=== PATIENT | male | born 1940 | race Caucasian/White ===

== ENCOUNTER 2017-09-25 21:23 | Inpatient (IN) | payer OTHER, MEDICARE ==
[~2017-09-25] VITALS: Ht 180.3 cm; Wt 123.4 kg
[2017-09-25 22:15] LABS: ABSOLUTE BASOPHIL COUNT 0 /CUMM (0.0-0.2); ABSOLUTE EOSINOPHIL COUNT 0 /CUMM (0.0-0.7); ABSOLUTE GRANULOCYTE CT 17.2 /CUMM (1.4-6.5); ABSOLUTE LYMPH COUNT 1.6 /CUMM (1.2-3.4); BASOPHIL % 0 % (0.0-2.0); EOSINOPHIL % 0 % (0-5); GRANULOCYTE % 86.9 % (42.2-75.2); HEMATOCRIT 48.1 % (42-52); MEAN CORPUSCULAR HGB 30.7 PG (27.0-31.0); MEAN CORPUSCULAR HGB CONC 33.4 G/DL (33.0-37.0); MEAN CORPUSCULAR VOLUME 91.9 FL (80.0-94.0); PLATELET COUNT 164 /CUMM (130-400); RBC DISTRIBUTION WIDTH 14.1 % (11.5-14.5); RED BLOOD CELL CT 5.24 /CUMM (4.70-6.10); WHITE BLOOD CELL COUNT 19.8 /CUMM (4.8-10.8)
--- NOTE | 2017-09-25 23:20 | ED GENERAL ADULT ---
See Addendum History of Present Illness General Chief Complaint: General Adult Stated Complaint: PT IS SAYS HIS DR SENT FOR BAD PAIN ,NOT EATING Source: patient, family, old records Exam Limitations: no limitations Vital Signs & Intake/Output Vital Signs & Intake/Output Vital Signs Date Time Temp Pulse Resp B/P B/P Pulse O2 O2 Flow FiO2 Mean Ox Delivery Rate 09/25 2303 134 99/65 09/25 2207 Room Air 09/25 2139 97.6 101 18 104/72 95 Room Air Allergies Coded Allergies: No Known Allergies (09/25/17) Triage Note: PT FROM HOME C/O PT INTRACTABLE BACK PAIN X2 MONTHS POST FALL OUT OF BED. PT SIB DR BASILIO FOR A DIRECT ADMIT. PT DENIES MEDICATING. PT IS HARD OF HEARING AND CURRENTLY DOES NOT HAVE HEARING AIDS, PT ASSISTED BY DAUGHTER. DURING TRIAGE PT STATES THAT PT HAS TO USE THE BATHROOM, PT IS INCONTINENT AND IS UNSTEADY INDEPEDENTLY PER PTS DAUGHTER. PT BROUGHT BACK TO [facility]. Triage Nurses Notes Reviewed? yes HPI: 77-year-old man with multiple medical problems sent in by his PCP for intractable back pain. Patient was reportedly in his normal state of health and independent in all ADLs/IADLs 8 weeks ago when he apparently "fell out of bed" and hurt his back. He was sent for a chest x-ray that apparently ruled out any rib fracture. Since this time patient has had significant decline in his ADLs/ IADLs. Patient lives with his son but is essentially on his own most the time. He has been incontinent of urine as he is unable to get out of bed to use the restroom. He has not eaten anything in the past 3 days due to being unable to get out of his bed. He has not had a bowel movement in that time either. His daughter contacted his PCP Johnna Bunch MD this afternoon whom recommended the patient come to the ED for evaluation. Of note patient is currently receiving treatment for bladder cancer from urologist Dr. Contreras of [place]. He reportedly has undergone 12/15 rounds of chemo. He apparently had an MRI scheduled last Monday of his bladder to assess the extent of his disease however was unable to attend due to tractable low back pain. He was reportedly prescribed antibiotics from his PCP for a "infection". He does not recall the name of the medication but states that he finished the course. Presently his major complaint is his low back pain. He otherwise denies any headache, fever, chills, vision changes, weight changes, chest pain, palpitations, heartburn, shortness breath, cough, nausea, vomiting, diarrhea, urinary symptoms other than incontinence. (Kristian Bass MD) Past History Travel History Traveled to [place] past 21 day No Medical History Any Pertinent Medical History? see below for history Cardiovascular: hypertension, hyperlipidemia Renal: nephrolithiasis, ENLARGED PROSTATE Musculoskeletal: PSORIASIS Endocrine: diabetes, obesity Surgical History Surgical History: cystoscopy Psychosocial History What is your primary language Chinese Tobacco Use: Quit >30 days ago ETOH Use: denies use Illicit Drug Use: denies illicit drug use Family History Hx Contributory? No (Kristian Bass MD) Review of Systems Review of Systems Constitutional: Reports: see HPI. (Kristian Bass MD) Physical Exam Physical Exam General Appearance: well developed/nourished, no apparent distress, alert, awake , comfortable Comments: General - well developed, obese elderly man in no acute distress HEENT - NCAT, PERRL, EOMI, anicteric sclera Neck- Supple, no JVD/HJR, no bruits, trachea midline, thyroid normal Cardio - S1, S2 w/o murmurs/gallops/rubs; irregularly irregular Resp -scant bibasilar crackles GI - Soft, nontender, nondistended, bowel sounds present Neuro - Awake and alert, CN II - XII grossly intact Extremities - No edema, pulses intact Skin-pale/diaphoretic, cool/clammy to touch Core Measures ACS in differential dx? No CVA/TIA Diagnosis: No Sepsis Present: Yes Sepsis Focused Exam Completed? Yes (Kristian Bass MD) Progress Differential Diagnoses I considered the following diagnoses in my evaluation of the patient: Disc herniation, osteoarthritis, degenerative joint disease, spinal cord compression, urinary tract infection, kidney infection Plan of Care: Orders Procedure Date/time Status Nothing by Mouth 09/26 B Active TROPONIN LEVEL 09/26 0100 Active LACTIC ACID 09/26 0100 Active LACTIC ACID 09/26 0100 Active EKG 09/26 0100 Active LACTIC ACID 09/26 0049 Active ED Holding Orders 09/26 2315 Active Admit to inpatient 09/26 2315 Active Vital Signs 09/26 2315 Active Intake & Output 09/26 2315 Active Code Status 09/26 2315 Active Patient Data 09/25 2309 Active Add-on Test (ER Only) 09/[address] CHEST WO IV CONTRAST 09/[address] ABD & PELVIS W/O IV CONTRAS 09/25 2241 Active BLOOD CULTURE 09/25 2225 Active Add-on Test (ER Only) 09/25 2217 Active EKG 09/25 2217 Active CULTURE,URINE 09/26 2203 Active TSH REFLEX 09/25 2199 Active MAGNESIUM 09/25 2199 Active CREATINE PHOSPHOKINASE 09/25 2199 Active B-TYPE NATRIURETIC PEP (BNP) 09/25 2199 Active URINALYSIS 09/25 2148 Complete TROPONIN LEVEL 09/25 2148 Active LACTIC ACID 09/25 2148 Active COMPREHENSIVE METABOLIC PANEL 09/25 2148 Active CBC WITHOUT DIFFERENTIAL 09/25 2148 Complete Current Medications Sig/Royce Start time Last Medication Dose Stop Time Status Admin Heparin Sodium/ 25,000 UNIT Q24H 09/25 2314 UNVr Dextrose (Heparin) Dextrose/Water 500 ML (D5W) Sodium Chloride 3,578.85 ML ONCE ONE 09/25 2299 UNir (Normal Saline 0.9%) 09/25 2300 Ceftriaxone Sodium 1,000 MG ONCE ONE 09/25 2244 UNVr (Rocephin) 09/25 2245 Laboratory Tests 09/25/172203: Urine Color YEL, Urine Clarity CLDY H, Urine pH 6.0, Ur Specific [place] 1.025, Urine Protein 100 H, Urine Ketones TRACE H, Urine Nitrite NEG, Urine Bilirubin NEG, Urine Urobilinogen 0.2, Ur Leukocyte Esterase SMALL H, Ur Microscopic SEDIMENT EXAMINED, Urine RBC FEW H, Urine WBC PACKD H, Ur Epithelial Cells RARE, Urine Bacteria MANY H, Urine Hemoglobin MOD H, Urine Glucose >=1000 H 09/25/172199: Anion Gap 17 H, Estimated GFR 53 L, BUN/Creatinine Ratio 24.6, Glucose 190 H, Lactic Acid 5.0 H, Calcium 9.4, Magnesium 1.7, Total Bilirubin 1.8 H, AST 40, ALT 32, Alkaline Phosphatase 127 H, Creatine Kinase 369 H, Troponin I 0.04, Lhd-T-Huawoavjyqm Pept 5330 H, Total Protein 7.7, Albumin 4.0, Globulin 3.7, Albumin/Globulin Ratio 1.1, TSH &T3 &Free T4 Intrp Pending, CBC w Diff MAN DIFF ORDERED, RBC 5.24, MCV 91.9, MCH 30.7, MCHC 33.4, RDW 14.1, MPV 9.0, Gran % 86.9 H, Lymphocytes % 7.9 L, Monocytes % 5.2, Eosinophils % 0, Basophils % 0, Absolute Granulocytes 17.2 H, Segmented Neutrophils 83 H, Band Neutrophils 3, Absolute Lymphocytes 1.6, Lymphocytes 5 L, Monocytes 9, Absolute Monocytes 1.0 H, Absolute Eosinophils 0, Absolute Basophils 0, Platelet Estimate VERIFIED BY SMEAR, Normocytic RBCs VERIFIED, Normochromic RBCs VERIFIED, Fld Total RBCs Counted 100 Microbiology 09/25 2257 BLOOD: Blood Culture - RECD 09/25 2254 BLOOD: Blood Culture - RECD 09/26 2203 URINE ROUT: Urine Culture - RECD Initial ED EKG: AFIB Comments: 77-year-old man with multiple medical problems sent in by his PCP for evaluation of intractable back pain. Patient has been essentially been bedbound over the past 8 weeks since he suffered a mechanical fall from his bed. For the past week or so he has been incontinent of urine as he cannot get up from bed and has not eaten any food in the past 72 hours or had any bowel movements. He did not take any of his medications today. Currently he is complaining of only his chronic back pain. Vital signs are significant for tachycardia. Physical examination demonstrates an elderly man in no acute distress with cool/clammy diaphoretic pale skin and an irregularly irregular heart rate and bibasilar crackles with a soft benign abdomen and a nonfocal neurologic examination. Significant labs include WBC 19.8 with left shift, creatinine 1.3, anion gap 17, lactic acid 5.0, magnesium 1.7, T bili 1.8, alk phos 127, CPK 369, troponin I 0.04, BNP 5300, TSH reflex pending. Urinalysis demonstrates small leukocyte esterase with packed WBC and many bacteria with moderate hemoglobin and glucose >1000. EKG demonstrates new onset atrial fibrillation with rapid ventricular response. Blood cultures 2 were obtained and patient received a dose of intravenous Rocephin. Normal saline is started per sepsis protocol. Heparin GGT and Cardizem GGT are to be started for his new onset atrial fibrillation. Clinically patient appears to have sepsis secondary to urinary tract infection with mild acute kidney injury. Patient is found to be in new onset atrial fibrillation which may have been precipitated by the sepsis of urologic origin. CHADsVASc score is elevated for which intravenous heparin is started. Patient's intractable back pain appears to be the etiology of his deconditioning and may have precipitated both the UTI/sepsis and new A. fib. Patient will require admission to the telemetry floor for telemetry monitoring, intravenous fluids/ antibiotics, rate control medications, anticoagulation, echocardiogram, cardiology consultation, and physical therapy evaluation. (Kristian Bass MD) Departure Departure Disposition: STILL A PATIENT Condition: Stable Clinical Impression Primary Impression: Sepsis Secondary Impressions: Acute kidney failure, Intractable basilar artery migraine , New onset atrial fibrillation, UTI (urinary tract infection) Referrals: Johnna Bunch MD (PCP/Family) Departure Forms: Customer Survey General Discharge Information Admission Note Spoke With: Kristian Randall MD Documentation of Exam: Documentation of any treatments & extenuating circumstances including Concerns Regarding Discharge (functional status, medication knowledge or non-compliance, living conditions, etc.) that warrant an admission rather than observation: * Telemetry monitoring * Intravenous fluids/antibiotics/anticoagulation * Rate control medications * Cardiology consultation * Echocardiogram * PT evaluation (Kristian Bass MD) Resident Co-Sign Statement Statement: ED Attending supervision documentation- [X] I saw and evaluated the patient. I have also reviewed all the pertinent lab results and diagnostic results. I agree with the findings and the plan of care as documented in the Resident's documentation. [] I have reviewed the ED Record and agree with the Resident's documentation. [] Additions or exceptions (if any) to the Resident's note and plan are summarized below: [] (Valeriy Faust DO) Critical Care Note Critical Care Note Critical Care Time: 30-74 min (Kristian Bass MD)
[2017-09-25 23:47] LABS: PTT 37 SEC (25-37)
--- NOTE | 2017-09-25 23:50 | CT SCAN REPORT ---
EXAMINATION: CT CHEST, ABDOMEN AND PELVIS WITHOUT CONTRAST CLINICAL INFORMATION: Upper respiratory infection. History of bladder cancer. Nephrolithiasis. Low back pain. Unable to ambulate. Abnormal chest sounds. Tachycardia. Pleural effusion. COMPARISON: None. TECHNIQUE: Multidetector volumetric CT imaging of the chest, abdomen and pelvis was obtained without oral or intravenous contrast. Coronal and sagittal reformatted images are performed at the CT scanner. DLP: 1516.21 mGy-cm. FINDINGS: CT CHEST: Lungs: There is multifocal groundglass and reticular opacities involving the left lower lobe. This may be acute infiltrate or chronic changes. There is no pleural effusion. The central bronchi are open. There is no bronchiectasis. Mediastinum: There is no mediastinal mass. There is no bulky lymphadenopathy. There is vascular wall calcifications of coronary arteries and of the thoracic aorta. There is no pericardial effusion. Pleura: There is no pleural effusion. No pleural mass or thickening. Axilla: No lymphadenopathy. CT ABDOMEN AND PELVIS: LIVER, GALLBLADDER, AND BILIARY TREE: The liver is normal in size, shape, and attenuation. No focal hepatic lesion or biliary ductal dilatation is present. The gallbladder is unremarkable with no evidence of radiopaque gallstones, gallbladder wall thickening, or obvious pericholecystic inflammatory changes. PANCREAS: There is atrophy of the pancreas. No acute change. No inflammation. SPLEEN: Spleen normal in size and contour. No focal lesion. ADRENAL GLANDS: Adrenal glands are normal in size. No focal mass. KIDNEYS AND URETERS: Left kidney: There is a cyst at the midpole of left kidney measuring 5.5 cm. Is a pedunculated cyst at the lower pole left kidney measuring 13.7 cm. No stone or hydronephrosis of left kidney or ureter. Right kidney: There is a nonobstructive 8 mm stone at the mid pole the right kidney. There is mild hydronephrosis of left kidney with edema around the kidney and distention of renal pelvis and calyces. There is mild distention of the right ureter to the ureterovesical junction. There is no stone however in the ureter or the bladder. Question of there has been a recently passed stone therefore. BLADDER: Unremarkable. GASTROINTESTINAL TRACT: There is diverticulosis of the colon. No diverticulitis. No acute change of the bowel. No bowel obstruction. No bowel wall thickening or edema. Moderate volume of stool throughout the colon. The appendix is normal. The small bowel loops are unremarkable. MESENTERY: No focal inflammation. No free fluid. No free air. ABDOMINAL WALL: No significant hernia is appreciated. LYMPH NODES: Normal. VASCULAR: There is atherosclerotic vascular calcifications of aorta and iliac arteries. PELVIC VISCERA: There are coarse calcifications within the prostate. Prostate measures 4.8 cm transverse. OSSEOUS STRUCTURES: There is multilevel degenerative spondylosis spine with endplate spurring and facet joint arthrosis. IMPRESSION: 1. Mild hydronephrosis of right kidney with mild right hydroureter but no stone in the ureter or the bladder. There is a nonobstructive 8 mm stone in the right kidney. 2. Diverticulosis of the colon. No acute change of the bowel. 3. Multifocal reticular and groundglass opacities in left lower lobe. This could be acute infiltrate or chronic changes of the left lower lobe.
--- NOTE | 2017-09-26 00:08 | History & Physical ---
Madi Beckford 09/26/17 0007: General Information and HPI MD Statement: I have seen and personally examined CAR MOTA and documented this H&P. The patient is a 77 year old M who presented with a patient stated chief complaint of URINARY PROBLEMS AND 8 WEEKS OF INTRACTABLE BACK PAIN. Source of Information: patient, family Exam Limitations: PATIENT SOMNOLENT History of Present Illness: 77 year old male with past medical history of hypertension, hyperlipidemia, kidney stones, benign prostatic hyperplasia, hx of UTI, psoriasis, obesity, diabetes, bladder cancer having received 12 out of 15 chemotherapy treatments, obstructive sleep apnea no longer treated with CPAP, who presents with urinary urgency/incontinence and intractable back pain. Patient endorses falling out of bed approximately 8 weeks ago, after which he has had intractable back pain in the lumbar region. He was prescribed rest but no medications, and his condition did not improve. Yesterday, the patient was found in the evening by his daughter with urinary incontinence. He also endorses fever and chills during this same time. He was brought to the ED by his daughter. In the ED, the patient was found to have new onset Afib 80s-140s range, a unremarkable CXR limited by low lung volumes, mild hydronephrosis of right kidney with right ureter but no stone in the ureter or bladder on CT abdomen and pelvis. Patient was admitted to telemetry for new onset A. fib with concerns for UTI/sepsis. Allergies/Medications Allergies: Coded Allergies: No Known Allergies (09/25/17) Compliance With Home Meds: GOOD Past History Travel History Traveled to [place] past 21 day No Medical History Cardiovascular: hypertension, hyperlipidemia Renal: nephrolithiasis, ENLARGED PROSTATE Musculoskeletal: PSORIASIS Endocrine: diabetes, obesity Surgical History Surgical History: cystoscopy Past Family/Social History Psychosocial History Where do you live? Home Who Do You Live With? child Primary Language: Cameroonian Smoking Status: Former Smoker ETOH Use: denies use Illicit Drug Use: denies illicit drug use Review of Systems Review of Systems Constitutional: Reports: chills, diaphoresis, fever, weakness. EENTM: Reports: no symptoms. Cardiovascular: Denies: chest pain, orthopena, syncope. Respiratory: Denies: cough, hemoptysis, short of breath, wheezing. GI: Reports: no symptoms. Genitourinary: Reports: see HPI, frequency, urgency. Denies: dysuria. Musculoskeletal: Reports: back pain. Skin: Reports: no symptoms. All Other Systems: Reviewed and Negative Exam & Diagnostic Data Last 24 Hrs of Vital Signs/I&O Vital Signs Date Time Temp Pulse Resp B/P B/P Pulse O2 O2 Flow FiO2 Mean Ox Delivery Rate 09/26 0414 100.5 120 22 106/60 96 Nasal 4.0L Cannula 09/26 0413 100.5 09/26 0337 100.3 09/26 0259 97 Room Air 4.0L 09/26 0246 98.3 113 22 118/58 97 Nasal 4.0L Cannula 09/26 0217 100 Non 100% ReBreather 09/26 0203 120 24 132/64 100 Part 100% ReBreather 09/26 0200 98.1 155 30 140/80 09/26 0148 98.1 155 30 140/80 92 Nasal 3.0L Cannula 09/26 0051 119 110/70 09/26 0016 127 104/62 09/25 2351 92/52 09/25 2303 134 99/65 09/25 2207 Room Air 09/25 2139 97.6 101 18 104/72 95 Room Air Intake & Output 09/26 0800 09/26 0000 09/25 1600 Intake Total 3600 Output Total 400 100 Balance -400 3500 Intake, IV 3600 Intake, Oral Output, Urine 400 100 Patient 263 lb 263 lb Weight Weight Reported by Patient Reported by Patient Measurement Method Physical Exam General Appearance Oriented X3, Cooperative, Mild Distress, somnolent Skin No Rashes, No Breakdown, No Significant Lesion Skin Temp/Moisture Exam: Warm/Dry Sepsis Skin Exam (color): Normal for Ethnicity HEENT Atraumatic, PERRLA, EOMI, Mucous Membr. moist/pink Neck Supple, No JVD, No thryomegaly Cardiovascular Regular Rate, Normal S1, Normal S2, No Murmurs, Gallops, Rubs Lungs Clear to Auscultation, Normal Air Movement Abdomen Soft, No Tenderness, No Hepatospenomegaly, obese Neurological Normal Speech, Strength at 5/5 X4 Ext, Normal Tone, Sensation Intact Extremities No Clubbing, No Cyanosis, No Edema Vascular Normal Pulses, Pulses Symmetrical Sepsis Peripheral Pulse Location: Dorsalis Pedis Sepsis Peripheral Pulse Exam: Normal Sepsis Cap Refill Exam: <2 Sec Last 24 Hrs of Labs/Mauricio: Laboratory Tests 09/26/17 0120: Lactic Acid 3.7 H, Troponin I 0.04 09/26/17 0049: Lactic Acid Cancelled 09/25/179: APTT Cancelled 09/25/172203: Urine Color YEL, Urine Clarity CLDY H, Urine pH 6.0, Ur Specific [place] 1.025, Urine Protein 100 H, Urine Ketones TRACE H, Urine Nitrite NEG, Urine Bilirubin NEG, Urine Urobilinogen 0.2, Ur Leukocyte Esterase SMALL H, Ur Microscopic SEDIMENT EXAMINED, Urine RBC FEW H, Urine WBC PACKD H, Ur Epithelial Cells RARE, Urine Bacteria MANY H, Urine Hemoglobin MOD H, Urine Glucose >=1000 H 09/25/172199: Anion Gap 17 H, Estimated GFR 53 L, BUN/Creatinine Ratio 24.6, Glucose 190 H, Lactic Acid 5.0 H, Calcium 9.4, Magnesium 1.7, Total Bilirubin 1.8 H, AST 40, ALT 32, Alkaline Phosphatase 127 H, Creatine Kinase 369 H, Troponin I 0.04, Zzf-L-Cntgzhwifbb Pept 5330 H, Total Protein 7.7, Albumin 4.0, Globulin 3.7, Albumin/Globulin Ratio 1.1, TSH &T3 &Free T4 Intrp 2.060, APTT 37, CBC w Diff MAN DIFF ORDERED, RBC 5.24, MCV 91.9, MCH 30.7, MCHC 33.4, RDW 14.1, MPV 9.0, Gran % 86.9 H, Lymphocytes % 7.9 L, Monocytes % 5.2, Eosinophils % 0, Basophils % 0, Absolute Granulocytes 17.2 H, Segmented Neutrophils 83 H, Band Neutrophils 3, Absolute Lymphocytes 1.6, Lymphocytes 5 L, Monocytes 9, Absolute Monocytes 1.0 H, Absolute Eosinophils 0, Absolute Basophils 0, Platelet Estimate VERIFIED BY SMEAR, Normocytic RBCs VERIFIED, Normochromic RBCs VERIFIED , Fld Total RBCs Counted 100 Microbiology 09/268 URINE ROUT: Urine Culture - RECD 09/25 2257 BLOOD: Blood Culture - RECD 09/25 2254 BLOOD: Blood Culture - RECD 09/26 2203 URINE ROUT: Urine Culture - RECD Diagnostic Data EKG Results Afib CXR Results Limited exam due to low long volumes, but unremarkable Other Results CT ABD/Pelv - 1. Mild hydronephrosis of right kidney with mild right hydroureter but no stone in the ureter or the bladder. There is a nonobstructive 8 mm stone in the right kidney. 2. Diverticulosis of the colon. No acute change of the bowel. 3. Multifocal reticular and groundglass opacities in left lower lobe. This could be acute infiltrate or chronic changes of the left lower lobe. Assessment/Plan Assessment: 77 yo M with history of bladder cancer s/p immunotherapy, BPH, HTN, HLD, DM, psoriasis, obesity, presented with intractable back pain and not able to get out of bed for one week. Problem list/plan: UTI/sepsis -Pt has received 3L of fluid in the ED -Started and will continue ceftriaxone -Follow up urine and blood cultures -Continue tamulosin at home dose -Urology consult New onset atrial fibrillation -Admit to telemetry -IV heparin for antigoagulation -Diltiazem drip for rate control -VQ scan to rule out PE -Echocardiogram -Cardiology consult in the AM DVT prophylaxis: Heparin drip Consistent carbohydrate 1 Patient is full code As Ranked By This Provider Problem List: 1. New onset atrial fibrillation 2. UTI (urinary tract infection) 3. Hydronephrosis Core Measures/Misc (10/23) Acute Coronary Syndrome ACS Diagnosis: No Congestive Heart Failure Congestive Heart Failure Diagnosis No Cerebrovascular Accident CVA/TIA Diagnosis: No VTE (View Protocol) VTE Risk Factors Obesity No Mechanical VTE Prophylaxis d/t N/A MechProphylax Ordered No VTE Pharm Prophylaxis d/t NA PharmProphylax ordered Sepsis (View protocol) Sepsis Present: Yes If YES complete Sepsis Event Note If YES complete Sepsis Event Note Kristian Randall MD 09/26/17 0319: Core Measures/Misc (10/23) Sepsis (View protocol) If YES complete Sepsis Event Note If YES complete Sepsis Event Note Attending MD Review Statement Attending Statement Attending MD Statement: examined this patient, discuss w/resident/PA/EDM OPERATOR, agreed w/resident/PA/EDM OPERATOR Attending Assessment/Plan: Patient is seen and examined independently by me. Care plan discussed with medical front desk coordinator and resident. I agree with the physical exam findings and plan of care as outlined above with the following changes and additions. 77 yo M with history of bladder cancer s/p immunotherapy, BPH, HTN, HLD, DM, psoriasis, obesity, presented with intractable back pain and not able to get out of bed for one week. Patient fell when he rolled out of bed 2 months ago and injury his bed. He had X ray which was told to have no acute fractures. For the past week, he has worsening of back pain and unable to get out of bed. As per daughter, he was not able to get to bathroom in time and has leaked urine. For the past 2 days, he has fever, chills and decreased appetite. He denies chest pain, palpitation, SOB, productive cough, abdominal pain, nausea, vomiting, diarrhea or dysuria. In the ED, WBC 19.8. Lactic acid 5.0 then 3.7. UA shows many WBC and bacteria. BUN/Cr 32/1.3. K 3.8. Troponin 0.04. CK 369. BNP 5330. TSH 2.06. CT chest/abd/pelvis (non contrast) show multifocal reticular/groundglass opacities in left lower lobe. There is mild right hydronephrosis and mild right hydroureter with no stone in the ureter or the bladder. EKG shows A fib with S in I, Q in III and inverted T in III. Patient is admitted to [facility] for new A fib, CHF, sepsis with UTI, possible DOTTIE, mild right hydronephrosis and back pain. Cardiac monitoring. Check serial cardiac enzymes/EKG. Start IV heparin. Cardizem for rate control. Echocardiogram. EKG is concerning for PE and will get V/Q scan. Cardiology consult. Monitor I/O and respiratory status. Lasix prn. Follow BMP. Check cultures. Start ceftriaxone. Hold metformin due to elevated lactate. Check fingerstick with sliding scale coverage. Patient has mild right hydronephrosis on CT (? passed stone) but we are not sure of his baseline Cr, so possible DOTTIE. Given that he has history of bladder cancer , will obtain Urology consult. Pain control for his back pain. Consider MRI of L-S spine when he is more stable. MD KHLOE HealyP Khari DIXON,Isauro 09/26/17 0582: General Information and HPI MD Statement: I have seen and personally examined CAR MOTA and documented this H&P. The patient is a 77 year old M who presented with a patient stated chief complaint of back pain, urinary frequency, urgency, and chills. Source of Information: patient, family Exam Limitations: no limitations History of Present Illness: 77 year old male with PMH significant for HTN, HLD, morbid obesity, VERONA not on CPAP, DM, psoriasis, nephrolithiasis with h/o lithotripsies, BPH, h/o UTI, and bladder cancer s/p TURBT and receiving intravesicular immunotherapy BCG? managed by Dr. Contreras in [place], completed one cycle in April with a reportedly benign repeat cystoscopy but pending another round of therapy presented with eight weeks of back pain, immobility, and worsening urinary urgency, frequency, and incontinence. He reportedly fell out of bed eight weeks ago and has had back pain since then. It was being managed conservatively by his PCP but has become progressively worse with very limited physical activity. He reportedly had some negative x-rays but missed his MRI appointment because of pain and immobility. He lives with his son at home. Over the last few days he has been incontinent of urine because is unable to mobilize to the bathroom in time. He has not been eating but reports adequate fluid intake. His primary care Dr Bunch advised him to come to the ED for evaluation. His back pain, urinary frequency, and urgency have all been worsening over the past several days. He also reports subjective fevers, chills, and sweats for the past two nights. He denies any dysuria but says he didn't have dysuria with his prior UTIs. In the ED, he was found to be in rapid atrial fibrillation, with a leukocytosis, lactic acidemia, and elevated creatinine, and urinalysis suggestive of infection. CT abdomen pelvis showed a nonobstructing right renal stone and hydronephrosis and hydroureter on the right side. The patient was admitted to telemetry for atrial fibrillation with rapid ventricular response in the setting of sepsis of urological origin. Allergies/Medications Home Med list Amlodipine Besylate (Norvasc) 5 MG TABLET 1 TAB PO DAILY HTN (Reported) Aspirin (Aspirin*) 81 MG TAB.CHEW 1 TAB PO DAILY HEART (Reported) Bisoprolol Fumarate/Hctz (Bisoprolol-Hctz 10-6.25 MG Tab) 10 MG-6.25 MG TABLET 1 TAB PO DAILY HTN (Reported) Calcipotriene 0.005 % SOLUTION 1 KAYCEE TOP DAILY PRN PSORIASIS (Reported) Clobetasol Propionate 0.05 % OINT...G. 1 KAYCEE TOP BID PRN PSORIASIS (Reported) apply to affected area(s) Duloxetine HCl (Cymbalta) 60 MG CAPSULE.DR 1 CAP PO DAILY NEUROPATHY ( Reported) Insulin Degludec (Tresiba Flextouch U-100) 100 UNIT/ML (3 ML) INSULN.PEN 26 UNITS SC DAILY DM (Reported) Irbesartan 300 MG TABLET 1 TAB PO DAILY HTN (Reported) Metformin HCl (Glucophage) 1,000 MG TABLET 1 TAB PO BID DM (Reported) Rosuvastatin Calcium (Crestor) 40 MG TABLET 1 TAB PO DAILY CAD (Reported) Tamsulosin HCl (Flomax) 0.4 MG CAP.ER.24H 1 CAP PO DAILY BPH (Reported) Triamcinolone Acetonide 0.025 % CREAM..G. 1 KAYCEE TOP BID PRN PSORIASIS ( Reported) apply to affected area(s) Compliance With Home Meds: GOOD Past History Travel History Traveled to [place] past 21 day No Medical History Neurological: NONE EENT: NONE Cardiovascular: hypertension, hyperlipidemia Respiratory: NONE Gastrointestinal: NONE Hepatic: NONE Renal: nephrolithiasis Musculoskeletal: degen joint disease, PSORIASIS Psychiatric: NONE Endocrine: diabetes Blood Disorders: NONE Cancer(s): bladder cancer Surgical History Surgical History: cystoscopy Past Family/Social History Family History Relations & Conditions if any Relation not specified for: *No pertinent family history Psychosocial History Where do you live? Home Who Do You Live With? child Primary Language: Cameroonian Smoking Status: Former Smoker ETOH Use: denies use Illicit Drug Use: denies illicit drug use Functional Ability ADLs Independent: dressing, eating, toileting, bathing. Ambulation: independent Review of Systems Review of Systems Constitutional: Denies: chills, diaphoresis, fever, malaise. EENTM: Reports: no symptoms. Cardiovascular: Denies: chest pain, orthopena, palpitations, peripheral edema, syncope. Respiratory: Denies: cough, short of breath. GI: Reports: abdominal pain. Denies: diarrhea, nausea, vomiting. Genitourinary: Reports: frequency, urgency. Musculoskeletal: Reports: back pain. Skin: Reports: no symptoms. Neurological/Psychological: Reports: no symptoms. Hematologic/Endocrine: Reports: no symptoms. Immunologic/Allergic: Reports: no symptoms. All Other Systems: Reviewed and Negative Exam & Diagnostic Data Last 24 Hrs of Vital Signs/I&O Vital Signs Date Time Temp Pulse Resp B/P B/P Pulse O2 O2 Flow FiO2 Mean Ox Delivery Rate 09/26 0414 100.5 120 22 106/60 96 Nasal 4.0L Cannula 09/26 0413 100.5 09/26 0337 100.3 09/26 0259 97 Room Air 4.0L 09/26 0246 98.3 113 22 118/58 97 Nasal 4.0L Cannula 09/26 0217 100 Non 100% ReBreather 09/26 0203 120 24 132/64 100 Part 100% ReBreather 09/26 0200 98.1 155 30 140/80 09/26 0148 98.1 155 30 140/80 92 Nasal 3.0L Cannula 09/26 0051 119 110/70 09/26 0016 127 104/62 09/25 2351 92/52 09/25 2303 134 99/65 09/25 2207 Room Air 09/25 2139 97.6 101 18 104/72 95 Room Air Intake & Output 09/26 0800 09/26 0000 09/25 1600 Intake Total 3600 Output Total 400 100 Balance -400 3500 Intake, IV 3600 Intake, Oral Output, Urine 400 100 Patient 119.295 kg 119.295 kg Weight Weight Reported by Patient Reported by Patient Measurement Method Physical Exam General Appearance Alert, Oriented X3, Cooperative, somnolent Skin No Rashes, No Breakdown, No Significant Lesion Skin Temp/Moisture Exam: Hot/Diaphoretic Sepsis Skin Exam (color): Mottled HEENT Atraumatic, PERRLA, EOMI Neck Supple, No JVD Cardiovascular tachycardic, irregular rhythm Lungs Clear to Auscultation, Normal Air Movement Abdomen Normal Bowel Sounds, Soft, No Tenderness, No Hepatospenomegaly, obese Neurological Normal Gait, Normal Speech, Strength at 5/5 X4 Ext, Normal Tone, Sensation Intact Extremities No Clubbing, No Cyanosis, No Edema, Normal Pulses Sepsis Peripheral Pulse Location: Radial Sepsis Peripheral Pulse Exam: Normal Sepsis Cap Refill Exam: <2 Sec Last 24 Hrs of Labs/Mauricio: Laboratory Tests 09/26/17 0120: Lactic Acid 3.7 H, Troponin I 0.04 09/26/17 0049: Lactic Acid Cancelled 09/25/17 2329: APTT Cancelled 09/25/17 2204: Urine Color YEL, Urine Clarity CLDY H, Urine pH 6.0, Ur Specific [place] 1.025, Urine Protein 100 H, Urine Ketones TRACE H, Urine Nitrite NEG, Urine Bilirubin NEG, Urine Urobilinogen 0.2, Ur Leukocyte Esterase SMALL H, Ur Microscopic SEDIMENT EXAMINED, Urine RBC FEW H, Urine WBC PACKD H, Ur Epithelial Cells RARE, Urine Bacteria MANY H, Urine Hemoglobin MOD H, Urine Glucose >=1000 H 09/25/17 2200: Anion Gap 17 H, Estimated GFR 53 L, BUN/Creatinine Ratio 24.6, Glucose 190 H, Lactic Acid 5.0 H, Calcium 9.4, Magnesium 1.7, Total Bilirubin 1.8 H, AST 40, ALT 32, Alkaline Phosphatase 127 H, Creatine Kinase 369 H, Troponin I 0.04, Qzf-J-Afcczxsscdc Pept 5330 H, Total Protein 7.7, Albumin 4.0, Globulin 3.7, Albumin/Globulin Ratio 1.1, TSH &T3 &Free T4 Intrp 2.060, APTT 37, CBC w Diff MAN DIFF ORDERED, RBC 5.24, MCV 91.9, MCH 30.7, MCHC 33.4, RDW 14.1, MPV 9.0, Gran % 86.9 H, Lymphocytes % 7.9 L, Monocytes % 5.2, Eosinophils % 0, Basophils % 0, Absolute Granulocytes 17.2 H, Segmented Neutrophils 83 H, Band Neutrophils 3, Absolute Lymphocytes 1.6, Lymphocytes 5 L, Monocytes 9, Absolute Monocytes 1.0 H, Absolute Eosinophils 0, Absolute Basophils 0, Platelet Estimate VERIFIED BY SMEAR, Normocytic RBCs VERIFIED, Normochromic RBCs VERIFIED , Fld Total RBCs Counted 100 Microbiology 09/26 0208 URINE ROUT: Urine Culture - RECD 09/25 2257 BLOOD: Blood Culture - RECD 09/25 2254 BLOOD: Blood Culture - RECD 09/26 2203 URINE ROUT: Urine Culture - RECD Diagnostic Data EKG Results atrial fibrillation HR 120-150, no ischemic changes CXR Results CT Chest abdomen pelvis IMPRESSION: 1. Mild hydronephrosis of right kidney with mild right hydroureter but no stone in the ureter or the bladder. There is a nonobstructive 8 mm stone in the right kidney. 2. Diverticulosis of the colon. No acute change of the bowel. 3. Multifocal reticular and groundglass opacities in left lower lobe. This could be acute infiltrate or chronic changes of the left lower lobe. Assessment/Plan Assessment: 77 year old male with PMH significant for HTN, HLD, morbid obesity, VERONA not on CPAP, DM, psoriasis, nephrolithiasis with h/o lithotripsies, BPH, h/o UTI, and bladder cancer s/p TURBT and receiving intravesicular immunotherapy BCG? managed by Dr. Contreras in [place], completed one cycle in April with a reportedly benign repeat cystoscopy but pending another round of therapy presented with eight weeks of back pain, immobility, and worsening urinary urgency, frequency, and incontinence. Sepsis of urological origin: Fever, tachycardia, leukocytosis, lactic acidemia, elevated creatinine, and UA c/w UTI CT shows hydronephrosis/ureter on the right, possible pyelonephritis Fluid resuscitated with 30cc/kg NS bolus Lactic acidemia trending down after fluid resuscitation, trend to normal Ceftriaxone 1g IV given, reorder for future doses Urology consulted, may need cystoscopy/stent placement Patient spiked a fever to 100.5, given tylenol Follow up blood and urine cultures Atrial fibrillation with rapid ventricular response: Heparin gtt for anticoagulation Diltiazem gtt for rate control Cardiology consultation Check serial troponins and EKGs Patient decompensated with fluid resuscitation and rapid afib, hypoxemia, tachypnea concerning for flash pulmonary edema, also possible pulmonary embolism Given 20mg IV lasix x 1 with good urine output, repeat cxr unrevealing, increased fiO2 req Consider V-Q scan given elevated creatinine, although patient is on iv heparin gtt Patient is on aspirin, statin, beta lory, unknown cardiac history 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 Harris? Attempt to obtain records from outpatient whan[employer] support worker Order echocardiogram Check TSHR Check serial troponins and EKGs for myocardial ischemia Acute kidney injury: Creatinine elevated to 1.3, unknown baseline May be prerenal from poor intake, but also post renal with hydronephrosis on CT Murphy catheter placed Strict I/O's Patient was given 20mg IV lasix for respiratory distress Hold ARB and thiazide diuretics Trend renal function Avoid nephrotoxins HTN Blood pressures are borderline right now with DOTTIE, on cardizem gtt for rate control of afib Hold other antihypertensives at this time Low dose beta lory and ARB should be restarted before amlodipine HLD Continue statin DM Accuchecks TIDAC Novolog sliding scale insulin Hold metformin, may contribute to lactic acidemia Back pain: No neurological deficit, suspect incontinence related to UTI rather than cord dysfunction Start analgesics as required to manage back pain Consider pursuing MRI as an inpatient VERONA: Nocturnal CPAP, unknown settings Can resume psoriasis topical treatments prn Diabetic diet DVT ppx-heparin gtt Full code As Ranked By This Provider Problem List: 1. Sepsis 2. Acute kidney failure 3. Hydronephrosis 4. New onset atrial fibrillation 5. Back pain Core Measures/Misc (10/23) Acute Coronary Syndrome ACS Diagnosis: No Congestive Heart Failure Congestive Heart Failure Diagnosis No Cerebrovascular Accident CVA/TIA Diagnosis: No VTE (View Protocol) VTE Risk Factors Age>40 No Mechanical VTE Prophylaxis d/t N/A MechProphylax Ordered No VTE Pharm Prophylaxis d/t NA PharmProphylax ordered Sepsis (View protocol) Sepsis Present: Yes If YES complete Sepsis Event Note If YES complete Sepsis Event Note
--- NOTE | 2017-09-26 02:30 | RADIOLOGY REPORT ---
EXAMINATION: CHEST 1 VIEW CLINICAL INFORMATION: Tachypnea. Hypoxia. COMPARISON: June 15, 2017. TECHNIQUE: An AP view of the chest is provided. FINDINGS: The cardiac silhouette is prominent, though stable. The mediastinal and hilar contours are unremarkable. There are neither pleural effusions nor pneumothoraces. Evaluation of the lungs is limited due to low lung volumes, though there are no consolidations. The osseous structures are unremarkable. IMPRESSION: Limited examination due to low lung volumes. No consolidations.
[2017-09-26] MEDS ORDERED: FLOMAX0.4 M1 PO (04:50)
[2017-09-26] MEDS ORDERED: BISOPROLOL-HCT1 EAC2 PO (04:50)
[2017-09-26] MEDS ORDERED: IRBESARTAN300 M1 PO (04:50)
[2017-09-26] MEDS ORDERED: ASPIRIN81 M4 PO (04:51)
[2017-09-26] MEDS ORDERED: GLUCOPHAGE1000 M1 PO (04:51)
[2017-09-26] MEDS ORDERED: NORVASC5 M1 PO (04:51)
[2017-09-26] MEDS ORDERED: CYMBALTA60 M1 PO (04:52)
[2017-09-26] MEDS ORDERED: TRESIBA FL100 UNIT/1 SC (04:52)
[2017-09-26] MEDS ORDERED: CRESTOR40 M2 PO (04:52)
[2017-09-26] MEDS ORDERED: TRIAMCINOLONE A15 GM TOP (05:00)
[2017-09-26] MEDS ORDERED: CLOBETASOL PROP15 G1 TOP (05:01)
[2017-09-26] MEDS ORDERED: CALCIPOTRIENE60 ML TOP (05:02)
[2017-09-26 06:29] LABS: ABSOLUTE BASOPHIL COUNT 0 /CUMM (0.0-0.2); ABSOLUTE EOSINOPHIL COUNT 0 /CUMM (0.0-0.7); ABSOLUTE LYMPH COUNT 0.6 /CUMM (1.2-3.4); PLATELET COUNT 119 /CUMM (130-400)
[2017-09-26 06:36] LABS: PTT 56 SEC (25-37)
[2017-09-26 06:57] LABS: ABSOLUTE GRANULOCYTE CT 14.4 /CUMM (1.4-6.5); ABSOLUTE MONOCYTE COUNT 0.5 /CUMM (0.10-0.60); BASOPHIL % 0 % (0.0-2.0); EOSINOPHIL % 0.1 % (0-5); GRANULOCYTE % 92.8 % (42.2-75.2); MEAN CORPUSCULAR HGB 30.9 PG (27.0-31.0); MEAN CORPUSCULAR HGB CONC 33.7 G/DL (33.0-37.0); MEAN CORPUSCULAR VOLUME 91.7 FL (80.0-94.0); WHITE BLOOD CELL COUNT 15.6 /CUMM (4.8-10.8)
[2017-09-26 06:59] LABS: HEMATOCRIT 42.2 % (42-52)
--- NOTE | 2017-09-26 08:01 | Cons- Urology ---
General Information and HPI Consulting Request Date of Consult: 09/26/17 Requested By: Kristian Randall MD Reason for Consult: ARF. hydronephrosis. suspected UTI-sepsis Source of Information: patient, old records Exam Limitations: no limitations History of Present Illness: 77 year old male with past medical history of hypertension, hyperlipidemia, kidney stones, benign prostatic hyperplasia, hx of UTI, psoriasis, obesity, diabetes, bladder cancer having received 12 out of 15 chemotherapy treatments, obstructive sleep apnea no longer treated with CPAP, who presents with urinary urgency/incontinence and intractable back pain. Patient endorses falling out of bed approximately 8 weeks ago, after which he has had intractable back pain in the lumbar region. He was prescribed rest but no medications, and his condition did not improve. Yesterday, the patient was found in the evening by his daughter with urinary incontinence. He also endorses fever and chills during this same time. He was brought to the ED by his daughter. In the ED, the patient was found to have new onset Afib 80s-140s range, a unremarkable CXR limited by low lung volumes, mild hydronephrosis of right kidney with right ureter but no stone in the ureter or bladder on CT abdomen and pelvis. Patient was admitted to telemetry for new onset A. fib with concerns for UTI/sepsis. Allergies/Medications Allergies: Coded Allergies: No Known Allergies (09/25/17) Home Med List: Amlodipine Besylate (Norvasc) 5 MG TABLET 1 TAB PO DAILY HTN (Reported) Aspirin (Aspirin*) 81 MG TAB.CHEW 1 TAB PO DAILY HEART (Reported) Bisoprolol Fumarate/Hctz (Bisoprolol-Hctz 10-6.25 MG Tab) 10 MG-6.25 MG TABLET 1 TAB PO DAILY HTN (Reported) Calcipotriene 0.005 % SOLUTION 1 KAYCEE TOP DAILY PRN PSORIASIS (Reported) Clobetasol Propionate 0.05 % OINT...G. 1 KAYCEE TOP BID PRN PSORIASIS (Reported) apply to affected area(s) Duloxetine HCl (Cymbalta) 60 MG CAPSULE.DR 1 CAP PO DAILY NEUROPATHY ( Reported) Insulin Degludec (Tresiba Flextouch U-100) 100 UNIT/ML (3 ML) INSULN.PEN 26 UNITS SC DAILY DM (Reported) Irbesartan 300 MG TABLET 1 TAB PO DAILY HTN (Reported) Metformin HCl (Glucophage) 1,000 MG TABLET 1 TAB PO BID DM (Reported) Rosuvastatin Calcium (Crestor) 40 MG TABLET 1 TAB PO DAILY CAD (Reported) Tamsulosin HCl (Flomax) 0.4 MG CAP.ER.24H 1 CAP PO DAILY BPH (Reported) Triamcinolone Acetonide 0.025 % CREAM..G. 1 KAYCEE TOP BID PRN PSORIASIS ( Reported) apply to affected area(s) Current Medications: Current Medications Sig/Royce Start time Last Medication Dose Route Stop Time Status Admin Acetaminophen 650 MG ONCE ONE 09/26 0330 DC 09/26 PO 09/26 033 0337 Acetaminophen 0 .STK-MED ONE 09/26 033 DC PO Aspirin 81 MG DAILY 09/26 899 AC PO Ceftriaxone Sodium 0 .STK-MED ONE 09/252 DC .ROUTE Ceftriaxone Sodium 1,000 MG ONCE ONE 09/25 2245 DC 09/25 IV 09/25 224 2328 Diltiazem HCl 125 MG Q24H 09/26 0315 AC 09/26 Dextrose/Water 100 ML IV 0319 Diltiazem HCl 0 .STK-MED ONE 09/26 0034 DC .ROUTE Diltiazem HCl 0 .STK-MED ONE 09/26 0033 DC IV Diltiazem HCl 10 MG ONCE ONE 09/25 2345 DC 09/26 IV 09/25 2346 0200 Diltiazem HCl 125 MG Q24H 09/25 2345 DC Sodium Chloride 100 ML IV Duloxetine HCl 60 MG DAILY 09/26 899 AC PO Furosemide 20 MG ONCE ONE 09/26 0215 DC 09/26 IV 09/26 0216 0200 Furosemide 0 .STK-MED ONE 09/26 0153 DC IV Heparin Sodium/ 25,000 UNIT Q24H 09/25 2315 AC 09/26 Dextrose IV 0001 Dextrose/Water 500 ML Insulin Aspart 0 TIDAC 09/26 08 AC SC Magnesium Sulfate 1 GM Q2H 09/26 0730 AC Dextrose/Water 100 ML IV 09/26 1129 Melatonin 0 .STK-MED ONE 09/26 0323 DC PO Melatonin 5 MG ONCE ONE 09/26 0315 DC 09/26 PO 09/26 0316 0325 Non-Formulary 0 SEE ADMIN CRITERIA 09/26 0500 DC Medication ANY Potassium Chloride 40 MEQ BID 09/26 09 AC PO Potassium Chloride 40 MEQ ONCE ONE 09/26 0900 AC 09/26 PO 09/26 09 0741 Potassium Chloride 0 .STK-MED ONE 09/26 0727 DC PO Rosuvastatin Calcium 40 MG DAILY 09/26 899 AC PO Sodium Chloride 3,578.85 ML ONCE ONE 09/25 2300 DC 09/25 IV 09/25 2301 2328 Tamsulosin HCl 0.4 MG DAILY 09/26 899 AC PO Past History Medical History Neurological: NONE EENT: NONE Cardiovascular: hypertension, hyperlipidemia Respiratory: NONE Gastrointestinal: NONE Hepatic: NONE Renal: nephrolithiasis Musculoskeletal: degen joint disease, PSORIASIS Psychiatric: NONE Endocrine: diabetes Blood Disorders: NONE Cancer(s): bladder cancer Surgical History Pertinent Surgical History: cystoscopy Family History Relations & Conditions If Any: Relation not specified for: *No pertinent family history Psychosocial History Where Do You Live? Home Who Do You Live With? child Services at Home: None Primary Language: Irish Smoking Status: Former Smoker ETOH Use: denies use Illicit Drug Use: denies illicit drug use Functional Ability ADLs Independent: dressing, eating, toileting, bathing. Ambulation: independent Employment History Retired? unknown Review of Systems Review of Systems Constitutional: Reports: malaise. EENTM: Denies: no symptoms. Cardiovascular: Denies: no symptoms. Respiratory: Denies: no symptoms. GI: Reports: constipation. Genitourinary: Denies: no symptoms. Musculoskeletal: Denies: no symptoms. Exam & Diagnostic Data Vital Signs and I&O Vital Signs Date Time Temp Pulse Resp B/P B/P Pulse O2 O2 Flow FiO2 Mean Ox Delivery Rate 09/26 0613 99.1 125 22 90/50 97 Nasal 4.0L Cannula 09/26 0414 100.5 120 22 106/60 96 Nasal 4.0L Cannula 09/26 0413 100.5 09/26 0337 100.3 09/26 0259 97 Room Air 4.0L 09/26 0246 98.3 113 22 118/58 97 Nasal 4.0L Cannula 09/26 0217 100 Non 100% ReBreather 09/26 0203 120 24 132/64 100 Part 100% ReBreather 09/26 0200 98.1 155 30 140/80 09/26 0148 98.1 155 30 140/80 92 Nasal 3.0L Cannula 09/26 0051 119 110/70 09/26 0016 127 104/62 09/25 2351 92/52 09/25 2303 134 99/65 09/25 2207 Room Air 09/25 2139 97.6 101 18 104/72 95 Room Air Intake & Output 09/26 0809/26 0000 09/25 1600 09/25 0809/25 0000 09/24 1600 Intake Total 3600 Output Total 600 100 Balance -600 3500 Intake, IV 3600 Intake, Oral Output, Urine 600 100 Patient 263 lb 263 lb Weight Weight Reported by Patient Reported by Patient Measurement Method Physical Exam General Appearance: well developed/nourished, obese Head: atraumatic Eyes: Bilateral: normal appearance. Neck: normal inspection Respiratory: normal breath sounds Cardiovascular: regular rate/rhythm Gastrointestinal: normal bowel sounds, distention Back: no vertebral tenderness Extremities: normal inspection Reproductive: Normal male genitalia Last 24 Hours of Labs: Laboratory Tests 09/26 09/26 09/26 0611 0120 0049 Chemistry Sodium (137 - 145 mmol/L) 136 L Potassium (3.5 - 5.1 mmol/L) 2.9 *L Chloride (98 - 107 mmol/L) 104 Carbon Dioxide (22 - 30 mmol/L) 18 L Anion Gap (5 - 16) 14 BUN (9 - 20 mg/dL) 38 H Creatinine (0.7 - 1.2 mg/dL) 1.4 H Estimated GFR (>60 ml/min) 49 L BUN/Creatinine Ratio (7 - 25 %) 27.1 H Hemoglobin A1c (4.2 - 5.8 %) Pending Lactic Acid (0.7 - 2.1 mmol/L) 2.8 H 3.7 H Cancelled Magnesium (1.6 - 2.3 mg/dL) 1.6 Troponin I (<0.11 ng/ml) 0.07 0.04 Coagulation APTT (25 - 37 SEC) 56 H Hematology CBC w Diff MAN DIFF ORDERED WBC (4.8 - 10.8 /CUMM) 15.6 H RBC (4.70 - 6.10 /CUMM) 4.60 L Hgb (14.0 - 18.0 G/DL) 14.2 Hct (42 - 52 %) 42.2 MCV (80.0 - 94.0 FL) 91.7 MCH (27.0 - 31.0 PG) 30.9 MCHC (33.0 - 37.0 G/DL) 33.7 RDW (11.5 - 14.5 %) 14.0 Plt Count (130 - 400 /CUMM) 119 L MPV (7.4 - 10.4 FL) 9.0 Gran % (42.2 - 75.2 %) 92.8 H Lymphocytes % (20.5 - 51.1 %) 3.9 L Monocytes % (1.7 - 9.3 %) 3.2 Eosinophils % (0 - 5 %) 0.1 Basophils % (0.0 - 2.0 %) 0 Absolute Granulocytes (1.4 - 6.5 /CUMM) 14.4 H Segmented Neutrophils (42.2 - 75.2 %) 75 Band Neutrophils (0.0 - 5.0 %) 16 H Absolute Lymphocytes (1.2 - 3.4 /CUMM) 0.6 L Lymphocytes (20.5 - 51.1 %) 2 L Monocytes (1.7 - 9.3 %) 6 Absolute Monocytes (0.10 - 0.60 /CUMM) 0.5 Absolute Eosinophils (0.0 - 0.7 /CUMM) 0 Absolute Basophils (0.0 - 0.2 /CUMM) 0 Metamyelocytes (0.0 - 1.0 %) 1 Platelet Estimate (ADEQUATE) ADEQUATE Normocytic RBCs VERIFIED Normochromic RBCs VERIFIED 09/25 09/25 2329 2204 Coagulation APTT Cancelled Urines Urine Color (YEL,AMB,STR) YEL Urine Clarity (CLEAR) CLDY H Urine pH (5.0 - 8.0) 6.0 Ur Specific [place] (1.001 - 1.035) 1.025 Urine Protein (NEG,<30 MG/DL) 100 H Urine Ketones (NEG) TRACE H Urine Nitrite (NEG) NEG Urine Bilirubin (NEG) NEG Urine Urobilinogen (0.1 - 1.0 EU/dl) 0.2 Ur Leukocyte Esterase (NEG) SMALL H Ur Microscopic SEDIMENT EXAMINED Urine RBC (0 - 5 /HPF) FEW H Urine WBC (0 - 2 /HPF) PACKD H Ur Epithelial Cells (NONE,FEW) RARE Urine Bacteria (NEG/NONE) MANY H Urine Hemoglobin (NEG) MOD H Urine Glucose (N MG/DL) >=1000 H 09/25 2199 Chemistry Sodium (137 - 145 mmol/L) 135 L Potassium (3.5 - 5.1 mmol/L) 3.8 Chloride (98 - 107 mmol/L) 96 L Carbon Dioxide (22 - 30 mmol/L) 22 Anion Gap (5 - 16) 17 H BUN (9 - 20 mg/dL) 32 H Creatinine (0.7 - 1.2 mg/dL) 1.3 H Estimated GFR (>60 ml/min) 53 L BUN/Creatinine Ratio (7 - 25 %) 24.6 Glucose (65 - 99 mg/dL) 190 H Lactic Acid (0.7 - 2.1 mmol/L) 5.0 H Calcium (8.4 - 10.2 mg/dL) 9.4 Magnesium (1.6 - 2.3 mg/dL) 1.7 Total Bilirubin (0.2 - 1.3 mg/dL) 1.8 H AST (17 - 59 U/L) 40 ALT (21 - 72 U/L) 32 Alkaline Phosphatase (< 127 U/L) 127 H Creatine Kinase (55 - 170 U/L) 369 H Troponin I (<0.11 ng/ml) 0.04 [id number] Pept (<125 pg/mL) 5330 H Total Protein (6.3 - 8.2 g/dL) 7.7 Albumin (3.5 - 5.0 g/dL) 4.0 Globulin (1.9 - 4.2 gm/dL) 3.7 Albumin/Globulin Ratio (1.1 - 2.2 %) 1.1 TSH &T3 &Free T4 Intrp (0.27 - 4.20 uIU/mL) 2.060 Coagulation APTT (25 - 37 SEC) 37 Hematology CBC w Diff MAN DIFF ORDERED WBC (4.8 - 10.8 /CUMM) 19.8 H RBC (4.70 - 6.10 /CUMM) 5.24 Hgb (14.0 - 18.0 G/DL) 16.1 Hct (42 - 52 %) 48.1 MCV (80.0 - 94.0 FL) 91.9 MCH (27.0 - 31.0 PG) 30.7 MCHC (33.0 - 37.0 G/DL) 33.4 RDW (11.5 - 14.5 %) 14.1 Plt Count (130 - 400 /CUMM) 164 MPV (7.4 - 10.4 FL) 9.0 Gran % (42.2 - 75.2 %) 86.9 H Lymphocytes % (20.5 - 51.1 %) 7.9 L Monocytes % (1.7 - 9.3 %) 5.2 Eosinophils % (0 - 5 %) 0 Basophils % (0.0 - 2.0 %) 0 Absolute Granulocytes (1.4 - 6.5 /CUMM) 17.2 H Segmented Neutrophils (42.2 - 75.2 %) 83 H Band Neutrophils (0.0 - 5.0 %) 3 Absolute Lymphocytes (1.2 - 3.4 /CUMM) 1.6 Lymphocytes (20.5 - 51.1 %) 5 L Monocytes (1.7 - 9.3 %) 9 Absolute Monocytes (0.10 - 0.60 /CUMM) 1.0 H Absolute Eosinophils (0.0 - 0.7 /CUMM) 0 Absolute Basophils (0.0 - 0.2 /CUMM) 0 Platelet Estimate (ADEQUATE) VERIFIED BY SMEAR Normocytic RBCs VERIFIED Normochromic RBCs VERIFIED Other Body Source Fld Total RBCs Counted (%) 100 Imaging Results: PATIENT: CAR MOTA PRESENT AGE: 77 PATIENT ACCOUNT NO: [id number] : 38 LOCATION: [facility] ORDERING PHYSICIAN: Kristian Bass MD SERVICE DATE: 09/25/17 EXAM TYPE: CAT - CT ABD & PELVIS W/O IV CONTRAS; CT CHEST WO IV CONTRAST EXAMINATION: CT CHEST, ABDOMEN AND PELVIS WITHOUT CONTRAST CLINICAL INFORMATION: Upper respiratory infection. History of bladder cancer. Nephrolithiasis. Low back pain. Unable to ambulate. Abnormal chest sounds. Tachycardia. Pleural effusion. COMPARISON: None. TECHNIQUE: Multidetector volumetric CT imaging of the chest, abdomen and pelvis was obtained without oral or intravenous contrast. Coronal and sagittal reformatted images are performed at the CT scanner. DLP: 1516.21 mGy-cm. FINDINGS: CT CHEST: Lungs: There is multifocal groundglass and reticular opacities involving the left lower lobe. This may be acute infiltrate or chronic changes. There is no pleural effusion. The central bronchi are open. There is no bronchiectasis. Mediastinum: There is no mediastinal mass. There is no bulky lymphadenopathy. There is vascular wall calcifications of coronary arteries and of the thoracic aorta. There is no pericardial effusion. Pleura: There is no pleural effusion. No pleural mass or thickening. Axilla: No lymphadenopathy. CT ABDOMEN AND PELVIS: LIVER, GALLBLADDER, AND BILIARY TREE: The liver is normal in size, shape, and attenuation. No focal hepatic lesion or biliary ductal dilatation is present. The gallbladder is unremarkable with no evidence of radiopaque gallstones, gallbladder wall thickening, or obvious pericholecystic inflammatory changes. PANCREAS: There is atrophy of the pancreas. No acute change. No inflammation. SPLEEN: Spleen normal in size and contour. No focal lesion. ADRENAL GLANDS: Adrenal glands are normal in size. No focal mass. KIDNEYS AND URETERS: Left kidney: There is a cyst at the midpole of left kidney measuring 5.5 cm. Is a pedunculated cyst at the lower pole left kidney measuring 13.7 cm. No stone or hydronephrosis of left kidney or ureter. Right kidney: There is a nonobstructive 8 mm stone at the mid pole the right kidney. There is mild hydronephrosis of left kidney with edema around the kidney and distention of renal pelvis and calyces. There is mild distention of the right ureter to the ureterovesical junction. There is no stone however in the ureter or the bladder. Question of there has been a recently passed stone therefore. BLADDER: Unremarkable. GASTROINTESTINAL TRACT: There is diverticulosis of the colon. No diverticulitis. No acute change of the bowel. No bowel obstruction. No bowel wall thickening or edema. Moderate volume of stool throughout the colon. The appendix is normal. The small bowel loops are unremarkable. MESENTERY: No focal inflammation. No free fluid. No free air. ABDOMINAL WALL: No significant hernia is appreciated. LYMPH NODES: Normal. VASCULAR: There is atherosclerotic vascular calcifications of aorta and iliac arteries. PELVIC VISCERA: There are coarse calcifications within the prostate. Prostate measures 4.8 cm transverse. OSSEOUS STRUCTURES: There is multilevel degenerative spondylosis spine with endplate spurring and facet joint arthrosis. IMPRESSION: 1. Mild hydronephrosis of right kidney with mild right hydroureter but no stone in the ureter or the bladder. There is a nonobstructive 8 mm stone in the right kidney. 2. Diverticulosis of the colon. No acute change of the bowel. 3. Multifocal reticular and groundglass opacities in left lower lobe. This could be acute infiltrate or chronic changes of the left lower lobe. Assessment/Plan Assessment/Plan Renal failure more likely to be a chronic problem vs acute, with no clear evidence of sepsis at this time: plan is tx afib and hydrate/abx. will monitor closely if in need of immediate intervention. If condition worsens, will likely need stent. Copies To: Malachi Nur MD Consult Acknowledgment - Thank you for your consult request. Attending MD Review Statement Attending Statement Attending MD Statement: examined this patient, discuss w/resident/PA/EXECUTIVE ASSISTANT TO GENERAL COUNSEL
--- NOTE | 2017-09-26 09:30 | Cons- Cardiology ---
General Information and HPI Consulting Request Date of Consult: 09/26/17 Requested By: Kristian Randall MD History of Present Illness: This patient is a 77 year old male with history of hypertension, dyslipidemia, diabetes, obstructive sleep apnea and bladder cancer. He has had recent issues with urininary incontinence and frequency. He also has lower back pain after having fallen out of bed a few weeks ago. The patient also has fever and chills and was therefore brought to the ER by his daughter where he was discovered to be in atrial fibrillation with increased heart rate. This condition is of unknown duration and the patient denies feeling any palpitations. He can walk slowly without at walker for short distances at his baseline but over the past couple days has been profoundly weak. He denies chest pain, pressure, tightness or shortness of breath at his current level of activity. In the ER the patient was found to have right sided hydronephrosis without obstruction, and increased WBC count with purulent urine. He also has an increased creatinine of 1.4 and low potassium of 2.9. Allergies/Medications Allergies: Coded Allergies: No Known Allergies (09/25/17) Home Med List: Amlodipine Besylate (Norvasc) 5 MG TABLET 1 TAB PO DAILY HTN (Reported) Aspirin (Aspirin*) 81 MG TAB.CHEW 1 TAB PO DAILY HEART (Reported) Bisoprolol Fumarate/Hctz (Bisoprolol-Hctz 10-6.25 MG Tab) 10 MG-6.25 MG TABLET 1 TAB PO DAILY HTN (Reported) Calcipotriene 0.005 % SOLUTION 1 KAYCEE TOP DAILY PRN PSORIASIS (Reported) Clobetasol Propionate 0.05 % OINT...G. 1 KAYCEE TOP BID PRN PSORIASIS (Reported) apply to affected area(s) Duloxetine HCl (Cymbalta) 60 MG CAPSULE.DR 1 CAP PO DAILY NEUROPATHY ( Reported) Insulin Degludec (Tresiba Flextouch U-100) 100 UNIT/ML (3 ML) INSULN.PEN 26 UNITS SC DAILY DM (Reported) Irbesartan 300 MG TABLET 1 TAB PO DAILY HTN (Reported) Metformin HCl (Glucophage) 1,000 MG TABLET 1 TAB PO BID DM (Reported) Rosuvastatin Calcium (Crestor) 40 MG TABLET 1 TAB PO DAILY CAD (Reported) Tamsulosin HCl (Flomax) 0.4 MG CAP.ER.24H 1 CAP PO DAILY BPH (Reported) Triamcinolone Acetonide 0.025 % CREAM..G. 1 KAYCEE TOP BID PRN PSORIASIS ( Reported) apply to affected area(s) Review of Systems Review of Systems: A Reveiw of systems is remarkable for poorly controlled diabetes and sleep apnea. Past History Travel History Traveled to [place] past 21 day No Medical History Neurological: NONE EENT: NONE Cardiovascular: hypertension, hyperlipidemia Respiratory: NONE Gastrointestinal: NONE Hepatic: NONE Renal: nephrolithiasis Musculoskeletal: degen joint disease, PSORIASIS Psychiatric: NONE Endocrine: diabetes Blood Disorders: NONE Cancer(s): bladder cancer Surgical History Surgical History: cystoscopy Family History Relations & Conditions If Any: Relation not specified for: *No pertinent family history Psychosocial History Where Do You Live? Home Who Do You Live With? child Services at Home: None Primary Language: Cameroonian Smoking Status: Former Smoker ETOH Use: denies use Illicit Drug Use: denies illicit drug use Functional Ability ADLs Independent: dressing, eating, toileting, bathing. Ambulation: independent Exam & Diagnostic Data Vital Signs and I&O Vital Signs Date Time Temp Pulse Resp B/P B/P Pulse O2 O2 Flow FiO2 Mean Ox Delivery Rate 09/26 0910 116 18 79/62 98 Nasal 4.0L Cannula 09/26 0835 124 18 80/50 98 Room Air Room Air 09/26 0613 99.1 125 22 90/50 97 Nasal 4.0L Cannula 09/26 0414 100.5 120 22 106/60 96 Nasal 4.0L Cannula 09/26 0413 100.5 09/26 0337 100.3 09/26 0259 97 Room Air 4.0L 09/26 0246 98.3 113 22 118/58 97 Nasal 4.0L Cannula 09/26 0217 100 Non 100% ReBreather 09/26 0203 120 24 132/64 100 Part 100% ReBreather 09/26 0200 98.1 155 30 140/80 09/26 0148 98.1 155 30 140/80 92 Nasal 3.0L Cannula 09/26 0051 119 110/70 09/26 0016 127 104/62 09/25 2351 92/52 09/25 2303 134 99/65 09/25 2207 Room Air 09/25 2139 97.6 101 18 104/72 95 Room Air Intake & Output 09/26 1600 09/26 0800 09/26 0000 09/25 1600 09/25 0800 09/25 0000 Intake Total 3600 Output Total 600 100 Balance -600 3500 Intake, IV 3600 Intake, Oral Output, Urine 600 100 Patient 263 lb 263 lb Weight Weight Reported by Patient Reported by Patient Measurement Method Physical Exam: General: WD/overweight male in NAD; alert and oriented x 3 HEENT: NC/AT, PERRL, EOMI Neck: no JVD, no carotid bruit Heart: irregularly irregular and tachycardic without murmur Lungs: clear bilaterally Abdomen: soft, obese, distended, typmanic with positive bowel sounds Extremities: no edema Assessment/Plan Assessment/Plan * This patient is hypotensive and uroseptic with atrial fibrillation of unclear onset with rapid heart rate. He needs to be hydrated with normal saline to maintain a SBP of 90mmHg. If this is not possible then he will need a JAROD followed by DC cardioversion. After repleting potassium begin Digoxin for rate control with a loading dose with careful monitoring of his renal function. Replete potassium to at least 3.5 first. * Check a TSH and free T4. * Obtain an echocardiogram. * Begin IV heparin for stoke prophylaxis with careful monitoring of his H/H. * Agree with anticiotic therapy. Consult Acknowledgment - Thank you for your consult request.
--- NOTE | 2017-09-26 12:10 | Cons- CRCU ---
Emmett DIXON,Lyndsey 09/26/17 1210: General Information and HPI Consulting Request Date of Consult: 09/26/17 Requested By: Dr Randall Reason for Consult: Urosepsis, rapid Afib Source of Information: patient, old records Exam Limitations: clinical condition History of Present Illness: 77 year old male with PMH significant for HTN, HLD, morbid obesity, VERONA not on CPAP, DM, psoriasis, nephrolithiasis with h/o lithotripsies, BPH, h/o UTI, and bladder cancer s/p TURBT and receiving intravesicular immunotherapy BCG? managed by Dr. Contreras in [place], completed one cycle in April with a reportedly benign repeat cystoscopy but pending another round of therapy presented with eight weeks of back pain, immobility, and worsening urinary urgency, frequency, and incontinence. He reportedly fell out of bed eight weeks ago and has had back pain since then. It was being managed conservatively by his PCP but has become progressively worse with very limited physical activity. He reportedly had some negative x-rays but missed his MRI appointment because of pain and immobility. He lives with his son at home. Over the last few days he has been incontinent of urine because is unable to mobilize to the bathroom in time. He has not been eating but reports adequate fluid intake. His primary care Dr Bunch advised him to come to the ED for evaluation. His back pain, urinary frequency, and urgency have all been worsening over the past several days. He also reports subjective fevers, chills, and sweats for the past two nights. He denies any dysuria but says he didn't have dysuria with his prior UTIs. In the ED, he was found to be in rapid atrial fibrillation, with a leukocytosis, lactic acidemia, and elevated creatinine, and urinalysis suggestive of infection. CT abdomen pelvis showed a nonobstructing right renal stone and hydronephrosis and hydroureter on the right side. The patient was admitted to telemetry for atrial fibrillation with rapid ventricular response in the setting of sepsis of urological origin. Allergies/Medications Allergies: Coded Allergies: No Known Allergies (09/25/17) Home Med List: Amlodipine Besylate (Norvasc) 5 MG TABLET 1 TAB PO DAILY HTN (Reported) Aspirin (Aspirin*) 81 MG TAB.CHEW 1 TAB PO DAILY HEART (Reported) Bisoprolol Fumarate/Hctz (Bisoprolol-Hctz 10-6.25 MG Tab) 10 MG-6.25 MG TABLET 1 TAB PO DAILY HTN (Reported) Calcipotriene 0.005 % SOLUTION 1 KAYCEE TOP DAILY PRN PSORIASIS (Reported) Clobetasol Propionate 0.05 % OINT...G. 1 KAYCEE TOP BID PRN PSORIASIS (Reported) apply to affected area(s) Duloxetine HCl (Cymbalta) 60 MG CAPSULE.DR 1 CAP PO DAILY NEUROPATHY ( Reported) Insulin Degludec (Tresiba Flextouch U-100) 100 UNIT/ML (3 ML) INSULN.PEN 26 UNITS SC DAILY DM (Reported) Irbesartan 300 MG TABLET 1 TAB PO DAILY HTN (Reported) Metformin HCl (Glucophage) 1,000 MG TABLET 1 TAB PO BID DM (Reported) Rosuvastatin Calcium (Crestor) 40 MG TABLET 1 TAB PO DAILY CAD (Reported) Tamsulosin HCl (Flomax) 0.4 MG CAP.ER.24H 1 CAP PO DAILY BPH (Reported) Triamcinolone Acetonide 0.025 % CREAM..G. 1 KAYCEE TOP BID PRN PSORIASIS ( Reported) apply to affected area(s) Review of Systems Review of Systems Constitutional: Reports: chills, diaphoresis, fever, malaise, weakness. Cardiovascular: Denies: chest pain, edema, orthopena, palpitations. Respiratory: Denies: cough, hemoptysis, orthopnea, short of breath, sputum production. GI: Denies: abdominal pain, diarrhea, bowel incontinence, nausea, bloody stool, vomiting. Genitourinary: Reports: see HPI. Musculoskeletal: Denies: no symptoms. Skin: Denies: no symptoms. Past History Travel History Traveled to [place] past 21 day No Medical History Neurological: NONE EENT: NONE Cardiovascular: hypertension, hyperlipidemia Respiratory: NONE Gastrointestinal: NONE Hepatic: NONE Renal: nephrolithiasis Musculoskeletal: degen joint disease, PSORIASIS Psychiatric: NONE Endocrine: diabetes Blood Disorders: NONE Cancer(s): bladder cancer Surgical History Surgical History: cystoscopy Family History Relations & Conditions If Any: Relation not specified for: *No pertinent family history Psychosocial History Where Do You Live? Home Who Do You Live With? child Services at Home: None Primary Language: Comoran Smoking Status: Former Smoker ETOH Use: denies use Illicit Drug Use: denies illicit drug use Functional Ability ADLs Independent: dressing, eating, toileting, bathing. Ambulation: independent Exam & Diagnostic Data Last 24 Hrs of Vital Signs/I&O Vital Signs Date Time Temp Pulse Resp B/P B/P Pulse O2 O2 Flow FiO2 Mean Ox Delivery Rate 09/26 1206 109 18 93/55 97 Nasal 4.0L Cannula 09/26 1150 108 22 91/59 97 Nasal 4.0L Cannula 09/26 1127 114 18 86/54 98 Nasal 4.0L Cannula 09/26 1035 105 18 96/67 98 Nasal 4.0L Cannula 09/26 1023 96.0 118 18 90/70 98 Nasal 4.0L Cannula 09/26 0945 118 18 87/45 98 Nasal 4.0L Cannula 09/26 0935 121 18 80/50 98 Nasal 4.0L Cannula 09/26 0922 114 18 83/53 98 Nasal 4.0L Cannula 09/26 0920 99.1 116 18 79/62 09/26 0910 116 18 79/62 98 Nasal 4.0L Cannula 09/26 0835 124 18 80/50 98 Room Air Room Air 09/26 0613 99.1 125 22 90/50 97 Nasal 4.0L Cannula 09/26 0414 100.5 120 22 106/60 96 Nasal 4.0L Cannula 09/26 0413 100.5 09/26 0337 100.3 09/26 0259 97 Room Air 4.0L 09/26 0246 98.3 113 22 118/58 97 Nasal 4.0L Cannula 09/26 0217 100 Non 100% ReBreather 09/26 0203 120 24 132/64 100 Part 100% ReBreather 09/26 0200 98.1 155 30 140/80 09/26 0148 98.1 155 30 140/80 92 Nasal 3.0L Cannula 09/26 0051 119 110/70 09/26 0016 127 104/62 09/25 2351 92/52 09/25 2303 134 99/65 09/25 2207 Room Air 09/25 2139 97.6 101 18 104/72 95 Room Air Intake & Output 09/26 1600 09/26 0800 09/26 0000 Intake Total 3600 Output Total 600 100 Balance -600 3500 Intake, IV 3600 Intake, Oral Output, Urine 600 100 Patient 263 lb 263 lb Weight Weight Reported by Patient Reported by Patient Measurement Method Physical Exam General Appearance: alert, somnolent, mild distress Head: atraumatic, normal appearance Ears, Nose, Throat: normal pharynx Neck: normal inspection, supple Respiratory: normal breath sounds, chest non-tender, lungs clear Cardiovascular: tachycardia (irregular) Gastrointestinal: normal bowel sounds, soft, non-tender Extremities: normal inspection, no edema Neurologic/Psych: no motor/sensory deficits, awake, alert, oriented x 3, tester operator II- XII nml as tested Last 48 Hrs of Labs/Mauricio: Laboratory Tests 09/26/17 0611: Anion Gap 14, Estimated GFR 49 L, BUN/Creatinine Ratio 27.1 H, Hemoglobin A1c 7.4 H, Lactic Acid 2.8 H, Magnesium 1.6, Troponin I 0.07, APTT 56 H, CBC w Diff MAN DIFF ORDERED, RBC 4.60 L, MCV 91.7, MCH 30.9, MCHC 33.7, RDW 14.0, MPV 9.0, Gran % 92.8 H, Lymphocytes % 3.9 L, Monocytes % 3.2, Eosinophils % 0.1, Basophils % 0, Absolute Granulocytes 14.4 H, Segmented Neutrophils 75, Band Neutrophils 16 H, Absolute Lymphocytes 0.6 L, Lymphocytes 2 L, Monocytes 6, Absolute Monocytes 0.5, Absolute Eosinophils 0, Absolute Basophils 0, Metamyelocytes 1, Platelet Estimate ADEQUATE, Normocytic RBCs VERIFIED, Normochromic RBCs VERIFIED 09/26/17 0120: Lactic Acid 3.7 H, Troponin I 0.04 09/26/17 0049: Lactic Acid Cancelled 09/25/17 2329: APTT Cancelled 09/25/17 2204: Urine Color YEL, Urine Clarity CLDY H, Urine pH 6.0, Ur Specific [place] 1.025, Urine Protein 100 H, Urine Ketones TRACE H, Urine Nitrite NEG, Urine Bilirubin NEG, Urine Urobilinogen 0.2, Ur Leukocyte Esterase SMALL H, Ur Microscopic SEDIMENT EXAMINED, Urine RBC FEW H, Urine WBC PACKD H, Ur Epithelial Cells RARE, Urine Bacteria MANY H, Urine Hemoglobin MOD H, Urine Glucose >=1000 H 09/25/17 2200: Anion Gap 17 H, Estimated GFR 53 L, BUN/Creatinine Ratio 24.6, Glucose 190 H, Lactic Acid 5.0 H, Calcium 9.4, Magnesium 1.7, Total Bilirubin 1.8 H, AST 40, ALT 32, Alkaline Phosphatase 127 H, Creatine Kinase 369 H, Troponin I 0.04, Ssw-U-Fidzhjefnwg Pept 5330 H, Total Protein 7.7, Albumin 4.0, Globulin 3.7, Albumin/Globulin Ratio 1.1, TSH &T3 &Free T4 Intrp 2.060, APTT 37, CBC w Diff MAN DIFF ORDERED, RBC 5.24, MCV 91.9, MCH 30.7, MCHC 33.4, RDW 14.1, MPV 9.0, Gran % 86.9 H, Lymphocytes % 7.9 L, Monocytes % 5.2, Eosinophils % 0, Basophils % 0, Absolute Granulocytes 17.2 H, Segmented Neutrophils 83 H, Band Neutrophils 3, Absolute Lymphocytes 1.6, Lymphocytes 5 L, Monocytes 9, Absolute Monocytes 1.0 H, Absolute Eosinophils 0, Absolute Basophils 0, Platelet Estimate VERIFIED BY SMEAR, Normocytic RBCs VERIFIED, Normochromic RBCs VERIFIED , Fld Total RBCs Counted 100 Diagnostic Data EKG Results Rapid Afib CXR Results Limited exam due to low long volumes, but unremarkable Other Results Ct Abd and Pelvis: 1. Mild hydronephrosis of right kidney with mild right hydroureter but no stone in the ureter or the bladder. There is a nonobstructive 8 mm stone in the right kidney. 2. Diverticulosis of the colon. No acute change of the bowel. 3. Multifocal reticular and groundglass opacities in left lower lobe. This could be acute infiltrate or chronic changes of the left lower lobe. Assessment/Plan CRCU Impression/Plan: 77 year old male with PMH significant for HTN, HLD, morbid obesity, VERONA not on CPAP, DM, psoriasis, nephrolithiasis with h/o lithotripsies, BPH, h/o UTI, and bladder cancer s/p TURBT and receiving intravesicular immunotherapy BCG? managed by Dr. Contreras in [place], completed one cycle in April with a reportedly benign repeat cystoscopy but pending another round of therapy presented with eight weeks of back pain, immobility, and worsening urinary urgency, frequency, and incontinence. Gram-negative bacteremia/sepsis of urological origin In the ED the patient was started on IV fluids according to sepsis protocol was 30 cc/kg Continue IV fluid resuscitation was normal saline 100 cc/h Fever, tachycardia, leukocytosis, lactic acidemia, elevated creatinine, and UA c/w UTI Blood culture from 09/25 was positive for gram-negative rods, urine culture still pending CT Mild hydronephrosis of right kidney with mild right hydroureter but no stone in the ureter or the bladde Patient was seen by urologist or Dr. Nur in the ED who recommended to treat A. fib and hydrate and to monitor closely, awaiting the decision regarding intervention Fluid resuscitated with 30cc/kg NS bolus Lactic acidemia trending down after fluid resuscitation, trend to normal Ceftriaxone 1g IV daily Urology consulted, may need cystoscopy/stent placement Patient spiked a fever to 100.5, given tylenol Follow up blood and urine cultures Septic shock Blood pressures dropped down to 80/50 most likely due to urosepsis Patient was started on the sepsis protocol and IV fluid resuscitation in the ED 30 cc/kg We will keep IV fluids normal saline at 100 cc/h Patient was a started on phenylephrine drip in the ED, his blood pressure at the time of the encounter was 85/54, will consider to switch on Levophed if blood pressure does not improve on cardizem gtt for rate control of afib Femoral line was placed in the ED Hold other antihypertensives at this time Atrial fibrillation with rapid ventricular response: Heparin gtt for anticoagulation Diltiazem gtt for rate control After repleting his potassium to at least a 3.5 we will begin him on digoxin for rate control was good and dose Cardiology recommendation appreciated Serial tropes and EKG were negative which ruled out ACS Patient decompensated with fluid resuscitation and rapid afib, hypoxemia, tachypnea concerning for flash pulmonary edema, also possible pulmonary embolism Given 20mg IV lasix x 1 with good urine output, repeat cxr unrevealing, increased fiO2 req Consider V-Q scan given elevated creatinine, although patient is on iv heparin gtt Patient is on aspirin, statin, beta lory, unknown cardiac history Patient has a cook relief but couldn't recall the name, Dr. Harris? Attempt to obtain records from outpatient cook relief Follow-up on echocardiogram Check TSHR Check serial troponins and EKGs for myocardial ischemia Acute kidney injury: Creatinine elevated to 1.3, unknown baseline May be prerenal from poor intake, but also post renal with hydronephrosis on CT Murphy catheter placed Strict I/O's Patient was given 20mg IV lasix for respiratory distress Hold ARB and thiazide diuretics Trend renal function Avoid nephrotoxins HLD Continue statin DM Accuchecks TIDAC Novolog sliding scale insulin Hold metformin, may contribute to lactic acidemia Back Pain No neurological deficit, suspect incontinence related to UTI rather than cord dysfunction Start analgesics as required to manage back pain Consider pursuing MRI as an inpatient VERONA: Nocturnal CPAP, unknown settings Diabetic diet DVT ppx-heparin gtt Full code Problem List: 1. New onset atrial fibrillation 2. Sepsis 3. UTI (urinary tract infection) 4. Acute kidney failure Consult Acknowledgment - Thank you for your consult request. Sammi Marie MD 09/26/17 1339: General Information and HPI Consulting Request Date of Consult: 09/26/17 Allergies/Medications Current Medications: Current Medications Sig/Royce Start time Last Medication Dose Route Stop Time Status Admin Acetaminophen 650 MG ONCE ONE 09/26 0330 DC 09/26 PO 09/26 0331 0337 Acetaminophen 0 .STK-MED ONE 09/26 0330 DC PO Aspirin 81 MG DAILY 09/26 0900 AC 09/26 PO 0920 Ceftriaxone Sodium 1,000 MG DAILY 09/26 1244 AC IV Ceftriaxone Sodium 0 .STK-MED ONE 09/25 2322 DC .ROUTE Ceftriaxone Sodium 1,000 MG ONCE ONE 09/25 2245 DC 09/25 IV 09/25 2246 2328 Dextrose/Sodium 1,000 ML Q20H 09/26 0930 DC 09/26 Chloride IV 0934 Diltiazem HCl 125 MG Q24H 09/26 0315 AC 09/26 Dextrose/Water 100 ML IV 0319 Diltiazem HCl 0 .STK-MED ONE 09/26 0034 DC .ROUTE Diltiazem HCl 0 .STK-MED ONE 09/26 0033 DC IV Diltiazem HCl 10 MG ONCE ONE 09/25 2345 DC 09/26 IV 09/25 2346 0200 Diltiazem HCl 125 MG Q24H 09/25 2345 DC Sodium Chloride 100 ML IV Duloxetine HCl 60 MG DAILY 09/26 0900 AC 09/26 PO 0920 Furosemide 20 MG ONCE ONE 09/26 0215 DC 09/26 IV 09/26 0216 0200 Furosemide 0 .STK-MED ONE 09/26 0153 DC IV Heparin Sodium 0 .STK-MED ONE 09/26 0816 DC (Porcine) .ROUTE Heparin Sodium/ 25,000 UNIT Q24H 09/25 2315 AC 09/26 Dextrose IV 0001 Dextrose/Water 500 ML Insulin Aspart 0 TIDAC 09/26 08 AC SC Magnesium Sulfate 1 GM Q2H 09/26 0730 DC 09/26 Dextrose/Water 100 ML IV 09/26 1129 0920 Melatonin 0 .STK-MED ONE 09/26 0323 DC PO Melatonin 5 MG ONCE ONE 09/26 0315 DC 09/26 PO 09/26 0316 0325 Non-Formulary 0 SEE ADMIN CRITERIA 09/26 0500 DC Medication ANY Phenylephrine HCl 0 .STK-MED ONE 09/26 1005 DC .ROUTE Phenylephrine HCl 40 MG Q24H 09/26 0945 AC 09/26 Dextrose/Water 250 ML IV 1017 Potassium Chloride 40 MEQ BID 09/26 0900 AC PO Potassium Chloride 40 MEQ ONCE ONE 09/26 0900 DC 09/26 PO 09/26 0901 0741 Potassium Chloride 0 .STK-MED ONE 09/26 0727 DC PO Rosuvastatin Calcium 40 MG DAILY 09/26 0900 AC 09/26 PO 0920 Sodium Chloride 1,000 ML Q10H 09/26 1245 AC 09/26 IV 1300 Sodium Chloride 3,578.85 ML ONCE ONE 09/25 2300 DC 09/25 IV 09/25 2301 2328 Tamsulosin HCl 0.4 MG DAILY 09/26 0900 AC 09/26 PO 0920 Assessment/Plan CRCU Other Findings/Comments: I have personally seen and examined the patient and agree with the residents assessment and plan as detailed above. The patient is admitted to the CRCU with gram negative septic shock, secondary to sepsis of urologic origin. He will be continued on broad spectrum antibiotics, IVFs, pressors, and supportive medications. The patient is on Heparin, dig, and cardizem (now off). Cardiology and urology following. Discussed case with Dr. Nur, he will take the patient to the OR now for intervention and treatment of the hydronephrosis. I discussed the plan of care with the house staff and the patient. He was updated and agrees with going for the procedure. Consult Acknowledgment - Thank you for your consult request.
[2017-09-26 13:00] VITALS: BP 90/60
[2017-09-26 15:04] LABS: ABSOLUTE BASOPHIL COUNT 0 /CUMM (0.0-0.2); ABSOLUTE EOSINOPHIL COUNT 0 /CUMM (0.0-0.7); ABSOLUTE GRANULOCYTE CT 19.5 /CUMM (1.4-6.5); ABSOLUTE LYMPH COUNT 1.3 /CUMM (1.2-3.4); ABSOLUTE MONOCYTE COUNT 0.6 /CUMM (0.10-0.60); BASOPHIL % 0 % (0.0-2.0); EOSINOPHIL % 0.2 % (0-5); GRANULOCYTE % 90.8 % (42.2-75.2); HEMATOCRIT 40.6 % (42-52); MEAN CORPUSCULAR HGB 30.7 PG (27.0-31.0); MEAN CORPUSCULAR HGB CONC 33.6 G/DL (33.0-37.0); MEAN CORPUSCULAR VOLUME 91.2 FL (80.0-94.0); MEAN PLATELET VOLUME 9.5 FL (7.4-10.4); PLATELET COUNT 131 /CUMM (130-400); RBC DISTRIBUTION WIDTH 14.3 % (11.5-14.5); RED BLOOD CELL CT 4.45 /CUMM (4.70-6.10); WHITE BLOOD CELL COUNT 21.5 /CUMM (4.8-10.8)
--- NOTE | 2017-09-26 15:04 | Proc Note Internal Medicine ---
Medicine Procedure Procedure Date: 09/26/17 Medical Procedure(s): central venous cath place Pre-Operative Diagnosis: Septic shock Post-Operative Diagnosis: Same Estimated Blood Loss: scant Anesthesia: none Procedure Findings: A time-out was completed, verifying correct patient, procedure, site, and positioning. Patients right groin was prepped and draped in usual sterile fashion. 2% Lidocaine was used to anesthetize the area. A Triple lumen central line was introduced over a wire via the Seldinger technique, then sutured in place under supervision. Good blood flow was noted from all ports. The patient tolerated the procedure well. Complications: None Blood loss: Minimal
[2017-09-26 15:10] LABS: PTT 93 SEC (25-37)
--- NOTE | 2017-09-26 19:22 | Operative Report ---
Operative/Inv Procedure Report Surgery Date: 09/26/17 Name of Procedure: cystoscopy: right stent with retrograde-fluoroscopy Pre-Operative Diagnosis: right stone with hydro/sepsis Post-Operative Diagnosis: same Estimated Blood Loss: scant Surgeon/Gravity Prospecting Supervisor: MD Boom, Malachi-urology Anesthesia: moderate sedation Drains: 18 fr abarca Specimens: right renal pelvis fluid/urine for cx Complications: none Operative/Procedure Note Note: The patient was taken to the operating room placed OR table in supine position. Timeout was performed, with the patient awake, in order to confirm anesthesia, and other pertinent perioperative information. After adequate anesthesia, and antibiotics, the patient was then placed lithotomy stirrups, draped and prepped in the usual surgical fashion. A 22 [place] cystoscope sheath with 30 angle lens was inserted into the urethra, subsequently into the bladder without difficulty. Upon thorough and systematic surveillance, the bladder was noted to be free of tumor, free of stone. Both ureteral orifices were in their orthotopic position with clear reflux from the left side, and no reflux on the right. The right orifice was intubated with an open-ended ureteral access catheter (tiger-tail). Retrograde pyelogram was gently performed in order to confirm hydronephrosis and ureter stone. Additionally, the retrograde helps to map/define the anatomy of the ureter, and kidney using fluoroscopy. The open-ended tiger tail stent was then removed. The right orifice was then intubated with a 0.035 Glidewire, which was advanced into the right ureter, and into the right upper pole of the kidney without difficulty. Over this Glidewire, a 6 x 24 Bard onlay double J stent was railroaded into the right ureter, and advanced over the wire into the right kidney, without difficulty. With the proximal coil in the right kidney, and the distal coil in the bladder, the Glidewire was removed. The stent remained in proper place;as confirmed cystoscopically, and fluoroscopically. Large amount of fluid was noted to drained from the right kidney, after placement of the stent on the right side. All sponge needle and instrument counts were correct at the end of the case. The bladder was then drained via the cystoscope, and then the scope removed without difficulty. The patient tolerated the procedure well was returned to ICU in satisfactory condition. Discharge Disposition: Critical Care Unit CC: Malachi Nur MD
[2017-09-27] VITALS: BP 100/64
[2017-09-27 05:45] LABS: ABSOLUTE BASOPHIL COUNT 0 /CUMM (0.0-0.2); ABSOLUTE EOSINOPHIL COUNT 0.1 /CUMM (0.0-0.7); ABSOLUTE GRANULOCYTE CT 14.5 /CUMM (1.4-6.5); ABSOLUTE LYMPH COUNT 0.7 /CUMM (1.2-3.4); ABSOLUTE MONOCYTE COUNT 0.7 /CUMM (0.10-0.60); BASOPHIL % 0.1 % (0.0-2.0); EOSINOPHIL % 0.5 % (0-5); GRANULOCYTE % 90.6 % (42.2-75.2); HEMATOCRIT 38.9 % (42-52); MEAN CORPUSCULAR HGB 30.9 PG (27.0-31.0); MEAN CORPUSCULAR HGB CONC 33.5 G/DL (33.0-37.0); MEAN CORPUSCULAR VOLUME 92.1 FL (80.0-94.0); PLATELET COUNT 149 /CUMM (130-400); RBC DISTRIBUTION WIDTH 14.5 % (11.5-14.5); RED BLOOD CELL CT 4.22 /CUMM (4.70-6.10)
--- NOTE | 2017-09-27 07:03 | PN- Resident CRCU ---
SerafinGreer 09/27/17 0703: Subjective HPI/CRCU Issues: Atrial fibrillation of unclear duration; suboptimal rate control Sepsis from urological origin Septic shock, off phenylephrine since yesterday Hypokalemia improving DOTTIE, improving History of bladder cancer status post immunotherapy History of sleep apnea 24 Hour Events: Overnight patient's heart rate remained in [id number]. Patient was given one time digoxin IV and couple of pushes of diltiazem. Seen and examined this morning. His heart rate was still in 130s. Patient was able to maintain his blood pressure in 130s systolic. Patient denied chest pain, palpitation, nausea , vomiting, chills, fever, abdominal pain and dysuria. Complaining back pain . Objective Vital Signs & I&O Last 8 Hrs of Vitals and I&O: Intake & Output 09/27 1600 09/27 0800 09/27 0000 Intake Total 2254 2242 Output Total 1400 1130 Balance 854 1112 Intake, IV 1534 1642 Intake, Oral 720 600 Output, Urine 1400 1130 Laboratory Tests 09/27 09/27 09/27 0650 0500 0430 Chemistry Sodium (137 - 145 mmol/L) 134 L Potassium (3.5 - 5.1 mmol/L) 3.6 Chloride (98 - 107 mmol/L) 104 Carbon Dioxide (22 - 30 mmol/L) 19 L Anion Gap (5 - 16) 11 BUN (9 - 20 mg/dL) 35 H Creatinine (0.7 - 1.2 mg/dL) 1.2 Estimated GFR (>60 ml/min) 58 L Glucose (65 - 99 mg/dL) 164 H Calcium (8.4 - 10.2 mg/dL) 7.6 L Phosphorus (2.5 - 4.5 mg/dL) 2.8 Magnesium (1.6 - 2.3 mg/dL) 2.2 Total Bilirubin (0.2 - 1.3 mg/dL) 1.0 AST (17 - 59 U/L) 33 ALT (21 - 72 U/L) 34 Albumin (3.5 - 5.0 g/dL) 2.8 L Coagulation APTT (25 - 37 SEC) 50 H Cancelled Hematology CBC w Diff NO MAN DIFF REQ WBC (4.8 - 10.8 /CUMM) 16.0 H RBC (4.70 - 6.10 /CUMM) 4.22 L Hgb (14.0 - 18.0 G/DL) 13.0 L Hct (42 - 52 %) 38.9 L MCV (80.0 - 94.0 FL) 92.1 MCH (27.0 - 31.0 PG) 30.9 MCHC (33.0 - 37.0 G/DL) 33.5 RDW (11.5 - 14.5 %) 14.5 Plt Count (130 - 400 /CUMM) 149 MPV (7.4 - 10.4 FL) 9.0 Gran % (42.2 - 75.2 %) 90.6 H Lymphocytes % (20.5 - 51.1 %) 4.2 L Monocytes % (1.7 - 9.3 %) 4.6 Eosinophils % (0 - 5 %) 0.5 Basophils % (0.0 - 2.0 %) 0.1 Absolute Granulocytes (1.4 - 6.5 /CUMM) 14.5 H Absolute Lymphocytes (1.2 - 3.4 /CUMM) 0.7 L Absolute Monocytes (0.10 - 0.60 /CUMM) 0.7 H Absolute Eosinophils (0.0 - 0.7 /CUMM) 0.1 Absolute Basophils (0.0 - 0.2 /CUMM) 0 09/26 09/26 09/26 09/26 2100 2045 1730 1330 Chemistry Potassium (3.5 - 5.1 mmol/L) 3.1 L Lactic Acid (0.7 - 2.1 mmol/L) 2.0 3.4 H Coagulation APTT Cancelled 09/26 09/26 1330 1200 Chemistry Sodium (137 - 145 mmol/L) 134 L Cancelled Potassium (3.5 - 5.1 mmol/L) 3.4 L Cancelled Chloride (98 - 107 mmol/L) 101 Cancelled Carbon Dioxide (22 - 30 mmol/L) 22 Cancelled Anion Gap (5 - 16) 11 Cancelled BUN (9 - 20 mg/dL) 40 H Cancelled Creatinine (0.7 - 1.2 mg/dL) 1.5 H Cancelled Estimated GFR (>60 ml/min) 45 L BUN/Creatinine Ratio Cancelled Glucose (65 - 99 mg/dL) 220 H Calcium (8.4 - 10.2 mg/dL) 7.9 L Phosphorus (2.5 - 4.5 mg/dL) 3.2 Magnesium (1.6 - 2.3 mg/dL) 2.2 Cancelled Total Bilirubin (0.2 - 1.3 mg/dL) 1.0 AST (17 - 59 U/L) 34 ALT (21 - 72 U/L) 34 Albumin (3.5 - 5.0 g/dL) 2.9 L Coagulation APTT (25 - 37 SEC) 93 H Hematology CBC w Diff MAN DIFF ORDERED Cancelled WBC (4.8 - 10.8 /CUMM) 21.5 H Cancelled RBC (4.70 - 6.10 /CUMM) 4.45 L Cancelled Hgb (14.0 - 18.0 G/DL) 13.6 L Cancelled Hct (42 - 52 %) 40.6 L Cancelled MCV (80.0 - 94.0 FL) 91.2 Cancelled MCH (27.0 - 31.0 PG) 30.7 Cancelled MCHC (33.0 - 37.0 G/DL) 33.6 Cancelled RDW (11.5 - 14.5 %) 14.3 Cancelled Plt Count (130 - 400 /CUMM) 131 Cancelled MPV (7.4 - 10.4 FL) 9.5 Cancelled Gran % (42.2 - 75.2 %) 90.8 H Lymphocytes % (20.5 - 51.1 %) 6.0 L Monocytes % (1.7 - 9.3 %) 3.0 Eosinophils % (0 - 5 %) 0.2 Basophils % (0.0 - 2.0 %) 0 Absolute Granulocytes (1.4 - 6.5 /CUMM) 19.5 H Segmented Neutrophils (42.2 - 75.2 %) 81 H Band Neutrophils (0.0 - 5.0 %) 13 H Absolute Lymphocytes (1.2 - 3.4 /CUMM) 1.3 Lymphocytes (20.5 - 51.1 %) 3 L Monocytes (1.7 - 9.3 %) 3 Absolute Monocytes (0.10 - 0.60 /CUMM) 0.6 Absolute Eosinophils (0.0 - 0.7 /CUMM) 0 Absolute Basophils (0.0 - 0.2 /CUMM) 0 Platelet Estimate (ADEQUATE) ADEQUATE Anisocytosis 1+ Exam General Appearance: well developed/nourished, no apparent distress, alert, awake Head: atraumatic, normal appearance Neck: normal inspection, supple Respiratory: normal breath sounds, chest non-tender Cardiovascular: irregularly irregular Gastrointestinal: normal bowel sounds, soft Extremities: no edema Skin Temp/Moisture Exam: Warm/Dry Sepsis Skin Exam (color): Normal for Ethnicity Current Medications: Current Medications Sig/Royce Start time Last Medication Dose Route Stop Time Status Admin Aspirin 81 MG DAILY 09/26 0900 AC 09/27 PO 0940 Calcium Carbonate 500 MG DAILY PRN 09/27 0030 AC PO Ceftriaxone Sodium 1,000 MG DAILY 09/26 1244 AC 09/26 IV 1558 Dextrose/Sodium 1,000 ML Q20H 09/26 0930 DC 09/26 [place] 0934 Digoxin 0.25 MG ONCE ONE 09/27 0945 DC IV 09/27 0946 Digoxin 0.25 MG ONCE ONE 09/26 194 DC 09/26 IV 09/26 1942017 Diltiazem HCl 20 MG ONCE ONE 09/27 0900 CAN IV PUSH 09/27 0901 Diltiazem HCl 10 MG ONCE ONE 09/27 0415 DC 09/27 IV PUSH 09/27 0416 0411 Diltiazem HCl 0 .STK-MED ONE 09/27 0411 DC .ROUTE Diltiazem HCl 10 MG ONCE ONE 09/26 2330 DC 09/26 IV PUSH 09/26 233 2318 Diltiazem HCl 5 MG ONCE ONE 09/26 2030 DC 09/26 IV 09/26 2030 203 Diltiazem HCl 0 .STK-MED ONE 09/26 2030 DC .ROUTE Diltiazem HCl 125 MG Q24H 09/26 0315 DC 09/26 Dextrose/Water 100 ML IV 0319 Duloxetine HCl 60 MG DAILY 09/26 0900 AC 09/27 PO 0940 Fentanyl Citrate 0 .STK-MED ONE 09/26 182 DC .ROUTE Heparin Sodium/ 25,000 UNIT Q24H 09/25 2315 AC 09/27 Dextrose IV 0122 Dextrose/Water 500 ML Insulin Aspart 0 TIDAC 09/26 0800 AC 09/26 SC 1625 Ketamine HCl 0 .STK-MED ONE 09/26 182 DC .ROUTE Magnesium Sulfate 1 GM Q2H 09/26 0730 DC 09/26 Dextrose/Water 100 ML IV 09/26 1129 0920 Midazolam HCl 0 .STK-MED ONE 09/26 1822 DC .ROUTE Morphine Sulfate 0 .STK-MED ONE 09/27 0939 DC .ROUTE Morphine Sulfate 2 MG ONCE ONE 09/27 0930 DC 09/27 IV 09/27 0931 0940 Phenylephrine HCl 40 MG Q5H 09/26 2200 DC 09/26 Dextrose/Water 250 ML IV 2257 Phenylephrine HCl 40 MG Q24H 09/26 0945 DC 09/26 Dextrose/Water 250 ML IV 09/26 2200 1017 Potassium Chloride 0 .STK-MED ONE 09/27 0944 DC PO Potassium Chloride 40 MEQ BID 09/27 0919 AC 09/27 PO 0943 Potassium Chloride 40 MEQ ONCE ONE 09/27 0800 CAN PO 09/27 0801 Potassium Chloride 40 MEQ ONCE ONE 09/27 0115 CAN PO 09/27 0116 Potassium Chloride 40 MEQ ONCE ONE 09/27 0115 DC 09/27 PO 09/27 0116 0121 Potassium Chloride 40 MEQ BID 09/26 0900 DC 09/26 PO 2226 Rosuvastatin Calcium 40 MG DAILY 09/26 0900 AC 09/27 PO 0939 Simethicone 40 MG ONCE ONE 09/27 0945 DC PO 09/27 0946 Sodium Chloride 1,000 ML Q10H 09/26 1245 AC 09/27 IV 0415 Tamsulosin HCl 0.4 MG DAILY 09/26 0900 AC 09/27 PO 0940 Impression/Plan Impression/Problem List Impression: 77 YO M with PMH significant for HTN, HLD, morbid obesity, VERONA not on CPAP, DM, psoriasis, nephrolithiasis with h/o lithotripsies, BPH, h/o UTI, and bladder cancer s/p TURBT and receiving intravesicular immunotherapy BCG? managed by Dr. Contreras in [place], completed one cycle in April with a reportedly benign repeat cystoscopy but pending another round of therapy presented with eight weeks of back pain, immobility, and worsening urinary urgency, frequency, and incontinence. In ED patient was found to be in atrial fibrillation and leukocytosis with lactic acidosis, elevated creatinine and his urinalysis was suggestive of infection. Later on patient's urine culture came back positive with gram-negative rods and blood culture came back positive with gram-negative rods. In ED his blood pressure was 80/50 due to septic shock. Peripheral central catheter was placed in right groin and he was started on phenylephrine. Following the patient in ICU for following problems. Sepsis from urological origin s/p right ureteric stent placement: -Patient's urinalysis was suggestive of infection and his culture was positive with gram-negative rods. Patient was spiking fever, weight WBC count and tachycardia. -Imaging studies showed right hydroureteronephrosis with nonobstructing right renal stone. -S/P DAY 1 after right ureter stent placement. Possible lithotripsy after patient's acute condition stabilized. -Continue ceftriaxone, Day 2. -Follow final blood and urine culture. -Follow-up urology recommendations. Septic shock:(Resolved) -From urological origin sepsis -In ED patient's blood pressure was 80/50 -Right femoral peripheral central line was placed. -Off phenylephrine since yesterday. -Patient is hemodynamically stable and maintaining blood pressure 130/64. Acute hypoxemic respiratory failure: -Possibly multifactorial due to sepsis, morbid obesity and history of sleep apnea as his saturation dropped on room air to 92% and patient was requiring oxygen supplementation. He was started on 3 L and still maintaining saturation 92%. Later on his oxygen requirement went to 4 L in ED. -Today he is using 2 L of oxygen maintaining saturation 98%. -We will try to wean off his oxygen keeping his oxygen saturation above 92%. -Continue TRC nebulization as needed Atrial fibrillation: -Patient has atrial fibrillation probably due to sepsis from unclear duration. -Patient received one IV dose of 0.25 mg digoxin last night and 3 doses of IV Cardizem push. He was then patient's heart rate remained in 130s. -We will give patient one more dose of 0.25 digoxin and check his heart rate if it remaines more than 110 in 2-3 hours we will give him another dose of digoxin. He will get 3rd dose of dig 0.25mg at 8pm today. -Holding his IV heparin after stent placement for 6 hours. -His ejection fraction is 60% -Closely monitoring patient's potassium level. Hypokalemia: -Possibly due to low oral intake as patient has low appetite and acid-base disturbance. -Today his potassium is 3.6 and weight repeating it. Repeat k is 3.8 -Closely monitoring his potassium level as patient is on digoxin. Acute kidney injury:(Improving) -On admission his creatinine level was 1.3 possibly due to prerenal. -Patient received IV hydration and now he is drinking orally. -Avoid nephrotoxins medications -We will encourage patient to drink orally. -Today his creatinine is 1.2. Repeat Cr is 0.9 History of Hypertension hyperlipidemia: -Continue rosuvastatin. -Holding his amlodipine and bisoprolol. History of diabetes: -Holding his metformin while in hospital. -Continue Accu-Cheks, his blood sugar level this morning was 149 -Diabetic diet -Continue insulin NovoLog according to sliding scale. History of back pain: -Follow pain pathway -Patient received one dose of morphine 2 mg IV, we will assess his requirement. DVT prophylaxis: Mechanical and pharmacological CODE STATUS: Full code Problem List: 1. Sepsis 2. UTI (urinary tract infection) 3. Acute kidney failure 4. New onset atrial fibrillation Pain Ratin Pain Location: back Pain Plan: pain pathway Tomorrow's Labs & Rationales: cbc/icu bundle Plan DVT/Prophylaxis: mechanical, pharmacological Jass Lee MD 09/27/17 1022: Attending MD Review Statement Attending Sign Off Attending Cosign Statement: I have: examined this patient, reviewed [facility] EMR data, personally reviewd images, discussd w/resident/PA/QUALITY REVIEW SPECIALIST, discussed mgmt plan w/rudy, discussed mgmt plan w/CM, discussed mgmt plan w/pt, agreed w/resident/PA/QUALITY REVIEW SPECIALIST, amended to note. Other Findings: Impression 77 year old man * septic shock of urological origin - now resolved, off vasopressors - etiology secondary to nephrolithiasis and hydronephrosis - growing E.Coli in blood and GNR in urine * new onset atrial fibrillation with a rapid ventricular response * history of bladder cancer * history of VERONA - declines therapy * back pain Plan Respiratory -o2 supplementation -incentive spirometry ID -monitor fevers, wbc, 21.5 now 16 -continue ceftriaxone -s/p right ureteral stenting -urology appreciated CVS -monitor hemodynamics -rate control -heparin gtt -cardiology f/u Heme -heparin gtt, ptt monitoring -monitor cbc, coags Metabolic -ins/outs -creatinine improved -monitor and replete electrolytes Alimentary -diet Neuro -pain control DVT prophylaxis at all times D/w patient and family at bedside, all questions answered TTS 50 minutes
[2017-09-27 08:00] VITALS: BP 120/74
--- NOTE | 2017-09-27 08:13 | RADIOLOGY REPORT ---
EXAMINATION: Intraoperative fluoroscopy CLINICAL INFORMATION: Cystoscopy with stent placement COMPARISON: CT chest, abdomen and pelvis 09/25/2017 TECHNIQUE: Intraoperative fluoroscopy was provided for use by Dr. Nur. A total of 4 images were saved to PACS. A radiologist was not present during imaging. TOTAL FLUOROSCOPIC TIME: 1 minute and 24 seconds. FINDINGS\E\IMPRESSION: Intraoperative fluoroscopy provided for use by Dr. Nur. Please see operative note for detailed findings.
[2017-09-27 08:28] LABS: PTT 50 SEC (25-37)
--- NOTE | 2017-09-27 09:31 | ECHOCARDIOGRAM REPORT ---
CAR MOTA Age: 77 : 1940 Gender: M Exam Date: 09/26/2017 16:59 Exam Location: [facility] Ht (in): 71 Wt (lb): 263 BSA: 2.49 BP: 90 / 62 Ordering Physician: Isauro Lucia MD Referring Physician: Isauro Lucia MD Technologist: Lorri Holguin [facility] Room Number: 106 Indications: Afib/flutter Rhythm: Atrial fibrillation Technical Quality: fair FINDINGS Left Ventricle Normal left ventricular size with mild left ventricular hypertrophy and systolic function with no obvious regional wall motion abnormalities. The ejection fraction is visually estimated at 60%. Right Ventricle The right ventricle is normal in size and function. Right Atrium The right atrium is normal in size. Left Atrium The left atrium is moderately enlarged. The interatrial septum is intact. Mitral Valve The mitral valve is midly thickened with normal function. There is no mitral regurgitation. Aortic Valve Mildly thickened and sclerotic aortic valve with mild stenosis. There is no aortic regurgitation. Tricuspid Valve The tricuspid valve is normal in structure and function. There is trace tricuspid regurgitation. Pulmonary artery systolic pressure is normal. Pulmonic Valve Structurally normal pulmonic valve. There is no pulmonic regurgitation. Pericardium Normal pericardium without effusion. No pleural effusion. Great Vessels Normal aortic root dimension. The aortic arch and great vessels are well seen and are normal. CONCLUSIONS 1. Normal EF of 60%. 2. Mild left ventricular hypertrophy. 3. Moderate left atrial enlargement. 4. Trace tricuspid regurgitation 5. Mild aortic stenosis. Clem Jang M.D. (Electronically Signed) Final Date: 27 September 2017 09:27 MEASUREMENTS (Male / Female) Normal Values 2D ECHO LV Diastolic Diameter PLAX 4.7 cm 4.2 - 5.9 / 3.9 - 5.3 cm LV Systolic Diameter PLAX 3.1 cm 2.1 - 4.0 cm LV Fractional Shortening PLAX 34.0 % 25 - 46 % LV Ejection Fraction 2D Teich 63.0 % IVS Diastolic Thickness 1.2 cm LVPW Diastolic Thickness 1.2 cm LV Relative Wall Thickness 0.5 RV Internal Dim ED PLAX 2.9 cm 1.9 - 3.8 cm LVOT Diameter 2.2 cm Aortic Root Diameter 3.4 cm LA Systolic Diameter LX 4.8 cm 3.0 - 4.0 / 2.7 - 3.8 cm LA Volume 51.0 cm 18 - 58 / 22 - 52 cm Ascending Aorta Diameter 3.3 cm DOPPLER AV Peak Velocity 226.0 cm/s AV Peak Gradient 20.4 mmHg AV Mean Velocity 153.0 cm/s AV Mean Gradient 11.0 mmHg AV Velocity Time Integral 33.4 cm LVOT Peak Velocity 91.3 cm/s LVOT Peak Gradient 3.3 mmHg LVOT Mean Velocity 58.5 cm/s LVOT Mean Gradient 2.0 mmHg LVOT Velocity Time Integral 13.5 cm LVOT Stroke Volume 51.3 cm AV Area Cont Eq vti 1.5 cm AV Area Cont Eq pk 1.5 cm MV Peak Velocity 143.0 cm/s MV Peak Gradient 8.2 mmHg MV Mean Velocity 77.5 cm/s MV Mean Gradient 3.0 mmHg Mitral E Point Velocity 135.0 cm/s MV PHT Velocity 151.0 cm/s MV Deceleration Hooker 498.0 cm/s MV Pressure Half Time 91.0 ms MV Area PHT 2.4 cm MV Deceleration Time 230.0 ms TR Peak Velocity 123.0 cm/s TR Peak Gradient 6.1 mmHg Right Atrial Pressure 5.0 mmHg Pulmonary Artery Systolic Pressure 11.1 mmHg Right Ventricular Systolic Pressure 11.1 mmHg PV Peak Velocity 109.0 cm/s PV Peak Gradient 4.8 mmHg PV Mean Velocity 80.6 cm/s PV Mean Gradient 3.0 mmHg PV Velocity Time Integral 16.1 cm LV E' Lateral Velocity 9.4 cm/s Mitral E to LV E' Lateral Ratio 14.4 LV E' Septal Velocity 11.2 cm/s Mitral E to LV E' Septal Ratio 12.1
--- NOTE | 2017-09-27 10:51 | PN- Cardiology ---
Subjective Subjective: Hemodynamically more stable. Off pressors. Remains in atrial fibrillation. Episodes of elevated rate present. Received 1 dose of IV digoxin 0.25 mg earlier. Objective Vital Signs and I&Os Vital Signs Date Time Temp Pulse Resp B/P B/P Pulse O2 O2 Flow FiO2 Mean Ox Delivery Rate 09/27 0411 131 131/64 09/27 0400 98 Nasal 2.0L Cannula 09/27 0000 98 Nasal 2.0L Cannula 09/27 0000 99.1 124 22 100/64 98 Nasal 2.0L Cannula 09/26 2318 134 100/64 09/26 2116 Nasal 4.0L Cannula 09/26 2031 138 100/66 09/26 2018 124 93/69 09/26 2000 96 Nasal 4.0L Cannula 09/26 1300 97.2 118 22 90/60 97 Nasal 4.0L Cannula 09/26 1300 97 Nasal 4.0L Cannula 09/26 1220 115 18 90/62 98 Nasal 4.0L Cannula 09/26 1206 109 18 93/55 97 Nasal 4.0L Cannula 09/26 1150 108 22 91/59 97 Nasal 4.0L Cannula 09/26 1127 114 18 86/54 98 Nasal 4.0L Cannula Intake & Output 09/27 1600 09/27 0800 09/27 0000 09/26 1600 09/26 0800 09/26 0000 Intake Total 2254 2242 617 3600 Output Total 1400 1130 250 600 100 Balance 854 1112 367 -600 3500 Intake, IV 1534 8636 299 8223 Intake, Oral 720 600 100 Number 1 Bowel Movements Output, Urine 1400 1130 250 600 100 Patient 276 lb 263 lb 263 lb Weight Weight Bed scale Reported by Patient Reported by Patient Measurement Method Physical Exam: General Appearance: well developed/nourished, overweight, alert Head: normal HEENT: Normal Neck: supple, JVP normal, carotid upstrokes normal bilaterally, no masses or thyromegaly Respiratory: chest non-tender, clear to auscultation and percussion bilaterally Cardiovascular: irregular rate/rhythm, tachycardic, normal S1, S2, 1/6 systolic murmur Abdomen: normal bowel sounds, soft, non-tender Extremities: normal inspection, no edema Vascular: Pulses are 2+ and equal bilaterally Neurologic: Grossly normal/nonfocal Current Medications: Current Medications Sig/Royce Start time Last Medication Dose Route Stop Time Status Admin Aspirin 81 MG DAILY 09/26 0900 AC 09/27 PO 0940 Calcium Carbonate 500 MG DAILY PRN 09/27 0030 AC PO Ceftriaxone Sodium 1,000 MG DAILY 09/26 1244 AC 09/26 IV 1558 Dextrose/Sodium 1,000 ML Q20H 09/26 0930 DC 09/26 [place] 0934 Digoxin 0.25 MG ONCE ONE 09/27 0945 DC IV 09/27 0946 Digoxin 0.25 MG ONCE ONE 09/26 194 DC 09/26 IV 09/26 1942017 Diltiazem HCl 20 MG ONCE ONE 09/27 0900 CAN IV PUSH 09/27 09 Diltiazem HCl 10 MG ONCE ONE 09/27 0415 DC 09/27 IV PUSH 09/28 415 041 Diltiazem HCl 0 .STK-MED ONE 09/27 041 DC .ROUTE Diltiazem HCl 10 MG ONCE ONE 09/26 2330 DC 09/26 IV PUSH 09/26 233 2318 Diltiazem HCl 5 MG ONCE ONE 09/26 2030 DC 09/26 IV 09/26 2030 203 Diltiazem HCl 0 .STK-MED ONE 09/26 2029 DC .ROUTE Diltiazem HCl 125 MG Q24H 09/26 0315 DC 09/26 Dextrose/Water 100 ML IV 0319 Duloxetine HCl 60 MG DAILY 09/26 0900 AC 09/27 PO 0940 Fentanyl Citrate 0 .STK-MED ONE 09/26 1821 DC .ROUTE Heparin Sodium/ 25,000 UNIT Q24H 09/25 2315 AC 09/27 Dextrose IV 0122 Dextrose/Water 500 ML Insulin Aspart 0 TIDAC 09/26 0800 AC 09/26 SC 1625 Ketamine HCl 0 .STK-MED ONE 09/26 182 DC .ROUTE Magnesium Sulfate 1 GM Q2H 09/26 0730 DC 09/26 Dextrose/Water 100 ML IV 09/26 1129 0920 Midazolam HCl 0 .STK-MED ONE 09/26 182 DC .ROUTE Morphine Sulfate 0 .STK-MED ONE 09/27 0939 DC .ROUTE Morphine Sulfate 2 MG ONCE ONE 09/27 0930 DC 09/27 IV 09/27 0931 0940 Phenylephrine HCl 40 MG Q5H 09/26 2200 DC 09/26 Dextrose/Water 250 ML IV 2257 Phenylephrine HCl 40 MG Q24H 09/26 0945 DC 09/26 Dextrose/Water 250 ML IV 09/260 1017 Potassium Chloride 0 .STK-MED ONE 09/27 0944 DC PO Potassium Chloride 40 MEQ BID 09/27 0919 AC 09/27 PO 0943 Potassium Chloride 40 MEQ ONCE ONE 09/27 0800 CAN PO 09/27 0801 Potassium Chloride 40 MEQ ONCE ONE 09/27 0115 CAN PO 09/27 0116 Potassium Chloride 40 MEQ ONCE ONE 09/27 0115 DC 09/27 PO 09/27 0116 0121 Potassium Chloride 40 MEQ BID 09/26 0900 DC 09/26 PO 2226 Rosuvastatin Calcium 40 MG DAILY 09/26 0900 AC 09/27 PO 0939 Simethicone 40 MG ONCE ONE 09/27 0945 DC PO 09/27 0946 Sodium Chloride 1,000 ML Q10H 09/26 1245 AC 09/27 IV 0415 Tamsulosin HCl 0.4 MG DAILY 09/26 0900 AC 09/27 PO 0940 Results Last 48 Hrs of Labs/Mics: Laboratory Tests 09/27/17 0650: APTT 50 H 09/27/17 0500: APTT Cancelled 09/27/17 0430: Anion Gap 11, Estimated GFR 58 L, Glucose 164 H, Calcium 7.6 L, Phosphorus 2.8, Magnesium 2.2, Total Bilirubin 1.0, AST 33, ALT 34, Albumin 2.8 L, CBC w Diff NO MAN DIFF REQ, RBC 4.22 L, MCV 92.1, MCH 30.9, MCHC 33.5, RDW 14.5, MPV 9.0, Gran % 90.6 H, Lymphocytes % 4.2 L, Monocytes % 4.6, Eosinophils % 0.5, Basophils % 0.1, Absolute Granulocytes 14.5 H, Absolute Lymphocytes 0.7 L, Absolute Monocytes 0.7 H, Absolute Eosinophils 0.1, Absolute Basophils 0 09/26/17 2100: APTT Cancelled 09/26/17 2045: 09/26/17 1730: Lactic Acid 2.0 09/26/17 1330: Lactic Acid 3.4 H 09/26/17 1330: Anion Gap 11, Estimated GFR 45 L, Glucose 220 H, Calcium 7.9 L, Phosphorus 3.2, Magnesium 2.2, Total Bilirubin 1.0, AST 34, ALT 34, Albumin 2.9 L, APTT 93 H, CBC w Diff MAN DIFF ORDERED, RBC 4.45 L, MCV 91.2, MCH 30.7, MCHC 33.6, RDW 14.3, MPV 9.5, Gran % 90.8 H, Lymphocytes % 6.0 L, Monocytes % 3.0, Eosinophils % 0.2, Basophils % 0, Absolute Granulocytes 19.5 H, Segmented Neutrophils 81 H, Band Neutrophils 13 H, Absolute Lymphocytes 1.3, Lymphocytes 3 L, Monocytes 3, Absolute Monocytes 0.6, Absolute Eosinophils 0, Absolute Basophils 0, Platelet Estimate ADEQUATE, Anisocytosis 1+ 09/26/17 1200: Sodium Cancelled, Potassium Cancelled, Chloride Cancelled, Carbon Dioxide Cancelled, Anion Gap Cancelled, BUN Cancelled, Creatinine Cancelled, BUN/ Creatinine Ratio Cancelled, Magnesium Cancelled, CBC w Diff Cancelled, WBC Cancelled, RBC Cancelled, Hgb Cancelled, Hct Cancelled, MCV Cancelled, MCH Cancelled, MCHC Cancelled, RDW Cancelled, Plt Count Cancelled, MPV Cancelled 09/26/17 0611: Anion Gap 14, Estimated GFR 49 L, BUN/Creatinine Ratio 27.1 H, Hemoglobin A1c 7.4 H, Lactic Acid 2.8 H, Magnesium 1.6, Troponin I 0.07, APTT 56 H, CBC w Diff MAN DIFF ORDERED, RBC 4.60 L, MCV 91.7, MCH 30.9, MCHC 33.7, RDW 14.0, MPV 9.0, Gran % 92.8 H, Lymphocytes % 3.9 L, Monocytes % 3.2, Eosinophils % 0.1, Basophils % 0, Absolute Granulocytes 14.4 H, Segmented Neutrophils 75, Band Neutrophils 16 H, Absolute Lymphocytes 0.6 L, Lymphocytes 2 L, Monocytes 6, Absolute Monocytes 0.5, Absolute Eosinophils 0, Absolute Basophils 0, Metamyelocytes 1, Platelet Estimate ADEQUATE, Normocytic RBCs VERIFIED, Normochromic RBCs VERIFIED 09/26/17 0120: Lactic Acid 3.7 H, Troponin I 0.04 09/26/17 0049: Lactic Acid Cancelled 09/25/17 2329: APTT Cancelled 09/25/17 2204: Urine Color YEL, Urine Clarity CLDY H, Urine pH 6.0, Ur Specific [place] 1.025, Urine Protein 100 H, Urine Ketones TRACE H, Urine Nitrite NEG, Urine Bilirubin NEG, Urine Urobilinogen 0.2, Ur Leukocyte Esterase SMALL H, Ur Microscopic SEDIMENT EXAMINED, Urine RBC FEW H, Urine WBC PACKD H, Ur Epithelial Cells RARE, Urine Bacteria MANY H, Urine Hemoglobin MOD H, Urine Glucose >=1000 H 09/25/17 2200: Anion Gap 17 H, Estimated GFR 53 L, BUN/Creatinine Ratio 24.6, Glucose 190 H, Lactic Acid 5.0 H, Calcium 9.4, Magnesium 1.7, Total Bilirubin 1.8 H, AST 40, ALT 32, Alkaline Phosphatase 127 H, Creatine Kinase 369 H, Troponin I 0.04, Grx-W-Amyeisfiyio Pept 5330 H, Total Protein 7.7, Albumin 4.0, Globulin 3.7, Albumin/Globulin Ratio 1.1, TSH &T3 &Free T4 Intrp 2.060, APTT 37, CBC w Diff MAN DIFF ORDERED, RBC 5.24, MCV 91.9, MCH 30.7, MCHC 33.4, RDW 14.1, MPV 9.0, Gran % 86.9 H, Lymphocytes % 7.9 L, Monocytes % 5.2, Eosinophils % 0, Basophils % 0, Absolute Granulocytes 17.2 H, Segmented Neutrophils 83 H, Band Neutrophils 3, Absolute Lymphocytes 1.6, Lymphocytes 5 L, Monocytes 9, Absolute Monocytes 1.0 H, Absolute Eosinophils 0, Absolute Basophils 0, Platelet Estimate VERIFIED BY SMEAR, Normocytic RBCs VERIFIED, Normochromic RBCs VERIFIED , Fld Total RBCs Counted 100 Assessment/Plan Assessment/Plan Assessment: 1. Atrial fibrillation of unclear duration; suboptimal rate control 2. Sepsis of urologic origin 3. Hypertension-improved, currently off pressors 4. History of bladder cancer 5. History of sleep apnea 6. Hypokalemia-improved Recommendations: -Continue current management as per the ICU/critical care team. -Echocardiogram pending -In view of the fact that the patient just came off pressors, I would continue to monitor the blood pressure closely. -For rate control, digoxin 0.25 mg IV now, reassess heart rate in 2-3 hours, if rate remains elevated, give another 0.25 mg of digoxin at that time. -Monitor potassium and magnesium closely and replete as necessary Continue telemetry? Yes
[2017-09-27 16:00] VITALS: BP 130/70
[2017-09-27 16:09] LABS: PTT 83 SEC (25-37)
[2017-09-28] VITALS: BP 144/70
[2017-09-28 02:33] LABS: ABSOLUTE BASOPHIL COUNT 0 /CUMM (0.0-0.2); ABSOLUTE EOSINOPHIL COUNT 0.1 /CUMM (0.0-0.7); ABSOLUTE GRANULOCYTE CT 10.6 /CUMM (1.4-6.5); ABSOLUTE LYMPH COUNT 0.6 /CUMM (1.2-3.4); ABSOLUTE MONOCYTE COUNT 0.8 /CUMM (0.10-0.60); BASOPHIL % 0.1 % (0.0-2.0); HEMATOCRIT 39.5 % (42-52); MEAN CORPUSCULAR HGB 31.1 PG (27.0-31.0); MEAN CORPUSCULAR HGB CONC 34.4 G/DL (33.0-37.0); MEAN CORPUSCULAR VOLUME 90.4 FL (80.0-94.0); MEAN PLATELET VOLUME 8.7 FL (7.4-10.4); PLATELET COUNT 145 /CUMM (130-400); RBC DISTRIBUTION WIDTH 14.3 % (11.5-14.5); RED BLOOD CELL CT 4.37 /CUMM (4.70-6.10); WHITE BLOOD CELL COUNT 12.1 /CUMM (4.8-10.8)
[2017-09-28 02:35] LABS: PTT 59 SEC (25-37)
[2017-09-28 02:59] LABS: GRANULOCYTE % 87.9 % (42.2-75.2)
--- NOTE | 2017-09-28 06:58 | PN- Resident CRCU ---
SerafinCarmine 09/28/17 0657: Subjective HPI/CRCU Issues: Atrial fibrillation of unclear duration; suboptimal rate control Sepsis from urological origin (improving) Septic shock, off phenylephrine since yesterday(resolved) Hypokalemia improving DOTTIE, resolved History of bladder cancer status post immunotherapy History of sleep apnea 24 Hour Events: Patient remained tachycardic overnight. His heart rate remained between 130s and 140s overnight. He received one push of Cardizem 15 mg. This morning his heart rate is between 106 to 120s. Patient has poor appetite. He denied chest pain, palpitation, nausea, vomiting, chills, fever, abdominal pain and dysuria. He is on room air and maintaining saturation 95%. He is complaining of back pain 4/10 and left knee pain. Objective Exam General Appearance: well developed/nourished, no apparent distress, alert, awake Head: atraumatic, normal appearance Neck: normal inspection, supple Respiratory: normal breath sounds, chest non-tender Cardiovascular: irregularly irregular Gastrointestinal: normal bowel sounds, soft Extremities: no edema Skin Temp/Moisture Exam: Warm/Dry Sepsis Skin Exam (color): Normal for Ethnicity Impression/Plan Impression/Problem List Impression: 77 YO M with PMH significant for HTN, HLD, morbid obesity, VERONA not on CPAP, DM, psoriasis, nephrolithiasis with h/o lithotripsies, BPH, h/o UTI, and bladder cancer s/p TURBT and receiving intravesicular immunotherapy BCG? managed by Dr. Contreras in [place], completed one cycle in April with a reportedly benign repeat cystoscopy but pending another round of therapy presented with eight weeks of back pain, immobility, and worsening urinary urgency, frequency, and incontinence. In ED patient was found to be in atrial fibrillation and leukocytosis with lactic acidosis, elevated creatinine and his urinalysis was suggestive of infection. Later on patient's urine culture came back positive with gram-negative rods and blood culture came back positive with gram-negative rods. In ED his blood pressure was 80/50 due to septic shock. Peripheral central catheter was placed in right groin and he was started on phenylephrine. Following the patient in ICU for following problems. Sepsis from urological origin s/p right ureteric stent placement: -Patient's urinalysis was suggestive of infection and his culture was positive with gram-negative rods. Patient was spiking fever, weight WBC count and tachycardia. -Imaging studies showed right hydroureteronephrosis with nonobstructing right renal stone. -S/P DAY 2 after right ureter stent placement. Possible lithotripsy after patient's acute condition stabilized. -Continue ceftriaxone, Day 3. -Patient is growing Escherichia coli blood and urine cultures. -Urology recommended to follow the patient as outpatient for ESWL and stent removal in 1-2 months. Septic shock:(Resolved) -From urological origin sepsis -In ED patient's blood pressure was 80/50 -Right femoral peripheral central line was placed. -Off phenylephrine since yesterday. -Patient is hemodynamically stable and maintaining blood pressure 130/64. Acute hypoxemic respiratory failure:(improved) -Possibly multifactorial due to sepsis, morbid obesity and history of sleep apnea as his saturation dropped on room air to 92% and patient was requiring oxygen supplementation. He was started on 3 L and still maintaining saturation 92%. Later on his oxygen requirement went to 4 L in ED. -Today he is on room air and maintaining saturation 95%. -Continue TRC nebulization as needed Atrial fibrillation: -Patient has atrial fibrillation probably due to sepsis from unclear duration. -Patient received one IV dose of 0.25 mg digoxin last night and 3 doses of IV Cardizem push. He was then patient's heart rate remained in 130s. -Received 3 doses of iv dig 0.25 mg yesterday and one push of cardizem last night. -Cardizem 5mg iv push and then 5mg/h cardizem drip to titrate it to control heart rate under 100. His Cardizem drip was stopped considering his facial redness. We will give patient one push of metoprolol 5 mg IV as his heart rate is still in 120s. We will continue with metoprolol 50 mg twice a day. -Continue iv heparin -His ejection fraction is 60% -Closely monitoring patient's potassium level. Hypokalemia: -Possibly due to low oral intake as patient has low appetite and acid-base disturbance. -Today his potassium is 3.6 and weight repeating it.today 3.7 -Closely monitoring his potassium level as patient is on digoxin. Acute kidney injury:(Improving) -On admission his creatinine level was 1.3 possibly due to prerenal. -Avoid nephrotoxins medications -We will encourage patient to drink orally. -Today his creatinine is 0.9. -IOP 8493/4250 History of Hypertension hyperlipidemia: -Continue rosuvastatin. -Holding his amlodipine and bisoprolol. History of diabetes: -Holding his metformin while in hospital. -Continue Accu-Cheks, his blood sugar level this morning was 195 -Diabetic diet -Continue insulin NovoLog according to sliding scale. History of back pain: -Follow pain pathway -Patient received one dose of morphine 2 mg IV, we will assess his requirement. DVT prophylaxis: Mechanical and pharmacological CODE STATUS: Full code Problem List: 1. New onset atrial fibrillation Pain Ratin Pain Location: back Pain Plan: pain pathway Tomorrow's Labs & Rationales: cbc/icu bundle Plan DVT/Prophylaxis: mechanical, pharmacological Jesus DIXON,Jass 09/28/17 1036: Objective Vital Signs & I&O Last 8 Hrs of Vitals and I&O: Intake & Output 09/28 1600 Intake Total 2451 Output Total 1700 Balance 751 Intake, IV 451 Intake, Oral 2000 Number 0 Bowel Movements Output, Urine 1700 Patient 276 lb Weight Current Medications: Current Medications Sig/Royce Start time Last Medication Dose Route Stop Time Status Admin Acetaminophen 650 MG ONCE ONE 09/28 0130 DC 09/28 PO 09/28 0131 0130 Acetaminophen 0 .STK-MED ONE 09/28 0129 DC PO Aspirin 81 MG DAILY 09/26 0900 AC 09/28 PO 0953 Calcium Carbonate 500 MG DAILY 09/27 2000 DC 09/28 PO 0957 Calcium Carbonate 500 MG DAILY PRN 09/27 0030 DC PO Ceftriaxone Sodium 1,000 MG DAILY 09/26 1244 AC 09/28 IV 0953 Diltiazem HCl 5 MG ONCE ONE 09/28 0945 DC 09/28 IV PUSH 09/28 0946 1138 Diltiazem HCl 125 MG Q24H 09/28 0945 DC 09/28 Sodium Chloride 100 ML IV 1138 Diltiazem HCl 15 MG ONCE ONE 09/27 2300 DC 09/27 IV PUSH 09/27 Diltiazem HCl 0 .STK-MED ONE 09/28 2255 DC .ROUTE Diphenhydramine HCl 50 MG ONCE ONE 09/28 2029 DC 09/28 IV 09/28 Diphenhydramine HCl 0 .STK-MED ONE 09/29 2023 DC .ROUTE Diphenhydramine HCl 25 MG ONCE ONE 09/28 1500 DC 09/28 IV 09/28 1501 1504 Diphenhydramine HCl 0 .STK-MED ONE 09/28 1453 DC .ROUTE Diphenhydramine HCl 50 MG ONCE ONE 09/28 1445 CAN PO 09/28 1446 Duloxetine HCl 60 MG DAILY 09/26 0900 AC 09/28 PO 0953 Heparin Sodium/ 25,000 UNIT Q24H 09/25 2315 AC 09/28 Dextrose IV 0131 Dextrose/Water 500 ML Insulin Aspart 0 TIDAC 09/26 0800 AC 09/28 SC 1806 Magnesium Oxide 0 .STK-MED ONE 09/28 1807 DC PO Magnesium Oxide 400 MG ONE ONE 09/28 1645 DC 09/28 PO 09/28 1646 1645 Metoprolol Tartrate 50 MG DAILY 09/29 0900 CAN PO Metoprolol Tartrate 50 MG BID 09/28 2100 AC PO Metoprolol Tartrate 5 MG ONCE ONE 09/28 2000 DC 09/28 IV 09/28 Metoprolol Tartrate 0 .STK-MED ONE 09/28 2000 DC IV Metoprolol Tartrate 0 .STK-MED ONE 09/28 1535 DC IV Metoprolol Tartrate 5 MG ONCE ONE 09/28 1530 DC 09/28 IV 09/28 1531 1530 Potassium Chloride 20 MEQ ONCE ONE 09/28 1645 DC 09/28 PO 09/28 1646 1645 Potassium Chloride 40 MEQ BID 09/27 0919 AC 09/28 PO 0953 Rosuvastatin Calcium 40 MG DAILY 09/26 0900 AC 09/28 PO 0953 Sodium Chloride 1,000 ML Q13H 09/28 0730 DC IV Sodium Chloride 1,000 ML Q10H 09/26 1245 DC 09/28 IV 0644 Tamsulosin HCl 0.4 MG DAILY 09/26 0900 AC 09/28 PO 0953 Attending MD Review Statement Attending Sign Off Attending Cosign Statement: I have: examined this patient, reviewed [facility] data, personally reviewd images, discussd w/resident/PA/DITCH TENDER, discussed mgmt plan w/rudy, discussed mgmt plan w/CM, discussed mgmt plan w/pt, agreed w/resident/PA/DITCH TENDER, amended to note. Other Findings: Impression 77 year old man * septic shock of urological origin - pansensitive E.Coli - no longer in shock, off vasopressors - etiology secondary to nephrolithiasis and hydronephrosis - growing E.Coli in blood and GNR in urine * new onset atrial fibrillation with a rapid ventricular response * history of bladder cancer * history of VERONA - declines therapy * back pain Plan Respiratory -o2 supplementation -incentive spirometry ID -monitor fevers, wbc -continue ceftriaxone, f/u final cultures - E.Coli pansenstive so far -s/p right ureteral stenting -urology appreciated CVS -monitor hemodynamics -rate control -heparin gtt -cardiology f/u Heme -heparin gtt, ptt monitoring -monitor cbc, coags Metabolic -ins/outs -creatinine improved -monitor and replete electrolytes Alimentary -diet Neuro -pain control DVT prophylaxis at all times TTS 35 minutes With respect to bladder cancer imaging/surveillance - patient follows with urologist in [place]. Given the acute nature of urological issues, would be best to hold off until acute illness subsides for surveillance imaging
[2017-09-28 08:00] VITALS: BP 118/70
[2017-09-28 09:26] LABS: PTT 68 SEC (25-37)
--- NOTE | 2017-09-28 09:56 | PN- Cardiology ---
Subjective Subjective: The patient is more hemodynamically stable. His blood pressure is normal off of pressors. He remains in atrial fibrillation. His rate is not well controlled in the 120s-140s. He has received 3 doses of 0.5 mg digoxin. He is on IV heparin for anticoagulation. Objective Vital Signs and I&Os Vital Signs Date Time Temp Pulse Resp B/P B/P Pulse O2 O2 Flow FiO2 Mean Ox Delivery Rate 09/28 0800 96.8 130 22 118/70 96 Room Air 09/28 0400 Room Air 09/28 0000 Room Air 09/28 0000 98.4 146 25 144/70 95 Room Air 09/27 2257 156 160/83 09/27 2009 142 153/88 09/28 1999 95 Nasal 2.0L Cannula 09/27 1600 97 Nasal 2.0L Cannula 09/27 1600 98.0 144 24 130/70 98 Nasal 2.0L Cannula 09/27 1200 97 Nasal 2.0L Cannula Intake & Output 09/28 1600 09/28 0800 09/28 0000 09/27 1600 09/27 0800 09/27 0000 Intake Total 2296 3005 3192 2254 2242 Output Total 1400 1400 1450 1400 1130 Balance 896 1605 2168 489 7191 Intake, IV 1096 1045 1192 1534 1642 Intake, Oral 1200 1960 2000 720 600 Number 0 Bowel Movements Output, Urine 1400 1400 1450 1400 1130 Physical Exam: He is in no distress Chest is clear Heart rapid irregular rhythm, no murmurs Extremities no edema Assessment/Plan Assessment/Plan The patient's atrial fibrillation is still not well controlled despite 3 doses of digoxin. I would recommend restarting him on Cardizem drip starting with a bolus of 5 mg and then 5 mg/h drip, tapering up to control his rate to under 100. Once his rate is controlled we can switch him to oral rate control regimen. Continue telemetry? Not applicable (ICU patient)
--- NOTE | 2017-09-28 15:38 | PN- Urology ---
Surgical Brief Attending Note Brief Attending Note: Overall improving: remains in A-fib but otherwise VSS, afebrile: DC plan per medicine: pt to f/u in 1-2 months after discharge for ESWL with stent removal.
--- NOTE | 2017-09-28 15:48 | Event Note ---
Event Note Event Note: S: Patient developed redness on the face as reported by nursing staff. B: 77 YO M with PMH significant for HTN, HLD, morbid obesity, VERONA not on CPAP, DM, psoriasis, nephrolithiasis with h/o lithotripsies, BPH, h/o UTI, and bladder cancer s/p TURBT and receiving intravesicular immunotherapy BCG? managed by Dr. Contreras in [place], completed one cycle in April with a reportedly benign repeat cystoscopy but pending another round of therapy presented with eight weeks of back pain, immobility, and worsening urinary urgency, frequency, and incontinence. In ED patient was found to be in atrial fibrillation and leukocytosis with lactic acidosis, elevated creatinine and his urinalysis was suggestive of infection. A/P: Patient was seen and examined. He has redness of both cheeks and tip of the nose. Patient was hemodynamically stable no difficulty in breathing without any swelling of tongue. Patient denied any pain or tenderness of the area. Patient was started this morning on Cardizem drip to control his heart rate as he had in A. fib with heart rate in 130s to 140s. Patient was given 1 dose of Benadryl 25 mg IV but his redness was increasing. I spoke to Dr. Mccarthy about the situation and he recommended to stop the Cardizem drip. He recommended to start the patient on metoprolol 5 mg IV push and later on metoprolol 50 mg by mouth twice a day. Patient's heart rate was in 120s when we stopped the Cardizem drip. We will keep monitoring his blood pressure and heart rate.
[2017-09-28 16:00] VITALS: BP 144/80
[2017-09-28 23:17] LABS: PTT 60 SEC (25-37)
[2017-09-29] VITALS: BP 130/60
[2017-09-29 04:42] LABS: ABSOLUTE BASOPHIL COUNT 0 /CUMM (0.0-0.2); ABSOLUTE EOSINOPHIL COUNT 0.2 /CUMM (0.0-0.7); ABSOLUTE GRANULOCYTE CT 10.2 /CUMM (1.4-6.5); ABSOLUTE LYMPH COUNT 0.8 /CUMM (1.2-3.4); ABSOLUTE MONOCYTE COUNT 1.2 /CUMM (0.10-0.60); BASOPHIL % 0.1 % (0.0-2.0); EOSINOPHIL % 1.2 % (0-5); GRANULOCYTE % 82.3 % (42.2-75.2); HEMATOCRIT 41.1 % (42-52); MEAN CORPUSCULAR HGB 30.6 PG (27.0-31.0); MEAN CORPUSCULAR HGB CONC 33.6 G/DL (33.0-37.0); MEAN PLATELET VOLUME 8.4 FL (7.4-10.4); PLATELET COUNT 187 /CUMM (130-400); RBC DISTRIBUTION WIDTH 14.5 % (11.5-14.5); RED BLOOD CELL CT 4.51 /CUMM (4.70-6.10); WHITE BLOOD CELL COUNT 12.4 /CUMM (4.8-10.8)
--- NOTE | 2017-09-29 07:00 | PN- Resident CRCU ---
Juancarlos Betancourt 09/29/17 0700: Subjective HPI/CRCU Issues: Atrial fibrillation of unclear duration; suboptimal rate control Sepsis from urological origin (improving) Septic shock, off phenylephrine since yesterday(resolved) Hypokalemia improving DOTTIE, resolved History of bladder cancer status post immunotherapy History of sleep apnea 24 Hour Events: Patient remained in A. fib overnight. With heart rate between 120s and 130s. Patient verification 100 has lasted that's where his Cardizem drip was discontinued. Patient denied chest pain, palpitation, nausea, vomiting, chills, fever, abdominal pain and dysuria. His facial redness has been resolved. He is on room air and maintaining saturation 95%. Patient's appetite is poor. Objective Vital Signs & I&O Last 8 Hrs of Vitals and I&O: Intake & Output 09/29 1600 09/29 0800 09/29 0000 Intake Total 525 740 Output Total 2100 1500 Balance -1575 -760 Intake, IV 425 290 Intake, Oral 100 450 Number 0 Bowel Movements Output, Urine 2100 1500 Laboratory Tests 09/29 09/29 09/28 0600 0353 2145 Chemistry Sodium (137 - 145 mmol/L) 136 L Potassium (3.5 - 5.1 mmol/L) 3.8 Chloride (98 - 107 mmol/L) 103 Carbon Dioxide (22 - 30 mmol/L) 21 L Anion Gap (5 - 16) 11 BUN (9 - 20 mg/dL) 28 H Creatinine (0.7 - 1.2 mg/dL) 0.8 Estimated GFR (>60 ml/min) > 60 Glucose (65 - 99 mg/dL) 201 H Calcium (8.4 - 10.2 mg/dL) 8.2 L Phosphorus (2.5 - 4.5 mg/dL) 2.0 L Magnesium (1.6 - 2.3 mg/dL) 2.3 Total Bilirubin (0.2 - 1.3 mg/dL) 0.7 AST (17 - 59 U/L) 89 H ALT (21 - 72 U/L) 65 Albumin (3.5 - 5.0 g/dL) 2.6 L Coagulation APTT (25 - 37 SEC) Pending 60 H Hematology CBC w Diff MAN DIFF ORDERED WBC (4.8 - 10.8 /CUMM) 12.4 H RBC (4.70 - 6.10 /CUMM) 4.51 L Hgb (14.0 - 18.0 G/DL) 13.8 L Hct (42 - 52 %) 41.1 L MCV (80.0 - 94.0 FL) 91.0 MCH (27.0 - 31.0 PG) 30.6 MCHC (33.0 - 37.0 G/DL) 33.6 RDW (11.5 - 14.5 %) 14.5 Plt Count (130 - 400 /CUMM) 187 MPV (7.4 - 10.4 FL) 8.4 Gran % (42.2 - 75.2 %) 82.3 H Lymphocytes % (20.5 - 51.1 %) 6.6 L Monocytes % (1.7 - 9.3 %) 9.8 H Eosinophils % (0 - 5 %) 1.2 Basophils % (0.0 - 2.0 %) 0.1 Absolute Granulocytes (1.4 - 6.5 /CUMM) 10.2 H Segmented Neutrophils (42.2 - 75.2 %) 82 H Band Neutrophils (0.0 - 5.0 %) 2 Absolute Lymphocytes (1.2 - 3.4 /CUMM) 0.8 L Lymphocytes (20.5 - 51.1 %) 12 L Monocytes (1.7 - 9.3 %) 4 Absolute Monocytes (0.10 - 0.60 /CUMM) 1.2 H Absolute Eosinophils (0.0 - 0.7 /CUMM) 0.2 Absolute Basophils (0.0 - 0.2 /CUMM) 0 Platelet Estimate (ADEQUATE) VERIFIED BY SMEAR Normocytic RBCs VERIFIED Normochromic RBCs VERIFIED 09/28 09/28 09/28 1550 1400 0830 Chemistry Sodium (137 - 145 mmol/L) 134 L Cancelled Potassium (3.5 - 5.1 mmol/L) 3.7 Cancelled Chloride (98 - 107 mmol/L) 103 Cancelled Carbon Dioxide (22 - 30 mmol/L) 21 L Cancelled Anion Gap (5 - 16) 10 Cancelled BUN (9 - 20 mg/dL) 28 H Cancelled Creatinine (0.7 - 1.2 mg/dL) 0.8 Cancelled Estimated GFR (>60 ml/min) > 60 Glucose (65 - 99 mg/dL) 189 H Cancelled Calcium (8.4 - 10.2 mg/dL) 8.2 L Cancelled Phosphorus (2.5 - 4.5 mg/dL) 1.9 L Cancelled Magnesium (1.6 - 2.3 mg/dL) 2.2 Cancelled Total Bilirubin (0.2 - 1.3 mg/dL) 0.8 Cancelled AST (17 - 59 U/L) 88 H Cancelled ALT (21 - 72 U/L) 60 Cancelled Albumin (3.5 - 5.0 g/dL) 2.7 L Cancelled Coagulation APTT (25 - 37 SEC) 68 H Exam General Appearance: well developed/nourished, no apparent distress, alert, awake Head: atraumatic Neck: normal inspection, supple Respiratory: normal breath sounds, chest non-tender Cardiovascular: irregularly irregular Gastrointestinal: normal bowel sounds, soft Extremities: no edema Skin Temp/Moisture Exam: Warm/Dry Sepsis Skin Exam (color): Normal for Ethnicity Current Medications: Current Medications Sig/Royce Start time Last Medication Dose Route Stop Time Status Admin Apixaban 5 MG BID 09/29 1152 AC 09/29 PO 1309 Aspirin 81 MG DAILY 09/26 09 AC 09/29 PO 0949 Ceftriaxone Sodium 1,000 MG DAILY 09/26 1244 AC 09/29 IV 0948 Diphenhydramine HCl 50 MG ONCE ONE 09/28 2029 DC 09/28 IV 09/28 Diphenhydramine HCl 0 .STK-MED ONE 09/29 2023 DC .ROUTE Duloxetine HCl 60 MG DAILY 09/26 09 AC 09/29 PO 0949 Heparin Sodium/ 25,000 UNIT Q24H 09/25 2315 DC 09/28 Dextrose IV 0131 Dextrose/Water 500 ML Insulin Aspart 0 TIDAC 09/26 0800 AC 09/29 SC 1729 Metoprolol Tartrate 0 .STK-MED ONE 09/28 2341 DC PO Metoprolol Tartrate 50 MG BID 09/28 2100 AC 09/29 PO 0949 Metoprolol Tartrate 5 MG ONCE ONE 09/29 1999 DC 09/28 IV 09/28 Metoprolol Tartrate 0 .STK-MED ONE 09/29 1999 DC IV Phosphate 250 MG ONCE ONE 09/29 0930 DC 09/29 PO 09/29 0931 1035 Potassium Chloride 40 MEQ BID 09/27 09 AC 09/29 PO 0949 Rosuvastatin Calcium 40 MG DAILY 09/26 899 AC 09/29 PO 948 Tamsulosin HCl 0.4 MG DAILY 09/26 899 AC 09/29 PO 948 Impression/Plan Impression/Problem List Impression: 77 YO M with PMH significant for HTN, HLD, morbid obesity, VERONA not on CPAP, DM, psoriasis, nephrolithiasis with h/o lithotripsies, BPH, h/o UTI, and bladder cancer s/p TURBT and receiving intravesicular immunotherapy BCG? managed by Dr. Contreras in [place], completed one cycle in April with a reportedly benign repeat cystoscopy but pending another round of therapy presented with eight weeks of back pain, immobility, and worsening urinary urgency, frequency, and incontinence. In ED patient was found to be in atrial fibrillation and leukocytosis with lactic acidosis, elevated creatinine and his urinalysis was suggestive of infection. Later on patient's urine culture came back positive with gram-negative rods and blood culture came back positive with gram-negative rods. In ED his blood pressure was 80/50 due to septic shock. Peripheral central catheter was placed in right groin and he was started on phenylephrine. Following the patient in ICU for following problems. Sepsis from urological origin s/p right ureteric stent placement: -Patient's urinalysis was suggestive of infection and his culture was positive with gram-negative rods. Patient was spiking fever, weight WBC count and tachycardia. -Imaging studies showed right hydroureteronephrosis with nonobstructing right renal stone. -S/P DAY 2 after right ureter stent placement. Possible lithotripsy after patient's acute condition stabilized. -Continue ceftriaxone, Day 4. -Patient is growing Escherichia coli blood and urine cultures. -Urology recommended to follow the patient as outpatient for ESWL and stent removal in 1-2 months. Septic shock:(Resolved) -From urological origin sepsis -In ED patient's blood pressure was 80/50 -Right femoral peripheral central line was placed. -Off phenylephrine since yesterday. -Patient is hemodynamically stable and maintaining blood pressure 130/60. Acute hypoxemic respiratory failure:(Resolved) -Possibly multifactorial due to sepsis, morbid obesity and history of sleep apnea as his saturation dropped on room air to 92% and patient was requiring oxygen supplementation. He was started on 3 L and still maintaining saturation 92%. Later on his oxygen requirement went to 4 L in ED. -Today he is on room air and maintaining saturation 95%. -Continue TRC nebulization as needed. -Patient has S1Q3 inverted T3 pattern and EKG although it's not specific for PE but patient was initially hypoxic so we will rule out DVT with Doppler study. Atrial fibrillation: -Patient has atrial fibrillation probably due to sepsis from unclear duration. -Patient received one IV dose of 0.25 mg digoxin last night and 3 doses of IV Cardizem push. He was then patient's heart rate remained in 130s. -Received 3 doses of iv dig 0.25 mg yesterday and one push of cardizem last night. -Cardizem 5mg iv push and then 5mg/h cardizem drip to titrate it to control heart rate under 100. His Cardizem drip was stopped considering his facial redness. We will give patient one push of metoprolol 5 mg IV as his heart rate is still in 120s. We will continue with metoprolol 50 mg twice a day. -Continue iv heparin -His ejection fraction is 60% Hypokalemia: -Possibly due to low oral intake as patient has low appetite and acid-base disturbance. -Today his potassium is 3.8 -Closely monitoring his potassium level as patient received digoxin four doses total. Acute kidney injury:(Improving) -On admission his creatinine level was 1.3 possibly due to prerenal. -Avoid nephrotoxins medications -We will encourage patient to drink orally. -Today his creatinine is 0.8. History of Hypertension hyperlipidemia: -Continue rosuvastatin. -Holding his amlodipine and bisoprolol. History of diabetes: -Holding his metformin while in hospital. -Continue Accu-Cheks, his blood sugar level this morning was 201 -Diabetic diet -Continue insulin NovoLog according to sliding scale. History of back pain: -Follow pain pathway -Patient received one dose of morphine 2 mg IV, we will assess his requirement. Can be ordered whenever needed. DVT prophylaxis: Pharmacological only CODE STATUS: Full code Problem List: 1. New onset atrial fibrillation Pain Ratin Pain Location: none Pain Goal: Remain pain free Pain Plan: pain pathway Tomorrow's Labs & Rationales: cbc/icu bundle Plan DVT/Prophylaxis: mechanical, pharmacological Jass Lee MD 09/29/17 1052: Attending MD Review Statement Attending Sign Off Attending Cosign Statement: I have: examined this patient, reviewed [employer] EMR data, personally reviewd images, discussd w/resident/PA/MERCHANDISING TEAM LEAD, discussed mgmt plan w/rudy, discussed mgmt plan w/CM, discussed mgmt plan w/pt, agreed w/resident/PA/MERCHANDISING TEAM LEAD, amended to note. Other Findings: Impression 77 year old man * septic shock of urological origin - pansensitive E.Coli - no longer in shock, off vasopressors - etiology secondary to nephrolithiasis and hydronephrosis - growing E.Coli in blood and GNR in urine * new onset atrial fibrillation with a rapid ventricular response * history of bladder cancer * history of VERONA - declines therapy * back pain Plan Respiratory -incentive spirometry -on room air -pt has not been using his CPAP at home, will re-evaluate this on an ongoing basis ID -monitor fevers, wbc -continue ceftriaxone, f/u final cultures - E.Coli pansenstive so far -s/p right ureteral stenting -urology appreciated -remove abarca when feasible CVS -monitor hemodynamics -rate control -heparin gtt -cardiology f/u -did not tolerate cardizem - had significant flushing/redness of the face requiring benadryl Heme -heparin gtt, ptt monitoring -monitor cbc, coags -will check venous dopplers Metabolic -ins/outs -creatinine improved -monitor and replete electrolytes Alimentary -diet Neuro -pain control DVT prophylaxis at all times TTS 35 minutes Previous documentation: With respect to bladder cancer imaging/surveillance - patient follows with urologist in [place]. Given the acute nature of urological issues, would be best to hold off until acute illness subsides for surveillance imaging
[2017-09-29 08:00] VITALS: BP 150/98
[2017-09-29 08:17] LABS: PTT 89 SEC (25-37)
--- NOTE | 2017-09-29 11:18 | ULTRASOUND REPORT ---
EXAMINATION: US TRIPLEX OF LOWER EXTREMITIES, BILATERAL CLINICAL INFORMATION: EKG changes and hypoxia. Assess for DVT. COMPARISON: None. TECHNIQUE: Color-flow triplex imaging with spectral analysis and compression Doppler was performed on the bilateral lower extremities. FINDINGS: Respiratory variation, normal compression and augmented flow are noted throughout the bilateral lower extremities. The visualized common femoral veins, superficial femoral veins, profunda femoral veins, popliteal veins and midcalf peroneal and posterior tibial venous segments show no evidence of deep venous thrombosis bilaterally. There is a 2.7 x 1.3 x 1.7 discrete fluid collection in the popliteal fossa on the right consistent with a Garcia's cyst. A small amount of free fluid is noted in the left popliteal fossa, consistent with a joint effusion. IMPRESSION: 1. Normal triplex scan without evidence of deep venous thrombosis involving the bilateral lower extremities. 2. There is a Garcia's cyst in the popliteal fossa on the right. A small effusion is noted in the left popliteal fossa.
--- NOTE | 2017-09-29 11:32 | PN- Cardiology ---
Subjective Subjective: The patient is complaining of abdominal pain. His vital signs are improved. His blood pressure is normal. His heart rate is in the 90s with atrial fibrillation. He did not tolerate Cardizem due to a probable allergic reaction and is now on Lopressor 50 mg twice daily. He remains on IV heparin. Objective Vital Signs and I&Os Vital Signs Date Time Temp Pulse Resp B/P B/P Pulse O2 O2 Flow FiO2 Mean Ox Delivery Rate 09/29 0800 97.2 97 20 150/98 97 Room Air 09/29 0400 95 Room Air 09/29 0000 94 Room Air 09/29 0000 98.2 139 22 130/60 94 Room Air Room Air 09/28 2352 131 21 136/70 09/28 2006 137 147/88 09/29 1999 96 Room Air 09/28 1600 97.2 126 20 144/80 96 Room Air Intake & Output 09/29 1600 09/29 0800 09/29 0000 09/28 1600 09/28 0800 09/28 0000 Intake Total 046 335 4599 2296 3005 Output Total 2100 1500 1700 1400 1400 Balance -1575 -760 310 466 7428 Intake, IV 425 816 728 9412 1045 Intake, Oral 636 303 9166 1200 1960 Number 0 0 Bowel Movements Output, Urine 2100 1500 1700 1400 1400 Patient 276 lb Weight Physical Exam: No distress Chest clear Heart irregular, soft heart sounds, normal rate Abdomen somewhat distended somewhat tender Current Medications: Current Medications Sig/Royce Start time Last Medication Dose Route Stop Time Status Admin Aspirin 81 MG DAILY 09/26 0900 AC 09/29 PO 0949 Calcium Carbonate 500 MG DAILY 09/27 2000 DC 09/28 PO 0957 Calcium Carbonate 500 MG DAILY PRN 09/27 0030 DC PO Ceftriaxone Sodium 1,000 MG DAILY 09/26 1244 AC 09/29 IV 0948 Diltiazem HCl 125 MG Q24H 09/28 0945 DC 09/28 Sodium Chloride 100 ML IV 1138 Diphenhydramine HCl 50 MG ONCE ONE 09/28 2029 DC 09/28 IV 09/28 Diphenhydramine HCl 0 .STK-MED ONE 09/29 2023 DC .ROUTE Diphenhydramine HCl 25 MG ONCE ONE 09/28 1500 DC 09/28 IV 09/28 1501 1504 Diphenhydramine HCl 0 .STK-MED ONE 09/28 1453 DC .ROUTE Diphenhydramine HCl 50 MG ONCE ONE 09/28 1445 CAN PO 09/28 1446 Duloxetine HCl 60 MG DAILY 09/26 09 AC 09/29 PO 0949 Heparin Sodium/ 25,000 UNIT Q24H 09/25 2315 AC 09/28 Dextrose IV 0131 Dextrose/Water 500 ML Insulin Aspart 0 TIDAC 09/26 0800 AC 09/29 SC 0825 Magnesium Oxide 0 .STK-MED ONE 09/28 1807 DC PO Magnesium Oxide 400 MG ONE ONE 09/28 1645 DC 09/28 PO 09/28 1646 1645 Metoprolol Tartrate 50 MG DAILY 09/29 0900 CAN PO Metoprolol Tartrate 0 .STK-MED ONE 09/28 2341 DC PO Metoprolol Tartrate 50 MG BID 09/28 2100 AC 09/29 PO 0949 Metoprolol Tartrate 5 MG ONCE ONE 09/29 1999 DC 09/28 IV 09/28 Metoprolol Tartrate 0 .STK-MED ONE 09/28 2000 DC IV Metoprolol Tartrate 0 .STK-MED ONE 09/28 1535 DC IV Metoprolol Tartrate 5 MG ONCE ONE 09/28 1530 DC 09/28 IV 09/28 1531 1530 Phosphate 250 MG ONCE ONE 09/29 0930 DC 09/29 PO 09/29 0931 1035 Potassium Chloride 20 MEQ ONCE ONE 09/28 1645 DC 09/28 PO 09/28 1646 1645 Potassium Chloride 40 MEQ BID 09/27 0919 AC 09/29 PO 0949 Rosuvastatin Calcium 40 MG DAILY 09/26 09 AC 09/29 PO 0949 Tamsulosin HCl 0.4 MG DAILY 09/26 09 AC 09/29 PO 0949 Results Last 48 Hrs of Labs/Mics: Laboratory Tests 09/29/17 0600: APTT 89 H 09/29/17 0353: Anion Gap 11, Estimated GFR > 60, Glucose 201 H, Calcium 8.2 L, Phosphorus 2.0 L, Magnesium 2.3, Total Bilirubin 0.7, AST 89 H, ALT 65, Albumin 2.6 L, CBC w Diff MAN DIFF ORDERED, RBC 4.51 L, MCV 91.0, MCH 30.6, MCHC 33.6, RDW 14.5, MPV 8.4, Gran % 82.3 H, Lymphocytes % 6.6 L, Monocytes % 9.8 H, Eosinophils % 1.2 , Basophils % 0.1, Absolute Granulocytes 10.2 H, Segmented Neutrophils 82 H, Band Neutrophils 2, Absolute Lymphocytes 0.8 L, Lymphocytes 12 L, Monocytes 4, Absolute Monocytes 1.2 H, Absolute Eosinophils 0.2, Absolute Basophils 0, Platelet Estimate VERIFIED BY SMEAR, Normocytic RBCs VERIFIED, Normochromic RBCs VERIFIED 09/28/17 2145: APTT 60 H 09/28/17 1550: Anion Gap 10, Estimated GFR > 60, Glucose 189 H, Calcium 8.2 L, Phosphorus 1.9 L, Magnesium 2.2, Total Bilirubin 0.8, AST 88 H, ALT 60, Albumin 2.7 L 09/28/17 1400: Sodium Cancelled, Potassium Cancelled, Chloride Cancelled, Carbon Dioxide Cancelled, Anion Gap Cancelled, BUN Cancelled, Creatinine Cancelled, Glucose Cancelled, Calcium Cancelled, Phosphorus Cancelled, Magnesium Cancelled, Total Bilirubin Cancelled, AST Cancelled, ALT Cancelled, Albumin Cancelled 09/28/17 0830: APTT 68 H 09/28/17 0150: Anion Gap 10, Estimated GFR > 60, Glucose 182 H, Calcium 8.1 L, Phosphorus 2.3 L, Magnesium 2.7 H, Total Bilirubin 1.0, AST 89 H, ALT 56, Albumin 2.7 L, APTT 59 H, CBC w Diff NO MAN DIFF REQ, RBC 4.37 L, MCV 90.4, MCH 31.1 H, MCHC 34.4, RDW 14.3, MPV 8.7, Gran % 87.9 H, Lymphocytes % 4.6 L, Monocytes % 6.4, Eosinophils % 1.0, Basophils % 0.1, Absolute Granulocytes 10.6 H, Absolute Lymphocytes 0.6 L, Absolute Monocytes 0.8 H, Absolute Eosinophils 0.1, Absolute Basophils 0 09/27/17 1400: Anion Gap 10, Estimated GFR > 60, Glucose 164 H, Calcium 7.5 L, Phosphorus 2.5 , Magnesium 2.2, Total Bilirubin 0.9, AST 61 H, ALT 45, Albumin 2.6 L, APTT 83 H Assessment/Plan Assessment/Plan The patient's heart rate in atrial fibrillaion is better controlled on beta- blockers. I would keep him on this. He can be transitioned to an oral anticoagulant such as Eliquis. He can be transferred to telemetry from a cardiac standpoint. Continue telemetry? Yes
--- NOTE | 2017-09-29 11:53 | Transfer of Care Summary ---
Hospital Course Course Hospital Course: Reason for ICU admission: Patient was admitted to ICU sepsis from urologically related with septic shock and new onset A. fib with rapid ventricular response requiring peripheral central line placement in right groin. History of present illness: 77 YO M with PMH significant for HTN, HLD, morbid obesity, VERONA not on CPAP, DM, psoriasis, nephrolithiasis with h/o lithotripsies, BPH, h/o UTI, and bladder cancer s/p TURBT and receiving intravesicular immunotherapy BCG? managed by Dr. Contreras in [place], completed one cycle in April with a reportedly benign repeat cystoscopy but pending another round of therapy presented with eight weeks of back pain, immobility, and worsening urinary urgency, frequency, and incontinence. In ED patient was found to be in atrial fibrillation and leukocytosis with lactic acidosis, elevated creatinine and his urinalysis was suggestive of infection. Later on patient's urine culture came back positive with gram-negative rods and blood culture came back positive with gram-negative rods. In ED his blood pressure was 80/50 due to septic shock. Peripheral central catheter was placed in right groin and he was started on phenylephrine. Interval events in icu: Patient was admitted with septic shock from urologically origin as his urine culture was positive with Escherichia coli and also blood culture was positive with Escherichia coli. Patient was treated for septic shock with IV fluids and paraphrase central line was placed in right groin to start the patient on phenylephrine. With IV fluids and phenylephrine his blood pressure improved. His lactic acid came back to normal with fluid resuscitation. Patient was given ceftriaxone to cover Escherichia coli. As his imaging study was showing hydroureteronephrosis with nonobstructing renal stone, urology consult was obtained and they placed a stent in ureter. Urology recommended to see the patient as outpatient in 1-2 months for ESWL. Patient has new onset A. fib with rapid ventricular response. He was started on IV heparin for anticoagulation and rate control with Cardizem. Considering patient's low blood pressure Cardizem was stopped. Later patient was given digoxin 3 doses 0.25 IV. Patient' s heart rate remained more than 110/m. After the patient's blood pressure improved he was again started on IV Cardizem drip but he developed facial redness possibly reaction to Cardizem so drip was discontinued. Cardiology recommended to give him one portion of metoprolol and then continue metoprolol 50 mg twice a day. His heart rate is in 90s with metoprolol. His anticoagulation was changed to Eliquis twice a day as recommended by cardiology. Patient's triple-lumen catheter from right groin was removed. Patient had DOTTIE due to prerenal that improved with IV hydration. Diabetes under control with insulin NovoLog according to sliding scale and diabetic diet. Mechanical ventilation: Never been intubated NIPPV: Never been on BiPAP/CPAP Antibiotic Plan: Continuing his ceftriaxone Day 4. We will narrow the spectrum according to sensitivities.. Catheters/Lines plan: Keeping his Murphy's catheter as patient is urinating planty of urine. Things to be followed up on the floor: -Follow-up with cardiology for further recommendations. -Please discontinue Murphy's as soon as possible. -Please update the family if there is any change in plan. -Please arrive Cardizem as patient developed possible allergic reaction to it. -Urology recommended to see the patient in 1-2 months for ESWL. -Please change his antibiotics according to sensitivities to narrow the spectrum. Nutrition: Diabetic diet DVT prophylaxis: Mechanical and pharmacologic.(Mechanical was discontinued as recommeded by ) Code status: Full code Assessment/Plan: Following the patient in ICU for following problems. Sepsis from urological origin s/p right ureteric stent placement: -Patient's urinalysis was suggestive of infection and his culture was positive with gram-negative rods. Patient was spiking fever, weight WBC count and tachycardia. -Imaging studies showed right hydroureteronephrosis with nonobstructing right renal stone. -S/P DAY 2 after right ureter stent placement. Possible lithotripsy after patient's acute condition stabilized. -Continue ceftriaxone, Day 4. -Patient is growing Escherichia coli blood and urine cultures. -Urology recommended to follow the patient as outpatient for ESWL and stent removal in 1-2 months. Septic shock:(Resolved) -From urological origin sepsis -In ED patient's blood pressure was 80/50 -Right femoral peripheral central line was placed. -Off phenylephrine since yesterday. -Patient is hemodynamically stable and maintaining blood pressure 130/60. Acute hypoxemic respiratory failure:(Resolved) -Possibly multifactorial due to sepsis, morbid obesity and history of sleep apnea as his saturation dropped on room air to 92% and patient was requiring oxygen supplementation. He was started on 3 L and still maintaining saturation 92%. Later on his oxygen requirement went to 4 L in ED. -Today he is on room air and maintaining saturation 95%. -Continue TRC nebulization as needed. -Patient has S1Q3 inverted T3 pattern and EKG although it's not specific for PE but patient was initially hypoxic so we will rule out DVT with Doppler study. Atrial fibrillation: -Patient has atrial fibrillation probably due to sepsis from unclear duration. -Patient received one IV dose of 0.25 mg digoxin last night and 3 doses of IV Cardizem push. He was then patient's heart rate remained in 130s. -Received 3 doses of iv dig 0.25 mg yesterday and one push of cardizem last night. -Cardizem 5mg iv push and then 5mg/h cardizem drip to titrate it to control heart rate under 100. His Cardizem drip was stopped considering his facial redness. We will give patient one push of metoprolol 5 mg IV as his heart rate is still in 120s. We will continue with metoprolol 50 mg twice a day. -Continue iv heparin -His ejection fraction is 60% Hypokalemia: -Possibly due to low oral intake as patient has low appetite and acid-base disturbance. -Today his potassium is 3.8 -Closely monitoring his potassium level as patient received digoxin four doses total. Acute kidney injury:(Improving) -On admission his creatinine level was 1.3 possibly due to prerenal. -Avoid nephrotoxins medications -We will encourage patient to drink orally. -Today his creatinine is 0.8. History of Hypertension hyperlipidemia: -Continue rosuvastatin. -Holding his amlodipine and bisoprolol. History of diabetes: -Holding his metformin while in hospital. -Continue Accu-Cheks, his blood sugar level this morning was 201 -Diabetic diet -Continue insulin NovoLog according to sliding scale. History of back pain: -Follow pain pathway -Patient received one dose of morphine 2 mg IV, we will assess his requirement. Can be ordered whenever needed. DVT prophylaxis: Pharmacological only CODE STATUS: Full code
[2017-09-29 21:48] VITALS: BP 150/88
--- NOTE | 2017-09-30 05:48 | PN- Housestaff ---
Subjective Follow-up For: Atrial fibrillation of unclear duration; suboptimal rate control Sepsis from urological origin (improving) Septic shock(Resolved) Subjective: No active complaints. Review of Systems Constitutional: Reports: no symptoms. Objective Last 24 Hrs of Vital Signs/I&O Vital Signs Date Time Temp Pulse Resp B/P B/P Pulse O2 O2 Flow FiO2 Mean Ox Delivery Rate 09/30 2147 97.6 112 20 150/88 95 09/29 2100 118 150/88 09/29 1600 Room Air 09/29 08 97.2 97 20 150/98 97 Room Air Intake & Output 09/30 0809/30 0000 09/29 1600 Intake Total 360 1222 Output Total 1000 Balance 360 222 Intake, IV 222 Intake, Oral 360 1000 Output, Urine 1000 Patient 189 lb Weight Physical Exam General Appearance: Alert, Oriented X3, Cooperative Skin: No Rashes, No Breakdown Cardiovascular: Normal S1, Normal S2, Irregularly irregular Lungs: Normal Air Movement Abdomen: Normal Bowel Sounds, Soft, No Tenderness Extremities: No Clubbing, No Cyanosis, No Edema Current Medications: Current Medications Sig/Royce Start time Last Medication Dose Route Stop Time Status Admin Acetaminophen 1,000 MG Q6P PRN 09/29 194 AC N/A 1 UNIT IV Apixaban 5 MG BID 09/29 1152 AC 09/29 PO 2057 Aspirin 81 MG DAILY 09/26 899 AC 09/29 PO 0949 Ceftriaxone Sodium 1,000 MG DAILY 09/26 1244 AC 09/29 IV 0948 Duloxetine HCl 60 MG DAILY 09/26 09 AC 09/29 PO 0949 Heparin Sodium/ 25,000 UNIT Q24H 09/25 2315 DC 09/28 Dextrose IV 0131 Dextrose/Water 500 ML Insulin Aspart 0 TIDAC 09/26 08 AC 09/29 SC 1729 Metoprolol Tartrate 50 MG BID 09/28 2100 AC 09/29 PO 2100 Phosphate 250 MG ONCE ONE 09/29 0930 DC 09/29 PO 09/29 0931 1035 Potassium Chloride 40 MEQ BID 09/27 918 AC 09/29 PO 2057 Rosuvastatin Calcium 40 MG DAILY 09/26 09 AC 09/29 PO 0949 Tamsulosin HCl 0.4 MG DAILY 09/26 09 AC 09/29 PO 0949 Last 24 Hrs of Lab/Mauricio Results Last 24 Hrs of Labs/Mics: Laboratory Tests 09/29/17 1800: APTT Cancelled Assessment/Plan Assessment: 7 YO M with PMH significant for HTN, HLD, morbid obesity, VERONA not on CPAP, DM, psoriasis, nephrolithiasis with h/o lithotripsies, BPH, h/o UTI, and bladder cancer s/p TURBT and receiving intravesicular immunotherapy BCG? managed by Dr. Contreras in [place], completed one cycle in April with a reportedly benign repeat cystoscopy but pending another round of therapy presented with eight weeks of back pain, immobility, and worsening urinary urgency, frequency, and incontinence. Problem List; 1. Sepsis from urological origin s/p right ureteric stent placement 2. Septic shock:(Resolved) 3. Acute hypoxemic respiratory failure(resolved) 4. Atrial fibrillation, unclear duration 5. DOTTIE -resolved 6. History of Hypertension hyperlipidemia, diabetes, back Pain - S/P DAY 3 after right ureter stent placement. - Possible lithotripsy after patient's acute condition stabilized. Outpatient follow-up for ESWL and stent removal in 1-2 months. - Patient is growing Escherichia coli blood and urine cultures, continue ceftriaxone, Day 5. Can switch to amoxicillin/ampicillin. - Heart rate controlled with metoprolol 50 mg twice a day. Will continue. Becomes tachycardic discontinue bisoprolol the patient was taken her blood pressure, increased symptoms of metoprolol. -Continue iv heparin, Switch to Oral antocoagulation. - Continue to hold metformin and continue insulin NovoLog according to sliding scale - Continue rosuvastatin. - Holding his amlodipine and bisoprolol as patient was hypotensive from septic shock, can resume his a blood pressure allows. - IV Morphine as needed for Back Pain. DVT prophylaxis: Pharmacological only CODE STATUS: Full code Problem List: 1. Sepsis 2. UTI (urinary tract infection) 3. New onset atrial fibrillation Pain Ratin Pain Location: NA Pain Goal: Remain pain free Pain Plan: Pain Pathway Tomorrow's Labs & Rationales: CBC(Sepsis of Urological origin) -Continue insulin NovoLog according to sliding scale. History of back pain: -Follow pain pathway -Patient received one dose of morphine 2 mg IV, we will assess his requirement. Can be ordered whenever needed. DVT prophylaxis: Pharmacological only CODE STATUS: Full code Problem List: 1. Sepsis 2. UTI (urinary tract infection) 3. New onset atrial fibrillation Pain Ratin Pain Location: NA Pain Goal: Remain pain free Pain Plan: Pain Pathway Tomorrow's Labs & Rationales: CBC(Sepsis of Urological origin)
[2017-09-30 06:49] VITALS: BP 158/94
[2017-09-30 07:37] LABS: ABSOLUTE BASOPHIL COUNT 0 /CUMM (0.0-0.2); ABSOLUTE EOSINOPHIL COUNT 0.2 /CUMM (0.0-0.7); ABSOLUTE GRANULOCYTE CT 11.9 /CUMM (1.4-6.5); ABSOLUTE LYMPH COUNT 1.2 /CUMM (1.2-3.4); ABSOLUTE MONOCYTE COUNT 1.2 /CUMM (0.10-0.60); BASOPHIL % 0 % (0.0-2.0); EOSINOPHIL % 1.7 % (0-5); HEMATOCRIT 40.4 % (42-52); MEAN CORPUSCULAR HGB 30.4 PG (27.0-31.0); MEAN CORPUSCULAR HGB CONC 33.6 G/DL (33.0-37.0); MEAN CORPUSCULAR VOLUME 90.4 FL (80.0-94.0); MEAN PLATELET VOLUME 8.1 FL (7.4-10.4); PLATELET COUNT 247 /CUMM (130-400); RBC DISTRIBUTION WIDTH 14.8 % (11.5-14.5); RED BLOOD CELL CT 4.47 /CUMM (4.70-6.10); WHITE BLOOD CELL COUNT 14.6 /CUMM (4.8-10.8)
--- NOTE | 2017-09-30 11:47 | PN- Att Addend ---
Attending Addendum Attending Brief Note Patient seen and examined. Transferred out of the ICU yesterday. Chart reviewed. Lying in bed. Drowsy but arousable. Family present at the bedside. Complains of low back pain. Reports pain is 3/10 intensity. Family reports that pain has been going on since a fall office. A few weeks ago. They report he was having nightmares of the bed. Son reports that prior to the fall his gait has been unsteady with some episodes of falls. He has history of obstructive sleep apnea but is noncompliant with CPAP therapy stating that he is intolerant of the mask. He is a mouth breather. Nurses gave him his medications this morning with applesauce. Several minutes later he coughed up some of the pills intact. Currently afebrile. He is hemodynamically stable. Vital Signs Date Time Temp Pulse Resp B/P B/P Pulse O2 O2 Flow FiO2 Mean Ox Delivery Rate 09/30 1110 136/82 09/30 0822 120 158/94 09/30 0649 97.4 110 24 158/94 95 Room Air 09/29 2148 97.6 112 20 150/88 95 09/29 2100 118 150/88 09/29 1600 Room Air General appearance: Obese, drowsy, arousable. Able to engage in conversation. HEENT: Anicteric, no pallor, pupils equal and reactive. Neck: Supple with no jugular venous distention. Heart: S1-S2 regular with no audible murmur. Lungs: Adequate and symmetric air entry bilaterally with no added sounds. Abdomen: Obese with normal bowel sounds. Soft, nontender with no palpable masses. Extremities: Peripheral edema. No cyanosis. Skin: Intact Laboratory Tests 09/30/17 0622: Anion Gap 8, Estimated GFR > 60, Glucose 194 H, Calcium 8.4, Phosphorus 2.4 L, Magnesium 2.1, Total Bilirubin 0.7, AST 88 H, ALT 74 H, Albumin 2.7 L, CBC w Diff NO MAN DIFF REQ, RBC 4.47 L, MCV 90.4, MCH 30.4, MCHC 33.6, RDW 14.8 H, MPV 8.1, Gran % 82.0 H, Lymphocytes % 8.3 L, Monocytes % 8.0, Eosinophils % 1.7, Basophils % 0, Absolute Granulocytes 11.9 H, Absolute Lymphocytes 1.2, Absolute Monocytes 1.2 H, Absolute Eosinophils 0.2, Absolute Basophils 0 09/29/17 1800: APTT Cancelled Problems: 1. Sepsis secondary to urinary tract infection. 2. Acute hypoxic respiratory failure. 3. Atrial fibrillation; newly diagnosed 4. Low back pain. 5. Severe deconditioning Plan: -Patient still has leukocytosis. Continue antibiotic therapy with IV ceftriaxone. Monitor CBC. -Patient to follow-up with the urology service as an outpatient for stent removal. -Recommend CT lumbar spine to rule out occult fracture given his persistent pain. -Due to severe deconditioning PT is recommended placement in a custodial facility for short-term rehabilitation. Currently requires a Laila lift to be placed back in bed after mobilizing him. -Caution with sedatives medications. Recommend pain control with tramadol as needed. -Continue rate control with metoprolol. Continue anticoagulation therapy with Eliquis. -Follow-up with the cardiology service regarding need for ongoing telemetry monitoring.
--- NOTE | 2017-09-30 12:04 | PN- Cardiology ---
Subjective Subjective: No acute events. Still complaining of lower back pain. Very tired. HR 100-120. Started on eliquis yesterday. Objective Vital Signs and I&Os Vital Signs Date Time Temp Pulse Resp B/P B/P Pulse O2 O2 Flow FiO2 Mean Ox Delivery Rate 09/30 1110 136/82 09/30 08 120 158/94 09/30 0649 97.4 110 24 158/94 95 Room Air 09/29 2148 97.6 112 20 150/88 95 09/29 2100 118 150/88 09/29 1600 Room Air Intake & Output 09/30 1600 09/30 0809/30 0000 09/29 1600 09/29 0809/29 0000 Intake Total 116 511 4734 525 740 Output Total 875 0649 044 6566 2100 1500 Balance -875 -1260 -540 222 -1575 -760 Intake, IV 222 425 290 Intake, Oral 087 067 9344 100 450 Number 0 Bowel Movements Output, Urine 875 7602 349 4796 2100 1500 Patient 189 lb Weight Physical Exam: General Appearance: well developed/nourished, no apparent distress, alert, awake Neck: normal inspection, supple, trachea midline, no JVD Respiratory: normal breath sounds, chest non-tender Cardiovascular: irregularly irregular Gastrointestinal: normal bowel sounds, soft Extremities: mild lower extremity edema, good capillary refill Current Medications: Current Medications Sig/Royce Start time Last Medication Dose Route Stop Time Status Admin Acetaminophen 1,000 MG Q6P PRN 09/29 1944 N/A 1 UNIT IV Apixaban 5 MG BID 09/29 1152 AC 09/30 PO 1105 Aspirin 81 MG DAILY 09/26 09 AC 09/30 PO 1111 Ceftriaxone Sodium 1,000 MG DAILY 09/26 1244 AC 09/30 IV 1104 Duloxetine HCl 60 MG DAILY 09/26 899 AC 09/30 PO 1105 Insulin Aspart 0 TIDAC 09/26 08 AC 09/29 SC 1729 Metoprolol Tartrate 50 MG BID 09/28 2100 AC 09/30 PO 0822 Potassium Chloride 40 MEQ BID 09/27 0919 AC 09/30 PO 1111 Rosuvastatin Calcium 40 MG DAILY 09/26 09 AC 09/30 PO 1105 Tamsulosin HCl 0.4 MG DAILY 09/26 09 AC 09/30 PO 1110 Results Last 48 Hrs of Labs/Mics: Laboratory Tests 09/30/17 0622: Anion Gap 8, Estimated GFR > 60, Glucose 194 H, Calcium 8.4, Phosphorus 2.4 L, Magnesium 2.1, Total Bilirubin 0.7, AST 88 H, ALT 74 H, Albumin 2.7 L, CBC w Diff NO MAN DIFF REQ, RBC 4.47 L, MCV 90.4, MCH 30.4, MCHC 33.6, RDW 14.8 H, MPV 8.1, Gran % 82.0 H, Lymphocytes % 8.3 L, Monocytes % 8.0, Eosinophils % 1.7, Basophils % 0, Absolute Granulocytes 11.9 H, Absolute Lymphocytes 1.2, Absolute Monocytes 1.2 H, Absolute Eosinophils 0.2, Absolute Basophils 0 09/29/17 1800: APTT Cancelled 09/29/17 0600: APTT 89 H 09/29/17 0353: Anion Gap 11, Estimated GFR > 60, Glucose 201 H, Calcium 8.2 L, Phosphorus 2.0 L, Magnesium 2.3, Total Bilirubin 0.7, AST 89 H, ALT 65, Albumin 2.6 L, CBC w Diff MAN DIFF ORDERED, RBC 4.51 L, MCV 91.0, MCH 30.6, MCHC 33.6, RDW 14.5, MPV 8.4, Gran % 82.3 H, Lymphocytes % 6.6 L, Monocytes % 9.8 H, Eosinophils % 1.2 , Basophils % 0.1, Absolute Granulocytes 10.2 H, Segmented Neutrophils 82 H, Band Neutrophils 2, Absolute Lymphocytes 0.8 L, Lymphocytes 12 L, Monocytes 4, Absolute Monocytes 1.2 H, Absolute Eosinophils 0.2, Absolute Basophils 0, Platelet Estimate VERIFIED BY SMEAR, Normocytic RBCs VERIFIED, Normochromic RBCs VERIFIED 09/28/17 2145: APTT 60 H 09/28/17 1550: Anion Gap 10, Estimated GFR > 60, Glucose 189 H, Calcium 8.2 L, Phosphorus 1.9 L, Magnesium 2.2, Total Bilirubin 0.8, AST 88 H, ALT 60, Albumin 2.7 L 09/28/17 1400: Sodium Cancelled, Potassium Cancelled, Chloride Cancelled, Carbon Dioxide Cancelled, Anion Gap Cancelled, BUN Cancelled, Creatinine Cancelled, Glucose Cancelled, Calcium Cancelled, Phosphorus Cancelled, Magnesium Cancelled, Total Bilirubin Cancelled, AST Cancelled, ALT Cancelled, Albumin Cancelled Assessment/Plan Assessment/Plan 1. Sepsis secondary to urinary tract infection. 2. Acute hypoxic respiratory failure. 3. Atrial fibrillation; newly diagnosed 4. Low back pain. 5. Severe deconditioning. Increase lopressor to 75 mg bid. Imaging of the lower spine prior to discharge due to his non resolving pain. Continue telemetry? Yes
[2017-09-30 15:23] VITALS: BP 150/98
[2017-09-30 22:16] VITALS: BP 142/94
[2017-10-01 06:42] VITALS: BP 140/100
[2017-10-01 08:17] LABS: ABSOLUTE BASOPHIL COUNT 0 /CUMM (0.0-0.2); ABSOLUTE EOSINOPHIL COUNT 0.2 /CUMM (0.0-0.7); ABSOLUTE GRANULOCYTE CT 16.2 /CUMM (1.4-6.5); ABSOLUTE LYMPH COUNT 1.6 /CUMM (1.2-3.4); ABSOLUTE MONOCYTE COUNT 0.8 /CUMM (0.10-0.60); BASOPHIL % 0 % (0.0-2.0); EOSINOPHIL % 1.2 % (0-5); MEAN CORPUSCULAR HGB 30.7 PG (27.0-31.0); MEAN CORPUSCULAR VOLUME 90.4 FL (80.0-94.0); MEAN PLATELET VOLUME 7.9 FL (7.4-10.4); PLATELET COUNT 314 /CUMM (130-400); RBC DISTRIBUTION WIDTH 14.9 % (11.5-14.5); RED BLOOD CELL CT 4.09 /CUMM (4.70-6.10)
--- NOTE | 2017-10-01 09:38 | PN- Housestaff ---
Subjective Follow-up For: Atrial fibrillation of unclear duration; suboptimal rate control Sepsis from urological origin (improving) Septic shock(Resolved) Tele-Events Since Last Visit: a fib, HR 87-139 Subjective: Pt seen a& examined lying conmfortably in bed this am. He complains of constipation & his CPAP mask not fitting well. No other complaints/no acute events overnight Review of Systems Constitutional: Reports: see HPI. Objective Last 24 Hrs of Vital Signs/I&O Vital Signs Date Time Temp Pulse Resp B/P B/P Pulse O2 O2 Flow FiO2 Mean Ox Delivery Rate 10/02 2007 120 110/70 10/01 1653 97 10/01 1652 97 Room Air 10/01 1650 110/70 10/01 1649 110/70 10/01 1443 98.2 109 23 108/70 95 10/01 1328 115 134/78 10/01 1311 130 128/70 10/01 0845 120 150/90 10/01 0800 96 Room Air Room Air 10/01 0642 97.6 109 20 140/100 96 Room Air 10/01 0000 Room Air 09/30 2216 98.4 98 20 142/94 98 Room Air 09/30 2120 93 95 Intake & Output 10/01 1600 10/01 0800 10/01 0000 Intake Total 750 400 400 Output Total 975 1000 1450 Balance -225 -600 -1050 Intake, IV 150 Intake, Oral 600 400 400 Number 2 Bowel Movements Output, Urine 975 1000 1450 Patient 289 lb Weight Physical Exam General Appearance: Alert, Oriented X3, Cooperative, No Acute Distress Other Physical Findings: General Appearance: Patient seen and examined lying comfortably in bed in no acute distress. Alert, Oriented X3, Cooperative, No Acute Distress Skin: No Breakdown Skin Temp/Moisture Exam: Warm/Dry Sepsis Skin Exam (color): Normal for Ethnicity HEENT: Atraumatic, Mucous Membr. moist/pink Neck: Supple, No JVD, No thryomegaly, +2 Carotid Pulse wo Bruit Lymphatic: Axillary nl, Cervical nl Cardiovascular: Regular Rate, Normal S1, Normal S2, No Murmurs Lungs: CTA, No w/r/r Abdomen: Normal Bowel Sounds, Soft, No Tenderness, No Hepatospenomegaly Neurological: Normal Speech, Strength at 5/5 X4 Ext, Normal Tone, Sensation Intact, Cranial Nerves 3-12 NL, Reflexes 2+ Extremities: No Clubbing, No Cyanosis, No edema,Normal Pulses Vascular: Pulses Symmetrical Assessment/Plan Assessment: 77 YO M with PMH significant for HTN, HLD, morbid obesity, VERONA not on CPAP, DM, psoriasis, nephrolithiasis with h/o lithotripsies, BPH, h/o UTI, and bladder cancer s/p TURBT and receiving intravesicular immunotherapy BCG? managed by Dr. Contreras in [place], completed one cycle in April with a reportedly benign repeat cystoscopy but pending another round of therapy presented with eight weeks of back pain, immobility, and worsening urinary urgency, frequency, and incontinence. He was in the ICU before coming to the tele floor. Problem List: 1. Sepsis from urological origin s/p right ureteric stent placement 2. Septic shock:(Resolved) 3. Acute hypoxemic respiratory failure(resolved) 4. Atrial fibrillation, unclear duration 5. DOTTIE -resolved 6. History of Hypertension hyperlipidemia, diabetes, back pain PLAN: - Patient is growing Escherichia coli blood and urine cultures, continue ceftriaxone, Day 6. Can switch to amoxicillin/ampicillin. -Patient was tachycardic, heart rate in the 140s this afternoon. I spoke with Dr. Lopez who recommended IV pushes over 4:59 milligrams of metoprolol. I checked her vitals before and after the IV pushes. I gave a total of 2 pushes, after which the heart rate was ranging from 90s-115s. We also gave 25 mg of metoprolol p.o. once -We increased his dose of metoprolol from 75 mg twice daily 200 mg twice daily. -We started him on digoxin 0.5 mg. We will check his digoxin level tomorrow -Consider ID consult tomorrow morning and the need for a possible MRI lumbar spine -He will be n.p.o. starting tonight midnight for a JAROD ordered for tomorrow. -[place]. Eliquis - Continue rosuvastatin - Continue insulin NovoLog according to sliding scale - IV Morphine as needed for Back Pain. -Possible lithotripsy after patient's acute condition stabilized. Outpatient follow-up for ESWL and stent removal in 1-2 months. DVT prophylaxis: Pharmacological only CODE STATUS: Full code Problem List: 1. Back pain 2. UTI (urinary tract infection) 3. New onset atrial fibrillation Pain Ratin Pain Location: back Pain Goal: Pain 4 or less Pain Plan: follow pain pathway Tomorrow's Labs & Rationales: mariposa toth
--- NOTE | 2017-10-01 10:12 | CT SCAN REPORT ---
EXAMINATION: CT LUMBAR SPINE WITHOUT CONTRAST CLINICAL INFORMATION: Assess for occult fracture. COMPARISON: CT scan of the chest, abdomen and pelvis 09/25/2017. TECHNIQUE: Helical non-contrast CT images were obtained through the lumbar spine and 1.25 and 2.5 mm axial reconstructions were reviewed along with sagittal and coronal MPRs. DLP: 1192.96 mGy-cm FINDINGS: There is a mild levoscoliosis. There is narrowing of intervertebral disc height at L2-L3, L3-L4 and L4-L5 with mild vacuum disc changes. There are multilevel marginal osteophytes. There are Schmorl's nodes at multiple levels with invagination of disc into the adjacent endplates in the mid and upper number spine. No acute compression fractures are demonstrated. Bone mineralization is diffusely decreased. There are atheromatous calcifications of the aorta and its branches. The infrarenal abdominal aorta has a caliber of 3 cm consistent with a small aneurysm. The proximal common iliac arteries bilaterally are ectatic. The previously noted large cyst off the inferior pole of the left kidney is partially redemonstrated. The previously noted nonobstructive calcification at the midpole of the right kidney is not included on the current study. A nephrostomy tube on the right is partially visualized. There are degenerative changes of the bilateral sacroiliac joints. SPINAL LEVELS: T12-L1: There is mild bilateral facet arthropathy. Posterior disc contour is normal. There is no central stenosis and the neural foramina are patent. L1-L2: There is mild bilateral facet arthropathy. There is a broad-based posterior disc protrusion extending into the bilateral neural foramina. There is mild narrowing of the right neural foramen. There is mild central stenosis. L2-L3: There is mild to moderate bilateral facet arthropathy with ligamenta flava hypertrophy. There is a broad-based posterior disc protrusion extending into the right greater than left neural foramina. There is narrowing of the subarticular recesses. There is mild central stenosis. L3-L4: There is mild bilateral facet arthropathy with ligamenta flava hypertrophy. There is a diffuse disc bulge. The neural foramina are patent. There appears to be narrowing of the subarticular recesses bilaterally, more prominent on the left. There is mild central stenosis. L4-L5: There is mild bilateral facet arthropathy and ligamenta flava hypertrophy. There is a diffuse disc bulge, with small protrusions extending into the left greater than right neural foramina. There is narrowing of the subarticular recesses bilaterally and there is mild central stenosis. L5-S1: There is moderate bilateral facet arthropathy. There is a broad-based posterior disc protrusion extending into the left greater than right neural foramina, and there appears to be impingement on the exiting left L5 nerve root. There is no central stenosis. IMPRESSION: 1. There are no acute compression fractures or subluxations. 2. There are multilevel spondylitic changes throughout the lumbar spine, and there are arthropathic changes of the bilateral sacroiliac joints. 2. The infrarenal abdominal aorta and proximal common iliac arteries bilaterally demonstrate mild aneurysmal dilatation. 4. There is a large partially visualized cyst off the lower pole of the left kidney. The previously noted nonobstructive calcification at the midpole of the right kidney is not included on the current study. A nephrostomy tube on the right is partially visualized.
[2017-10-01 10:26] LABS: WHITE BLOOD CELL COUNT 18.9 /CUMM (4.8-10.8)
--- NOTE | 2017-10-01 12:10 | PN- Att Addend ---
Attending Addendum Attending Brief Note Patient seen and examined. No issues overnight reported by nursing staff. Family is of the impression that patient is more lethargic today. He is lethargic. No significant change compared to yesterday. Denies chest pain. Denies shortness of breath. Complains of lower abdominal discomfort. Denies nausea vomiting. Reports poor appetite. He was placed on CPAP therapy last night. He however was not compliant. States that he is not tolerating the mask. Lumbosacral CT scan done yesterday shows evidence of multiple spondylotic changes. No acute compression fractures or subluxation noted. Mild aortic aneurysm noted. Renal arteries is noted as well. General appearance: Well-developed, lethargic, not in respiratory distress Heart: S1-S2, irregular, tachycardic Lungs: Adequate entry bilaterally, clear to auscultation Abdomen: Obese, soft, mild tenderness in the epigastric region, no rebound, no guarding, normal bowel sounds Extremities: Trace peripheral edema Skin: Intact Problems: 1. Sepsis secondary to urinary tract infection and E. coli bacteremia. 2. Acute hypoxic respiratory failure. 3. Atrial fibrillation; newly diagnosed 4. Low back pain. 5. Severe deconditioning 6. Persistent leukocytosis Plan: -Obtain ABG to evaluate for CO2 retention. -Continue to encourage CPAP therapy at night. -Continue pain control with tramadol. Nursing staff reports that it is not sedating when patient takes it. -Mobilize patient as tolerated. -Leukocytosis is persistent and trending upwards. He however remains afebrile. Continue IV ceftriaxone for now. If leukocytosis is not improving tomorrow consider ID consultation. -Patient is now poorly controlled. Does not appear to be significant pain. Continue pain regimen. Follow-up with cardiology service regarding optimizing her rate control regimen. He did have improvement with digoxin in the past. Consider resuming this regimen.
--- NOTE | 2017-10-01 13:05 | PN- Cardiology ---
Subjective Subjective: HR 120-140 this morning, patient complaining of chest pains, EKG on its way. WBC >18 today, no fever. ABG shows respiratory alkalosis... CT scan of the lower spine does not reveal any obvious infectious process. Objective Vital Signs and I&Os Vital Signs Date Time Temp Pulse Resp B/P B/P Pulse O2 O2 Flow FiO2 Mean Ox Delivery Rate 10/01 0845 120 150/90 10/01 0642 97.6 109 20 140/100 96 Room Air 10/01 0000 Room Air 09/30 2216 98.4 98 20 142/94 98 Room Air 09/30 2120 93 95 09/30 1849 95 09/30 1700 93 95 09/30 1523 98.2 84 20 150/98 96 Room Air Intake & Output 10/01 0800 10/01 0000 09/30 1600 09/30 0809/30 0000 Intake Total 400 400 910 240 360 Output Total 575 1000 1450 1325 1500 900 Balance -575 -600 -1050 -415 -1260 -540 Intake, IV 110 Intake, Oral 400 400 800 240 360 Number 1 0 Bowel Movements Output, Urine 575 1000 1450 1325 1500 900 Patient 289 lb 189 lb Weight Physical Exam: General Appearance: alert awake, mild distress Neck: normal inspection, supple, trachea midline, no JVD Respiratory: normal breath sounds, chest non-tender Cardiovascular: irregularly irregular, no audible murmur Gastrointestinal: normal bowel sounds, soft Extremities: mild lower extremity edema, good capillary refill Assessment/Plan Assessment/Plan 1. Sepsis secondary to urinary tract infection. 2. Acute hypoxic respiratory failure. 3. Atrial fibrillation; newly diagnosed 4. Low back pain. 5. Severe deconditioning. In the context of respiratory alcalosis from hyperventilation, rising WBC, unstable HR, i believe there is an occult infectious process which is not controlled at the moment. I suggest consulting with dr Portillo, hemocultures X 2 today, lumbar MRI, JAROD. As for the rapid afib, lopresor 5 mg IV may be repeated 3 times. Increase metoprolol to 100 mg PO bid. Reduce furosemide, for net fluid loss < 1l/24hrs. Continue telemetry? Yes
[2017-10-01 14:43] VITALS: BP 108/70
[2017-10-01 22:20] VITALS: BP 110/70
[2017-10-02] VITALS (8 sets, daily range): BP systolic 78–132; BP diastolic 50–88
[2017-10-02 03:51] LABS: ABSOLUTE BASOPHIL COUNT 0.1 /CUMM (0.0-0.2); ABSOLUTE EOSINOPHIL COUNT 0.1 /CUMM (0.0-0.7); ABSOLUTE GRANULOCYTE CT 26.2 /CUMM (1.4-6.5); ABSOLUTE LYMPH COUNT 3.6 /CUMM (1.2-3.4); ABSOLUTE MONOCYTE COUNT 0.8 /CUMM (0.10-0.60); BASOPHIL % 0.3 % (0.0-2.0); EOSINOPHIL % 0.2 % (0-5); GRANULOCYTE % 85.2 % (42.2-75.2); MEAN CORPUSCULAR HGB 30.8 PG (27.0-31.0); MEAN CORPUSCULAR HGB CONC 33.8 G/DL (33.0-37.0); MEAN CORPUSCULAR VOLUME 91.2 FL (80.0-94.0); MEAN PLATELET VOLUME 8.2 FL (7.4-10.4); PLATELET COUNT 335 /CUMM (130-400); RBC DISTRIBUTION WIDTH 14.8 % (11.5-14.5); RED BLOOD CELL CT 3.14 /CUMM (4.70-6.10)
[2017-10-02 03:53] LABS: HEMATOCRIT 28.7 % (42-52)
[2017-10-02 04:09] LABS: WHITE BLOOD CELL COUNT 30.7 /CUMM (4.8-10.8)
--- NOTE | 2017-10-02 04:45 | Event Note ---
Event Note Event Note: 77 year old male with PMH of HTN, HLD, morbid obesity, VERONA not on CPAP, DM, psoriasis, nephrolithiasis with h/o lithotripsies, BPH, h/o UTI, and bladder cancer s/p TURBT and receiving intravesicular immunotherapy admitted with sepsis of urological origin, gram negative bacteremia, and atrial fibrillation with rapid ventricular response. He was downgraded from critical care to telemetry after recieving IV antibiotics and stent placement for right hydronephrosis/ ureter with nephrolithiasis with sepsis of urological origin and gram negative bacteremia and rate controlled new onset atrial fibrillation transitioned from heparin gtt to eliquis and aspirin. Approximately 0030, was called by nursing regarding an episode of melena. C diff and stool cultures were sent. Last hemoglobin and hematocrit, 12.6/37.0. Vital signs were stable at that time, tachycardia HR 120s, with afib, and SBP > 100. 1000cc NS bolus was ordered. Approximately 2 hours later contacted again for ongoing large volume melena and the patient was now hypotensive, SBP ~80mmHg. 18g additional PIV access gained, and crystalloid boluses were ordered. Morning labs were drawn early (CBC, ICU bundle, and ABG added). The patient was placed in Trendelberg position, blood products ordered (consent obtained) and IV PPI gtt started. The patient was transferred to critical care and family informed. An NGT was placed with coffee ground output consistent with upper GI bleed. Gastroenterology was called emergently. Blood transfusions were initiated and critical care attending was informed.
--- NOTE | 2017-10-02 05:51 | RADIOLOGY REPORT ---
EXAMINATION: XR PORTABLE ABDOMEN CLINICAL INFORMATION: Ileus COMPARISON: 09/25/2017 TECHNIQUE: AP view of the abdomen. FINDINGS: There is prominent gaseous distention of the stomach. No significant gaseous dilation of small or large bowel is seen, though the right abdomen is not fully included in the [id number] due to difficulties with patient positioning. A right ureteral stent is noted. Right lower pole renal calculus is redemonstrated. The visualized lung bases appear grossly clear. Degenerative changes are noted in the spine. IMPRESSION: Prominent gaseous distention of the stomach. No significant gaseous dilation of small or large bowel, though the right abdomen is not fully included in the [id number].
[2017-10-02 06:34] LABS: ABSOLUTE BASOPHIL COUNT 0 /CUMM (0.0-0.2); ABSOLUTE EOSINOPHIL COUNT 0.1 /CUMM (0.0-0.7); ABSOLUTE GRANULOCYTE CT 20.4 /CUMM (1.4-6.5); ABSOLUTE LYMPH COUNT 2.7 /CUMM (1.2-3.4); ABSOLUTE MONOCYTE COUNT 0.7 /CUMM (0.10-0.60); BASOPHIL % 0.2 % (0.0-2.0); EOSINOPHIL % 0.4 % (0-5); GRANULOCYTE % 85.5 % (42.2-75.2); HEMATOCRIT 27.3 % (42-52); MEAN CORPUSCULAR HGB 30.3 PG (27.0-31.0); MEAN CORPUSCULAR HGB CONC 33.5 G/DL (33.0-37.0); MEAN CORPUSCULAR VOLUME 90.4 FL (80.0-94.0); MEAN PLATELET VOLUME 7.8 FL (7.4-10.4); PLATELET COUNT 293 /CUMM (130-400); RBC DISTRIBUTION WIDTH 14.9 % (11.5-14.5); RED BLOOD CELL CT 3.02 /CUMM (4.70-6.10); WHITE BLOOD CELL COUNT 23.9 /CUMM (4.8-10.8)
--- NOTE | 2017-10-02 06:41 | Cons- Gastroenterology ---
General Information and HPI Consulting Request Date of Consult: 10/02/17 Requested By: Shreyas Mahan MD Reason for Consult: GI bleed Allergies/Medications Allergies: Coded Allergies: No Known Allergies (09/25/17) Home Med List: Amlodipine Besylate (Norvasc) 5 MG TABLET 1 TAB PO DAILY HTN (Reported) Aspirin (Aspirin*) 81 MG TAB.CHEW 1 TAB PO DAILY HEART (Reported) Bisoprolol Fumarate/Hctz (Bisoprolol-Hctz 10-6.25 MG Tab) 10 MG-6.25 MG TABLET 1 TAB PO DAILY HTN (Reported) Calcipotriene 0.005 % SOLUTION 1 KAYCEE TOP DAILY PRN PSORIASIS (Reported) Clobetasol Propionate 0.05 % OINT...G. 1 KAYCEE TOP BID PRN PSORIASIS (Reported) apply to affected area(s) Duloxetine HCl (Cymbalta) 60 MG CAPSULE.DR 1 CAP PO DAILY NEUROPATHY ( Reported) Insulin Degludec (Tresiba Flextouch U-100) 100 UNIT/ML (3 ML) INSULN.PEN 26 UNITS SC DAILY DM (Reported) Irbesartan 300 MG TABLET 1 TAB PO DAILY HTN (Reported) Metformin HCl (Glucophage) 1,000 MG TABLET 1 TAB PO BID DM (Reported) Rosuvastatin Calcium (Crestor) 40 MG TABLET 1 TAB PO DAILY CAD (Reported) Tamsulosin HCl (Flomax) 0.4 MG CAP.ER.24H 1 CAP PO DAILY BPH (Reported) Triamcinolone Acetonide 0.025 % CREAM..G. 1 KAYCEE TOP BID PRN PSORIASIS ( Reported) apply to affected area(s) Current Medications: Current Medications Sig/Royce Start time Last Medication Dose Route Stop Time Status Admin Acetaminophen 0 .STK-MED ONE 10/02 0022 DC IV Acetaminophen 1,000 MG Q6P PRN 09/29 1945 AC 10/02 N/A 1 UNIT IV 0025 Apixaban 5 MG BID 09/29 1152 DC 10/01 PO 2005 Aspirin 81 MG DAILY 09/26 0900 DC 10/01 PO 0843 Bisacodyl 10 MG ONCE ONE 10/01 0915 DC 10/01 VT 10/01 0916 0900 Bisacodyl 0 .STK-MED ONE 10/01 0909 DC VT Calcium Carbonate 500 MG TID PRN 10/01 1445 AC 10/01 PO 1449 Calcium Carbonate 0 .STK-MED ONE 10/01 1421 DC PO Ceftriaxone Sodium 1,000 MG DAILY 09/26 1244 AC 10/01 IV 0843 Digoxin 0 .STK-MED ONE 10/01 1638 DC PO Digoxin 0.25 MG ONCE ONE 10/01 1530 DC 10/01 PO 10/01 1531 1650 Docusate Sodium 100 MG DAILY NEEDED PRN 10/01 0915 AC 10/01 PO 1449 Duloxetine HCl 60 MG DAILY 09/26 0900 AC 10/01 PO 0843 Furosemide 20 MG DAILY 10/01 1855 AC 10/01 IV 2007 Insulin Aspart 0 TIDAC 09/26 0800 AC 10/01 SC 1651 Metoprolol Tartrate 100 MG BID 10/01 2100 AC 10/01 PO 2007 Metoprolol Tartrate 5 MG ONCE ONE 10/01 1500 DC 10/01 IV 10/01 1501 1328 Metoprolol Tartrate 5 MG ONCE ONE 10/01 1500 DC IV 10/01 1501 Metoprolol Tartrate 25 MG ONCE ONE 10/01 1500 DC 10/01 PO 10/01 1501 1649 Metoprolol Tartrate 0 .STK-MED ONE 10/01 1421 DC IV Metoprolol Tartrate 5 MG ONCE ONE 10/01 1315 DC 10/01 IV 10/01 1316 1311 Metoprolol Tartrate 0 .STK-MED ONE 10/01 1308 DC IV Metoprolol Tartrate 75 MG BID 09/30 2100 DC 10/01 PO 0843 Non-Formulary 0 SEE ADMIN CRITERIA 10/02 06 CAN Medication ANY Pantoprazole Sodium 0 .STK-MED ONE 10/02 0348 DC IV Pantoprazole Sodium 40 MG Q5H 10/02 0315 AC 10/02 Sodium Chloride 100 ML IV 0353 Potassium Chloride 40 MEQ BID 09/30 1340 AC 10/01 PO 0843 Rosuvastatin Calcium 40 MG DAILY 09/26 0900 AC 10/01 PO 0845 Senna 187 MG AT BEDTIME 10/01 2100 AC 10/01 PO 2006 Sodium Chloride 1,000 ML BOLUS ONE 10/02 0400 DC IV 10/02 0459 Sodium Chloride 1,000 ML BOLUS ONE 10/02 0315 DC 10/02 IV 10/02 0514 0411 Sodium Chloride 1,000 ML BOLUS ONE 10/02 0045 DC 10/02 IV 10/02 0144 0106 Tamsulosin HCl 0.4 MG DAILY 09/26 0900 AC 10/01 PO 0845 Tramadol HCl 50 MG Q4 PRN 09/30 1900 AC 10/01 PO 1151 Tranexamic Acid 1,000 MG ONCE ONE 10/02 0630 DC IV 10/02 0631 Vancomycin HCl 125 MG Q6H 10/02 0315 AC 10/02 PO 0410 Past History Travel History Traveled to [place] past 21 day No Medical History Neurological: NONE EENT: NONE Cardiovascular: hypertension, hyperlipidemia Respiratory: NONE Gastrointestinal: NONE Hepatic: NONE Renal: nephrolithiasis Musculoskeletal: degen joint disease, PSORIASIS Psychiatric: NONE Endocrine: diabetes Blood Disorders: NONE Cancer(s): bladder cancer Surgical History Surgical History: cystoscopy Family History Relations & Conditions If Any: Relation not specified for: *No pertinent family history Psychosocial History Where Do You Live? Home Who Do You Live With? child Services at Home: None Primary Language: [place] Smoking Status: Former Smoker ETOH Use: denies use Illicit Drug Use: denies illicit drug use Functional Ability ADLs Independent: dressing, eating, toileting, bathing. Ambulation: independent Exam & Diagnostic Data Vital Signs and I&O Vital Signs Date Time Temp Pulse Resp B/P B/P Pulse O2 O2 Flow FiO2 Mean Ox Delivery Rate 10/02 0330 120 80/52 10/02 0245 98.9 127 24 84/56 96 Room Air 10/02 0150 98.7 130 22 78/50 96 Room Air 10/02 0030 98.9 128 20 102/60 98 Room Air 10/01 2240 Room Air 10/01 2220 Room Air 10/01 2220 98.9 99 22 110/70 96 Room Air 10/01 2218 100 93 10/01 2008 120 110/70 10/01 1715 Room Air 10/01 1653 97 10/01 1652 97 Room Air 10/01 1650 110/70 10/01 1649 110/70 10/01 1443 98.2 109 23 108/70 95 10/01 1328 115 134/78 10/01 1311 130 128/70 10/01 0845 120 150/90 10/01 0800 96 Room Air Room Air 10/01 0642 97.6 109 20 140/100 96 Room Air Intake & Output 10/02 1600 10/02 0400 10/01 1600 10/01 0400 09/30 1600 09/30 0400 Intake Total 1072 459 0930 360 Output Total 400 1974 1449 2824 900 Balance -400 -825 -1050 -1675 -540 Intake, IV 150 110 Intake, Oral 7540 778 3420 360 Number 2 2 0 Bowel Movements Output, Urine 400 1974 145 2825 900 Patient 291 lb 289 lb 189 lb Weight Results Pertinent Lab Results: Laboratory Tests 10/02 10/02 0600 0600 Chemistry Sodium Pending Potassium Pending Chloride Pending Carbon Dioxide Pending Anion Gap Pending BUN Pending Creatinine Pending Glucose Pending Lactic Acid Pending Calcium Pending Phosphorus Pending Magnesium Pending Total Bilirubin Pending AST Pending ALT Pending Troponin I Cancelled Albumin Pending Coagulation PT Pending INR Pending APTT Pending Hematology CBC w Diff MAN DIFF ORDERED WBC (4.8 - 10.8 /CUMM) Pending RBC (4.70 - 6.10 /CUMM) Pending Hgb (14.0 - 18.0 G/DL) Pending Hct (42 - 52 %) Pending MCV (80.0 - 94.0 FL) Pending MCH (27.0 - 31.0 PG) Pending MCHC (33.0 - 37.0 G/DL) Pending RDW (11.5 - 14.5 %) Pending Plt Count (130 - 400 /CUMM) Pending MPV (7.4 - 10.4 FL) Pending Gran % (42.2 - 75.2 %) Pending Lymphocytes % (20.5 - 51.1 %) Pending Monocytes % (1.7 - 9.3 %) Pending Eosinophils % (0 - 5 %) Pending Basophils % (0.0 - 2.0 %) Pending Absolute Granulocytes (1.4 - 6.5 /CUMM) Pending Segmented Neutrophils (42.2 - 75.2 %) Pending Absolute Lymphocytes (1.2 - 3.4 /CUMM) Pending Absolute Monocytes (0.10 - 0.60 /CUMM) Pending Absolute Eosinophils (0.0 - 0.7 /CUMM) Pending Absolute Basophils (0.0 - 0.2 /CUMM) Pending 10/02 10/02 0355 0340 Blood Gas pH (7.35 - 7.45 PH) 7.46 H pCO2 (35 - 45 TORR) 24 L pO2 (80 - 100 TORR) 91 HCO3 (21 - 28 MEQ/L) 17 L ABG O2 Sat (Measured) (>96.0 %) 97.0 P-50 (Temp Corrected) N Carboxyhemoglobin (1.5 - 5.0 %) 0.3 L O2 Concentration % 2L O2 Delivery Method N/C Chemistry Sodium (137 - 145 mmol/L) 136 L Potassium (3.5 - 5.1 mmol/L) 4.4 Chloride (98 - 107 mmol/L) 105 Carbon Dioxide (22 - 30 mmol/L) 18 L Anion Gap (5 - 16) 13 BUN (9 - 20 mg/dL) 74 H Creatinine (0.7 - 1.2 mg/dL) 1.4 H Estimated GFR (>60 ml/min) 49 L BUN/Creatinine Ratio (7 - 25 %) 52.9 H Magnesium (1.6 - 2.3 mg/dL) 2.1 Total Bilirubin (0.2 - 1.3 mg/dL) 0.6 Direct Bilirubin (< 0.4 mg/dL) 0.4 AST (17 - 59 U/L) 330 H ALT (21 - 72 U/L) 201 H Alkaline Phosphatase (< 127 U/L) 93 Troponin I (<0.11 ng/ml) < 0.01 Total Protein (6.3 - 8.2 g/dL) 5.0 L Albumin (3.5 - 5.0 g/dL) 2.3 L Hematology CBC w Diff MAN DIFF ORDERED WBC (4.8 - 10.8 /CUMM) 30.7 *H RBC (4.70 - 6.10 /CUMM) 3.14 L Hgb (14.0 - 18.0 G/DL) 9.7 L Hct (42 - 52 %) 28.7 L MCV (80.0 - 94.0 FL) 91.2 MCH (27.0 - 31.0 PG) 30.8 MCHC (33.0 - 37.0 G/DL) 33.8 RDW (11.5 - 14.5 %) 14.8 H Plt Count (130 - 400 /CUMM) 335 MPV (7.4 - 10.4 FL) 8.2 Gran % (42.2 - 75.2 %) 85.2 H Lymphocytes % (20.5 - 51.1 %) 11.6 L Monocytes % (1.7 - 9.3 %) 2.7 Eosinophils % (0 - 5 %) 0.2 Basophils % (0.0 - 2.0 %) 0.3 Absolute Granulocytes (1.4 - 6.5 /CUMM) 26.2 H Segmented Neutrophils (42.2 - 75.2 %) 80 H Band Neutrophils (0.0 - 5.0 %) 3 Absolute Lymphocytes (1.2 - 3.4 /CUMM) 3.6 H Lymphocytes (20.5 - 51.1 %) 14 L Monocytes (1.7 - 9.3 %) 1 L Absolute Monocytes (0.10 - 0.60 /CUMM) 0.8 H Absolute Eosinophils (0.0 - 0.7 /CUMM) 0.1 Absolute Basophils (0.0 - 0.2 /CUMM) 0.1 Metamyelocytes (0.0 - 1.0 %) 2 H Nucleated RBCs (0.0 - 0.0 /100WBC) 1 H Platelet Estimate (ADEQUATE) ADEQUATE Polychromasia 1+ Anisocytosis 1+ Macrocytic Cells 1+ Miscellaneous Phlebotomy Draw Site RIGHT RADIAL Toxicology Digoxin (0.8 - 2.0 ng/mL) 1.0 10/01 10/01 10/01 1320 1226 0730 Blood Gas pH (7.35 - 7.45 PH) 7.54 H pCO2 (35 - 45 TORR) 30 L pO2 (80 - 100 TORR) 74 L HCO3 (21 - 28 MEQ/L) 25 ABG O2 Sat (Measured) (>96.0 %) 96.0 Carboxyhemoglobin (1.5 - 5.0 %) 1.3 L O2 Concentration % RA Chemistry Sodium (137 - 145 mmol/L) 135 L Potassium (3.5 - 5.1 mmol/L) 4.2 Chloride (98 - 107 mmol/L) 102 Carbon Dioxide (22 - 30 mmol/L) 25 Anion Gap (5 - 16) 7 BUN (9 - 20 mg/dL) 33 H Creatinine (0.7 - 1.2 mg/dL) 0.7 Estimated GFR (>60 ml/min) > 60 BUN/Creatinine Ratio (7 - 25 %) 47.1 H Troponin I (<0.11 ng/ml) < 0.01 Hematology CBC w Diff NO MAN DIFF REQ WBC (4.8 - 10.8 /CUMM) 18.9 H RBC (4.70 - 6.10 /CUMM) 4.09 L Hgb (14.0 - 18.0 G/DL) 12.6 L Hct (42 - 52 %) 37.0 L MCV (80.0 - 94.0 FL) 90.4 MCH (27.0 - 31.0 PG) 30.7 MCHC (33.0 - 37.0 G/DL) 34.0 RDW (11.5 - 14.5 %) 14.9 H Plt Count (130 - 400 /CUMM) 314 MPV (7.4 - 10.4 FL) 7.9 Gran % (42.2 - 75.2 %) 86.0 H Lymphocytes % (20.5 - 51.1 %) 8.7 L Monocytes % (1.7 - 9.3 %) 4.1 Eosinophils % (0 - 5 %) 1.2 Basophils % (0.0 - 2.0 %) 0 Absolute Granulocytes (1.4 - 6.5 /CUMM) 16.2 H Absolute Lymphocytes (1.2 - 3.4 /CUMM) 1.6 Absolute Monocytes (0.10 - 0.60 /CUMM) 0.8 H Absolute Eosinophils (0.0 - 0.7 /CUMM) 0.2 Absolute Basophils (0.0 - 0.2 /CUMM) 0 Miscellaneous Phlebotomy Draw Site RIGHT RADIAL 09/30 09/29 0622 1800 Chemistry Sodium (137 - 145 mmol/L) 136 L Potassium (3.5 - 5.1 mmol/L) 3.9 Chloride (98 - 107 mmol/L) 104 Carbon Dioxide (22 - 30 mmol/L) 24 Anion Gap (5 - 16) 8 BUN (9 - 20 mg/dL) 32 H Creatinine (0.7 - 1.2 mg/dL) 0.8 Estimated GFR (>60 ml/min) > 60 Glucose (65 - 99 mg/dL) 194 H Calcium (8.4 - 10.2 mg/dL) 8.4 Phosphorus (2.5 - 4.5 mg/dL) 2.4 L Magnesium (1.6 - 2.3 mg/dL) 2.1 Total Bilirubin (0.2 - 1.3 mg/dL) 0.7 AST (17 - 59 U/L) 88 H ALT (21 - 72 U/L) 74 H Albumin (3.5 - 5.0 g/dL) 2.7 L Coagulation APTT Cancelled Hematology CBC w Diff NO MAN DIFF REQ WBC (4.8 - 10.8 /CUMM) 14.6 H RBC (4.70 - 6.10 /CUMM) 4.47 L Hgb (14.0 - 18.0 G/DL) 13.6 L Hct (42 - 52 %) 40.4 L MCV (80.0 - 94.0 FL) 90.4 MCH (27.0 - 31.0 PG) 30.4 MCHC (33.0 - 37.0 G/DL) 33.6 RDW (11.5 - 14.5 %) 14.8 H Plt Count (130 - 400 /CUMM) 247 MPV (7.4 - 10.4 FL) 8.1 Gran % (42.2 - 75.2 %) 82.0 H Lymphocytes % (20.5 - 51.1 %) 8.3 L Monocytes % (1.7 - 9.3 %) 8.0 Eosinophils % (0 - 5 %) 1.7 Basophils % (0.0 - 2.0 %) 0 Absolute Granulocytes (1.4 - 6.5 /CUMM) 11.9 H Absolute Lymphocytes (1.2 - 3.4 /CUMM) 1.2 Absolute Monocytes (0.10 - 0.60 /CUMM) 1.2 H Absolute Eosinophils (0.0 - 0.7 /CUMM) 0.2 Absolute Basophils (0.0 - 0.2 /CUMM) 0 Assessment/Plan Assessment/Recommendations: Acute GI bleed, presumably upper GI (black fluid in suction trap), with continuing melena, hypotension and blood loss anemia in a patient on apixaban and aspirin. According to the patient's daughter the patient has a history of dyspepsia, but no previous GI bleed or known peptic ulcer disease. There is no known liver disease. Recommendations * Transfuse third and fourth units of PRBCs * Consider third IV line and/or central line * IV PPI * Tranexamic Acid as discussed with house staff * Discuss the availability of Andexxa with pharmacy * Infectious disease consult as recommended by cardiology yesterday * Cardiology follow-up * Hold all anticoagulants, aspirin * EGD anticipated Consult Acknowledgment - Thank you for your consult request.
[2017-10-02 06:43] LABS: PT 24.1 SEC (9.4-12.5); PTT 32 SEC (25-37)
--- NOTE | 2017-10-02 07:34 | PN- Resident CRCU ---
SerafinBauer 10/02/17 0734: Subjective HPI/CRCU Issues: Hypovolemic shock due to GI blood loss, responded to IV fluids and blood transfusion. Acute GI blood loss status post for blood transfusions. Elevated INR Transaminitis New-onset Juan burnett was on Eliquis Leukocytosis, possible reactionary DOTTIE, possible prerenal, improving Sepsis from urological origin status post stent placement, on ceftriaxone. History of diabetes History of bladder cancer status post immunotherapy. History of sleep apnea. 24 Hour Events: Patient was transferred to ICU last night after he had melena and his blood pressure dropped in 70s systolic. GI was informed and plan for school today. Patient remained afebrile. Seen and examined this morning. He was lethargic. He has rectal tube placed as patient had multiple bowel movements with melena. Patient has NG tube placed last night and a straining coffee-ground gastric contents 800 mL. Patient is nothing by mouth and he will get scope this afternoon. His heart rate remained in 90s to 120s. He is on room air and maintaining saturation 96% Objective Vital Signs & I&O Last 8 Hrs of Vitals and I&O: Intake & Output 10/02 1600 10/02 0800 10/02 0000 Intake Total 1087 4840 Output Total 1450 1800 400 Balance -363 3040 -400 Intake, Blood 1400 Product Intake, IV 1087 3440 Number 1 5 2 Bowel Movements Output, 50 900 Gastric Drainage Output, Stool 200 400 Output, Urine 1200 500 400 Patient 291 lb Weight Laboratory Tests 10/02 10/02 10/02 1025 0835 0600 Chemistry Lactic Acid (0.7 - 2.1 mmol/L) 1.1 Troponin I Cancelled Hematology CBC w Diff MAN DIFF ORDERED WBC (4.8 - 10.8 /CUMM) 26.6 H RBC (4.70 - 6.10 /CUMM) 3.84 L Hgb (14.0 - 18.0 G/DL) 11.8 L Hct (42 - 52 %) 34.4 L MCV (80.0 - 94.0 FL) 89.4 MCH (27.0 - 31.0 PG) 30.6 MCHC (33.0 - 37.0 G/DL) 34.2 RDW (11.5 - 14.5 %) 14.6 H Plt Count (130 - 400 /CUMM) 295 MPV (7.4 - 10.4 FL) 7.8 Gran % (42.2 - 75.2 %) 85.1 H Lymphocytes % (20.5 - 51.1 %) 11.0 L Monocytes % (1.7 - 9.3 %) 3.3 Eosinophils % (0 - 5 %) 0.4 Basophils % (0.0 - 2.0 %) 0.2 Absolute Granulocytes (1.4 - 6.5 /CUMM) 22.7 H Segmented Neutrophils (42.2 - 75.2 %) 81 H Band Neutrophils (0.0 - 5.0 %) 3 Absolute Lymphocytes (1.2 - 3.4 /CUMM) 2.9 Lymphocytes (20.5 - 51.1 %) 12 L Monocytes (1.7 - 9.3 %) 3 Absolute Monocytes (0.10 - 0.60 /CUMM) 0.9 H Absolute Eosinophils (0.0 - 0.7 /CUMM) 0.1 Absolute Basophils (0.0 - 0.2 /CUMM) 0.1 Metamyelocytes (0.0 - 1.0 %) 1 Nucleated RBCs (0.0 - 0.0 /100WBC) 1 H Platelet Estimate (ADEQUATE) VERIFIED BY SMEAR Polychromasia 1+ Anisocytosis 1+ 10/02 10/02 0600 0355 Blood Gas pH (7.35 - 7.45 PH) 7.46 H pCO2 (35 - 45 TORR) 24 L pO2 (80 - 100 TORR) 91 HCO3 (21 - 28 MEQ/L) 17 L ABG O2 Sat (Measured) (>96.0 %) 97.0 P-50 (Temp Corrected) N Carboxyhemoglobin (1.5 - 5.0 %) 0.3 L O2 Concentration % 2L O2 Delivery Method N/C Chemistry Sodium (137 - 145 mmol/L) 136 L Potassium (3.5 - 5.1 mmol/L) 4.2 Chloride (98 - 107 mmol/L) 106 Carbon Dioxide (22 - 30 mmol/L) 21 L Anion Gap (5 - 16) 9 BUN (9 - 20 mg/dL) 72 H Creatinine (0.7 - 1.2 mg/dL) 1.3 H Estimated GFR (>60 ml/min) 53 L Glucose (65 - 99 mg/dL) 205 H Lactic Acid (0.7 - 2.1 mmol/L) 2.6 H Calcium (8.4 - 10.2 mg/dL) 7.4 L Phosphorus (2.5 - 4.5 mg/dL) 3.1 Magnesium (1.6 - 2.3 mg/dL) 1.9 Total Bilirubin (0.2 - 1.3 mg/dL) 0.5 AST (17 - 59 U/L) 419 H ALT (21 - 72 U/L) 236 H Albumin (3.5 - 5.0 g/dL) 2.0 L Coagulation PT (9.4 - 12.5 SEC) 24.1 H INR (0.90 - 1.17) 2.19 H APTT (25 - 37 SEC) 32 Hematology CBC w Diff MAN DIFF ORDERED WBC (4.8 - 10.8 /CUMM) 23.9 H RBC (4.70 - 6.10 /CUMM) 3.02 L Hgb (14.0 - 18.0 G/DL) 9.1 L Hct (42 - 52 %) 27.3 L MCV (80.0 - 94.0 FL) 90.4 MCH (27.0 - 31.0 PG) 30.3 MCHC (33.0 - 37.0 G/DL) 33.5 RDW (11.5 - 14.5 %) 14.9 H Plt Count (130 - 400 /CUMM) 293 MPV (7.4 - 10.4 FL) 7.8 Gran % (42.2 - 75.2 %) 85.5 H Lymphocytes % (20.5 - 51.1 %) 11.2 L Monocytes % (1.7 - 9.3 %) 2.7 Eosinophils % (0 - 5 %) 0.4 Basophils % (0.0 - 2.0 %) 0.2 Absolute Granulocytes (1.4 - 6.5 /CUMM) 20.4 H Segmented Neutrophils (42.2 - 75.2 %) 82 H Band Neutrophils (0.0 - 5.0 %) 3 Absolute Lymphocytes (1.2 - 3.4 /CUMM) 2.7 Lymphocytes (20.5 - 51.1 %) 10 L Monocytes (1.7 - 9.3 %) 5 Absolute Monocytes (0.10 - 0.60 /CUMM) 0.7 H Absolute Eosinophils (0.0 - 0.7 /CUMM) 0.1 Absolute Basophils (0.0 - 0.2 /CUMM) 0 Nucleated RBCs (0.0 - 0.0 /100WBC) 1 H Platelet Estimate (ADEQUATE) ADEQUATE Polychromasia 1+ Miscellaneous Phlebotomy Draw Site RIGHT RADIAL 10/02 0340 Chemistry Sodium (137 - 145 mmol/L) 136 L Potassium (3.5 - 5.1 mmol/L) 4.4 Chloride (98 - 107 mmol/L) 105 Carbon Dioxide (22 - 30 mmol/L) 18 L Anion Gap (5 - 16) 13 BUN (9 - 20 mg/dL) 74 H Creatinine (0.7 - 1.2 mg/dL) 1.4 H Estimated GFR (>60 ml/min) 49 L BUN/Creatinine Ratio (7 - 25 %) 52.9 H Magnesium (1.6 - 2.3 mg/dL) 2.1 Total Bilirubin (0.2 - 1.3 mg/dL) 0.6 Direct Bilirubin (< 0.4 mg/dL) 0.4 AST (17 - 59 U/L) 330 H ALT (21 - 72 U/L) 201 H Alkaline Phosphatase (< 127 U/L) 93 Troponin I (<0.11 ng/ml) < 0.01 Total Protein (6.3 - 8.2 g/dL) 5.0 L Albumin (3.5 - 5.0 g/dL) 2.3 L Hematology CBC w Diff MAN DIFF ORDERED WBC (4.8 - 10.8 /CUMM) 30.7 *H RBC (4.70 - 6.10 /CUMM) 3.14 L Hgb (14.0 - 18.0 G/DL) 9.7 L Hct (42 - 52 %) 28.7 L MCV (80.0 - 94.0 FL) 91.2 MCH (27.0 - 31.0 PG) 30.8 MCHC (33.0 - 37.0 G/DL) 33.8 RDW (11.5 - 14.5 %) 14.8 H Plt Count (130 - 400 /CUMM) 335 MPV (7.4 - 10.4 FL) 8.2 Gran % (42.2 - 75.2 %) 85.2 H Lymphocytes % (20.5 - 51.1 %) 11.6 L Monocytes % (1.7 - 9.3 %) 2.7 Eosinophils % (0 - 5 %) 0.2 Basophils % (0.0 - 2.0 %) 0.3 Absolute Granulocytes (1.4 - 6.5 /CUMM) 26.2 H Segmented Neutrophils (42.2 - 75.2 %) 80 H Band Neutrophils (0.0 - 5.0 %) 3 Absolute Lymphocytes (1.2 - 3.4 /CUMM) 3.6 H Lymphocytes (20.5 - 51.1 %) 14 L Monocytes (1.7 - 9.3 %) 1 L Absolute Monocytes (0.10 - 0.60 /CUMM) 0.8 H Absolute Eosinophils (0.0 - 0.7 /CUMM) 0.1 Absolute Basophils (0.0 - 0.2 /CUMM) 0.1 Metamyelocytes (0.0 - 1.0 %) 2 H Nucleated RBCs (0.0 - 0.0 /100WBC) 1 H Platelet Estimate (ADEQUATE) ADEQUATE Polychromasia 1+ Anisocytosis 1+ Macrocytic Cells 1+ Toxicology Digoxin (0.8 - 2.0 ng/mL) 1.0 Intake & Output 10/02 1600 Intake Total 1087 Output Total 1450 Balance -363 Intake, IV 1087 Number 1 Bowel Movements Output, 50 Gastric Drainage Output, Stool 200 Output, Urine 1200 Exam General Appearance: no apparent distress, lethargic Head: atraumatic Neck: normal inspection Respiratory: chest non-tender, no respiratory distress Cardiovascular: irregularly irregular Gastrointestinal: soft Extremities: no edema Skin Temp/Moisture Exam: Warm/Dry Sepsis Skin Exam (color): Normal for Ethnicity Current Medications: Current Medications Sig/Royce Start time Last Medication Dose Route Stop Time Status Admin Acetaminophen 0 .STK-MED ONE 10/02 0022 DC IV Acetaminophen 1,000 MG Q6P PRN 09/29 1945 DC 10/02 N/A 1 UNIT IV 0025 Apixaban 5 MG BID 09/29 1152 DC 10/01 PO 2006 Aspirin 81 MG DAILY 09/26 0900 DC 10/01 PO 0843 Calcium Carbonate 500 MG TID PRN 10/01 1445 DC 10/01 PO 1449 Ceftriaxone Sodium 1,000 MG DAILY 09/26 1244 AC 10/02 IV 0915 Digoxin 0 .STK-MED ONE 10/01 1638 DC PO Digoxin 0.25 MG ONCE ONE 10/01 1530 DC 10/01 PO 10/01 1531 1650 Docusate Sodium 100 MG DAILY NEEDED PRN 10/01 0915 DC 10/01 PO 1449 Duloxetine HCl 60 MG DAILY 09/26 0900 DC 10/01 PO 0843 Furosemide 20 MG DAILY 10/01 1855 DC 10/01 IV 2007 Insulin Aspart 0 TIDAC 09/26 0800 DC 10/01 SC 1651 Insulin Human Regular 0 Q6 10/02 0825 AC 10/02 SC 1150 Metoprolol Tartrate 100 MG BID 10/01 2100 DC 10/01 PO 2008 Non-Formulary 0 SEE ADMIN CRITERIA 10/02 06 CAN Medication ANY Pantoprazole Sodium 0 .STK-MED ONE 10/02 0348 DC IV Pantoprazole Sodium 40 MG Q5H 10/02 0315 AC 10/02 Sodium Chloride 100 ML IV 1344 Potassium Chloride 40 MEQ BID 09/30 1340 DC 10/01 PO 0843 Rosuvastatin Calcium 40 MG DAILY 09/26 0900 DC 10/01 PO 0845 Senna 187 MG AT BEDTIME 10/01 2100 DC 10/01 PO 2006 Sodium Chloride 1,000 ML Q6H 10/02 0700 AC 10/02 IV 1345 Sodium Chloride 1,000 ML BOLUS ONE 10/02 0400 DC 10/02 IV 10/02 0459 0430 Sodium Chloride 1,000 ML BOLUS ONE 10/02 0315 DC 10/02 IV 10/02 0514 0411 Sodium Chloride 1,000 ML BOLUS ONE 10/02 0045 DC 10/02 IV 10/02 0144 0106 Tamsulosin HCl 0.4 MG DAILY 09/26 0900 DC 10/01 PO 0845 Tramadol HCl 50 MG Q4 PRN 09/30 1900 DC 10/01 PO 1151 Tranexamic Acid 1,000 MG ONCE ONE 10/02 0630 DC 10/02 IV 10/02 0631 0633 Vancomycin HCl 125 MG Q6H 10/02 0315 DC 10/02 PO 0410 Impression/Plan Impression/Problem List Impression: 77 YO M with PMH significant for HTN, HLD, morbid obesity, VERONA not on CPAP, DM, psoriasis, nephrolithiasis with h/o lithotripsies, BPH, h/o UTI, and bladder cancer s/p TURBT and receiving intravesicular immunotherapy BCG? managed by Dr. Contreras in [place], completed one cycle in April with a reportedly benign repeat cystoscopy but pending another round of therapy presented with eight weeks of back pain, immobility, and worsening urinary urgency, frequency, and incontinence. In ED patient was found to be in atrial fibrillation and leukocytosis with lactic acidosis, elevated creatinine and his urinalysis was suggestive of infection. Later on patient's urine culture came back positive with gram-negative rods and blood culture came back positive with gram-negative rods. In ED his blood pressure was 80/50 due to septic shock. Peripheral central catheter was placed in right groin and he was started on phenylephrine. Patient was stabilized in ICU, status post stent placement for hydroureteronephrosis and was started on IV antibiotics to control his sepsis. His heart is was controlled with metoprolol. After stabilization he was downgraded to telemetry floor on oral anticoagulation for stroke prophylaxis in the setting of A. fib. Patient was again transferred back to ICU after he had melena last night and was found in hypovolemic shock, responded to IV crystalloids and for blood transfusions. Following the patient in ICU for following problems. Hypovolemic shock due to GI blood loss: -His blood pressure was 78/50 last night. IV lines were maintained and patient responded to IV crystalloids and 4 blood transfusions. -His aspirin and Eliquis were discontinued. -Patient didn't require any pressors at this point. -Maintaining blood pressure 102/60 -Continuing his normal saline at the rate of 150 mL per hour. -GI is on board and patient is getting scope this afternoon. -Continue rectal tube -Continue NG tube with suction. 800 mL coffee-ground gastric contents this morning. -Continue IV Protonix -His H&H after blood transfusion is 11.8/34.4 Elevated INR: -Patient was given 1 dose of tranexamic acid last night. Patient didn't receive any FFP. -INR this morning was 2.19 -Keep monitoring his INR Transaminitis: -Possibly due to low blood pressure or medication induced. -This morning his ALT/AST was 236/419 -Holding his rosuvastatin and Tylenol. New-onset A. fib was on Eliquis: -Holding his Eliquis considering acute GI blood loss. -Holding his metoprolol considering low blood pressure. -His metoprolol IV pushes or digoxin IV can be resumed to control his heart rate once blood pressure is stabilized. -Follow up cardiology recommendations. Leukocytosis: -Possible reactionary due to stress -Patient is afebrile and is on ceftriaxone for his sepsis due to urological origin. -Patient is complaining of back pain CT scan didn't show any infectious process. MRI spine can be done to rule out any infectious process. -JAROD would be useful and is contraindicated based on his clinical condition at this point per cardiology. -Patient received one dose of vancomycin by mouth and his C. difficile results are pending. -Follow-up ID recommendations. DOTTIE: improving -possible prerenal in the setting of GI bleed. -Patient's kidney function is improving with stabilization of blood pressure. -This morning his creatinine was 1.3 and BUN was 72. -Avoid nephrotoxic medications -Monitor input and output Sepsis from urological origin status post stent placement: -Continue ceftriaxone. Day 7 -Patient will follow the urology as outpatient for ESWL for his kidney stone. History of back pain: -CT scan didn't show any infectious process. -Possible follow-up with MRI to rule out any infection of the spine. History of diabetes: Accu-Cheks, blood sugar level was 205 this morning. -Continue insulin NovoLog according to sliding scale. History of bladder cancer status post immunotherapy: -Patient was supposed to get an MRI of bladder as outpatient. History of sleep apnea. -Not using CPAP/BiPAP DVT prophylaxis: Mechanical only. CODE STATUS: Full code Problem List: 1. Acute GI bleeding 2. Hypovolemic shock 3. Acute kidney failure 4. New onset atrial fibrillation 5. Sepsis Pain Ratin Pain Location: NONE Pain Plan: PAIN PATHWAY Tomorrow's Labs & Rationales: CBC/ICU BUNDLE Plan DVT/Prophylaxis: mechanical Jass Lee MD 10/02/17 0827: Attending MD Review Statement Attending Sign Off Attending Cosign Statement: I have: examined this patient, reviewed [facility] EMR data, personally reviewd images, discussd w/resident/PA/TARIFF INSPECTOR, discussed mgmt plan w/rudy, discussed mgmt plan w/CM, discussed mgmt plan w/pt, agreed w/resident/PA/TARIFF INSPECTOR, amended to note. Other Findings: Impression 77 year old man * readmitted to ICU for acute blood loss anemia secondary to likely upper GI bleed due in setting of Eliquis for a.fib * previously presented with septic shock of urological origin - pansensitive E.Coli - etiology secondary to nephrolithiasis and hydronephrosis - growing E.Coli in blood and GNR in urine * new onset atrial fibrillation with a rapid ventricular response * history of bladder cancer * history of VERONA - declined therapy previously, will re-address on an outpatient basis * back pain Plan Respiratory -on room air -pt has not been using his CPAP at home, will re-evaluate this on an ongoing basis ID -ID consultation -monitor fevers, wbc -E.coi was pansensitive -s/p right ureteral stenting -urology appreciated CVS -monitor hemodynamics -rate control -cardiology f/u -did not tolerate cardizem - had significant flushing/redness of the face requiring benadryl -anti-coagulation held due to GI bleed Heme -anti-coagulation held due to GI bleed -monitor cbc, coags Metabolic -ins/outs -monitor creatinine, monitor and replete electrolytes Alimentary -NPO given GI bleed -GI consultation is appreciated Neuro -pain control DVT prophylaxis at all times TTS 45 minutes Previous documentation: With respect to bladder cancer imaging/surveillance - patient follows with urologist in [place]. Given the acute nature of urological issues, would be best to hold off until acute illness subsides for surveillance imaging
[2017-10-02 09:08] LABS: ABSOLUTE EOSINOPHIL COUNT 0.1 /CUMM (0.0-0.7); ABSOLUTE GRANULOCYTE CT 22.7 /CUMM (1.4-6.5); ABSOLUTE LYMPH COUNT 2.9 /CUMM (1.2-3.4); ABSOLUTE MONOCYTE COUNT 0.9 /CUMM (0.10-0.60); EOSINOPHIL % 0.4 % (0-5); MEAN PLATELET VOLUME 7.8 FL (7.4-10.4); WHITE BLOOD CELL COUNT 26.6 /CUMM (4.8-10.8)
[2017-10-02 09:18] LABS: ABSOLUTE BASOPHIL COUNT 0.1 /CUMM (0.0-0.2); BASOPHIL % 0.2 % (0.0-2.0); GRANULOCYTE % 85.1 % (42.2-75.2); MEAN CORPUSCULAR HGB 30.6 PG (27.0-31.0); MEAN CORPUSCULAR HGB CONC 34.2 G/DL (33.0-37.0); MEAN CORPUSCULAR VOLUME 89.4 FL (80.0-94.0); PLATELET COUNT 295 /CUMM (130-400); RBC DISTRIBUTION WIDTH 14.6 % (11.5-14.5)
[2017-10-02 09:27] LABS: HEMATOCRIT 34.4 % (42-52); RED BLOOD CELL CT 3.84 /CUMM (4.70-6.10)
--- NOTE | 2017-10-02 10:17 | PN- Cardiology ---
Subjective Subjective: The patient is now in ICU with acute GI bleeding. His blood pressure is unstable. He remains in atrial fibrillation with a heart rate in the 110s. Objective Vital Signs and I&Os Vital Signs Date Time Temp Pulse Resp B/P B/P Pulse O2 O2 Flow FiO2 Mean Ox Delivery Rate 10/02 0800 99 Room Air 10/02 0330 120 80/52 10/02 0245 98.9 127 24 84/56 96 Room Air 10/02 0150 98.7 130 22 78/50 96 Room Air 10/02 0030 98.9 128 20 102/60 98 Room Air 10/01 2240 Room Air 10/01 2220 Room Air 10/01 2220 98.9 99 22 110/70 96 Room Air 10/01 2218 100 93 10/02 2007 120 110/70 10/01 1715 Room Air 10/01 1653 97 10/01 1652 97 Room Air 10/01 1650 110/70 10/01 1649 110/70 10/01 1443 98.2 109 23 108/70 95 10/01 1328 115 134/78 10/01 1311 130 128/70 Intake & Output 10/02 1600 10/02 0800 10/02 0000 10/01 1600 10/01 0800 10/01 0000 Intake Total 4840 750 400 400 Output Total 1800 201 948 0060 1450 Balance 3040 -400 -225 -600 -1050 Intake, Blood 1400 Product Intake, IV 3440 150 Intake, Oral 600 400 400 Number 5 2 2 Bowel Movements Output, 900 Gastric Drainage Output, Stool 400 Output, Urine 500 656 631 7450 1450 Patient 291 lb 289 lb Weight Physical Exam: Chest clear Heart irregular, moderate rate, no murmurs No edema Current Medications: Current Medications Sig/Royce Start time Last Medication Dose Route Stop Time Status Admin Acetaminophen 0 .STK-MED ONE 10/02 0022 DC IV Acetaminophen 1,000 MG Q6P PRN 09/29 1945 DC 10/02 N/A 1 UNIT IV 0025 Apixaban 5 MG BID 09/29 1152 DC 10/01 PO 2006 Aspirin 81 MG DAILY 09/26 0900 DC 10/01 PO 0843 Calcium Carbonate 500 MG TID PRN 10/01 1445 DC 10/01 PO 1449 Calcium Carbonate 0 .STK-MED ONE 10/01 1421 DC PO Ceftriaxone Sodium 1,000 MG DAILY 09/26 1244 AC 10/02 IV 0915 Digoxin 0 .STK-MED ONE 10/01 1638 DC PO Digoxin 0.25 MG ONCE ONE 10/01 1530 DC 10/01 PO 10/01 1531 1650 Docusate Sodium 100 MG DAILY NEEDED PRN 10/01 0915 DC 10/01 PO 1449 Duloxetine HCl 60 MG DAILY 09/26 0900 DC 10/01 PO 0843 Furosemide 20 MG DAILY 10/01 1855 DC 10/01 IV 2007 Insulin Aspart 0 TIDAC 09/26 0800 DC 10/01 SC 1651 Insulin Human Regular 0 Q6 10/02 0825 AC 10/02 SC 0915 Metoprolol Tartrate 100 MG BID 10/01 2100 DC 10/01 PO 2007 Metoprolol Tartrate 5 MG ONCE ONE 10/01 1500 DC 10/01 IV 10/01 1501 1328 Metoprolol Tartrate 5 MG ONCE ONE 10/01 1500 DC IV 10/01 1501 Metoprolol Tartrate 25 MG ONCE ONE 10/01 1500 DC 10/01 PO 10/01 1501 1649 Metoprolol Tartrate 0 .STK-MED ONE 10/01 1421 DC IV Metoprolol Tartrate 5 MG ONCE ONE 10/01 1315 DC 10/01 IV 10/01 1316 1311 Metoprolol Tartrate 0 .STK-MED ONE 10/01 1308 DC IV Metoprolol Tartrate 75 MG BID 09/30 2100 DC 10/01 PO 0843 Non-Formulary 0 SEE ADMIN CRITERIA 10/02 06 CAN Medication ANY Pantoprazole Sodium 0 .STK-MED ONE 10/02 0348 DC IV Pantoprazole Sodium 40 MG Q5H 10/02 0315 AC 10/02 Sodium Chloride 100 ML IV 0839 Potassium Chloride 40 MEQ BID 09/30 1340 DC 10/01 PO 0843 Rosuvastatin Calcium 40 MG DAILY 09/26 09 DC 10/01 PO 0845 Senna 187 MG AT BEDTIME 10/01 2100 DC 10/01 PO 2006 Sodium Chloride 1,000 ML Q6H 10/02 0700 AC 10/02 IV 0708 Sodium Chloride 1,000 ML BOLUS ONE 10/02 0400 DC 10/02 IV 10/02 0459 0430 Sodium Chloride 1,000 ML BOLUS ONE 10/02 0315 DC 10/02 IV 10/02 0514 0411 Sodium Chloride 1,000 ML BOLUS ONE 10/02 0045 DC 10/02 IV 10/02 0144 0106 Tamsulosin HCl 0.4 MG DAILY 09/26 0900 DC 10/01 PO 0845 Tramadol HCl 50 MG Q4 PRN 09/30 1900 DC 10/01 PO 1151 Tranexamic Acid 1,000 MG ONCE ONE 10/02 0630 DC 10/02 IV 10/02 0631 0633 Vancomycin HCl 125 MG Q6H 10/02 0315 DC 10/02 PO 0410 Results Last 48 Hrs of Labs/Mics: Laboratory Tests 10/02/17 0835: CBC w Diff Pending, WBC Pending, RBC Pending, Hgb Pending, Hct Pending, MCV Pending, MCH Pending, MCHC Pending, RDW Pending, Plt Count Pending, MPV Pending, Gran % Pending, Lymphocytes % Pending, Monocytes % Pending, Eosinophils % Pending, Basophils % Pending, Absolute Granulocytes Pending, Absolute Lymphocytes Pending, Absolute Monocytes Pending, Absolute Eosinophils Pending, Absolute Basophils Pending 10/02/17 0600: Troponin I Cancelled 10/02/17 0600: Anion Gap 9, Estimated GFR 53 L, Glucose 205 H, Lactic Acid 2.6 H, Calcium 7.4 L, Phosphorus 3.1, Magnesium 1.9, Total Bilirubin 0.5, AST 419 H, ALT 236 H, Albumin 2.0 L, PT 24.1 H, INR 2.19 H, APTT 32, CBC w Diff MAN DIFF ORDERED , RBC 3.02 L, MCV 90.4, MCH 30.3, MCHC 33.5, RDW 14.9 H, MPV 7.8, Gran % 85.5 H, Lymphocytes % 11.2 L, Monocytes % 2.7, Eosinophils % 0.4, Basophils % 0.2, Absolute Granulocytes 20.4 H, Segmented Neutrophils 82 H, Band Neutrophils 3, Absolute Lymphocytes 2.7, Lymphocytes 10 L, Monocytes 5, Absolute Monocytes 0.7 H, Absolute Eosinophils 0.1, Absolute Basophils 0, Nucleated RBCs 1 H, Platelet Estimate ADEQUATE, Polychromasia 1+ 10/02/17 0355: pH 7.46 H, pCO2 24 L, pO2 91, HCO3 17 L, ABG O2 Sat (Measured) 97.0, P-50 ( Temp Corrected) N, Carboxyhemoglobin 0.3 L, O2 Concentration % 2L, O2 Delivery Method N/C, Phlebotomy Draw Site RIGHT RADIAL 10/02/17 0340: Anion Gap 13, Estimated GFR 49 L, BUN/Creatinine Ratio 52.9 H, Magnesium 2.1, Total Bilirubin 0.6, Direct Bilirubin 0.4, AST 330 H, ALT 201 H, Alkaline Phosphatase 93, Troponin I < 0.01, Total Protein 5.0 L, Albumin 2.3 L, CBC w Diff MAN DIFF ORDERED, RBC 3.14 L, MCV 91.2, MCH 30.8, MCHC 33.8, RDW 14.8 H, MPV 8.2, Gran % 85.2 H, Lymphocytes % 11.6 L, Monocytes % 2.7, Eosinophils % 0.2, Basophils % 0.3, Absolute Granulocytes 26.2 H, Segmented Neutrophils 80 H , Band Neutrophils 3, Absolute Lymphocytes 3.6 H, Lymphocytes 14 L, Monocytes 1 L, Absolute Monocytes 0.8 H, Absolute Eosinophils 0.1, Absolute Basophils 0.1, Metamyelocytes 2 H, Nucleated RBCs 1 H, Platelet Estimate ADEQUATE, Polychromasia 1+, Anisocytosis 1+, Macrocytic Cells 1+, Digoxin 1.0 10/01/17 1320: Troponin I < 0.01 10/01/17 1226: pH 7.54 H, pCO2 30 L, pO2 74 L, HCO3 25, ABG O2 Sat (Measured) 96.0, Carboxyhemoglobin 1.3 L, O2 Concentration % RA, Phlebotomy Draw Site RIGHT RADIAL 10/01/17 0730: Anion Gap 7, Estimated GFR > 60, BUN/Creatinine Ratio 47.1 H, CBC w Diff NO MAN DIFF REQ, RBC 4.09 L, MCV 90.4, MCH 30.7, MCHC 34.0, RDW 14.9 H, MPV 7.9, Gran % 86.0 H, Lymphocytes % 8.7 L, Monocytes % 4.1, Eosinophils % 1.2, Basophils % 0, Absolute Granulocytes 16.2 H, Absolute Lymphocytes 1.6, Absolute Monocytes 0.8 H, Absolute Eosinophils 0.2, Absolute Basophils 0 Assessment/Plan Assessment/Plan Patient is unstable with GI bleeding. His heart rate is slightly elevated. Once his blood pressure stabilizes I would continue with rate limiting medication either beta-lory or digoxin. I do not think a JAROD would be useful and is contraindicated based on his clinical condition at this point. Continue telemetry? Not applicable (icu PT)
--- NOTE | 2017-10-02 14:49 | Cons- Infect Disease ---
General Information and HPI Consulting Request Date of Consult: 10/02/17 Requested By: Shreyas Mahan MD Reason for Consult: Leukocytosis Source of Information: patient, family Exam Limitations: not alert/orientated, clinical condition History of Present Illness: This is a 77-year-old male with a history of hypertension, diabetes, obstructive sleep apnea, bladder cancer, status post 12 out of 15 chemotherapy treatments, BPH, nephrolithiasis, with a history of urinary tract infections, status post a fall 2 months prior to admission resulting in intractable back pain, for which he has not taken any significant amount of medication, admitted on September 25 with worsening back pain, incontinence of urine, with frequency and urgency, fevers, chills and anorexia for several days. On admission he was afebrile with a blood pressure of 104/72, in atrial fibrillation. Laboratory data revealed a white blood cell count of 20,000, BUN/creatinine 32 and 1.3, bilirubin 1.8, alkaline phosphatase 127, CPK 369, proBNP 5330. Urinalysis few RBC/packed WBCs. Chest x-ray was negative. CT of the chest, abdomen and pelvis revealed mild right hydronephrosis and hydroureter, with a nonobstructive 8 mm stone in the right kidney, and multifocal reticular and groundglass opacities in the left lower lobe. He was given several liters of fluid in the ER, placed on pressors for hypotension, with a right femoral triple-lumen catheter placed, which has since been removed, and was begun on Ceftriaxone. He was placed on Cardizem and Heparin and admitted to the ICU. He developed a low-grade fever to 100.5 several hours after admission but has been afebrile since. On September 26 blood cultures 2 and his urine culture were reported positive for gram-negative rods, subsequently identified as E. coli, and he was taken to the OR for a cystoscopy and placement of a right ureteral stent. His condition stabilized, with a decrease in his white blood cell count to 12,000 by September 29, and he was transferred to the floor. His Heparin was discontinued and he was begun on Eliquis. He developed lower abdominal pain, first reported on September 29, and early this morning he developed melena, with tachycardia and hypotension. He was given IV fluids and an NG tube was placed, with coffee-ground emesis. He was also given 1 dose of p.o. Vancomycin. He was transferred to the ICU, where he has been transfused 4 units of blood. He is scheduled for an upper endoscopy later this afternoon. At present he is unable to provide any history secondary to his lethargy. Allergies/Medications Allergies: Coded Allergies: No Known Allergies (09/25/17) Home Med List: Amlodipine Besylate (Norvasc) 5 MG TABLET 1 TAB PO DAILY HTN (Reported) Aspirin (Aspirin*) 81 MG TAB.CHEW 1 TAB PO DAILY HEART (Reported) Bisoprolol Fumarate/Hctz (Bisoprolol-Hctz 10-6.25 MG Tab) 10 MG-6.25 MG TABLET 1 TAB PO DAILY HTN (Reported) Calcipotriene 0.005 % SOLUTION 1 KAYCEE TOP DAILY PRN PSORIASIS (Reported) Clobetasol Propionate 0.05 % OINT...G. 1 KAYCEE TOP BID PRN PSORIASIS (Reported) apply to affected area(s) Duloxetine HCl (Cymbalta) 60 MG CAPSULE.DR 1 CAP PO DAILY NEUROPATHY ( Reported) Insulin Degludec (Tresiba Flextouch U-100) 100 UNIT/ML (3 ML) INSULN.PEN 26 UNITS SC DAILY DM (Reported) Irbesartan 300 MG TABLET 1 TAB PO DAILY HTN (Reported) Metformin HCl (Glucophage) 1,000 MG TABLET 1 TAB PO BID DM (Reported) Rosuvastatin Calcium (Crestor) 40 MG TABLET 1 TAB PO DAILY CAD (Reported) Tamsulosin HCl (Flomax) 0.4 MG CAP.ER.24H 1 CAP PO DAILY BPH (Reported) Triamcinolone Acetonide 0.025 % CREAM..G. 1 KAYCEE TOP BID PRN PSORIASIS ( Reported) apply to affected area(s) Past History Travel History Traveled to [place] past 21 day No Medical History Neurological: NONE EENT: NONE Cardiovascular: hypertension, hyperlipidemia Respiratory: obstructive sleep apnea Gastrointestinal: NONE Hepatic: NONE Renal: benign prost hyperplasia, nephrolithiasis Musculoskeletal: degen joint disease, PSORIASIS Psychiatric: NONE Endocrine: diabetes Blood Disorders: NONE Cancer(s): bladder cancer History of MRSA: No History of VRE: No History of CDIFF: No Isolation History: Standard Surgical History Surgical History: none Family History Relations & Conditions If Any: Relation not specified for: *No pertinent family history Psychosocial History Where Do You Live? Home Who Do You Live With? child Services at Home: None Primary Language: Divehi Smoking Status: Former Smoker ETOH Use: denies use Illicit Drug Use: denies illicit drug use Functional Ability ADLs Independent: dressing, eating, toileting, bathing. Ambulation: independent Review of Systems Comments Unobtainable Exam & Diagnostic Data Last 24 Hrs of Vital Signs/I&O Vital Signs Date Time Temp Pulse Resp B/P B/P Pulse O2 O2 Flow FiO2 Mean Ox Delivery Rate 10/02 1200 96 Room Air 10/02 1200 96.7 114 22 98/60 96 Room Air 10/02 0800 96.7 100 24 102/60 98 Room Air 10/02 0800 99 Room Air 10/02 0330 120 80/52 10/02 0245 98.9 127 24 84/56 96 Room Air 10/02 0150 98.7 130 22 78/50 96 Room Air 10/02 0030 98.9 128 20 102/60 98 Room Air 10/01 2240 Room Air 10/01 2220 Room Air 10/01 2220 98.9 99 22 110/70 96 Room Air 10/01 2218 100 93 10/01 2008 120 110/70 10/01 1715 Room Air 10/01 1653 97 10/01 1652 97 Room Air 10/01 1650 110/70 10/01 1649 110/70 10/01 1443 98.2 109 23 108/70 95 Intake & Output 10/02 1600 10/02 0800 10/02 0000 Intake Total 1087 4840 Output Total 1450 1800 400 Balance -363 3040 -400 Intake, Blood 1400 Product Intake, IV 1087 3440 Number 1 5 2 Bowel Movements Output, 50 900 Gastric Drainage Output, Stool 200 400 Output, Urine 1200 500 400 Patient 291 lb Weight Physical Exam Other Physical Findings: He is lethargic and minimally responsive in no acute distress. He is afebrile. Skin reveals no rash. HEENT exam is negative. Neck is supple with no adenopathy. Lungs are clear anteriorly. Heart regular rhythm with no murmur. Abdomen is obese, soft, tender on palpation diffusely, with no obvious guarding or rebound, with positive bowel sounds. Back no CVA tenderness. Extremities no cyanosis, clubbing or edema. Neuro is without focality. Murphy catheter is in place. Last 24 Hours of Lab Results: Laboratory Tests 10/02 10/02 10/02 1025 0835 0600 Chemistry Lactic Acid (0.7 - 2.1 mmol/L) 1.1 Troponin I Cancelled Hematology CBC w Diff MAN DIFF ORDERED WBC (4.8 - 10.8 /CUMM) 26.6 H RBC (4.70 - 6.10 /CUMM) 3.84 L Hgb (14.0 - 18.0 G/DL) 11.8 L Hct (42 - 52 %) 34.4 L MCV (80.0 - 94.0 FL) 89.4 MCH (27.0 - 31.0 PG) 30.6 MCHC (33.0 - 37.0 G/DL) 34.2 RDW (11.5 - 14.5 %) 14.6 H Plt Count (130 - 400 /CUMM) 295 MPV (7.4 - 10.4 FL) 7.8 Gran % (42.2 - 75.2 %) 85.1 H Lymphocytes % (20.5 - 51.1 %) 11.0 L Monocytes % (1.7 - 9.3 %) 3.3 Eosinophils % (0 - 5 %) 0.4 Basophils % (0.0 - 2.0 %) 0.2 Absolute Granulocytes (1.4 - 6.5 /CUMM) 22.7 H Segmented Neutrophils (42.2 - 75.2 %) 81 H Band Neutrophils (0.0 - 5.0 %) 3 Absolute Lymphocytes (1.2 - 3.4 /CUMM) 2.9 Lymphocytes (20.5 - 51.1 %) 12 L Monocytes (1.7 - 9.3 %) 3 Absolute Monocytes (0.10 - 0.60 /CUMM) 0.9 H Absolute Eosinophils (0.0 - 0.7 /CUMM) 0.1 Absolute Basophils (0.0 - 0.2 /CUMM) 0.1 Metamyelocytes (0.0 - 1.0 %) 1 Nucleated RBCs (0.0 - 0.0 /100WBC) 1 H Platelet Estimate (ADEQUATE) VERIFIED BY SMEAR Polychromasia 1+ Anisocytosis 1+ 10/02 10/02 0600 0355 Blood Gas pH (7.35 - 7.45 PH) 7.46 H pCO2 (35 - 45 TORR) 24 L pO2 (80 - 100 TORR) 91 HCO3 (21 - 28 MEQ/L) 17 L ABG O2 Sat (Measured) (>96.0 %) 97.0 P-50 (Temp Corrected) N Carboxyhemoglobin (1.5 - 5.0 %) 0.3 L O2 Concentration % 2L O2 Delivery Method N/C Chemistry Sodium (137 - 145 mmol/L) 136 L Potassium (3.5 - 5.1 mmol/L) 4.2 Chloride (98 - 107 mmol/L) 106 Carbon Dioxide (22 - 30 mmol/L) 21 L Anion Gap (5 - 16) 9 BUN (9 - 20 mg/dL) 72 H Creatinine (0.7 - 1.2 mg/dL) 1.3 H Estimated GFR (>60 ml/min) 53 L Glucose (65 - 99 mg/dL) 205 H Lactic Acid (0.7 - 2.1 mmol/L) 2.6 H Calcium (8.4 - 10.2 mg/dL) 7.4 L Phosphorus (2.5 - 4.5 mg/dL) 3.1 Magnesium (1.6 - 2.3 mg/dL) 1.9 Total Bilirubin (0.2 - 1.3 mg/dL) 0.5 AST (17 - 59 U/L) 419 H ALT (21 - 72 U/L) 236 H Albumin (3.5 - 5.0 g/dL) 2.0 L Coagulation PT (9.4 - 12.5 SEC) 24.1 H INR (0.90 - 1.17) 2.19 H APTT (25 - 37 SEC) 32 Hematology CBC w Diff MAN DIFF ORDERED WBC (4.8 - 10.8 /CUMM) 23.9 H RBC (4.70 - 6.10 /CUMM) 3.02 L Hgb (14.0 - 18.0 G/DL) 9.1 L Hct (42 - 52 %) 27.3 L MCV (80.0 - 94.0 FL) 90.4 MCH (27.0 - 31.0 PG) 30.3 MCHC (33.0 - 37.0 G/DL) 33.5 RDW (11.5 - 14.5 %) 14.9 H Plt Count (130 - 400 /CUMM) 293 MPV (7.4 - 10.4 FL) 7.8 Gran % (42.2 - 75.2 %) 85.5 H Lymphocytes % (20.5 - 51.1 %) 11.2 L Monocytes % (1.7 - 9.3 %) 2.7 Eosinophils % (0 - 5 %) 0.4 Basophils % (0.0 - 2.0 %) 0.2 Absolute Granulocytes (1.4 - 6.5 /CUMM) 20.4 H Segmented Neutrophils (42.2 - 75.2 %) 82 H Band Neutrophils (0.0 - 5.0 %) 3 Absolute Lymphocytes (1.2 - 3.4 /CUMM) 2.7 Lymphocytes (20.5 - 51.1 %) 10 L Monocytes (1.7 - 9.3 %) 5 Absolute Monocytes (0.10 - 0.60 /CUMM) 0.7 H Absolute Eosinophils (0.0 - 0.7 /CUMM) 0.1 Absolute Basophils (0.0 - 0.2 /CUMM) 0 Nucleated RBCs (0.0 - 0.0 /100WBC) 1 H Platelet Estimate (ADEQUATE) ADEQUATE Polychromasia 1+ Miscellaneous Phlebotomy Draw Site RIGHT RADIAL 10/02 0340 Chemistry Sodium (137 - 145 mmol/L) 136 L Potassium (3.5 - 5.1 mmol/L) 4.4 Chloride (98 - 107 mmol/L) 105 Carbon Dioxide (22 - 30 mmol/L) 18 L Anion Gap (5 - 16) 13 BUN (9 - 20 mg/dL) 74 H Creatinine (0.7 - 1.2 mg/dL) 1.4 H Estimated GFR (>60 ml/min) 49 L BUN/Creatinine Ratio (7 - 25 %) 52.9 H Magnesium (1.6 - 2.3 mg/dL) 2.1 Total Bilirubin (0.2 - 1.3 mg/dL) 0.6 Direct Bilirubin (< 0.4 mg/dL) 0.4 AST (17 - 59 U/L) 330 H ALT (21 - 72 U/L) 201 H Alkaline Phosphatase (< 127 U/L) 93 Troponin I (<0.11 ng/ml) < 0.01 Total Protein (6.3 - 8.2 g/dL) 5.0 L Albumin (3.5 - 5.0 g/dL) 2.3 L Hematology CBC w Diff MAN DIFF ORDERED WBC (4.8 - 10.8 /CUMM) 30.7 *H RBC (4.70 - 6.10 /CUMM) 3.14 L Hgb (14.0 - 18.0 G/DL) 9.7 L Hct (42 - 52 %) 28.7 L MCV (80.0 - 94.0 FL) 91.2 MCH (27.0 - 31.0 PG) 30.8 MCHC (33.0 - 37.0 G/DL) 33.8 RDW (11.5 - 14.5 %) 14.8 H Plt Count (130 - 400 /CUMM) 335 MPV (7.4 - 10.4 FL) 8.2 Gran % (42.2 - 75.2 %) 85.2 H Lymphocytes % (20.5 - 51.1 %) 11.6 L Monocytes % (1.7 - 9.3 %) 2.7 Eosinophils % (0 - 5 %) 0.2 Basophils % (0.0 - 2.0 %) 0.3 Absolute Granulocytes (1.4 - 6.5 /CUMM) 26.2 H Segmented Neutrophils (42.2 - 75.2 %) 80 H Band Neutrophils (0.0 - 5.0 %) 3 Absolute Lymphocytes (1.2 - 3.4 /CUMM) 3.6 H Lymphocytes (20.5 - 51.1 %) 14 L Monocytes (1.7 - 9.3 %) 1 L Absolute Monocytes (0.10 - 0.60 /CUMM) 0.8 H Absolute Eosinophils (0.0 - 0.7 /CUMM) 0.1 Absolute Basophils (0.0 - 0.2 /CUMM) 0.1 Metamyelocytes (0.0 - 1.0 %) 2 H Nucleated RBCs (0.0 - 0.0 /100WBC) 1 H Platelet Estimate (ADEQUATE) ADEQUATE Polychromasia 1+ Anisocytosis 1+ Macrocytic Cells 1+ Toxicology Digoxin (0.8 - 2.0 ng/mL) 1.0 Last 24 Hours of Mauricio Results: Blood cultures September 25 positive for E. coli sensitive to all antibiotics tested Urine culture September 25 greater than 100,000 colonies of E. coli sensitive to all antibiotics tested Urine culture September 26 approximately 30,000 colonies of E. coli sensitive to all antibiotics tested Urine culture from the OR September 26 negative Blood cultures October 01 negative Stool C. difficile October 01 negative Diagnostic Data Recent Imaging Findings: Abdominal x-ray October 02 prominent gaseous distention of the stomach CT of the lumbar spine September 30 no acute compression fractures or subluxations Dopplers of both lower extremities September 29 reveal a right side Garcia's cyst in the popliteal fossa CT of the chest, abdomen and pelvis September 26 reveals mild hydronephrosis and hydroureter of the right kidney, with a nonobstructive 8 mm stone in the right kidney and multifocal reticular and groundglass opacities in the left lower lobe Assessment/Plan Assessment/Plan Impression: This is a 77-year-old male with a history of diabetes and nephrolithiasis, status post a fall 2 months prior to admission resulting in intractable back pain, admitted on September 25 with worsening back pain, incontinence of urine, with frequency and urgency, fevers, chills and anorexia for several days, found to have a low-grade fever with hypotension, leukocytosis and pyuria, with a CT of the chest, abdomen and pelvis revealed mild right hydronephrosis and hydroureter, with a nonobstructive 8 mm stone in the right kidney, with his blood and urine cultures positive for E. coli, status post cystoscopy and placement of a right ureteral stent on the day after admission, now with the acute onset of melena with coffee-ground emesis associated with a decrease in his H&H and a marked leukocytosis. His white blood cell count, which has been increasing over the last several days , but particularly this morning, is most likely secondary to the stress of his upper GI bleed. A new, healthcare associated infection, for example secondary to the Murphy catheter, is possible, but seems less likely given the acute GI process. His GI bleed may be multifactorial in etiology but is likely, at least in part, related to the anticoagulation for his atrial fibrillation. His H&H has been stable until this morning, and he has now been transfused 4 units of blood. His elevated liver enzymes are likely related to his recent hypotension. His chronic back pain, secondary to his fall, has been evaluated with a CT of the spine. The possibility of seeding from his bacteremia has been raised, but this is unlikely; nevertheless an MRI may need to be considered at some point if his back pain persists. Suggestion: 1. Repeat urine culture 2. Await upper endoscopy, scheduled for later today 3. Discontinue Ceftriaxone 4. Begin Ampicillin 2 g IV every 8 hours Consult Acknowledgment - Thank you for your consult request.
--- NOTE | 2017-10-02 16:53 | Proc Note Endoscopy ---
Endoscopy Procedure Procedure Date: 10/02/17 Procedure Type: EGD Fan Balancer: Marcelino Mccarthy M.D. ASA Classification: III Indications: GI bleed: Melena, hematemesis, blood loss anemia Instrument: diagnostic gastroscope Meds Received: ETHAN, TIVA Patient's Tolerance: good Complications: none Extent Reached: second part of duodenum Procedure: Informed consent was obtained from the patient's daughter/POA. The patient was intubated, and medicated by anesthesiology. Pulse oximetry, blood pressure and cardiac monitoring were performed continuously throughout the procedure. The Olympus high-definition gastroscope was inserted into the mouth and advanced to the duodenum. Retroflexion was performed within the stomach to examine the cardia. Careful examination was performed. Following the procedure, the patient was extubated. Findings: The proximal esophagus was normal. There were no varices. In the distal esophagus were scattered ulcers, with clean white exudate. There was a hiatal hernia. There were multiple ulcerations within the hernia sac. Just distal to the GE junction was a subcentimeter cluster of soft tissue adjacent to an ulcer, which did not appear to be vascular in nature. It was aggressively washed and prodded without bleeding. The stomach had normal distention. The mucosa was coated in areas with black old blood. Much of this was washed off, and did not reveal any underlying lesion. The cardia was normal. There were no varices. There was no red blood. The prepyloric antrum and pylorus were normal. In the duodenal bulb and post bulbar duodenum were numerous ulcers of various sizes, without clot, visible vessel or other evidence of recent bleeding. The descending duodenum was otherwise normal. Impression: * Ulcerative esophagitis * Hiatal hernia with ulcerations, and small area of clustered soft tissue * Numerous duodenal ulcers Recommendations: * Protonix 80 mg IV bolus followed by 8 mg per hour infusion * No anticoagulation * Preference would be to hold aspirin, but discuss with cardiology as to risks/ benefits * No nasogastric tube for the time being * Clear liquid diet * Check CBC twice daily, and maintain hemoglobin at approximately 8 with further transfusion if necessary * Please call GI immediately with evidence of recurrent bleeding such as hematemesis, profuse melena, hypotension, drop in hematocrit, etc. CC: Alivia DIXON,Johnna
[2017-10-02 16:59] LABS: ABSOLUTE BASOPHIL COUNT 0 /CUMM (0.0-0.2); ABSOLUTE EOSINOPHIL COUNT 0.2 /CUMM (0.0-0.7); ABSOLUTE LYMPH COUNT 2.3 /CUMM (1.2-3.4); ABSOLUTE MONOCYTE COUNT 0.6 /CUMM (0.10-0.60); BASOPHIL % 0 % (0.0-2.0); EOSINOPHIL % 0.6 % (0-5); HEMATOCRIT 35.7 % (42-52); MEAN CORPUSCULAR HGB 29.4 PG (27.0-31.0); MEAN CORPUSCULAR HGB CONC 32.5 G/DL (33.0-37.0); MEAN CORPUSCULAR VOLUME 90.6 FL (80.0-94.0); MEAN PLATELET VOLUME 7.8 FL (7.4-10.4); PLATELET COUNT 352 /CUMM (130-400); RBC DISTRIBUTION WIDTH 14.9 % (11.5-14.5); RED BLOOD CELL CT 3.94 /CUMM (4.70-6.10); WHITE BLOOD CELL COUNT 25.1 /CUMM (4.8-10.8)
[2017-10-02 17:17] LABS: GRANULOCYTE % 87.7 % (42.2-75.2)
[2017-10-03] VITALS: BP 123/78
[2017-10-03 00:30] LABS: ABSOLUTE BASOPHIL COUNT 0 /CUMM (0.0-0.2); ABSOLUTE EOSINOPHIL COUNT 0.2 /CUMM (0.0-0.7); ABSOLUTE GRANULOCYTE CT 21.1 /CUMM (1.4-6.5); ABSOLUTE LYMPH COUNT 2.5 /CUMM (1.2-3.4); ABSOLUTE MONOCYTE COUNT 0.8 /CUMM (0.10-0.60); BASOPHIL % 0 % (0.0-2.0); EOSINOPHIL % 0.7 % (0-5); GRANULOCYTE % 85.9 % (42.2-75.2); HEMATOCRIT 32.8 % (42-52); MEAN CORPUSCULAR HGB 30.5 PG (27.0-31.0); MEAN CORPUSCULAR HGB CONC 33.9 G/DL (33.0-37.0); MEAN CORPUSCULAR VOLUME 89.9 FL (80.0-94.0); MEAN PLATELET VOLUME 7.8 FL (7.4-10.4); PLATELET COUNT 317 /CUMM (130-400); RBC DISTRIBUTION WIDTH 15.2 % (11.5-14.5); RED BLOOD CELL CT 3.64 /CUMM (4.70-6.10); WHITE BLOOD CELL COUNT 24.5 /CUMM (4.8-10.8)
[2017-10-03 05:48] LABS: ABSOLUTE BASOPHIL COUNT 0 /CUMM (0.0-0.2); ABSOLUTE EOSINOPHIL COUNT 0.2 /CUMM (0.0-0.7); ABSOLUTE LYMPH COUNT 2.4 /CUMM (1.2-3.4); ABSOLUTE MONOCYTE COUNT 0.9 /CUMM (0.10-0.60); BASOPHIL % 0.1 % (0.0-2.0); EOSINOPHIL % 1.1 % (0-5); GRANULOCYTE % 83.7 % (42.2-75.2); HEMATOCRIT 33.8 % (42-52); MEAN CORPUSCULAR HGB 30.5 PG (27.0-31.0); MEAN CORPUSCULAR HGB CONC 33.9 G/DL (33.0-37.0); MEAN CORPUSCULAR VOLUME 90.2 FL (80.0-94.0); MEAN PLATELET VOLUME 7.5 FL (7.4-10.4); PLATELET COUNT 342 /CUMM (130-400); RBC DISTRIBUTION WIDTH 15.1 % (11.5-14.5); RED BLOOD CELL CT 3.75 /CUMM (4.70-6.10); WHITE BLOOD CELL COUNT 21.5 /CUMM (4.8-10.8)
--- NOTE | 2017-10-03 07:02 | PN- Resident CRCU ---
See Addendum Subjective HPI/CRCU Issues: Hypovolemic shock due to GI blood loss, responded to IV fluids and blood transfusion. Acute GI blood loss status post for blood transfusions. Elevated INR Transaminitis New-onset Juan burnett was on Eliquis Leukocytosis, possible reactionary DOTTIE, possible prerenal, improving Sepsis from urological origin status post stent placement, on ceftriaxone. History of diabetes History of bladder cancer status post immunotherapy. History of sleep apnea. 24 Hour Events: Maintained blood pressure overnight. S/p 4U pRBC. No further bleeding. Heart rate Patient went for endoscopy yesterday which showed esophageal, gastric, duodenal ulcers and hiatal hernia with multiple ulcerations within hernia sac. No evidence of brisk bleed. ID recommended switching ceftriaxone to ampicillin. Cardio saw patient this AM, stated that aspirin could be stopped. Pt denies complaints at this time. Pt has been increasingly tired/confused in the morning, although arousable and conversational with family. Objective Vital Signs & I&O Last 8 Hrs of Vitals and I&O: Intake & Output 10/03 1600 Intake Total 1317 Output Total 1900 Balance -583 Intake, IV 617 Intake, Oral 700 Output, Urine 1900 Exam General Appearance: well developed/nourished, no apparent distress, awake, comfortable, lethargic Head: atraumatic Respiratory: chest non-tender, lungs clear Cardiovascular: irregularly irregular Gastrointestinal: soft, non-tender, obese Extremities: normal inspection Skin: intact Skin Temp/Moisture Exam: Warm/Dry Sepsis Skin Exam (color): Normal for Ethnicity Current Medications: Current Medications Sig/Royce Start time Last Medication Dose Route Stop Time Status Admin Ampicillin 2,000 MG Q8H 10/02 1900 10/03 Sodium Chloride 100 ML IV 1107 Ampicillin 2,000 MG Q8 10/02 1702 NV 10/02 Sodium Chloride 100 ML IV 1951 Ceftriaxone Sodium 1,000 MG DAILY 09/26 1244 DC 10/02 IV 0915 Insulin Aspart 0 TIDAC 10/03 1200 AC 10/03 SC 1205 Insulin Human Regular 0 Q6 10/02 0825 NV 10/03 SC 0647 Metoprolol Tartrate 25 MG BID 10/03 1040 AC 10/03 PO 1153 Pantoprazole Sodium 40 MG BID 10/03 1133 AC 10/03 IV 1154 Pantoprazole Sodium 40 MG Q5H 10/03 1115 CAN Sodium Chloride 100 ML IV Pantoprazole Sodium 80 MG BID 10/03 1051 DC IV Pantoprazole Sodium 40 MG Q5H 10/02 0315 DC 10/03 Sodium Chloride 100 ML IV 0450 Sodium Chloride 1,000 ML Q6H 10/02 0700 DC 10/03 IV 0653 Impression/Plan Impression/Problem List Impression: 77 YO M with PMH significant for HTN, HLD, morbid obesity, VERONA not on CPAP, DM, psoriasis, nephrolithiasis with h/o lithotripsies, BPH, h/o UTI, and bladder cancer s/p TURBT and receiving intravesicular immunotherapy BCG? managed by Dr. Contreras in [place], completed one cycle in April with a reportedly benign repeat cystoscopy but pending another round of therapy presented with eight weeks of back pain, immobility, and worsening urinary urgency, frequency, and incontinence. In ED patient was found to be in atrial fibrillation and leukocytosis with lactic acidosis, elevated creatinine and his urinalysis was suggestive of infection. Later on patient's urine culture came back positive with gram-negative rods and blood culture came back positive with gram-negative rods. In ED his blood pressure was 80/50 due to septic shock. Peripheral central catheter was placed in right groin and he was started on phenylephrine. Patient was stabilized in ICU, status post stent placement for hydroureteronephrosis and was started on IV antibiotics to control his sepsis. His heart is was controlled with metoprolol. After stabilization he was downgraded to telemetry floor on oral anticoagulation for stroke prophylaxis in the setting of A. fib. Patient was again transferred back to ICU after he had melena last night and was found in hypovolemic shock, responded to IV crystalloids and 4U pRBC blood transfusions. Following the patient in ICU for following problems. Hypovolemic shock due to GI blood loss: resolved -No episodes of hypotension overnight. -His aspirin and Eliquis were discontinued. -S/p endoscopy with no evidence of active bleed; multiple ulcers in esophagus, Hiatal hernia sac, duodenum. GI consult appreciated -Per family and patients primary, patient had been self medicating with Aleeve at home for the back pain, likely cause of multiple ulcerations -Continuing his normal saline at the rate of 50 mL per hour. -Continue IV Protonix 40mg BID -His H&H is stable at 11.5/33.8 -Will advance diet to FULLS today; was tolerating clears after procedure. Elevated INR: -Patient was given 1 dose of tranexamic acid two nights ago. Patient didn't receive any FFP. -INR yesterday was 2.19 -Pt has been on eliquis, will not trend INR further due to NOAC usage. Transaminitis: -Likely 2/2 hypotension -This morning his ALT/AST was 303/313 -Continue holding rosuvastatin and Tylenol. -Will continue to trend New-onset A. fib was on Eliquis: -Holding his Eliquis considering acute GI blood loss. -Can restart metoprolol as patient has been maintaining his pressures. Will start Lopressor 25mg BID -Appreciate cardiology recommendations. Holding ASA at this time. Pt is currently off A/C -Overnight in Afib rate 98-122 Leukocytosis: improving -Trending downwards; likely 2/2 melena/reactive -Patient is afebrile and was on 7 days of ceftriaxone for his sepsis due to urological origin. Is now switched to Ampicillin, 2g q8 IV, day 2; recieved total of 8 days antibiotics so far. -JAROD would be useful and is contraindicated based on his clinical condition at this point per cardiology. -Patient received one dose of vancomycin by mouth and his stool toxins are negative for shiga and C. diff. Culture is currently growing mixed landry. -Appreciate ID recs. DOTTIE: improving -Likely prerenal in the setting of GI bleed. -This morning his creatinine was 1.0 and BUN 43, yesterdays Cr/BUN was 1.3 and 72. -Avoid nephrotoxic medications -Monitor input and output Sepsis from urological origin status post stent placement: -Continue ampicillin 2g IV q8, Day 8 of total abx -Patient will follow urology as outpatient for ESWL for his kidney stone. -Will clarify with urology re: necessity of abarca 2/2 concerns from ID History of back pain: -CT scan didn't show any infectious process. -Possible follow-up with MRI to rule out any infection of the spine. -Per family and patients primary, patient had been self medicating with Aleeve at home for the back pain -Will obtain PT eval for dispo and family education History of diabetes: Accu-Cheks, blood sugar level was 195 this morning. -Continue insulin NovoLog according to sliding scale. History of bladder cancer status post immunotherapy: -Patient was supposed to get an MRI of bladder as outpatient. -Will inquire with urology regarding if okay to remove abarca catheter History of sleep apnea. -Not using CPAP/BiPAP. -Patient has been somnolent in the AM and throughout the day, suspect due to noncompliance DVT prophylaxis: Mechanical only. CODE STATUS: Full code Problem List: 1. Sepsis 2. UTI (urinary tract infection) 3. Intractable basilar artery migraine 4. Acute kidney failure 5. New onset atrial fibrillation 6. Back pain 7. Hydronephrosis 8. Acute GI bleeding 9. Hypovolemic shock Pain Ratin Tomorrow's Labs & Rationales: ICU Bundle CBC Plan DVT/Prophylaxis: mechanical
[2017-10-03 08:00] VITALS: BP 112/70
--- NOTE | 2017-10-03 09:07 | PN- Cardiology ---
Subjective Subjective: The patient has multiple ulcers on endoscopy. Anticoagulation and aspirin are all on hold. He remains in atrial fibrillation. His rate is around 100 today. He is not on any rate control medications at this time. Objective Vital Signs and I&Os Vital Signs Date Time Temp Pulse Resp B/P B/P Pulse O2 O2 Flow FiO2 Mean Ox Delivery Rate 10/03 0400 100 Room Air 10/03 0000 97.0 107 16 123/78 99 Nasal 1.0L Cannula 10/03 0000 99 Nasal 1.0L Cannula 10/02 2000 Nasal 1.0L Cannula 10/03 1999 98.0 108 22 132/88 97 Nasal 1.0L Cannula 10/02 1600 Nasal 2.0L Cannula 10/02 1600 97.8 102 21 88/60 100 Nasal 2.0L Cannula 10/02 1200 96 Room Air 10/02 1200 96.7 114 22 98/60 96 Room Air Intake & Output 10/03 1600 10/03 0800 10/03 0000 10/02 1600 10/02 0800 10/02 0000 Intake Total 984 1817 1087 4840 Output Total 1620 1510 1450 1800 400 Balance -636 307 -363 3040 -400 Intake, Blood 1400 Product Intake, IV 864 1097 1087 3440 Intake, Oral 120 720 Number 1 5 2 Bowel Movements Output, 50 900 Gastric Drainage Output, Stool 20 10 200 400 Output, Urine 1600 1500 1200 500 400 Patient 291 lb Weight Physical Exam: He is somewhat sleepy HEENT exam is normal Chest aerating well Heart irregular rhythm, no murmurs Extremities no edema Current Medications: Current Medications Sig/Royce Start time Last Medication Dose Route Stop Time Status Admin Ampicillin 2,000 MG Q8H 10/02 1900 10/03 Sodium Chloride 100 ML IV 0259 Ampicillin 2,000 MG Q8 10/02 1702 DC 10/02 Sodium Chloride 100 ML IV 195 Ceftriaxone Sodium 1,000 MG DAILY 09/26 1244 DC 10/02 IV 0915 Insulin Human Regular 0 Q6 10/02 0825 10/03 SC 0647 Pantoprazole Sodium 40 MG Q5H 10/02 0315 10/03 Sodium Chloride 100 ML IV 0450 Sodium Chloride 1,000 ML Q6H 10/02 0700 10/03 IV 0653 Results Last 48 Hrs of Labs/Mics: Laboratory Tests 10/03/17 0455: Anion Gap 6, Estimated GFR > 60, Glucose 195 H, Calcium 7.8 L, Phosphorus 2.8, Magnesium 2.0, Total Bilirubin 0.5, AST 313 H, ALT 303 H, Albumin 2.3 L, CBC w Diff MAN DIFF ORDERED, RBC 3.75 L, MCV 90.2, MCH 30.5, MCHC 33.9, RDW 15.1 H , MPV 7.5, Gran % 83.7 H, Lymphocytes % 10.9 L, Monocytes % 4.2, Eosinophils % 1.1, Basophils % 0.1, Absolute Granulocytes 18.0 H, Segmented Neutrophils 91 H , Absolute Lymphocytes 2.4, Lymphocytes 5 L, Monocytes 3, Absolute Monocytes 0.9 H, Eosinophils 1, Absolute Eosinophils 0.2, Absolute Basophils 0, Platelet Estimate ADEQUATE, Polychromasia 1+, Ovalocytes FEW, Fld Total RBCs Counted 100 10/02/17 2327: CBC w Diff MAN DIFF ORDERED, RBC 3.64 L, MCV 89.9, MCH 30.5, MCHC 33.9, RDW 15.2 H, MPV 7.8, Gran % 85.9 H, Lymphocytes % 10.3 L, Monocytes % 3.1, Eosinophils % 0.7, Basophils % 0, Absolute Granulocytes 21.1 H, Segmented Neutrophils 82 H, Band Neutrophils 5, Absolute Lymphocytes 2.5, Lymphocytes 10 L, Monocytes 2, Absolute Monocytes 0.8 H, Eosinophils 1, Absolute Eosinophils 0.2, Absolute Basophils 0, Platelet Estimate ADEQUATE, Polychromasia 1+, Poikilocytosis 1+, Ovalocytes 1+, Fld Total RBCs Counted 100 10/02/17 1630: CBC w Diff MAN DIFF ORDERED, RBC 3.94 L, MCV 90.6, MCH 29.4, MCHC 32.5 L, RDW 14.9 H, MPV 7.8, Gran % 87.7 H, Lymphocytes % 9.1 L, Monocytes % 2.6, Eosinophils % 0.6, Basophils % 0, Absolute Granulocytes 22.0 H, Segmented Neutrophils 87 H, Band Neutrophils 1, Absolute Lymphocytes 2.3, Lymphocytes 7 L, Monocytes 4, Absolute Monocytes 0.6, Eosinophils 1, Absolute Eosinophils 0.2, Absolute Basophils 0, Platelet Estimate VERIFIED BY SMEAR, Polychromasia , Fld Total RBCs Counted 100 10/02/17 1025: Lactic Acid 1.1 10/02/17 0835: CBC w Diff MAN DIFF ORDERED, RBC 3.84 L, MCV 89.4, MCH 30.6, MCHC 34.2, RDW 14.6 H, MPV 7.8, Gran % 85.1 H, Lymphocytes % 11.0 L, Monocytes % 3.3, Eosinophils % 0.4, Basophils % 0.2, Absolute Granulocytes 22.7 H, Segmented Neutrophils 81 H, Band Neutrophils 3, Absolute Lymphocytes 2.9, Lymphocytes 12 L, Monocytes 3, Absolute Monocytes 0.9 H, Absolute Eosinophils 0.1, Absolute Basophils 0.1, Metamyelocytes 1, Nucleated RBCs 1 H, Platelet Estimate VERIFIED BY SMEAR, Polychromasia 1+, Anisocytosis 1+ 10/02/17 0600: Troponin I Cancelled 10/02/17 0600: Anion Gap 9, Estimated GFR 53 L, Glucose 205 H, Lactic Acid 2.6 H, Calcium 7.4 L, Phosphorus 3.1, Magnesium 1.9, Total Bilirubin 0.5, AST 419 H, ALT 236 H, Albumin 2.0 L, PT 24.1 H, INR 2.19 H, APTT 32, CBC w Diff MAN DIFF ORDERED , RBC 3.02 L, MCV 90.4, MCH 30.3, MCHC 33.5, RDW 14.9 H, MPV 7.8, Gran % 85.5 H, Lymphocytes % 11.2 L, Monocytes % 2.7, Eosinophils % 0.4, Basophils % 0.2, Absolute Granulocytes 20.4 H, Segmented Neutrophils 82 H, Band Neutrophils 3, Absolute Lymphocytes 2.7, Lymphocytes 10 L, Monocytes 5, Absolute Monocytes 0.7 H, Absolute Eosinophils 0.1, Absolute Basophils 0, Nucleated RBCs 1 H, Platelet Estimate ADEQUATE, Polychromasia 1+ 10/02/17 0355: pH 7.46 H, pCO2 24 L, pO2 91, HCO3 17 L, ABG O2 Sat (Measured) 97.0, P-50 ( Temp Corrected) N, Carboxyhemoglobin 0.3 L, O2 Concentration % 2L, O2 Delivery Method N/C, Phlebotomy Draw Site RIGHT RADIAL 10/02/17 0340: Anion Gap 13, Estimated GFR 49 L, BUN/Creatinine Ratio 52.9 H, Magnesium 2.1, Total Bilirubin 0.6, Direct Bilirubin 0.4, AST 330 H, ALT 201 H, Alkaline Phosphatase 93, Troponin I < 0.01, Total Protein 5.0 L, Albumin 2.3 L, CBC w Diff MAN DIFF ORDERED, RBC 3.14 L, MCV 91.2, MCH 30.8, MCHC 33.8, RDW 14.8 H, MPV 8.2, Gran % 85.2 H, Lymphocytes % 11.6 L, Monocytes % 2.7, Eosinophils % 0.2, Basophils % 0.3, Absolute Granulocytes 26.2 H, Segmented Neutrophils 80 H , Band Neutrophils 3, Absolute Lymphocytes 3.6 H, Lymphocytes 14 L, Monocytes 1 L, Absolute Monocytes 0.8 H, Absolute Eosinophils 0.1, Absolute Basophils 0.1, Metamyelocytes 2 H, Nucleated RBCs 1 H, Platelet Estimate ADEQUATE, Polychromasia 1+, Anisocytosis 1+, Macrocytic Cells 1+, Digoxin 1.0 10/01/17 1320: Troponin I < 0.01 10/01/17 1226: pH 7.54 H, pCO2 30 L, pO2 74 L, HCO3 25, ABG O2 Sat (Measured) 96.0, Carboxyhemoglobin 1.3 L, O2 Concentration % RA, Phlebotomy Draw Site RIGHT RADIAL Assessment/Plan Assessment/Plan The patient remains in atrial fibrillation. His rate is not excessive today. I recommend restarting him on metoprolol 25 mg twice daily to help keep the rate under control. I recommend no anticoagulation or aspirin for now. We can discuss restarting this with GI at a later date. Perhaps he will need another endoscopy prior to that decision being made. Continue telemetry? Not applicable (ICU)
--- NOTE | 2017-10-03 11:43 | PN- Infect Dx ---
Subjective Subjective: Afebrile without complaints Objective Last 24 Hrs of Vital Signs/I&O Vital Signs Date Time Temp Pulse Resp B/P B/P Pulse O2 O2 Flow FiO2 Mean Ox Delivery Rate 10/03 0800 98 Room Air 10/03 0800 97.1 122 18 112/70 98 Room Air 10/03 0400 100 Room Air 10/03 0000 97.0 107 16 123/78 99 Nasal 1.0L Cannula 10/03 0000 99 Nasal 1.0L Cannula 10/02 2000 Nasal 1.0L Cannula 10/03 1999 98.0 108 22 132/88 97 Nasal 1.0L Cannula 10/02 1600 Nasal 2.0L Cannula 10/02 1600 97.8 102 21 88/60 100 Nasal 2.0L Cannula 10/02 1200 96 Room Air 10/02 1200 96.7 114 22 98/60 96 Room Air Intake & Output 10/03 1600 10/03 0800 10/03 0000 Intake Total 984 1817 Output Total 1620 1510 Balance -636 307 Intake, IV 864 1097 Intake, Oral 120 720 Output, Stool 20 10 Output, Urine 1600 1500 Physical Exam Other Physical Findings: He remains lethargic but is more responsive than yesterday Lungs are clear Heart irregular rhythm without murmur Abdomen is obese, soft, mildly tender on palpation, with no guarding or rebound, positive bowel sounds Extremities no cyanosis, clubbing or edema Murphy catheter remains in place Results Last 24 Hours of Lab Results: Laboratory Tests 10/03 10/03 1100 0455 Chemistry Sodium (137 - 145 mmol/L) 141 Potassium (3.5 - 5.1 mmol/L) 3.8 Chloride (98 - 107 mmol/L) 112 H Carbon Dioxide (22 - 30 mmol/L) 23 Anion Gap (5 - 16) 6 BUN (9 - 20 mg/dL) 43 H Creatinine (0.7 - 1.2 mg/dL) 1.0 Estimated GFR (>60 ml/min) > 60 Glucose (65 - 99 mg/dL) 195 H Calcium (8.4 - 10.2 mg/dL) 7.8 L Phosphorus (2.5 - 4.5 mg/dL) 2.8 Magnesium (1.6 - 2.3 mg/dL) 2.0 Total Bilirubin (0.2 - 1.3 mg/dL) 0.5 AST (17 - 59 U/L) 313 H ALT (21 - 72 U/L) 303 H Ammonia Pending Albumin (3.5 - 5.0 g/dL) 2.3 L Hematology CBC w Diff MAN DIFF ORDERED WBC (4.8 - 10.8 /CUMM) 21.5 H RBC (4.70 - 6.10 /CUMM) 3.75 L Hgb (14.0 - 18.0 G/DL) 11.5 L Hct (42 - 52 %) 33.8 L MCV (80.0 - 94.0 FL) 90.2 MCH (27.0 - 31.0 PG) 30.5 MCHC (33.0 - 37.0 G/DL) 33.9 RDW (11.5 - 14.5 %) 15.1 H Plt Count (130 - 400 /CUMM) 342 MPV (7.4 - 10.4 FL) 7.5 Gran % (42.2 - 75.2 %) 83.7 H Lymphocytes % (20.5 - 51.1 %) 10.9 L Monocytes % (1.7 - 9.3 %) 4.2 Eosinophils % (0 - 5 %) 1.1 Basophils % (0.0 - 2.0 %) 0.1 Absolute Granulocytes (1.4 - 6.5 /CUMM) 18.0 H Segmented Neutrophils (42.2 - 75.2 %) 91 H Absolute Lymphocytes (1.2 - 3.4 /CUMM) 2.4 Lymphocytes (20.5 - 51.1 %) 5 L Monocytes (1.7 - 9.3 %) 3 Absolute Monocytes (0.10 - 0.60 /CUMM) 0.9 H Eosinophils (0 - 5.0 %) 1 Absolute Eosinophils (0.0 - 0.7 /CUMM) 0.2 Absolute Basophils (0.0 - 0.2 /CUMM) 0 Platelet Estimate (ADEQUATE) ADEQUATE Polychromasia 1+ Ovalocytes FEW Other Body Source Fld Total RBCs Counted (%) 100 10/02 10/02 7727 1630 Hematology CBC w Diff MAN DIFF ORDERED MAN DIFF ORDERED WBC (4.8 - 10.8 /CUMM) 24.5 H 25.1 H RBC (4.70 - 6.10 /CUMM) 3.64 L 3.94 L Hgb (14.0 - 18.0 G/DL) 11.1 L 11.6 L Hct (42 - 52 %) 32.8 L 35.7 L MCV (80.0 - 94.0 FL) 89.9 90.6 MCH (27.0 - 31.0 PG) 30.5 29.4 MCHC (33.0 - 37.0 G/DL) 33.9 32.5 L RDW (11.5 - 14.5 %) 15.2 H 14.9 H Plt Count (130 - 400 /CUMM) 317 352 MPV (7.4 - 10.4 FL) 7.8 7.8 Gran % (42.2 - 75.2 %) 85.9 H 87.7 H Lymphocytes % (20.5 - 51.1 %) 10.3 L 9.1 L Monocytes % (1.7 - 9.3 %) 3.1 2.6 Eosinophils % (0 - 5 %) 0.7 0.6 Basophils % (0.0 - 2.0 %) 0 0 Absolute Granulocytes (1.4 - 6.5 /CUMM) 21.1 H 22.0 H Segmented Neutrophils (42.2 - 75.2 %) 82 H 87 H Band Neutrophils (0.0 - 5.0 %) 5 1 Absolute Lymphocytes (1.2 - 3.4 /CUMM) 2.5 2.3 Lymphocytes (20.5 - 51.1 %) 10 L 7 L Monocytes (1.7 - 9.3 %) 2 4 Absolute Monocytes (0.10 - 0.60 /CUMM) 0.8 H 0.6 Eosinophils (0 - 5.0 %) 1 1 Absolute Eosinophils (0.0 - 0.7 /CUMM) 0.2 0.2 Absolute Basophils (0.0 - 0.2 /CUMM) 0 0 Platelet Estimate (ADEQUATE) ADEQUATE VERIFIED BY SMEAR Polychromasia 1+ Poikilocytosis 1+ Ovalocytes 1+ Other Body Source Fld Total RBCs Counted (%) 100 100 Last 24 Hours of Mauricio Results: Blood cultures x 2 October 01 negative Urine culture October 02 negative Assessment/Plan ID Impression: Stable, with his H&H stable, status post an upper GI bleed with his endoscopy yesterday revealing ulcerative esophagitis, numerous duodenal ulcers and a hiatal hernia with ulcerations. He remains afebrile and his white blood cell count is decreasing, now on Ampicillin, Day 8 of treatment for E. coli sepsis of urologic origin, status post cystoscopy and placement of a right ureteral stent 7 days ago. His elevated liver enzymes are likely related to his recent hypotension. Suggestion: 1. Follow-up recent cultures 2. Further management of his GI bleed per GI 3. Remove Murphy catheter if okay with Urology and initiate straight cath protocol if necessary 4. Continue Ampicillin
[2017-10-03 12:00] VITALS: BP 124/86
[2017-10-03 13:46] VITALS: BP 124/88
[2017-10-03 16:00] VITALS: BP 124/86
--- NOTE | 2017-10-03 18:02 | PN- Gastroenterology ---
Assessment/Plan GI Assessment/Recommendations: Upper GI bleed, secondary to ulcerative esophagitis/duodenal ulcer disease, without site identified at EGD. There is no clinical evidence of rebleeding, hematocrit remains stable, and vital signs are acceptable. No bowel movement today. Recommendations * Check CBC daily, and maintain hemoglobin/hematocrit at approximately 8 * IV PPI: may discontinue infusion, and begin twice daily dose * Hold anticoagulation and aspirin * Advance to full liquid diet. Subjective Subjective: No nausea, vomiting, bowel movement/melena. No abdominal pain. Objective Vital Signs and I&Os Vital Signs Date Time Temp Pulse Resp B/P B/P Pulse O2 O2 Flow FiO2 Mean Ox Delivery Rate 10/03 1600 97.8 96 18 124/86 99 Room Air 10/03 1346 124/88 10/03 1200 96.7 110 22 124/86 97 Room Air 10/03 1153 120 124/86 10/03 0800 98 Room Air 10/03 0800 97.1 122 18 112/70 98 Room Air 10/03 0400 100 Room Air 10/03 0000 97.0 107 16 123/78 99 Nasal 1.0L Cannula 10/03 0000 99 Nasal 1.0L Cannula 10/02 2000 Nasal 1.0L Cannula 10/02 2000 98.0 108 22 132/88 97 Nasal 1.0L Cannula Intake & Output 10/03 1600 10/03 0400 10/02 1600 10/02 0400 10/01 1600 10/01 0400 Intake Total 2301 1817 5927 1150 400 Output Total 3520 1510 3250 400 1975 1450 Balance -4102 274 0008 -400 -825 -1050 Intake, Blood 1400 Product Intake, IV 1481 1097 4527 150 Intake, Oral 408 555 5371 400 Number 6 2 2 Bowel Movements Output, 950 Gastric Drainage Output, Stool 20 10 600 Output, Urine 3500 1500 2465 730 1288 1450 Patient 291 lb 289 lb Weight Physical Exam: Alert and oriented. Sclera anicteric. Oropharynx normal. Abdomen obese, soft, nontender. Extremities without edema. Current Medications: Current Medications Sig/Royce Start time Last Medication Dose Route Stop Time Status Admin Ampicillin 2,000 MG Q8H 10/02 1900 AC 10/03 Sodium Chloride 100 ML IV 1107 Ampicillin 2,000 MG Q8 10/02 1702 DC 10/02 Sodium Chloride 100 ML IV 1951 Insulin Aspart 0 TIDAC 10/03 1200 10/03 SC 1701 Insulin Human Regular 0 Q6 10/02 0825 PR 10/03 SC 0647 Metoprolol Tartrate 25 MG BID 10/03 1040 AC 10/03 PO 1153 Pantoprazole Sodium 40 MG BID 10/03 1133 AC 10/03 IV 1154 Pantoprazole Sodium 40 MG Q5H 10/03 1115 CAN Sodium Chloride 100 ML IV Pantoprazole Sodium 80 MG BID 10/03 1051 DC IV Pantoprazole Sodium 40 MG Q5H 10/02 0315 DC 10/03 Sodium Chloride 100 ML IV 0450 Sodium Chloride 1,000 ML Q6H 10/02 0700 DC 10/03 IV 0653 Results Pertinent Lab Results: Laboratory Tests 10/03 10/03 1100 0455 Chemistry Sodium (137 - 145 mmol/L) 141 Potassium (3.5 - 5.1 mmol/L) 3.8 Chloride (98 - 107 mmol/L) 112 H Carbon Dioxide (22 - 30 mmol/L) 23 Anion Gap (5 - 16) 6 BUN (9 - 20 mg/dL) 43 H Creatinine (0.7 - 1.2 mg/dL) 1.0 Estimated GFR (>60 ml/min) > 60 Glucose (65 - 99 mg/dL) 195 H Calcium (8.4 - 10.2 mg/dL) 7.8 L Phosphorus (2.5 - 4.5 mg/dL) 2.8 Magnesium (1.6 - 2.3 mg/dL) 2.0 Total Bilirubin (0.2 - 1.3 mg/dL) 0.5 AST (17 - 59 U/L) 313 H ALT (21 - 72 U/L) 303 H Ammonia (9 - 30 umol/L) 13 Albumin (3.5 - 5.0 g/dL) 2.3 L Hematology CBC w Diff MAN DIFF ORDERED WBC (4.8 - 10.8 /CUMM) 21.5 H RBC (4.70 - 6.10 /CUMM) 3.75 L Hgb (14.0 - 18.0 G/DL) 11.5 L Hct (42 - 52 %) 33.8 L MCV (80.0 - 94.0 FL) 90.2 MCH (27.0 - 31.0 PG) 30.5 MCHC (33.0 - 37.0 G/DL) 33.9 RDW (11.5 - 14.5 %) 15.1 H Plt Count (130 - 400 /CUMM) 342 MPV (7.4 - 10.4 FL) 7.5 Gran % (42.2 - 75.2 %) 83.7 H Lymphocytes % (20.5 - 51.1 %) 10.9 L Monocytes % (1.7 - 9.3 %) 4.2 Eosinophils % (0 - 5 %) 1.1 Basophils % (0.0 - 2.0 %) 0.1 Absolute Granulocytes (1.4 - 6.5 /CUMM) 18.0 H Segmented Neutrophils (42.2 - 75.2 %) 91 H Absolute Lymphocytes (1.2 - 3.4 /CUMM) 2.4 Lymphocytes (20.5 - 51.1 %) 5 L Monocytes (1.7 - 9.3 %) 3 Absolute Monocytes (0.10 - 0.60 /CUMM) 0.9 H Eosinophils (0 - 5.0 %) 1 Absolute Eosinophils (0.0 - 0.7 /CUMM) 0.2 Absolute Basophils (0.0 - 0.2 /CUMM) 0 Platelet Estimate (ADEQUATE) ADEQUATE Polychromasia 1+ Ovalocytes FEW Other Body Source Fld Total RBCs Counted (%) 100 10/02 10/02 2327 1630 Hematology CBC w Diff MAN DIFF ORDERED MAN DIFF ORDERED WBC (4.8 - 10.8 /CUMM) 24.5 H 25.1 H RBC (4.70 - 6.10 /CUMM) 3.64 L 3.94 L Hgb (14.0 - 18.0 G/DL) 11.1 L 11.6 L Hct (42 - 52 %) 32.8 L 35.7 L MCV (80.0 - 94.0 FL) 89.9 90.6 MCH (27.0 - 31.0 PG) 30.5 29.4 MCHC (33.0 - 37.0 G/DL) 33.9 32.5 L RDW (11.5 - 14.5 %) 15.2 H 14.9 H Plt Count (130 - 400 /CUMM) 317 352 MPV (7.4 - 10.4 FL) 7.8 7.8 Gran % (42.2 - 75.2 %) 85.9 H 87.7 H Lymphocytes % (20.5 - 51.1 %) 10.3 L 9.1 L Monocytes % (1.7 - 9.3 %) 3.1 2.6 Eosinophils % (0 - 5 %) 0.7 0.6 Basophils % (0.0 - 2.0 %) 0 0 Absolute Granulocytes (1.4 - 6.5 /CUMM) 21.1 H 22.0 H Segmented Neutrophils (42.2 - 75.2 %) 82 H 87 H Band Neutrophils (0.0 - 5.0 %) 5 1 Absolute Lymphocytes (1.2 - 3.4 /CUMM) 2.5 2.3 Lymphocytes (20.5 - 51.1 %) 10 L 7 L Monocytes (1.7 - 9.3 %) 2 4 Absolute Monocytes (0.10 - 0.60 /CUMM) 0.8 H 0.6 Eosinophils (0 - 5.0 %) 1 1 Absolute Eosinophils (0.0 - 0.7 /CUMM) 0.2 0.2 Absolute Basophils (0.0 - 0.2 /CUMM) 0 0 Platelet Estimate (ADEQUATE) ADEQUATE VERIFIED BY SMEAR Polychromasia 1+ Poikilocytosis 1+ Ovalocytes 1+ Other Body Source Fld Total RBCs Counted (%) 100 100 10/02 10/02 10/02 1025 0835 0600 Chemistry Lactic Acid (0.7 - 2.1 mmol/L) 1.1 Troponin I Cancelled Hematology CBC w Diff MAN DIFF ORDERED WBC (4.8 - 10.8 /CUMM) 26.6 H RBC (4.70 - 6.10 /CUMM) 3.84 L Hgb (14.0 - 18.0 G/DL) 11.8 L Hct (42 - 52 %) 34.4 L MCV (80.0 - 94.0 FL) 89.4 MCH (27.0 - 31.0 PG) 30.6 MCHC (33.0 - 37.0 G/DL) 34.2 RDW (11.5 - 14.5 %) 14.6 H Plt Count (130 - 400 /CUMM) 295 MPV (7.4 - 10.4 FL) 7.8 Gran % (42.2 - 75.2 %) 85.1 H Lymphocytes % (20.5 - 51.1 %) 11.0 L Monocytes % (1.7 - 9.3 %) 3.3 Eosinophils % (0 - 5 %) 0.4 Basophils % (0.0 - 2.0 %) 0.2 Absolute Granulocytes (1.4 - 6.5 /CUMM) 22.7 H Segmented Neutrophils (42.2 - 75.2 %) 81 H Band Neutrophils (0.0 - 5.0 %) 3 Absolute Lymphocytes (1.2 - 3.4 /CUMM) 2.9 Lymphocytes (20.5 - 51.1 %) 12 L Monocytes (1.7 - 9.3 %) 3 Absolute Monocytes (0.10 - 0.60 /CUMM) 0.9 H Absolute Eosinophils (0.0 - 0.7 /CUMM) 0.1 Absolute Basophils (0.0 - 0.2 /CUMM) 0.1 Metamyelocytes (0.0 - 1.0 %) 1 Nucleated RBCs (0.0 - 0.0 /100WBC) 1 H Platelet Estimate (ADEQUATE) VERIFIED BY SMEAR Polychromasia 1+ Anisocytosis 1+ 10/02 10/02 0600 0355 Blood Gas pH (7.35 - 7.45 PH) 7.46 H pCO2 (35 - 45 TORR) 24 L pO2 (80 - 100 TORR) 91 HCO3 (21 - 28 MEQ/L) 17 L ABG O2 Sat (Measured) (>96.0 %) 97.0 P-50 (Temp Corrected) N Carboxyhemoglobin (1.5 - 5.0 %) 0.3 L O2 Concentration % 2L O2 Delivery Method N/C Chemistry Sodium (137 - 145 mmol/L) 136 L Potassium (3.5 - 5.1 mmol/L) 4.2 Chloride (98 - 107 mmol/L) 106 Carbon Dioxide (22 - 30 mmol/L) 21 L Anion Gap (5 - 16) 9 BUN (9 - 20 mg/dL) 72 H Creatinine (0.7 - 1.2 mg/dL) 1.3 H Estimated GFR (>60 ml/min) 53 L Glucose (65 - 99 mg/dL) 205 H Lactic Acid (0.7 - 2.1 mmol/L) 2.6 H Calcium (8.4 - 10.2 mg/dL) 7.4 L Phosphorus (2.5 - 4.5 mg/dL) 3.1 Magnesium (1.6 - 2.3 mg/dL) 1.9 Total Bilirubin (0.2 - 1.3 mg/dL) 0.5 AST (17 - 59 U/L) 419 H ALT (21 - 72 U/L) 236 H Albumin (3.5 - 5.0 g/dL) 2.0 L Coagulation PT (9.4 - 12.5 SEC) 24.1 H INR (0.90 - 1.17) 2.19 H APTT (25 - 37 SEC) 32 Hematology CBC w Diff MAN DIFF ORDERED WBC (4.8 - 10.8 /CUMM) 23.9 H RBC (4.70 - 6.10 /CUMM) 3.02 L Hgb (14.0 - 18.0 G/DL) 9.1 L Hct (42 - 52 %) 27.3 L MCV (80.0 - 94.0 FL) 90.4 MCH (27.0 - 31.0 PG) 30.3 MCHC (33.0 - 37.0 G/DL) 33.5 RDW (11.5 - 14.5 %) 14.9 H Plt Count (130 - 400 /CUMM) 293 MPV (7.4 - 10.4 FL) 7.8 Gran % (42.2 - 75.2 %) 85.5 H Lymphocytes % (20.5 - 51.1 %) 11.2 L Monocytes % (1.7 - 9.3 %) 2.7 Eosinophils % (0 - 5 %) 0.4 Basophils % (0.0 - 2.0 %) 0.2 Absolute Granulocytes (1.4 - 6.5 /CUMM) 20.4 H Segmented Neutrophils (42.2 - 75.2 %) 82 H Band Neutrophils (0.0 - 5.0 %) 3 Absolute Lymphocytes (1.2 - 3.4 /CUMM) 2.7 Lymphocytes (20.5 - 51.1 %) 10 L Monocytes (1.7 - 9.3 %) 5 Absolute Monocytes (0.10 - 0.60 /CUMM) 0.7 H Absolute Eosinophils (0.0 - 0.7 /CUMM) 0.1 Absolute Basophils (0.0 - 0.2 /CUMM) 0 Nucleated RBCs (0.0 - 0.0 /100WBC) 1 H Platelet Estimate (ADEQUATE) ADEQUATE Polychromasia 1+ Miscellaneous Phlebotomy Draw Site RIGHT RADIAL 10/02 10/01 0340 1320 Chemistry Sodium (137 - 145 mmol/L) 136 L Potassium (3.5 - 5.1 mmol/L) 4.4 Chloride (98 - 107 mmol/L) 105 Carbon Dioxide (22 - 30 mmol/L) 18 L Anion Gap (5 - 16) 13 BUN (9 - 20 mg/dL) 74 H Creatinine (0.7 - 1.2 mg/dL) 1.4 H Estimated GFR (>60 ml/min) 49 L BUN/Creatinine Ratio (7 - 25 %) 52.9 H Magnesium (1.6 - 2.3 mg/dL) 2.1 Total Bilirubin (0.2 - 1.3 mg/dL) 0.6 Direct Bilirubin (< 0.4 mg/dL) 0.4 AST (17 - 59 U/L) 330 H ALT (21 - 72 U/L) 201 H Alkaline Phosphatase (< 127 U/L) 93 Troponin I (<0.11 ng/ml) < 0.01 < 0.01 Total Protein (6.3 - 8.2 g/dL) 5.0 L Albumin (3.5 - 5.0 g/dL) 2.3 L Hematology CBC w Diff MAN DIFF ORDERED WBC (4.8 - 10.8 /CUMM) 30.7 *H RBC (4.70 - 6.10 /CUMM) 3.14 L Hgb (14.0 - 18.0 G/DL) 9.7 L Hct (42 - 52 %) 28.7 L MCV (80.0 - 94.0 FL) 91.2 MCH (27.0 - 31.0 PG) 30.8 MCHC (33.0 - 37.0 G/DL) 33.8 RDW (11.5 - 14.5 %) 14.8 H Plt Count (130 - 400 /CUMM) 335 MPV (7.4 - 10.4 FL) 8.2 Gran % (42.2 - 75.2 %) 85.2 H Lymphocytes % (20.5 - 51.1 %) 11.6 L Monocytes % (1.7 - 9.3 %) 2.7 Eosinophils % (0 - 5 %) 0.2 Basophils % (0.0 - 2.0 %) 0.3 Absolute Granulocytes (1.4 - 6.5 /CUMM) 26.2 H Segmented Neutrophils (42.2 - 75.2 %) 80 H Band Neutrophils (0.0 - 5.0 %) 3 Absolute Lymphocytes (1.2 - 3.4 /CUMM) 3.6 H Lymphocytes (20.5 - 51.1 %) 14 L Monocytes (1.7 - 9.3 %) 1 L Absolute Monocytes (0.10 - 0.60 /CUMM) 0.8 H Absolute Eosinophils (0.0 - 0.7 /CUMM) 0.1 Absolute Basophils (0.0 - 0.2 /CUMM) 0.1 Metamyelocytes (0.0 - 1.0 %) 2 H Nucleated RBCs (0.0 - 0.0 /100WBC) 1 H Platelet Estimate (ADEQUATE) ADEQUATE Polychromasia 1+ Anisocytosis 1+ Macrocytic Cells 1+ Toxicology Digoxin (0.8 - 2.0 ng/mL) 1.0 10/01 10/01 1226 0730 Blood Gas pH (7.35 - 7.45 PH) 7.54 H pCO2 (35 - 45 TORR) 30 L pO2 (80 - 100 TORR) 74 L HCO3 (21 - 28 MEQ/L) 25 ABG O2 Sat (Measured) (>96.0 %) 96.0 Carboxyhemoglobin (1.5 - 5.0 %) 1.3 L O2 Concentration % RA Chemistry Sodium (137 - 145 mmol/L) 135 L Potassium (3.5 - 5.1 mmol/L) 4.2 Chloride (98 - 107 mmol/L) 102 Carbon Dioxide (22 - 30 mmol/L) 25 Anion Gap (5 - 16) 7 BUN (9 - 20 mg/dL) 33 H Creatinine (0.7 - 1.2 mg/dL) 0.7 Estimated GFR (>60 ml/min) > 60 BUN/Creatinine Ratio (7 - 25 %) 47.1 H Hematology CBC w Diff NO MAN DIFF REQ WBC (4.8 - 10.8 /CUMM) 18.9 H RBC (4.70 - 6.10 /CUMM) 4.09 L Hgb (14.0 - 18.0 G/DL) 12.6 L Hct (42 - 52 %) 37.0 L MCV (80.0 - 94.0 FL) 90.4 MCH (27.0 - 31.0 PG) 30.7 MCHC (33.0 - 37.0 G/DL) 34.0 RDW (11.5 - 14.5 %) 14.9 H Plt Count (130 - 400 /CUMM) 314 MPV (7.4 - 10.4 FL) 7.9 Gran % (42.2 - 75.2 %) 86.0 H Lymphocytes % (20.5 - 51.1 %) 8.7 L Monocytes % (1.7 - 9.3 %) 4.1 Eosinophils % (0 - 5 %) 1.2 Basophils % (0.0 - 2.0 %) 0 Absolute Granulocytes (1.4 - 6.5 /CUMM) 16.2 H Absolute Lymphocytes (1.2 - 3.4 /CUMM) 1.6 Absolute Monocytes (0.10 - 0.60 /CUMM) 0.8 H Absolute Eosinophils (0.0 - 0.7 /CUMM) 0.2 Absolute Basophils (0.0 - 0.2 /CUMM) 0 Miscellaneous Phlebotomy Draw Site RIGHT RADIAL
[2017-10-03 20:00] VITALS: BP 128/100
[2017-10-04] VITALS: BP 141/90
[2017-10-04 04:00] VITALS: BP 126/72
[2017-10-04 05:22] LABS: ABSOLUTE BASOPHIL COUNT 0.1 /CUMM (0.0-0.2); ABSOLUTE EOSINOPHIL COUNT 0.2 /CUMM (0.0-0.7); ABSOLUTE GRANULOCYTE CT 13.6 /CUMM (1.4-6.5); ABSOLUTE LYMPH COUNT 1.9 /CUMM (1.2-3.4); ABSOLUTE MONOCYTE COUNT 0.6 /CUMM (0.10-0.60); BASOPHIL % 0.3 % (0.0-2.0); EOSINOPHIL % 1.1 % (0-5); HEMATOCRIT 31.1 % (42-52); MEAN CORPUSCULAR HGB 30.6 PG (27.0-31.0); MEAN CORPUSCULAR HGB CONC 33.7 G/DL (33.0-37.0); MEAN CORPUSCULAR VOLUME 90.8 FL (80.0-94.0); MEAN PLATELET VOLUME 7.2 FL (7.4-10.4); PLATELET COUNT 296 /CUMM (130-400); RED BLOOD CELL CT 3.42 /CUMM (4.70-6.10); WHITE BLOOD CELL COUNT 16.3 /CUMM (4.8-10.8)
[2017-10-04 05:55] LABS: GRANULOCYTE % 83.3 % (42.2-75.2)
[2017-10-04 08:00] VITALS: BP 130/80
--- NOTE | 2017-10-04 08:09 | PN- Resident CRCU ---
See Addendum Subjective HPI/CRCU Issues: Hypovolemic shock due to GI blood loss, resolved Acute GI blood loss status post four blood transfusions, s/p endoscopy stable Transaminitis - stable New-onset A. fib was on Eliquis, off anticoagulation at this time Leukocytosis, possible reactionary DOTTIE, possible prerenal, improving Sepsis from urological origin status post stent placement, on Ampicillin. History of diabetes History of bladder cancer status post immunotherapy. History of sleep apnea. 24 Hour Events: Pt wore CPAP mask last night, tolerated for approx 2 hours. Vitally stable overnight; Afib rate 74-112; mainted blood pressures 124-141/86-100; denies any new instances of vomiting or diarrhea. States he feels better today, including improvement in back pain. Objective Vital Signs & I&O Last 8 Hrs of Vitals and I&O: Afib 74-112 Systolic 124-141 ; Diastolic 86-100 100% saturations on room air Afebrile Exam General Appearance: well developed/nourished, no apparent distress, alert, awake , comfortable, obese Head: atraumatic Neck: normal inspection Respiratory: normal breath sounds, lungs clear Cardiovascular: normal peripheral pulses, irregularly irregular Gastrointestinal: soft, non-tender, obese Extremities: normal inspection, no edema Cranial Nerves: normal hearing, PERRL Skin: intact Skin Temp/Moisture Exam: Warm/Dry Sepsis Skin Exam (color): Normal for Ethnicity Current Medications: Current Medications Sig/Royce Start time Last Medication Dose Route Stop Time Status Admin Ampicillin 2,000 MG Q8H 10/02 1900 AC 10/04 Sodium Chloride 100 ML IV 0332 Insulin Aspart 0 TIDAC 10/03 1200 AC 10/03 SC 1701 Metoprolol Tartrate 25 MG BID 10/03 1040 AC 10/04 PO 1032 Pantoprazole Sodium 40 MG BID 10/03 1133 AC 10/04 IV 1031 Sodium Chloride 1,000 ML Q6H 10/02 0700 DC 10/03 IV 0653 Impression/Plan Impression/Problem List Impression: 77 YO M with PMH significant for HTN, HLD, morbid obesity, VERONA not on CPAP, DM, psoriasis, nephrolithiasis with h/o lithotripsies, BPH, h/o UTI, and bladder cancer s/p TURBT and receiving intravesicular immunotherapy BCG? managed by Dr. Del Rio in [place], completed one cycle in April with a reportedly benign repeat cystoscopy but pending another round of therapy presented with eight weeks of back pain, immobility, and worsening urinary urgency, frequency, and incontinence. In ED patient was found to be in atrial fibrillation and leukocytosis with lactic acidosis, elevated creatinine and his urinalysis was suggestive of infection. Later on patient's urine culture came back positive with gram-negative rods and blood culture came back positive with gram-negative rods. In ED his blood pressure was 80/50 due to septic shock. Peripheral central catheter was placed in right groin and he was started on phenylephrine. Patient was stabilized in ICU, status post stent placement for hydroureteronephrosis and was started on IV antibiotics to control his sepsis. His heart was controlled with metoprolol. After stabilization he was downgraded to telemetry floor on oral anticoagulation for stroke prophylaxis in the setting of A. fib. Patient was again transferred back to ICU after he had melena and was found in hypovolemic shock, responded to IV crystalloids and 4U pRBC blood transfusions. Following the patient in ICU for following problems. Hypovolemic shock due to GI blood loss: resolved -No episodes of hypotension overnight. -His aspirin and Eliquis are discontinued. Per cardio full anticoagulation to be held until ulcers are healed. Will clarify with GI if enteric-coated aspirin can be started. -S/p endoscopy with no evidence of active bleed; multiple ulcers in esophagus, Hiatal hernia sac, duodenum. GI consult appreciated -Per family and patients primary, patient had been self medicating with Aleeve at home for the back pain, likely cause of multiple ulcerations -Continuing his normal saline at the rate of 50 mL per hour. -Continue IV Protonix 40mg BID -His H&H is stable at 10.5/31.8 -Tolerated FULLS yesterday. Will ADAT. Elevated INR: -Patient was given 1 dose of tranexamic acid two nights ago. Patient didn't receive any FFP. -Pt has been on eliquis, will not trend INR further due to NOAC usage. Transaminitis: -Likely 2/2 hypotension -This morning his AST/ALT was 200/267. Trending downwards. -Continue holding rosuvastatin and Tylenol. -Will continue to trend New-onset A. fib was on Eliquis: -Holding his Eliquis considering acute GI blood loss. -Can restart metoprolol as patient has been maintaining his pressures. Will start Lopressor 25mg BID. Per cardio, if rate continues to be in 100s can increase to 50mg BID -Appreciate cardiology recommendations. Will clarify with GI regarding restarting ASA. Pt is currently off A/C -Overnight in Afib rate 74-112 Leukocytosis: improving -Trending downwards; likely 2/2 melena/reactive -Patient is afebrile and was on 7 days of ceftriaxone for his sepsis due to urological origin. Is now switched to Ampicillin, 2g q8 IV, day 3; recieved total of 9 days antibiotics so far. -Patient received one dose of vancomycin by mouth and his stool toxins are negative for shiga and C. diff. Culture is currently growing mixed landry. -Appreciate ID recs. DOTTIE: improving -Likely prerenal in the setting of GI bleed. -This morning his creatinine was 0.8 and BUN 21, yesterdays Cr/BUN was 1.0 and 43. -Avoid nephrotoxic medications -Monitor input and output Sepsis from urological origin status post stent placement: -Continue ampicillin 2g IV q8, Day 9 of total abx -Patient will follow urology as outpatient for ESWL for his kidney stone. -Urology states that ESWL and stent replacement/removal will occur simultaneously; is currently scheduled for end of October however patient can call his outpatient urologist DR DEL RIO to do procedure as well if they are comfortable with it. History of back pain: -CT scan didn't show any infectious process. -Possible follow-up with MRI to rule out any infection of the spine. -Per family and patients primary, patient had been self medicating with Aleeve at home for the back pain -PT Eval appreciated. Dispo likely to STR pending insurance auth History of diabetes: Accu-Cheks, blood sugar level was 195 this morning. -Continue insulin NovoLog according to sliding scale. History of bladder cancer status post immunotherapy: -Patient was supposed to get an MRI of bladder as outpatient. -Spoke with DR WEST regarding abarca catheter. Abarca was to measure I/O as well as ensure drainage of bladder; can be discontinued upon transfer to floors. History of sleep apnea. -Has started compliance with CPAP, tolerated ~2 hours overnight. Pt states he will try to use CPAP more often. -Patient much more energetic today DVT prophylaxis: Mechanical only. CODE STATUS: Full code Problem List: 1. UTI (urinary tract infection) 2. New onset atrial fibrillation 3. Acute kidney failure Pain Ratin Tomorrow's Labs & Rationales: BEP Plan DVT/Prophylaxis: mechanical
--- NOTE | 2017-10-04 11:17 | PN- Cardiology ---
Subjective Subjective: The patient is sitting in a chair. He is asymptomatic. He remains in atrial fibrillation. His heart rate is in the low 100s. He is on metoprolol 25 mg twice daily. He is not on anticoagulation or aspirin because of recent GI bleed and multiple ulcers. Objective Vital Signs and I&Os Vital Signs Date Time Temp Pulse Resp B/P B/P Pulse O2 O2 Flow FiO2 Mean Ox Delivery Rate 10/04 1032 108 137/90 10/04 0400 73 14 126/72 100 Room Air 10/04 0324 78 98 10/04 0104 79 99 10/04 0000 97.4 102 16 141/90 99 CPAP 10/04 0000 99 CPAP 10/03 2215 99 Room Air Room Air 10/03 2214 121 99 10/03 2045 113 128/100 10/03 2000 113 20 128/100 99 Room Air 10/03 1600 97.8 96 18 124/86 99 Room Air 10/03 1346 124/88 10/03 1200 96.7 110 22 124/86 97 Room Air 10/03 1153 120 124/86 Intake & Output 10/04 1600 10/04 0800 10/04 0000 10/03 1600 10/03 0800 10/03 0000 Intake Total 441 720 5123 984 1817 Output Total 1900 1400 1900 1620 1510 Balance -1300 -490 -583 -636 307 Intake, IV 100 130 842 287 9416 Intake, Oral 500 780 700 120 720 Number 0 0 Bowel Movements Output, Stool 20 10 Output, Urine 1900 1400 1900 1600 1500 Physical Exam: No distress Chest clear Heart irregular, no murmurs Extremities no edema Current Medications: Current Medications Sig/Royce Start time Last Medication Dose Route Stop Time Status Admin Ampicillin 2,000 MG Q8H 10/02 1900 AC 10/04 Sodium Chloride 100 ML IV 0332 Insulin Aspart 0 TIDAC 10/03 1200 AC 10/03 SC 1701 Metoprolol Tartrate 25 MG BID 10/03 1040 AC 10/04 PO 1032 Pantoprazole Sodium 40 MG BID 10/03 1133 AC 10/04 IV 1031 Sodium Chloride 1,000 ML Q6H 10/02 0700 DC 10/03 IV 0653 Results Last 48 Hrs of Labs/Mics: Laboratory Tests 10/04/17 0435: Anion Gap 5, Estimated GFR > 60, Glucose 203 H, Calcium 8.0 L, Phosphorus 2.9, Magnesium 1.8, Total Bilirubin 0.5, AST 200 H, ALT 267 H, Albumin 2.3 L, CBC w Diff NO MAN DIFF REQ, RBC 3.42 L, MCV 90.8, MCH 30.6, MCHC 33.7, RDW 15.0 H, MPV 7.2 L, Gran % 83.3 H, Lymphocytes % 11.5 L, Monocytes % 3.8, Eosinophils % 1.1, Basophils % 0.3, Absolute Granulocytes 13.6 H, Absolute Lymphocytes 1.9, Absolute Monocytes 0.6, Absolute Eosinophils 0.2, Absolute Basophils 0.1 10/03/17 1100: Ammonia 13 10/03/17 0455: Anion Gap 6, Estimated GFR > 60, Glucose 195 H, Calcium 7.8 L, Phosphorus 2.8, Magnesium 2.0, Total Bilirubin 0.5, AST 313 H, ALT 303 H, Albumin 2.3 L, CBC w Diff MAN DIFF ORDERED, RBC 3.75 L, MCV 90.2, MCH 30.5, MCHC 33.9, RDW 15.1 H , MPV 7.5, Gran % 83.7 H, Lymphocytes % 10.9 L, Monocytes % 4.2, Eosinophils % 1.1, Basophils % 0.1, Absolute Granulocytes 18.0 H, Segmented Neutrophils 91 H , Absolute Lymphocytes 2.4, Lymphocytes 5 L, Monocytes 3, Absolute Monocytes 0.9 H, Eosinophils 1, Absolute Eosinophils 0.2, Absolute Basophils 0, Platelet Estimate ADEQUATE, Polychromasia 1+, Ovalocytes FEW, Fld Total RBCs Counted 100 10/02/17 2327: CBC w Diff MAN DIFF ORDERED, RBC 3.64 L, MCV 89.9, MCH 30.5, MCHC 33.9, RDW 15.2 H, MPV 7.8, Gran % 85.9 H, Lymphocytes % 10.3 L, Monocytes % 3.1, Eosinophils % 0.7, Basophils % 0, Absolute Granulocytes 21.1 H, Segmented Neutrophils 82 H, Band Neutrophils 5, Absolute Lymphocytes 2.5, Lymphocytes 10 L, Monocytes 2, Absolute Monocytes 0.8 H, Eosinophils 1, Absolute Eosinophils 0.2, Absolute Basophils 0, Platelet Estimate ADEQUATE, Polychromasia 1+, Poikilocytosis 1+, Ovalocytes 1+, Fld Total RBCs Counted 100 10/02/17 1630: CBC w Diff MAN DIFF ORDERED, RBC 3.94 L, MCV 90.6, MCH 29.4, MCHC 32.5 L, RDW 14.9 H, MPV 7.8, Gran % 87.7 H, Lymphocytes % 9.1 L, Monocytes % 2.6, Eosinophils % 0.6, Basophils % 0, Absolute Granulocytes 22.0 H, Segmented Neutrophils 87 H, Band Neutrophils 1, Absolute Lymphocytes 2.3, Lymphocytes 7 L, Monocytes 4, Absolute Monocytes 0.6, Eosinophils 1, Absolute Eosinophils 0.2, Absolute Basophils 0, Platelet Estimate VERIFIED BY SMEAR, Polychromasia , Fld Total RBCs Counted 100 Assessment/Plan Assessment/Plan The patient is overall improved. His rate is still a little on the fast side. If it is consistently over 100 I would increase the metoprolol to 50 mg twice daily. I recommend no full anticoagulation at this time. If okay with GI we may be able to start him on low-dose enteric-coated aspirin. I would hold full anticoagulation until his ulcers are healed, which may take some time, and will probably have to be reevaluated as an outpatient. Continue telemetry? Yes
[2017-10-04 12:00] VITALS: BP 140/80
--- NOTE | 2017-10-04 12:26 | PN- Infect Dx ---
Subjective Subjective: Afebrile without complaints Objective Last 24 Hrs of Vital Signs/I&O Vital Signs Date Time Temp Pulse Resp B/P B/P Pulse O2 O2 Flow FiO2 Mean Ox Delivery Rate 10/04 1032 108 137/90 10/04 0400 73 14 126/72 100 Room Air 10/04 0324 78 98 10/04 0104 79 99 10/04 0000 97.4 102 16 141/90 99 CPAP 10/04 0000 99 CPAP 10/03 2215 99 Room Air Room Air 10/03 2214 121 99 10/03 2045 113 128/100 10/03 2000 113 20 128/100 99 Room Air 10/03 1600 97.8 96 18 124/86 99 Room Air 10/03 1346 124/88 Intake & Output 10/04 1600 10/04 0800 10/04 0000 Intake Total 600 910 Output Total 1900 1400 Balance -1300 -490 Intake, IV 100 130 Intake, Oral 500 780 Number 0 0 Bowel Movements Output, Urine 1900 1400 Physical Exam Other Physical Findings: He appears well, sitting up in the chair, in no acute distress Lungs are clear Heart irregular rhythm without murmur Abdomen is obese, soft, nontender with positive bowel sounds Extremities no cyanosis, clubbing or edema Murphy catheter remains in place Results Last 24 Hours of Lab Results: Laboratory Tests 10/04 0435 Chemistry Sodium (137 - 145 mmol/L) 137 Potassium (3.5 - 5.1 mmol/L) 3.7 Chloride (98 - 107 mmol/L) 105 Carbon Dioxide (22 - 30 mmol/L) 27 Anion Gap (5 - 16) 5 BUN (9 - 20 mg/dL) 21 H Creatinine (0.7 - 1.2 mg/dL) 0.8 Estimated GFR (>60 ml/min) > 60 Glucose (65 - 99 mg/dL) 203 H Calcium (8.4 - 10.2 mg/dL) 8.0 L Phosphorus (2.5 - 4.5 mg/dL) 2.9 Magnesium (1.6 - 2.3 mg/dL) 1.8 Total Bilirubin (0.2 - 1.3 mg/dL) 0.5 AST (17 - 59 U/L) 200 H ALT (21 - 72 U/L) 267 H Albumin (3.5 - 5.0 g/dL) 2.3 L Hematology CBC w Diff NO MAN DIFF REQ WBC (4.8 - 10.8 /CUMM) 16.3 H RBC (4.70 - 6.10 /CUMM) 3.42 L Hgb (14.0 - 18.0 G/DL) 10.5 L Hct (42 - 52 %) 31.1 L MCV (80.0 - 94.0 FL) 90.8 MCH (27.0 - 31.0 PG) 30.6 MCHC (33.0 - 37.0 G/DL) 33.7 RDW (11.5 - 14.5 %) 15.0 H Plt Count (130 - 400 /CUMM) 296 MPV (7.4 - 10.4 FL) 7.2 L Gran % (42.2 - 75.2 %) 83.3 H Lymphocytes % (20.5 - 51.1 %) 11.5 L Monocytes % (1.7 - 9.3 %) 3.8 Eosinophils % (0 - 5 %) 1.1 Basophils % (0.0 - 2.0 %) 0.3 Absolute Granulocytes (1.4 - 6.5 /CUMM) 13.6 H Absolute Lymphocytes (1.2 - 3.4 /CUMM) 1.9 Absolute Monocytes (0.10 - 0.60 /CUMM) 0.6 Absolute Eosinophils (0.0 - 0.7 /CUMM) 0.2 Absolute Basophils (0.0 - 0.2 /CUMM) 0.1 Last 24 Hours of Mauricio Results: Blood cultures x 2 October 01 negative Urine culture October 02 negative Assessment/Plan ID Impression: Continues to improve, with his H&H stable, status post an upper GI bleed with his endoscopy 2 days ago revealing ulcerative esophagitis, numerous duodenal ulcers and a hiatal hernia with ulcerations. He remains afebrile with his white blood cell count continuing to decrease (after a marked increase presumably secondary to the stress of his GI bleed), on Ampicillin, Day 9 of treatment for E. coli sepsis of urologic origin, status post cystoscopy and placement of a right ureteral stent 8 days ago. His elevated liver enzymes, likely related to his recent hypotension, are improving. Suggestion: 1. Remove Murphy catheter and initiate straight cath protocol if necessary 2. Continue Ampicillin but, if he continues to improve, can change to Amoxicillin 500 mg p.o. every 8 hours to complete a 14 day course of treatment
--- NOTE | 2017-10-04 13:13 | PN- Gastroenterology ---
Assessment/Plan GI Assessment/Recommendations: Assessment/Recommendations: Upper GI bleed, secondary to ulcerative esophagitis/duodenal ulcer disease, without site identified at EGD. There is no clinical evidence of rebleeding, hematocrit remains stable, and vital signs are acceptable. Recommendations * Continue to check CBC daily, and maintain hemoglobin/hematocrit at approximately 8 * IV PPI twice a day * Hold anticoagulation; restart low-dose enteric-coated aspirin, as per cardiology * Advance to heart healthy diet Subjective Subjective: No pain, nausea, vomiting, dyspepsia, melena, bright red blood per rectum. Objective Vital Signs and I&Os Vital Signs Date Time Temp Pulse Resp B/P B/P Pulse O2 O2 Flow FiO2 Mean Ox Delivery Rate 10/04 1032 108 137/90 10/04 0400 73 14 126/72 100 Room Air 10/04 0324 78 98 10/04 0104 79 99 10/04 0000 97.4 102 16 141/90 99 CPAP 10/04 0000 99 CPAP 10/03 2215 99 Room Air Room Air 10/03 2214 121 99 10/03 2045 113 128/100 10/03 2000 113 20 128/100 99 Room Air 10/03 1600 97.8 96 18 124/86 99 Room Air 10/03 1346 124/88 Intake & Output 10/04 1600 10/04 0400 10/03 1600 10/03 0400 10/02 1600 10/02 0400 Intake Total 308 715 9276 1817 5927 Output Total 1900 1400 3520 1510 3250 400 Balance -1300 -490 -1297 787 5076 -400 Intake, Blood 1400 Product Intake, IV 750 728 0469 1097 4527 Intake, Oral 500 780 820 720 Number 0 0 6 2 Bowel Movements Output, 950 Gastric Drainage Output, Stool 20 10 600 Output, Urine 1900 1400 3500 1500 1700 400 Patient 291 lb Weight Physical Exam: Alert and oriented. Sclera anicteric. No adenopathy. Abdomen obese/soft, nondistended, nontender. Extremities without edema. Current Medications: Current Medications Sig/Royce Start time Last Medication Dose Route Stop Time Status Admin Ampicillin 2,000 MG Q8H 10/02 1900 AC 10/04 Sodium Chloride 100 ML IV 0332 Insulin Aspart 0 TIDAC 10/03 1200 AC 10/03 SC 1701 Metoprolol Tartrate 25 MG BID 10/03 1040 AC 10/04 PO 1032 Pantoprazole Sodium 40 MG BID 10/03 1133 AC 10/04 IV 1031 Sodium Chloride 1,000 ML Q6H 10/02 0700 DC 10/03 IV 0653 Results Pertinent Lab Results: Laboratory Tests 10/04 10/03 0435 1100 Chemistry Sodium (137 - 145 mmol/L) 137 Potassium (3.5 - 5.1 mmol/L) 3.7 Chloride (98 - 107 mmol/L) 105 Carbon Dioxide (22 - 30 mmol/L) 27 Anion Gap (5 - 16) 5 BUN (9 - 20 mg/dL) 21 H Creatinine (0.7 - 1.2 mg/dL) 0.8 Estimated GFR (>60 ml/min) > 60 Glucose (65 - 99 mg/dL) 203 H Calcium (8.4 - 10.2 mg/dL) 8.0 L Phosphorus (2.5 - 4.5 mg/dL) 2.9 Magnesium (1.6 - 2.3 mg/dL) 1.8 Total Bilirubin (0.2 - 1.3 mg/dL) 0.5 AST (17 - 59 U/L) 200 H ALT (21 - 72 U/L) 267 H Ammonia (9 - 30 umol/L) 13 Albumin (3.5 - 5.0 g/dL) 2.3 L Hematology CBC w Diff NO MAN DIFF REQ WBC (4.8 - 10.8 /CUMM) 16.3 H RBC (4.70 - 6.10 /CUMM) 3.42 L Hgb (14.0 - 18.0 G/DL) 10.5 L Hct (42 - 52 %) 31.1 L MCV (80.0 - 94.0 FL) 90.8 MCH (27.0 - 31.0 PG) 30.6 MCHC (33.0 - 37.0 G/DL) 33.7 RDW (11.5 - 14.5 %) 15.0 H Plt Count (130 - 400 /CUMM) 296 MPV (7.4 - 10.4 FL) 7.2 L Gran % (42.2 - 75.2 %) 83.3 H Lymphocytes % (20.5 - 51.1 %) 11.5 L Monocytes % (1.7 - 9.3 %) 3.8 Eosinophils % (0 - 5 %) 1.1 Basophils % (0.0 - 2.0 %) 0.3 Absolute Granulocytes (1.4 - 6.5 /CUMM) 13.6 H Absolute Lymphocytes (1.2 - 3.4 /CUMM) 1.9 Absolute Monocytes (0.10 - 0.60 /CUMM) 0.6 Absolute Eosinophils (0.0 - 0.7 /CUMM) 0.2 Absolute Basophils (0.0 - 0.2 /CUMM) 0.1 10/03 10/02 6135 2327 Chemistry Sodium (137 - 145 mmol/L) 141 Potassium (3.5 - 5.1 mmol/L) 3.8 Chloride (98 - 107 mmol/L) 112 H Carbon Dioxide (22 - 30 mmol/L) 23 Anion Gap (5 - 16) 6 BUN (9 - 20 mg/dL) 43 H Creatinine (0.7 - 1.2 mg/dL) 1.0 Estimated GFR (>60 ml/min) > 60 Glucose (65 - 99 mg/dL) 195 H Calcium (8.4 - 10.2 mg/dL) 7.8 L Phosphorus (2.5 - 4.5 mg/dL) 2.8 Magnesium (1.6 - 2.3 mg/dL) 2.0 Total Bilirubin (0.2 - 1.3 mg/dL) 0.5 AST (17 - 59 U/L) 313 H ALT (21 - 72 U/L) 303 H Albumin (3.5 - 5.0 g/dL) 2.3 L Hematology CBC w Diff MAN DIFF ORDERED MAN DIFF ORDERED WBC (4.8 - 10.8 /CUMM) 21.5 H 24.5 H RBC (4.70 - 6.10 /CUMM) 3.75 L 3.64 L Hgb (14.0 - 18.0 G/DL) 11.5 L 11.1 L Hct (42 - 52 %) 33.8 L 32.8 L MCV (80.0 - 94.0 FL) 90.2 89.9 MCH (27.0 - 31.0 PG) 30.5 30.5 MCHC (33.0 - 37.0 G/DL) 33.9 33.9 RDW (11.5 - 14.5 %) 15.1 H 15.2 H Plt Count (130 - 400 /CUMM) 342 317 MPV (7.4 - 10.4 FL) 7.5 7.8 Gran % (42.2 - 75.2 %) 83.7 H 85.9 H Lymphocytes % (20.5 - 51.1 %) 10.9 L 10.3 L Monocytes % (1.7 - 9.3 %) 4.2 3.1 Eosinophils % (0 - 5 %) 1.1 0.7 Basophils % (0.0 - 2.0 %) 0.1 0 Absolute Granulocytes (1.4 - 6.5 /CUMM) 18.0 H 21.1 H Segmented Neutrophils (42.2 - 75.2 %) 91 H 82 H Band Neutrophils (0.0 - 5.0 %) 5 Absolute Lymphocytes (1.2 - 3.4 /CUMM) 2.4 2.5 Lymphocytes (20.5 - 51.1 %) 5 L 10 L Monocytes (1.7 - 9.3 %) 3 2 Absolute Monocytes (0.10 - 0.60 /CUMM) 0.9 H 0.8 H Eosinophils (0 - 5.0 %) 1 1 Absolute Eosinophils (0.0 - 0.7 /CUMM) 0.2 0.2 Absolute Basophils (0.0 - 0.2 /CUMM) 0 0 Platelet Estimate (ADEQUATE) ADEQUATE ADEQUATE Polychromasia 1+ 1+ Poikilocytosis 1+ Ovalocytes FEW 1+ Other Body Source Fld Total RBCs Counted (%) 100 100 10/02 10/02 1630 1025 Chemistry Lactic Acid (0.7 - 2.1 mmol/L) 1.1 Hematology CBC w Diff MAN DIFF ORDERED WBC (4.8 - 10.8 /CUMM) 25.1 H RBC (4.70 - 6.10 /CUMM) 3.94 L Hgb (14.0 - 18.0 G/DL) 11.6 L Hct (42 - 52 %) 35.7 L MCV (80.0 - 94.0 FL) 90.6 MCH (27.0 - 31.0 PG) 29.4 MCHC (33.0 - 37.0 G/DL) 32.5 L RDW (11.5 - 14.5 %) 14.9 H Plt Count (130 - 400 /CUMM) 352 MPV (7.4 - 10.4 FL) 7.8 Gran % (42.2 - 75.2 %) 87.7 H Lymphocytes % (20.5 - 51.1 %) 9.1 L Monocytes % (1.7 - 9.3 %) 2.6 Eosinophils % (0 - 5 %) 0.6 Basophils % (0.0 - 2.0 %) 0 Absolute Granulocytes (1.4 - 6.5 /CUMM) 22.0 H Segmented Neutrophils (42.2 - 75.2 %) 87 H Band Neutrophils (0.0 - 5.0 %) 1 Absolute Lymphocytes (1.2 - 3.4 /CUMM) 2.3 Lymphocytes (20.5 - 51.1 %) 7 L Monocytes (1.7 - 9.3 %) 4 Absolute Monocytes (0.10 - 0.60 /CUMM) 0.6 Eosinophils (0 - 5.0 %) 1 Absolute Eosinophils (0.0 - 0.7 /CUMM) 0.2 Absolute Basophils (0.0 - 0.2 /CUMM) 0 Platelet Estimate (ADEQUATE) VERIFIED BY SMEAR Polychromasia Other Body Source Fld Total RBCs Counted (%) 100 10/02 10/02 0835 0600 Chemistry Troponin I Cancelled Hematology CBC w Diff MAN DIFF ORDERED WBC (4.8 - 10.8 /CUMM) 26.6 H RBC (4.70 - 6.10 /CUMM) 3.84 L Hgb (14.0 - 18.0 G/DL) 11.8 L Hct (42 - 52 %) 34.4 L MCV (80.0 - 94.0 FL) 89.4 MCH (27.0 - 31.0 PG) 30.6 MCHC (33.0 - 37.0 G/DL) 34.2 RDW (11.5 - 14.5 %) 14.6 H Plt Count (130 - 400 /CUMM) 295 MPV (7.4 - 10.4 FL) 7.8 Gran % (42.2 - 75.2 %) 85.1 H Lymphocytes % (20.5 - 51.1 %) 11.0 L Monocytes % (1.7 - 9.3 %) 3.3 Eosinophils % (0 - 5 %) 0.4 Basophils % (0.0 - 2.0 %) 0.2 Absolute Granulocytes (1.4 - 6.5 /CUMM) 22.7 H Segmented Neutrophils (42.2 - 75.2 %) 81 H Band Neutrophils (0.0 - 5.0 %) 3 Absolute Lymphocytes (1.2 - 3.4 /CUMM) 2.9 Lymphocytes (20.5 - 51.1 %) 12 L Monocytes (1.7 - 9.3 %) 3 Absolute Monocytes (0.10 - 0.60 /CUMM) 0.9 H Absolute Eosinophils (0.0 - 0.7 /CUMM) 0.1 Absolute Basophils (0.0 - 0.2 /CUMM) 0.1 Metamyelocytes (0.0 - 1.0 %) 1 Nucleated RBCs (0.0 - 0.0 /100WBC) 1 H Platelet Estimate (ADEQUATE) VERIFIED BY SMEAR Polychromasia 1+ Anisocytosis 1+ 10/02 10/02 0600 0355 Blood Gas pH (7.35 - 7.45 PH) 7.46 H pCO2 (35 - 45 TORR) 24 L pO2 (80 - 100 TORR) 91 HCO3 (21 - 28 MEQ/L) 17 L ABG O2 Sat (Measured) (>96.0 %) 97.0 P-50 (Temp Corrected) N Carboxyhemoglobin (1.5 - 5.0 %) 0.3 L O2 Concentration % 2L O2 Delivery Method N/C Chemistry Sodium (137 - 145 mmol/L) 136 L Potassium (3.5 - 5.1 mmol/L) 4.2 Chloride (98 - 107 mmol/L) 106 Carbon Dioxide (22 - 30 mmol/L) 21 L Anion Gap (5 - 16) 9 BUN (9 - 20 mg/dL) 72 H Creatinine (0.7 - 1.2 mg/dL) 1.3 H Estimated GFR (>60 ml/min) 53 L Glucose (65 - 99 mg/dL) 205 H Lactic Acid (0.7 - 2.1 mmol/L) 2.6 H Calcium (8.4 - 10.2 mg/dL) 7.4 L Phosphorus (2.5 - 4.5 mg/dL) 3.1 Magnesium (1.6 - 2.3 mg/dL) 1.9 Total Bilirubin (0.2 - 1.3 mg/dL) 0.5 AST (17 - 59 U/L) 419 H ALT (21 - 72 U/L) 236 H Albumin (3.5 - 5.0 g/dL) 2.0 L Coagulation PT (9.4 - 12.5 SEC) 24.1 H INR (0.90 - 1.17) 2.19 H APTT (25 - 37 SEC) 32 Hematology CBC w Diff MAN DIFF ORDERED WBC (4.8 - 10.8 /CUMM) 23.9 H RBC (4.70 - 6.10 /CUMM) 3.02 L Hgb (14.0 - 18.0 G/DL) 9.1 L Hct (42 - 52 %) 27.3 L MCV (80.0 - 94.0 FL) 90.4 MCH (27.0 - 31.0 PG) 30.3 MCHC (33.0 - 37.0 G/DL) 33.5 RDW (11.5 - 14.5 %) 14.9 H Plt Count (130 - 400 /CUMM) 293 MPV (7.4 - 10.4 FL) 7.8 Gran % (42.2 - 75.2 %) 85.5 H Lymphocytes % (20.5 - 51.1 %) 11.2 L Monocytes % (1.7 - 9.3 %) 2.7 Eosinophils % (0 - 5 %) 0.4 Basophils % (0.0 - 2.0 %) 0.2 Absolute Granulocytes (1.4 - 6.5 /CUMM) 20.4 H Segmented Neutrophils (42.2 - 75.2 %) 82 H Band Neutrophils (0.0 - 5.0 %) 3 Absolute Lymphocytes (1.2 - 3.4 /CUMM) 2.7 Lymphocytes (20.5 - 51.1 %) 10 L Monocytes (1.7 - 9.3 %) 5 Absolute Monocytes (0.10 - 0.60 /CUMM) 0.7 H Absolute Eosinophils (0.0 - 0.7 /CUMM) 0.1 Absolute Basophils (0.0 - 0.2 /CUMM) 0 Nucleated RBCs (0.0 - 0.0 /100WBC) 1 H Platelet Estimate (ADEQUATE) ADEQUATE Polychromasia 1+ Miscellaneous Phlebotomy Draw Site RIGHT RADIAL 10/02 10/01 0340 1320 Chemistry Sodium (137 - 145 mmol/L) 136 L Potassium (3.5 - 5.1 mmol/L) 4.4 Chloride (98 - 107 mmol/L) 105 Carbon Dioxide (22 - 30 mmol/L) 18 L Anion Gap (5 - 16) 13 BUN (9 - 20 mg/dL) 74 H Creatinine (0.7 - 1.2 mg/dL) 1.4 H Estimated GFR (>60 ml/min) 49 L BUN/Creatinine Ratio (7 - 25 %) 52.9 H Magnesium (1.6 - 2.3 mg/dL) 2.1 Total Bilirubin (0.2 - 1.3 mg/dL) 0.6 Direct Bilirubin (< 0.4 mg/dL) 0.4 AST (17 - 59 U/L) 330 H ALT (21 - 72 U/L) 201 H Alkaline Phosphatase (< 127 U/L) 93 Troponin I (<0.11 ng/ml) < 0.01 < 0.01 Total Protein (6.3 - 8.2 g/dL) 5.0 L Albumin (3.5 - 5.0 g/dL) 2.3 L Hematology CBC w Diff MAN DIFF ORDERED WBC (4.8 - 10.8 /CUMM) 30.7 *H RBC (4.70 - 6.10 /CUMM) 3.14 L Hgb (14.0 - 18.0 G/DL) 9.7 L Hct (42 - 52 %) 28.7 L MCV (80.0 - 94.0 FL) 91.2 MCH (27.0 - 31.0 PG) 30.8 MCHC (33.0 - 37.0 G/DL) 33.8 RDW (11.5 - 14.5 %) 14.8 H Plt Count (130 - 400 /CUMM) 335 MPV (7.4 - 10.4 FL) 8.2 Gran % (42.2 - 75.2 %) 85.2 H Lymphocytes % (20.5 - 51.1 %) 11.6 L Monocytes % (1.7 - 9.3 %) 2.7 Eosinophils % (0 - 5 %) 0.2 Basophils % (0.0 - 2.0 %) 0.3 Absolute Granulocytes (1.4 - 6.5 /CUMM) 26.2 H Segmented Neutrophils (42.2 - 75.2 %) 80 H Band Neutrophils (0.0 - 5.0 %) 3 Absolute Lymphocytes (1.2 - 3.4 /CUMM) 3.6 H Lymphocytes (20.5 - 51.1 %) 14 L Monocytes (1.7 - 9.3 %) 1 L Absolute Monocytes (0.10 - 0.60 /CUMM) 0.8 H Absolute Eosinophils (0.0 - 0.7 /CUMM) 0.1 Absolute Basophils (0.0 - 0.2 /CUMM) 0.1 Metamyelocytes (0.0 - 1.0 %) 2 H Nucleated RBCs (0.0 - 0.0 /100WBC) 1 H Platelet Estimate (ADEQUATE) ADEQUATE Polychromasia 1+ Anisocytosis 1+ Macrocytic Cells 1+ Toxicology Digoxin (0.8 - 2.0 ng/mL) 1.0
[2017-10-04 16:00] VITALS: BP 140/80
[2017-10-04 23:00] VITALS: BP 136/78
[2017-10-05 05:02] LABS: ABSOLUTE BASOPHIL COUNT 0 /CUMM (0.0-0.2); ABSOLUTE EOSINOPHIL COUNT 0.1 /CUMM (0.0-0.7); ABSOLUTE LYMPH COUNT 1.9 /CUMM (1.2-3.4); ABSOLUTE MONOCYTE COUNT 0.5 /CUMM (0.10-0.60); BASOPHIL % 0.4 % (0.0-2.0); EOSINOPHIL % 0.8 % (0-5); GRANULOCYTE % 80.8 % (42.2-75.2); HEMATOCRIT 32.2 % (42-52); MEAN CORPUSCULAR HGB 30.6 PG (27.0-31.0); MEAN CORPUSCULAR HGB CONC 33.6 G/DL (33.0-37.0); MEAN CORPUSCULAR VOLUME 91.2 FL (80.0-94.0); MEAN PLATELET VOLUME 7.1 FL (7.4-10.4); PLATELET COUNT 337 /CUMM (130-400); RBC DISTRIBUTION WIDTH 14.9 % (11.5-14.5); RED BLOOD CELL CT 3.53 /CUMM (4.70-6.10); WHITE BLOOD CELL COUNT 13.6 /CUMM (4.8-10.8)
--- NOTE | 2017-10-05 07:27 | PN- Resident CRCU ---
See Addendum Subjective HPI/CRCU Issues: Hypovolemic shock due to GI blood loss, resolved Acute GI blood loss status post four blood transfusions, s/p endoscopy, stable; had guaic positive stool this AM although likely residual Transaminitis - stable New-onset Juan burnett was on Eliquis, off anticoagulation at this time, started ASA yesterday but held 2/2 heme+ stool Leukocytosis, possible reactionary DOTTIE, possible prerenal, improving Sepsis from urological origin status post stent placement, on Ampicillin, consider switching to PO History of diabetes History of bladder cancer status post immunotherapy. History of sleep apnea. 24 Hour Events: Pt tolerated CPAP mask for 5 hours last night, however he had been wearing it while awake and not while sleeping. Patient was also started on low-dose 81 mg enteric-coated aspirin yesterday. This morning, he had one soft bowel movement that was black, heme positive. Aspirin was held. Patient was vitally stable. Patient did not complain of any diarrhea or vomiting. Patient denies fever/ chills/night sweats/chest pain/urinary symptoms/lower extremity edema. Patient is still requesting to keep the Abarca, but was counseled on risks and nidus for infection. Objective Vital Signs & I&O Last 8 Hrs of Vitals and I&O: Intake & Output 10/05 0800 Intake Total 130 Output Total 1900 Balance -1770 Intake, IV 130 Number 0 Bowel Movements Output, Urine 1900 Exam General Appearance: well developed/nourished, no apparent distress, alert, awake , comfortable, obese Head: atraumatic Ears, Nose, Throat: normal pharynx Neck: normal inspection Respiratory: normal breath sounds, lungs clear Cardiovascular: irregularly irregular Gastrointestinal: soft, non-tender, obese; NO CVA TENDERNESS, NO SUPRAPUBIC TENDERNESS Extremities: normal inspection, no edema Skin: intact Skin Temp/Moisture Exam: Warm/Dry Current Medications: Current Medications Sig/Royce Start time Last Medication Dose Route Stop Time Status Admin Ampicillin 2,000 MG Q8H 10/02 1900 AC 10/05 Sodium Chloride 100 ML IV 1037 Aspirin Buffered 81 MG DAILY 10/04 1446 DC 10/04 PO 1605 Diclofenac Sodium 1 KAYCEE 4 TIMES/DAY PRN 10/05 0045 AC 10/05 TOP 0159 Insulin Aspart 0 TIDAC 10/03 1200 AC 10/05 SC 0818 Metoprolol Tartrate 25 MG BID 10/03 1040 AC 10/05 PO 1006 Pantoprazole Sodium 40 MG BID 10/03 1133 10/05 IV 1006 Impression/Plan Impression/Problem List Impression: 77 YO M with PMH significant for HTN, HLD, morbid obesity, VERONA not on CPAP, DM, psoriasis, nephrolithiasis with h/o lithotripsies, BPH, h/o UTI, and bladder cancer s/p TURBT and receiving intravesicular immunotherapy BCG? managed by Dr. Del Rio in [place], completed one cycle in April with a reportedly benign repeat cystoscopy but pending another round of therapy presented with eight weeks of back pain, immobility, and worsening urinary urgency, frequency, and incontinence. In ED patient was found to be in atrial fibrillation and leukocytosis with lactic acidosis, elevated creatinine and his urinalysis was suggestive of infection. Later on patient's urine culture came back positive with gram-negative rods and blood culture came back positive with gram-negative rods. In ED his blood pressure was 80/50 due to septic shock. Peripheral central catheter was placed in right groin and he was started on phenylephrine. Patient was stabilized in ICU, status post stent placement for hydroureteronephrosis and was started on IV antibiotics to control his sepsis. His heart was controlled with metoprolol. After stabilization he was downgraded to telemetry floor on oral anticoagulation for stroke prophylaxis in the setting of A. fib. Patient was again transferred back to ICU after he had melena and was found in hypovolemic shock, responded to IV crystalloids and 4U pRBC blood transfusions. He is stable and can be downgraded to TELE. Following the patient in ICU for following problems. Hypovolemic shock due to GI blood loss: resolved -Vitally stable -His aspirin and Eliquis are discontinued. He was started on enteric coated aspirin yesterday but had heme+ stool this AM. Will f/u CBC at 1pm, hemodynamically stable at this time. -S/p endoscopy with no evidence of active bleed; multiple ulcers in esophagus, Hiatal hernia sac, duodenum. GI consult appreciated -Per family and patients primary, patient had been self medicating with Aleeve at home for the back pain, likely cause of multiple ulcerations -Continuing his normal saline at the rate of 50 mL per hour. -Continue IV Protonix 40mg BID -His H&H is stable at 10.8/32.2 -Tolerated FULLS yesterday. On CLEARS at this time per GI given heme + stool. Elevated INR: stable -Patient was given 1 dose of tranexamic acid two nights ago. Patient didn't receive any FFP. -Pt has been on eliquis, will not trend INR further due to NOAC usage. Transaminitis: improving -Likely 2/2 hypotension -This morning his AST/ALT was 200/267. Trending downwards. -Continue holding rosuvastatin and Tylenol. -Will continue to trend New-onset A. fib was on Eliquis: -Holding his Eliquis considering acute GI blood loss. -Can restart metoprolol as patient has been maintaining his pressures. On Lopressor 25mg BID. Will increase to 50mg BID today. -Appreciate cardiology recommendations. -Overnight in Afib rate 80-120 Leukocytosis: improving -Trending downwards; likely 2/2 melena/reactive -Patient is afebrile and was on 7 days of ceftriaxone for his sepsis due to urological origin. Is now switched to Ampicillin, 2g q8 IV, day 4; recieved total of 10 days antibiotics so far. Can consider switching to PO Amoxicillin 500mg q8 per ID with clinical improvement. Total antibiotic treatment should be 14 days. -Patient received one dose of vancomycin by mouth and his stool toxins are negative for shiga and C. diff. Culture is negative for enteric pathogens. -Appreciate ID recs. DOTTIE: improving -Likely prerenal in the setting of GI bleed. -This morning his creatinine was 0.8 and BUN 14, yesterdays Cr/BUN was 0.8 and 21. -Avoid nephrotoxic medications -Monitor input and output -Will plan to d/c abarca today. Sepsis from urological origin status post stent placement: -Continue ampicillin 2g IV q8, Day 10 of total abx -Patient will follow urology as outpatient for ESWL for his kidney stone. -Urology states that ESWL and stent replacement/removal will occur simultaneously; is currently scheduled for end of October however patient can call his outpatient urologist DR DEL RIO to do procedure as well if they are comfortable with it. History of back pain: -CT scan didn't show any infectious process. -Possible follow-up with MRI to rule out any infection of the spine. -Per family and patients primary, patient had been self medicating with Aleeve at home for the back pain -PT Carmencita appreciated. Dispo likely to STR pending insurance auth History of diabetes: Accu-Cheks, blood sugar level was 195 this morning. -Continue insulin NovoLog according to sliding scale. History of bladder cancer status post immunotherapy: -Patient was supposed to get an MRI of bladder as outpatient. -Spoke with DR WEST regarding abarca catheter. Abarca was to measure I/O as well as ensure drainage of bladder; can be discontinued upon transfer to floors. History of sleep apnea. -Has started compliance with CPAP, used for ~5 hours last night but did not use for sleep. Pt states he will try to use CPAP more often. -Patient much more energetic today DVT prophylaxis: Mechanical only. CODE STATUS: Full code Problem List: 1. Acute GI bleeding 2. UTI (urinary tract infection) Pain Ratin Tomorrow's Labs & Rationales: ICU Bundle, CBC Plan DVT/Prophylaxis: mechanical
[2017-10-05 08:00] VITALS: BP 120/80
--- NOTE | 2017-10-05 09:25 | PN- Cardiology ---
Subjective Subjective: The patient is comfortable sitting in a chair. The architecture intern says he had a melanotic stool this morning. He got 1 dose of aspirin yesterday. He is still on metoprolol 25 twice daily. His heart rate is in the 90s to low 100s in atrial fibrillation. Objective Vital Signs and I&Os Vital Signs Date Time Temp Pulse Resp B/P B/P Pulse O2 O2 Flow FiO2 Mean Ox Delivery Rate 10/05 08 97.5 86 18 120/80 98 Room Air 10/05 0021 98 97 10/05 0000 94 CPAP Room Air 10/04 2300 96.3 86 15 136/78 94 Room Air Room Air 10/04 2205 98.2 82 20 1128/76 10/04 2110 96 10/04 1600 Room Air 10/04 1600 98.0 80 18 140/80 95 Room Air 10/04 1205 95 10/04 1200 98.0 88 20 140/80 95 Room Air 10/04 1032 108 137/90 Intake & Output 10/05 1600 10/05 0800 10/05 0000 10/04 1600 10/04 0800 10/04 0000 Intake Total 130 250 600 600 910 Output Total 1900 1041 089 2533 1400 Balance -1770 -1550 -340 -1300 -490 Intake, IV 130 100 100 130 Intake, Oral 150 600 500 780 Number 0 0 0 Bowel Movements Output, Urine 1900 1088 262 6465 1400 Physical Exam: Chest is clear Heart irregular rhythm with systolic murmur at base (known mild aortic stenosis) Current Medications: Current Medications Sig/Royce Start time Last Medication Dose Route Stop Time Status Admin Ampicillin 2,000 MG Q8H 10/02 1900 AC 10/05 Sodium Chloride 100 ML IV 0307 Aspirin Buffered 81 MG DAILY 10/04 1446 DC 10/04 PO 1605 Diclofenac Sodium 1 KAYCEE 4 TIMES/DAY PRN 10/05 0045 AC 10/05 TOP 0159 Insulin Aspart 0 TIDAC 10/03 1200 AC 10/05 SC 0818 Metoprolol Tartrate 25 MG BID 10/03 1040 AC 10/04 PO 2205 Pantoprazole Sodium 40 MG BID 10/03 1133 AC 10/04 IV 2206 Results Last 48 Hrs of Labs/Mics: Laboratory Tests 10/05/17 0417: Anion Gap 7, Estimated GFR > 60, Glucose 157 H, Calcium 8.2 L, Phosphorus 3.1, Magnesium 1.9, Total Bilirubin 0.8, AST 135 H, ALT 234 H, Albumin 2.6 L, CBC w Diff NO MAN DIFF REQ, RBC 3.53 L, MCV 91.2, MCH 30.6, MCHC 33.6, RDW 14.9 H, MPV 7.1 L, Gran % 80.8 H, Lymphocytes % 14.2 L, Monocytes % 3.8, Eosinophils % 0.8, Basophils % 0.4, Absolute Granulocytes 11.0 H, Absolute Lymphocytes 1.9, Absolute Monocytes 0.5, Absolute Eosinophils 0.1, Absolute Basophils 0 10/04/17 0435: Anion Gap 5, Estimated GFR > 60, Glucose 203 H, Calcium 8.0 L, Phosphorus 2.9, Magnesium 1.8, Total Bilirubin 0.5, AST 200 H, ALT 267 H, Albumin 2.3 L, CBC w Diff NO MAN DIFF REQ, RBC 3.42 L, MCV 90.8, MCH 30.6, MCHC 33.7, RDW 15.0 H, MPV 7.2 L, Gran % 83.3 H, Lymphocytes % 11.5 L, Monocytes % 3.8, Eosinophils % 1.1, Basophils % 0.3, Absolute Granulocytes 13.6 H, Absolute Lymphocytes 1.9, Absolute Monocytes 0.6, Absolute Eosinophils 0.2, Absolute Basophils 0.1 10/03/17 1100: Ammonia 13 Assessment/Plan Assessment/Plan The patient is stable from a cardiac standpoint. He had another melanotic stool which is worrisome. We will hold the aspirin pending GI reevaluation. I recommend increasing Lopressor to 50 mg twice daily for better rate control. Obviously full anticoagulation is still contraindicated. Continue telemetry? Yes
[2017-10-05 11:58] VITALS: BP 130/72
[2017-10-05 14:20] LABS: ABSOLUTE BASOPHIL COUNT 0 /CUMM (0.0-0.2); ABSOLUTE EOSINOPHIL COUNT 0.1 /CUMM (0.0-0.7); ABSOLUTE GRANULOCYTE CT 11.1 /CUMM (1.4-6.5); ABSOLUTE LYMPH COUNT 1.5 /CUMM (1.2-3.4); ABSOLUTE MONOCYTE COUNT 0.6 /CUMM (0.10-0.60); BASOPHIL % 0.2 % (0.0-2.0); EOSINOPHIL % 0.7 % (0-5); GRANULOCYTE % 83.7 % (42.2-75.2); MEAN CORPUSCULAR HGB 30.6 PG (27.0-31.0); MEAN CORPUSCULAR HGB CONC 32.9 G/DL (33.0-37.0); MEAN CORPUSCULAR VOLUME 92.8 FL (80.0-94.0); MEAN PLATELET VOLUME 7.4 FL (7.4-10.4); PLATELET COUNT 314 /CUMM (130-400); RBC DISTRIBUTION WIDTH 15.1 % (11.5-14.5); RED BLOOD CELL CT 3.56 /CUMM (4.70-6.10); WHITE BLOOD CELL COUNT 13.2 /CUMM (4.8-10.8)
[2017-10-05 16:00] VITALS: BP 130/80
--- NOTE | 2017-10-05 19:11 | PN- Gastroenterology ---
Assessment/Plan GI Assessment/Recommendations: Upper GI bleed, secondary to ulcerative esophagitis/duodenal ulcer disease, without site identified at EGD. There is no clinical evidence of rebleeding, hematocrit remains stable, and vital signs are acceptable. BUN is normal. The black bowel movement today was undoubtedly old blood. Recommendations * Continue to check CBC daily, and maintain hemoglobin/hematocrit at approximately 8 * Oral PPI twice a day * Hold anticoagulation; continue low dose enteric-coated aspirin * Advance once again to heart healthy diet * Anticipate re-endoscopy in approximately 8 weeks. Subjective Subjective: No nausea, vomiting, abdominal pain. The patient had a soft black bowel movement (the first sizable one since his endoscopy). Objective Vital Signs and I&Os Vital Signs Date Time Temp Pulse Resp B/P B/P Pulse O2 O2 Flow FiO2 Mean Ox Delivery Rate 10/05 1407 60 98 10/05 1226 99 CPAP Room Air 10/05 1158 96.5 79 13 130/72 99 Room Air 10/05 1137 86 99 10/05 1006 90 128/80 10/05 0800 97.5 86 18 120/80 98 Room Air 10/05 0021 98 97 10/05 0000 94 CPAP Room Air 10/04 2300 96.3 86 15 136/78 94 Room Air Room Air 10/04 2205 98.2 82 20 1128/76 10/04 2110 96 Intake & Output 10/05 1600 10/05 0400 10/04 1600 10/04 0400 10/03 1600 10/03 0400 Intake Total 173 215 6504 910 2301 1817 Output Total 3150 1800 2840 1400 3520 1510 Balance -2440 -1550 -1640 -490 -1219 307 Intake, IV 230 100 463 247 3362 1097 Intake, Oral 718 075 9758 780 820 720 Number 0 0 0 Bowel Movements Output, Stool 20 10 Output, Urine 3150 1800 2840 1400 3500 1500 Physical Exam: Alert, oriented. Sclera anicteric. No adenopathy. Abdomen obese, soft, nontender. Current Medications: Current Medications Sig/Royce Start time Last Medication Dose Route Stop Time Status Admin Ampicillin 2,000 MG Q8H 10/02 1900 AC 10/05 Sodium Chloride 100 ML IV 1833 Aspirin Buffered 81 MG DAILY 10/04 1446 DC 10/04 PO 1605 Diclofenac Sodium 1 KAYCEE 4 TIMES/DAY PRN 10/05 0045 AC 10/05 TOP 0159 Insulin Aspart 0 TIDAC 10/03 1200 AC 10/05 SC 1718 Metoprolol Tartrate 50 MG BID 10/05 2100 AC PO Metoprolol Tartrate 25 MG BID 10/03 1040 DC 10/05 PO 1006 Pantoprazole Sodium 40 MG BID 10/03 1133 AC 10/05 IV 1006 Results Pertinent Lab Results: Laboratory Tests 10/05 10/05 1326 0417 Chemistry Sodium (137 - 145 mmol/L) 137 Potassium (3.5 - 5.1 mmol/L) 3.7 Chloride (98 - 107 mmol/L) 102 Carbon Dioxide (22 - 30 mmol/L) 28 Anion Gap (5 - 16) 7 BUN (9 - 20 mg/dL) 14 Creatinine (0.7 - 1.2 mg/dL) 0.8 Estimated GFR (>60 ml/min) > 60 Glucose (65 - 99 mg/dL) 157 H Calcium (8.4 - 10.2 mg/dL) 8.2 L Phosphorus (2.5 - 4.5 mg/dL) 3.1 Magnesium (1.6 - 2.3 mg/dL) 1.9 Total Bilirubin (0.2 - 1.3 mg/dL) 0.8 AST (17 - 59 U/L) 135 H ALT (21 - 72 U/L) 234 H Albumin (3.5 - 5.0 g/dL) 2.6 L Hematology CBC w Diff NO MAN DIFF REQ NO MAN DIFF REQ WBC (4.8 - 10.8 /CUMM) 13.2 H 13.6 H RBC (4.70 - 6.10 /CUMM) 3.56 L 3.53 L Hgb (14.0 - 18.0 G/DL) 10.9 L 10.8 L Hct (42 - 52 %) 33.0 L 32.2 L MCV (80.0 - 94.0 FL) 92.8 91.2 MCH (27.0 - 31.0 PG) 30.6 30.6 MCHC (33.0 - 37.0 G/DL) 32.9 L 33.6 RDW (11.5 - 14.5 %) 15.1 H 14.9 H Plt Count (130 - 400 /CUMM) 314 337 MPV (7.4 - 10.4 FL) 7.4 7.1 L Gran % (42.2 - 75.2 %) 83.7 H 80.8 H Lymphocytes % (20.5 - 51.1 %) 11.1 L 14.2 L Monocytes % (1.7 - 9.3 %) 4.3 3.8 Eosinophils % (0 - 5 %) 0.7 0.8 Basophils % (0.0 - 2.0 %) 0.2 0.4 Absolute Granulocytes (1.4 - 6.5 /CUMM) 11.1 H 11.0 H Absolute Lymphocytes (1.2 - 3.4 /CUMM) 1.5 1.9 Absolute Monocytes (0.10 - 0.60 /CUMM) 0.6 0.5 Absolute Eosinophils (0.0 - 0.7 /CUMM) 0.1 0.1 Absolute Basophils (0.0 - 0.2 /CUMM) 0 0 10/04 10/03 0435 1100 Chemistry Sodium (137 - 145 mmol/L) 137 Potassium (3.5 - 5.1 mmol/L) 3.7 Chloride (98 - 107 mmol/L) 105 Carbon Dioxide (22 - 30 mmol/L) 27 Anion Gap (5 - 16) 5 BUN (9 - 20 mg/dL) 21 H Creatinine (0.7 - 1.2 mg/dL) 0.8 Estimated GFR (>60 ml/min) > 60 Glucose (65 - 99 mg/dL) 203 H Calcium (8.4 - 10.2 mg/dL) 8.0 L Phosphorus (2.5 - 4.5 mg/dL) 2.9 Magnesium (1.6 - 2.3 mg/dL) 1.8 Total Bilirubin (0.2 - 1.3 mg/dL) 0.5 AST (17 - 59 U/L) 200 H ALT (21 - 72 U/L) 267 H Ammonia (9 - 30 umol/L) 13 Albumin (3.5 - 5.0 g/dL) 2.3 L Hematology CBC w Diff NO MAN DIFF REQ WBC (4.8 - 10.8 /CUMM) 16.3 H RBC (4.70 - 6.10 /CUMM) 3.42 L Hgb (14.0 - 18.0 G/DL) 10.5 L Hct (42 - 52 %) 31.1 L MCV (80.0 - 94.0 FL) 90.8 MCH (27.0 - 31.0 PG) 30.6 MCHC (33.0 - 37.0 G/DL) 33.7 RDW (11.5 - 14.5 %) 15.0 H Plt Count (130 - 400 /CUMM) 296 MPV (7.4 - 10.4 FL) 7.2 L Gran % (42.2 - 75.2 %) 83.3 H Lymphocytes % (20.5 - 51.1 %) 11.5 L Monocytes % (1.7 - 9.3 %) 3.8 Eosinophils % (0 - 5 %) 1.1 Basophils % (0.0 - 2.0 %) 0.3 Absolute Granulocytes (1.4 - 6.5 /CUMM) 13.6 H Absolute Lymphocytes (1.2 - 3.4 /CUMM) 1.9 Absolute Monocytes (0.10 - 0.60 /CUMM) 0.6 Absolute Eosinophils (0.0 - 0.7 /CUMM) 0.2 Absolute Basophils (0.0 - 0.2 /CUMM) 0.1 10/03 10/02 0455 2327 Chemistry Sodium (137 - 145 mmol/L) 141 Potassium (3.5 - 5.1 mmol/L) 3.8 Chloride (98 - 107 mmol/L) 112 H Carbon Dioxide (22 - 30 mmol/L) 23 Anion Gap (5 - 16) 6 BUN (9 - 20 mg/dL) 43 H Creatinine (0.7 - 1.2 mg/dL) 1.0 Estimated GFR (>60 ml/min) > 60 Glucose (65 - 99 mg/dL) 195 H Calcium (8.4 - 10.2 mg/dL) 7.8 L Phosphorus (2.5 - 4.5 mg/dL) 2.8 Magnesium (1.6 - 2.3 mg/dL) 2.0 Total Bilirubin (0.2 - 1.3 mg/dL) 0.5 AST (17 - 59 U/L) 313 H ALT (21 - 72 U/L) 303 H Albumin (3.5 - 5.0 g/dL) 2.3 L Hematology CBC w Diff MAN DIFF ORDERED MAN DIFF ORDERED WBC (4.8 - 10.8 /CUMM) 21.5 H 24.5 H RBC (4.70 - 6.10 /CUMM) 3.75 L 3.64 L Hgb (14.0 - 18.0 G/DL) 11.5 L 11.1 L Hct (42 - 52 %) 33.8 L 32.8 L MCV (80.0 - 94.0 FL) 90.2 89.9 MCH (27.0 - 31.0 PG) 30.5 30.5 MCHC (33.0 - 37.0 G/DL) 33.9 33.9 RDW (11.5 - 14.5 %) 15.1 H 15.2 H Plt Count (130 - 400 /CUMM) 342 317 MPV (7.4 - 10.4 FL) 7.5 7.8 Gran % (42.2 - 75.2 %) 83.7 H 85.9 H Lymphocytes % (20.5 - 51.1 %) 10.9 L 10.3 L Monocytes % (1.7 - 9.3 %) 4.2 3.1 Eosinophils % (0 - 5 %) 1.1 0.7 Basophils % (0.0 - 2.0 %) 0.1 0 Absolute Granulocytes (1.4 - 6.5 /CUMM) 18.0 H 21.1 H Segmented Neutrophils (42.2 - 75.2 %) 91 H 82 H Band Neutrophils (0.0 - 5.0 %) 5 Absolute Lymphocytes (1.2 - 3.4 /CUMM) 2.4 2.5 Lymphocytes (20.5 - 51.1 %) 5 L 10 L Monocytes (1.7 - 9.3 %) 3 2 Absolute Monocytes (0.10 - 0.60 /CUMM) 0.9 H 0.8 H Eosinophils (0 - 5.0 %) 1 1 Absolute Eosinophils (0.0 - 0.7 /CUMM) 0.2 0.2 Absolute Basophils (0.0 - 0.2 /CUMM) 0 0 Platelet Estimate (ADEQUATE) ADEQUATE ADEQUATE Polychromasia 1+ 1+ Poikilocytosis 1+ Ovalocytes FEW 1+ Other Body Source Fld Total RBCs Counted (%) 100 100
[2017-10-05 22:00] VITALS: BP 132/80
[2017-10-06 05:29] LABS: ABSOLUTE BASOPHIL COUNT 0 /CUMM (0.0-0.2); ABSOLUTE EOSINOPHIL COUNT 0.1 /CUMM (0.0-0.7); ABSOLUTE LYMPH COUNT 1.6 /CUMM (1.2-3.4); ABSOLUTE MONOCYTE COUNT 0.6 /CUMM (0.10-0.60); BASOPHIL % 0.3 % (0.0-2.0); EOSINOPHIL % 0.7 % (0-5); GRANULOCYTE % 79.7 % (42.2-75.2); HEMATOCRIT 32.1 % (42-52); MEAN CORPUSCULAR HGB 30.9 PG (27.0-31.0); MEAN CORPUSCULAR HGB CONC 33.5 G/DL (33.0-37.0); MEAN CORPUSCULAR VOLUME 92.2 FL (80.0-94.0); PLATELET COUNT 321 /CUMM (130-400); RED BLOOD CELL CT 3.48 /CUMM (4.70-6.10); WHITE BLOOD CELL COUNT 11.3 /CUMM (4.8-10.8)
--- NOTE | 2017-10-06 06:52 | PN- Resident CRCU ---
See Addendum Subjective HPI/CRCU Issues: Hypovolemic shock due to GI blood loss, resolved Acute GI blood loss status post four blood transfusions, s/p endoscopy, stable; had guaic positive stool this AM although likely residual Transaminitis - stable New-onset Juan burnett was on Eliquis, off anticoagulation at this time, started ASA yesterday but held 2/2 heme+ stool Leukocytosis, possible reactionary DOTTIE, possible prerenal, improving Sepsis from urological origin status post stent placement, on Ampicillin, consider switching to PO History of diabetes History of bladder cancer status post immunotherapy. History of sleep apnea. 24 Hour Events: Patient did have 2-3 bradycardic episodes overnight, however he was not tachycardic. He was recently started on 50 mg twice daily metoprolol yesterday. Abarca was removed yesterday, and he voided 1800 mL's overnight. Per GI, the heme positive stool was likely old blood as he had not had a bowel movement since his scope. Per GI it is okay to start enteric-coated aspirin. He was restarted on aspirin. He was also advanced on his diet to heart healthy, switch to CC 3 today. Continues to work with PT, feels like he is getting stronger. Has questions regarding discharge whether he will be going home or to short-term rehab. Denies complaints at this time. Objective Vital Signs & I&O Last 8 Hrs of Vitals and I&O: Intake & Output 10/06 0800 Intake Total 460 Output Total 1800 Balance -1340 Intake, IV 100 Intake, Oral 360 Number 0 Bowel Movements Output, Urine 1800 Exam General Appearance: well developed/nourished, alert, awake, comfortable, obese Head: atraumatic Neck: normal inspection Respiratory: normal breath sounds, lungs clear Cardiovascular: irregularly irregular Gastrointestinal: soft, non-tender, obese Extremities: normal inspection, no edema Cranial Nerves: normal hearing, normal speech Skin: intact Current Medications: Current Medications Sig/Royce Start time Last Medication Dose Route Stop Time Status Admin Ampicillin 2,000 MG Q8H 10/02 1900 AC 10/06 Sodium Chloride 100 ML IV 0236 Aspirin Buffered 81 MG DAILY 10/06 0900 AC 10/06 PO 0942 Diclofenac Sodium 1 KAYCEE 4 TIMES/DAY PRN 10/05 0045 AC 10/05 TOP 0159 Insulin Aspart 0 TIDAC 10/03 1200 AC 10/06 SC 0944 Magnesium Oxide 400 MG BID 10/06 0900 AC 10/06 PO 10/06 2101 0942 Metoprolol Tartrate 50 MG BID 10/05 2100 AC 10/06 PO 0943 Metoprolol Tartrate 25 MG BID 10/03 1040 DC 10/05 PO 1006 Omeprazole 40 MG BID 10/06 0900 AC 10/06 PO 0942 Pantoprazole Sodium 40 MG BID 10/03 1133 DC 10/05 IV 2112 Potassium Chloride 30 MEQ ONCE ONE 10/06 0945 CAN PO 10/06 0946 Potassium Chloride 20 MEQ ONCE ONE 10/06 0845 DC 10/06 PO 10/06 945 0944 Potassium Chloride 0 .STK-MED ONE 10/06 0655 DC PO Potassium Chloride 40 MEQ ONCE ONE 10/06 644 DC 10/06 PO 10/06 0646 0657 Impression/Plan Impression/Problem List Impression: 77 YO M with PMH significant for HTN, HLD, morbid obesity, VERONA not on CPAP, DM, psoriasis, nephrolithiasis with h/o lithotripsies, BPH, h/o UTI, and bladder cancer s/p TURBT and receiving intravesicular immunotherapy BCG? managed by Dr. Del Rio in [place], completed one cycle in April with a reportedly benign repeat cystoscopy but pending another round of therapy presented with eight weeks of back pain, immobility, and worsening urinary urgency, frequency, and incontinence. In ED patient was found to be in atrial fibrillation and leukocytosis with lactic acidosis, elevated creatinine and his urinalysis was suggestive of infection. Later on patient's urine culture came back positive with gram-negative rods and blood culture came back positive with gram-negative rods. In ED his blood pressure was 80/50 due to septic shock. Peripheral central catheter was placed in right groin and he was started on phenylephrine. Patient was stabilized in ICU, status post stent placement for hydroureteronephrosis and was started on IV antibiotics to control his sepsis. His heart was controlled with metoprolol. After stabilization he was downgraded to telemetry floor on oral anticoagulation for stroke prophylaxis in the setting of A. fib. Patient was again transferred back to ICU after he had melena and was found in hypovolemic shock, responded to IV crystalloids and 4U pRBC blood transfusions. He is stable and can be downgraded to TELE. Following the patient in ICU for following problems. Hypovolemic shock due to GI blood loss: resolved -Vitally stable -His aspirin and Eliquis are discontinued. He was started on enteric coated aspirin but had heme postive stools yesterday, however per GI it is old blood and okay to continue aspirin. CBC stable, hemodynamically stable. -S/p endoscopy with no evidence of active bleed; multiple ulcers in esophagus, Hiatal hernia sac, duodenum. GI consult appreciated -Per family and patients primary, patient had been self medicating with Aleeve at home for the back pain, likely cause of multiple ulcerations -Off fluids -On PO Omeprazole 40mg BID -His H&H is stable at 10.8/32.1 -On CC3 diet, tolerating well Elevated INR: stable -Patient was given 1 dose of tranexamic acid two nights ago. Patient didn't receive any FFP. -Pt has been on eliquis, will not trend INR further due to NOAC usage. Transaminitis: improving -Likely 2/2 hypotension -This morning his AST/ALT was 72/165. Trending downwards. -Continue holding rosuvastatin and Tylenol. -Will continue to trend New-onset A. fib was on Eliquis: -Holding his Eliquis considering acute GI blood loss. -Can restart metoprolol as patient has been maintaining his pressures. On Lopressor 50mg BID. -Appreciate cardiology recommendations. -Overnight in Afib rate 64-78 Leukocytosis: improving -Trending downwards; likely 2/2 melena/reactive -Patient is afebrile and was on 7 days of ceftriaxone for his sepsis due to urological origin. Was on Ampicillin, 2g q8 IV, day 5 however now switched to Amoxicillin 500mg TID; recieved total of 11 days antibiotics so far. Total antibiotic treatment should be 14 days. -Patient received one dose of vancomycin by mouth and his stool toxins are negative for shiga and C. diff. Culture is negative for enteric pathogens. -Appreciate ID recs. DOTTIE: resolved -Likely prerenal in the setting of GI bleed. -This morning his creatinine was 0.7 and BUN 8, yesterdays Cr/BUN was 0.7 and 14. -Avoid nephrotoxic medications -Monitor input and output -Voiding on his own 1800mL overnight, without abarca. Sepsis from urological origin status post stent placement: -Switched from ampicillin 2g IV q8 to amoxicillin 500mg TID, Day 11 of total abx of 14 -Patient will follow urology as outpatient for ESWL for his kidney stone. -Urology states that ESWL and stent replacement/removal will occur simultaneously; is currently scheduled for end of October however patient can call his outpatient urologist DR DEL RIO to do procedure as well if they are comfortable with it. History of back pain: -CT scan didn't show any infectious process. -Possible follow-up with MRI to rule out any infection of the spine. -Per family and patients primary, patient had been self medicating with Aleeve at home for the back pain -PT Eval appreciated. Dispo likely to STR pending insurance auth History of diabetes: -Accu-Cheks -Continue insulin NovoLog according to sliding scale. History of bladder cancer status post immunotherapy: -Patient was supposed to get an MRI of bladder as outpatient. -Spoke with DR WEST regarding abarca catheter. Abarca was to measure I/O as well as ensure drainage of bladder; can be discontinued upon transfer to floors. History of sleep apnea. -Slept with CPAP on last night until ~530am this morning. -Patient no longer somnolent. DVT prophylaxis: Mechanical only. CODE STATUS: Full code DISPO: To STR, pending insurance authorization and case management Problem List: 1. UTI (urinary tract infection) 2. Acute GI bleeding 3. New onset atrial fibrillation Pain Ratin Tomorrow's Labs & Rationales: bep, cbc Plan DVT/Prophylaxis: mechanical
[2017-10-06 08:00] VITALS: BP 120/70
--- NOTE | 2017-10-06 09:17 | PN- Cardiology ---
Zurdo Mendes 10/06/17 0916: Subjective Subjective: Patient appears much more comfortable and alert. Denies any pain or dyspnea. Still in atrial fibrillation, with good rate controle. No recurrence of fever. No recurrence of GI bleed. Objective Vital Signs and I&Os Vital Signs Date Time Temp Pulse Resp B/P B/P Pulse O2 O2 Flow FiO2 Mean Ox Delivery Rate 10/06 0328 75 97 10/06 0020 68 98 10/06 0000 98 CPAP Room Air 10/05 2200 96.6 78 18 132/80 98 CPAP Room Air 10/05 2115 68 96 10/05 2108 78 13 132/80 10/05 1600 97 Room Air 10/05 1600 96.9 76 18 130/80 97 Room Air 10/05 1407 60 98 10/05 1226 99 CPAP Room Air 10/05 1158 96.5 79 13 130/72 99 Room Air 10/05 1137 86 99 10/05 1006 90 128/80 Intake & Output 10/06 1600 10/06 0800 10/06 0000 10/05 1600 10/05 0800 10/05 0000 Intake Total 460 720 580 130 250 Output Total 3654 637 1480 1900 1800 Balance -1340 170 -670 -1770 -1550 Intake, IV 100 100 100 130 100 Intake, Oral 360 620 480 150 Number 0 0 Bowel Movements Output, Urine 4719 926 8931 1900 1800 Physical Exam: General Appearance: alert awake, mild distress Neck: normal inspection, supple, trachea midline, no JVD Respiratory: normal breath sounds, chest non-tender Cardiovascular: irregularly irregular, no audible murmur Gastrointestinal: normal bowel sounds, soft Extremities: mild lower extremity edema, good capillary refill Current Medications: Current Medications Sig/Royce Start time Last Medication Dose Route Stop Time Status Admin Ampicillin 2,000 MG Q8H 10/02 1900 AC 10/06 Sodium Chloride 100 ML IV 0236 Aspirin Buffered 81 MG DAILY 10/06 899 AC PO Diclofenac Sodium 1 KAYCEE 4 TIMES/DAY PRN 10/05 0045 AC 10/05 TOP 0159 Insulin Aspart 0 TIDAC 10/03 1200 AC 10/05 SC 1718 Magnesium Oxide 400 MG BID 10/06 09 AC PO 10/06 2101 Metoprolol Tartrate 50 MG BID 10/05 2100 AC 10/05 PO 2108 Metoprolol Tartrate 25 MG BID 10/03 1040 DC 10/05 PO 1006 Omeprazole 40 MG BID 10/06 0900 AC PO Pantoprazole Sodium 40 MG BID 10/03 1133 DC 10/05 IV 2112 Potassium Chloride 30 MEQ ONCE ONE 10/06 0945 AC PO 10/06 0946 Potassium Chloride 0 .STK-MED ONE 10/06 0655 DC PO Potassium Chloride 40 MEQ ONCE ONE 10/06 0645 DC 10/06 PO 10/06 0646 0657 Results Last 48 Hrs of Labs/Mics: Laboratory Tests 10/06/17 0458: Anion Gap 2 L, Estimated GFR > 60, Glucose 145 H, Calcium 7.4 L, Phosphorus 2.7, Magnesium 1.7, Total Bilirubin 0.7, AST 72 H, ALT 165 H, Albumin 2.5 L, CBC w Diff NO MAN DIFF REQ, RBC 3.48 L, MCV 92.2, MCH 30.9, MCHC 33.5, RDW 15.0 H, MPV 7.0 L, Gran % 79.7 H, Lymphocytes % 14.4 L, Monocytes % 4.9, Eosinophils % 0.7, Basophils % 0.3, Absolute Granulocytes 9.0 H, Absolute Lymphocytes 1.6, Absolute Monocytes 0.6, Absolute Eosinophils 0.1, Absolute Basophils 0 10/05/17 1326: CBC w Diff NO MAN DIFF REQ, RBC 3.56 L, MCV 92.8, MCH 30.6, MCHC 32.9 L, RDW 15.1 H, MPV 7.4, Gran % 83.7 H, Lymphocytes % 11.1 L, Monocytes % 4.3, Eosinophils % 0.7, Basophils % 0.2, Absolute Granulocytes 11.1 H, Absolute Lymphocytes 1.5, Absolute Monocytes 0.6, Absolute Eosinophils 0.1, Absolute Basophils 0 10/05/17 0417: Anion Gap 7, Estimated GFR > 60, Glucose 157 H, Calcium 8.2 L, Phosphorus 3.1, Magnesium 1.9, Total Bilirubin 0.8, AST 135 H, ALT 234 H, Albumin 2.6 L, CBC w Diff NO MAN DIFF REQ, RBC 3.53 L, MCV 91.2, MCH 30.6, MCHC 33.6, RDW 14.9 H, MPV 7.1 L, Gran % 80.8 H, Lymphocytes % 14.2 L, Monocytes % 3.8, Eosinophils % 0.8, Basophils % 0.4, Absolute Granulocytes 11.0 H, Absolute Lymphocytes 1.9, Absolute Monocytes 0.5, Absolute Eosinophils 0.1, Absolute Basophils 0 Assessment/Plan Assessment/Plan Atrial fibrillation, new onset in the setting of ureteral obstruction/UTI. Good rate control with metoprolol 50 bid. No recurrence of lower GI bleed. continue withholding anticoagulants. Issue of lumbar pain will need further investigation. No evidence of infectious process on spinal CT. MRI to be done once uretaral stent is removed. Continue telemetry? Yes
--- NOTE | 2017-10-06 10:55 | PN- Gastroenterology ---
Assessment/Plan GI Assessment/Recommendations: (*Please refer to the 10/02/17 inpatient GI consult per Dr. Catrachita Mccarthy. I took over the weekly inpatient GI service on 10/06/17. Extensive medical records were reviewed.) 77 y/o male, HTN, DM, VERONA, morbid obesity, psoriasis, nephrolithiasis post ESWL, BPH, bladder Ca-> post TURBT, intravesical BCG, & 12 of 15 CTX treatments, BPH, nephrolithiasis, history UTI, chronic back pain post fall, admitted to [facility] 09/25/17, with symptoms UTI, fever, anorexia, leukocytosis, renal insufficiency, mild right hydronephrosis and hydroureter on CT the with nonobstructive 8 mm stone right kidney, and ground glass opacities of LLL. He was put on Ceftriaxone for urosepsis. He was begun on pressors for hypotension and had a right femoral triple-lumen catheter placed, which had since been removed. : Right ureteral stent placed by urology. He had new onset A. fib in the setting of E. Coli urosepsis (Admission BC x 2/UC x 2), and was anticoagulated with heparin, switched to Eliquis & got Cardizem. He developed melena and was moved to the ICU. NGT-> coffee grounds (pulled). He was transfused 4u PRBC on . He was seen in GI consultation 10/02/17, per Dr. Catrachita Mccarthy. 10/02/17: EGD-ulcerative esophagitis, hiatal hernia with ulcers, multiple DU (bulb/post- bulbar), without active bleeding site. No bxs were done. His A/C therapy was stopped. Ecotrin 81 mg daily was resumed. He had dark stool on 10/05/17, without significant drop in H/H. Cardiology held his Ecotrin 81 mg daily yesterday, which was since resumed. BUN was stable. The patient had been switched to oral PPI BID. His diet was advanced. According to my discussion with Dr. Catrachita Mccarthy, if okay with cardiology, no A/C tx x 2 months (but okay for Ecotrin 81 mg daily), until the patient is re-endoscoped. 10/02/17: PT 24.1, INR 2.19, PTT 32 10/06/17: WBC 11.3, H/H 10.8/32.1, MCV 92.2, PLT 321, glu 145, *decreased BUN/Cr 8/0.7, Na 137, K 3.1, HCO3 30, AG 2< Ca 7.4, alb 2.5, improving AST 72/ALT 165 ( ? LFTs secondary to urosepesis & hypotension). *As of 10/06/17, the patient was normotensive. He remained in A. fib, with one episode of rapid VR, requiring Toprol. He was afebrile with O2 sat RA 97%. The pt was tolerating a heart healthy regular diet. Hgb & BUN were stable (actually BUN was lower). Multiple troponins were negative earlier this admission. He remained on Omeprazole 40 mg BID from a GI perspective (switched to this from Protonix 40 mg IV BID on 10/05/17). He was back on ECASA 81 mg daily uneventfully, & Amoxicilllin 500 mg po TID (switched from IV Ampicillin on 10/06) for his E. Coli urosepsis. Mg was being repleted (*please note, PPI can decrease Mg levels). He was on Toprol 50 mg po BID, per cardiology. The patient was asymptomatic from a GI perspective. He had dark brown stool earlier this morning. He denied any nausea, vomiting, GERD, odynophagia, dysphagia, hematemesis, or early satiety. He incidentally stated he had a remote history of colon polyps, with his last colonoscopy being done elsewhere > 10 years ago ( previously in [place], [place], then in [place]). He denied any CP, SOB, or palpitations. He denied any neurologic symptoms off A/C tx. He denied any fevers, chills, or urologic symptoms, aside from mild urgency. SUGGEST- *Carefully continue Omeprazole 40 mg po BID for now. *Follow-up Mg levels on PPI. Heart healthy diet as tolerated. *Unless cardiology feels strongly otherwise, as per my discussion with Dr. Catrachita Mccarthy, advise continuing Ecotrin 81 mg daily and holding Eliquis until the patient is re-endoscoped in 2 months. The patient was made aware that we are trying to balance the risk of continued GI bleeding with the risk of potential CVA. *The pt was told that when he returned to the office to see Dr. Catrachita Mccarthy for his repeat EGD, to have his LFTs rechecked, as perhaps they were just a reflection of urosepsis & hypotension. *Additionally, as the patient disclosed that he had a history of colon polyps and had not had a colonoscopy for > 10 years, consideration should be made for simultaneous colonoscopy at the time of the upcoming repeat EGD. *Would check stool Ag for H. pylori. DVT prophylaxis with mechanical ALPS. Mobilize patient as tolerated. Await telemetry transfer. *Continued treatment of E. Coli urosepsis, replete K+, etc., as per medical team. Follow-up CBCs daily as inpatient. *Keep Hgb > 8, with probable underlying ASHD. The above findings and recommendations were discussed with the patient, the ICU team, and with Dr. Lee. *Further inpatient GI follow-up as needed. Problem List: 1. Upper GI bleed 2. Hypovolemic shock 3. Esophagitis 4. Duodenal ulcer 5. Hiatal hernia 6. Anemia 7. Sepsis 8. Elevated LFTs 9. New onset atrial fibrillation 10. History of colon polyps Subjective Subjective: 10/02/17: PT 24.1, INR 2.19, PTT 32 10/06/17: WBC 11.3, H/H 10.8/32.1, MCV 92.2, PLT 321, glu 145, *decreased BUN/Cr 8/0.7, Na 137, K 3.1, HCO3 30, AG 2< Ca 7.4, alb 2.5, improving AST 72/ALT 165 ( ? LFTs secondary to urosepesis & hypotension). *As of 10/06/17, the patient was normotensive. He remained in A. fib, with one episode of rapid VR, requiring Toprol. He was afebrile with O2 sat RA 97%. The pt was tolerating a heart healthy regular diet. Hgb & BUN were stable (actually BUN was lower). Multiple troponins were negative earlier this admission. He remained on Omeprazole 40 mg BID from a GI perspective (switched to this from Protonix 40 mg IV BID on 10/05/17). He was back on ECASA 81 mg daily uneventfully, & Amoxicilllin 500 mg po TID (switched from IV Ampicillin on 10/06) for his E. Coli urosepsis. Mg was being repleted (*please note, PPI can decrease Mg levels). He was on Toprol 50 mg po BID, per cardiology. The patient was asymptomatic from a GI perspective. He had dark brown stool earlier this morning. He denied any nausea, vomiting, GERD, odynophagia, dysphagia, hematemesis, or early satiety. He incidentally stated he had a remote history of colon polyps, with his last colonoscopy being done elsewhere > 10 years ago ( previously in [place], [place], then in [place]). He denied any CP, SOB, or palpitations. He denied any neurologic symptoms off A/C tx. He denied any fevers, chills, or urologic symptoms, aside from mild urgency. Review of Systems: Full 14 point ROS otherwise noncontributory, and as above. Constitutional: Denies: chills, diaphoresis, fever, weakness. EENTM: Reports: no symptoms. Cardiovascular: Denies: chest pain, orthopena, syncope. Respiratory: Denies: cough, hemoptysis, short of breath, wheezing. GI: Reports: no symptoms (caitlin resolved) Genitourinary: Reports: see HPI, urgency. Denies: dysuria. Musculoskeletal: Reports: chronic back pain, post fall. Skin: Reports: no symptoms. All Other Systems: Reviewed and Negative Objective Vital Signs and I&Os Vital Signs Date Time Temp Pulse Resp B/P B/P Pulse O2 O2 Flow FiO2 Mean Ox Delivery Rate 10/06 0943 116 120/70 10/06 0800 97.1 74 20 120/70 98 Room Air 10/06 0800 98 Room Air 10/06 0328 75 97 10/06 0020 68 98 10/06 0000 98 CPAP Room Air 10/05 2200 96.6 78 18 132/80 98 CPAP Room Air 10/05 2115 68 96 10/05 2108 78 13 132/80 10/05 1600 97 Room Air 10/05 1600 96.9 76 18 130/80 97 Room Air 10/05 1407 60 98 Intake & Output 10/06 1600 10/06 0400 10/05 1600 10/05 0400 10/04 1600 10/04 0400 Intake Total 1060 720 019 395 8649 910 Output Total 2175 550 3150 1800 2840 1400 Balance -1115 170 -2440 -1550 -1640 -490 Intake, IV 100 100 230 100 100 130 Intake, Oral 960 620 468 151 3764 780 Number 1 0 0 0 Bowel Movements Output, Urine 2175 550 3150 1800 2840 1400 Physical Exam: Well-developed, well-nourished, pleasant morbidly obese male, in no apparent distress. Sclera anicteric. Conjunctiva pink. Oropharynx clear. No oral thrush. No aphthous ulcers. There is no adenopathy, thyromegaly, or JVD. No peripheral stigmata of inflammatory bowel disease or chronic liver disease on exam. No spiders on the anterior chest wall. Lungs: clear to A&P, with slight decreased BS at the bases B/L. No wheezing, rales, or rhonchi. Heart exam: irregularly irregular rate rhythm, S1 and S2, without any significant murmur. Abdominal exam: normal bowel sounds, soft obese belly, nontender without guarding or rebound. No definite mass or organomegaly, within the limits of the body habitus. No fluid shift. No pulsatile mass. No epigastric bruit. Repeat digital rectal exam: deferred (previously, melena OB positive; later with dark brown stool 10/06/17). Extremities: without C, C, or E. Venodyne boots LE B/L. No palpable cords. No palmar erythema. No Dupuytren's contractures. Distal pulses 2+ bilaterally. DTRs 2+ bilaterally. Alert and oriented x 3. No tremor. No asterixis. Current Medications: Current Medications Sig/Royce Start time Last Medication Dose Route Stop Time Status Admin Amoxicillin 500 MG Q8 10/06 1400 AC PO Ampicillin 2,000 MG Q8H 10/02 1900 DC 10/06 Sodium Chloride 100 ML IV 1140 Aspirin Buffered 81 MG DAILY 10/06 899 AC 10/06 PO 0942 Diclofenac Sodium 1 KAYCEE 4 TIMES/DAY PRN 10/05 0045 AC 10/05 TOP 0159 Insulin Aspart 0 TIDAC 10/03 1200 AC 10/06 SC 1235 Magnesium Oxide 400 MG BID 10/06 899 AC 10/06 PO 10/06 2101 0942 Metoprolol Tartrate 50 MG BID 10/05 2100 AC 10/06 PO 0943 Omeprazole 40 MG BID 10/06 899 AC 10/06 PO 0942 Pantoprazole Sodium 40 MG BID 10/03 1133 DC 10/05 IV 2112 Potassium Chloride 30 MEQ ONCE ONE 10/06 944 CAN PO 10/06 0946 Potassium Chloride 20 MEQ ONCE ONE 10/06 944 DC 10/06 PO 10/06 0946 0944 Potassium Chloride 0 .STK-MED ONE 10/06 0655 DC PO Potassium Chloride 40 MEQ ONCE ONE 10/06 644 DC 10/06 PO 10/06 0646 0657 Results Pertinent Lab Results: Laboratory Tests 10/06 10/05 0458 1326 Chemistry Sodium (137 - 145 mmol/L) 137 Potassium (3.5 - 5.1 mmol/L) 3.1 L Chloride (98 - 107 mmol/L) 105 Carbon Dioxide (22 - 30 mmol/L) 30 Anion Gap (5 - 16) 2 L BUN (9 - 20 mg/dL) 8 L Creatinine (0.7 - 1.2 mg/dL) 0.7 Estimated GFR (>60 ml/min) > 60 Glucose (65 - 99 mg/dL) 145 H Calcium (8.4 - 10.2 mg/dL) 7.4 L Phosphorus (2.5 - 4.5 mg/dL) 2.7 Magnesium (1.6 - 2.3 mg/dL) 1.7 Total Bilirubin (0.2 - 1.3 mg/dL) 0.7 AST (17 - 59 U/L) 72 H ALT (21 - 72 U/L) 165 H Albumin (3.5 - 5.0 g/dL) 2.5 L Hematology CBC w Diff NO MAN DIFF REQ NO MAN DIFF REQ WBC (4.8 - 10.8 /CUMM) 11.3 H 13.2 H RBC (4.70 - 6.10 /CUMM) 3.48 L 3.56 L Hgb (14.0 - 18.0 G/DL) 10.8 L 10.9 L Hct (42 - 52 %) 32.1 L 33.0 L MCV (80.0 - 94.0 FL) 92.2 92.8 MCH (27.0 - 31.0 PG) 30.9 30.6 MCHC (33.0 - 37.0 G/DL) 33.5 32.9 L RDW (11.5 - 14.5 %) 15.0 H 15.1 H Plt Count (130 - 400 /CUMM) 321 314 MPV (7.4 - 10.4 FL) 7.0 L 7.4 Gran % (42.2 - 75.2 %) 79.7 H 83.7 H Lymphocytes % (20.5 - 51.1 %) 14.4 L 11.1 L Monocytes % (1.7 - 9.3 %) 4.9 4.3 Eosinophils % (0 - 5 %) 0.7 0.7 Basophils % (0.0 - 2.0 %) 0.3 0.2 Absolute Granulocytes (1.4 - 6.5 /CUMM) 9.0 H 11.1 H Absolute Lymphocytes (1.2 - 3.4 /CUMM) 1.6 1.5 Absolute Monocytes (0.10 - 0.60 /CUMM) 0.6 0.6 Absolute Eosinophils (0.0 - 0.7 /CUMM) 0.1 0.1 Absolute Basophils (0.0 - 0.2 /CUMM) 0 0 10/05 10/04 0417 0435 Chemistry Sodium (137 - 145 mmol/L) 137 137 Potassium (3.5 - 5.1 mmol/L) 3.7 3.7 Chloride (98 - 107 mmol/L) 102 105 Carbon Dioxide (22 - 30 mmol/L) 28 27 Anion Gap (5 - 16) 7 5 BUN (9 - 20 mg/dL) 14 21 H Creatinine (0.7 - 1.2 mg/dL) 0.8 0.8 Estimated GFR (>60 ml/min) > 60 > 60 Glucose (65 - 99 mg/dL) 157 H 203 H Calcium (8.4 - 10.2 mg/dL) 8.2 L 8.0 L Phosphorus (2.5 - 4.5 mg/dL) 3.1 2.9 Magnesium (1.6 - 2.3 mg/dL) 1.9 1.8 Total Bilirubin (0.2 - 1.3 mg/dL) 0.8 0.5 AST (17 - 59 U/L) 135 H 200 H ALT (21 - 72 U/L) 234 H 267 H Albumin (3.5 - 5.0 g/dL) 2.6 L 2.3 L Hematology CBC w Diff NO MAN DIFF REQ NO MAN DIFF REQ WBC (4.8 - 10.8 /CUMM) 13.6 H 16.3 H RBC (4.70 - 6.10 /CUMM) 3.53 L 3.42 L Hgb (14.0 - 18.0 G/DL) 10.8 L 10.5 L Hct (42 - 52 %) 32.2 L 31.1 L MCV (80.0 - 94.0 FL) 91.2 90.8 MCH (27.0 - 31.0 PG) 30.6 30.6 MCHC (33.0 - 37.0 G/DL) 33.6 33.7 RDW (11.5 - 14.5 %) 14.9 H 15.0 H Plt Count (130 - 400 /CUMM) 337 296 MPV (7.4 - 10.4 FL) 7.1 L 7.2 L Gran % (42.2 - 75.2 %) 80.8 H 83.3 H Lymphocytes % (20.5 - 51.1 %) 14.2 L 11.5 L Monocytes % (1.7 - 9.3 %) 3.8 3.8 Eosinophils % (0 - 5 %) 0.8 1.1 Basophils % (0.0 - 2.0 %) 0.4 0.3 Absolute Granulocytes (1.4 - 6.5 /CUMM) 11.0 H 13.6 H Absolute Lymphocytes (1.2 - 3.4 /CUMM) 1.9 1.9 Absolute Monocytes (0.10 - 0.60 /CUMM) 0.5 0.6 Absolute Eosinophils (0.0 - 0.7 /CUMM) 0.1 0.2 Absolute Basophils (0.0 - 0.2 /CUMM) 0 0.1 Imaging/Other Studies: (*Please refer to multiple imaging studies in the [facility] since ). 09/25/17: CT CHEST, ABDOMEN AND PELVIS WITHOUT IV CONTRAST- 1. Mild hydronephrosis of right kidney with mild right hydroureter but no stone in the ureter or the bladder. There is a nonobstructive 8 mm stone in the right kidney. 2. Diverticulosis of the colon. No acute change of the bowel. 3. Multifocal reticular and groundglass opacities in left lower lobe. This could be acute infiltrate or chronic changes of the left lower lobe. 09/26/17: ECHOCARDIOGRAM- 1. Normal EF of 60%. 2. Mild left ventricular hypertrophy. 3. Moderate left atrial enlargement. 4. Trace tricuspid regurgitation 5. Mild aortic stenosis. -Clem Jang M.D. 09/29/17: US TRIPLEX OF LOWER EXTREMITIES, BILATERAL- 1. Normal triplex scan without evidence of deep venous thrombosis involving the bilateral lower extremities. 2. There is a Garcia's cyst in the popliteal fossa on the right. A small effusion is noted in the left popliteal fossa. 09/30/17: CT LUMBAR SPINE WITHOUT IV CONTRAST- 1. There are no acute compression fractures or subluxations. 2. There are multilevel spondylitic changes throughout the lumbar spine, and there are arthropathic changes of the bilateral sacroiliac joints. 3. The infrarenal abdominal aorta and proximal common iliac arteries bilaterally demonstrate mild aneurysmal dilatation. 4. There is a large partially visualized cyst off the lower pole of the left kidney. The previously noted nonobstructive calcification at the midpole of the right kidney is not included on the current study. A nephrostomy tube on the right is partially visualized. 10/02/17: XRY-PORTABLE ABDOMEN- Prominent gaseous distention of the stomach. No significant gaseous dilation of small or large bowel, though the right abdomen is not fully included in the [id number]. 10/02/17: EKG- afib @ 97, Q III & F (? IWMI- age indeterminate), ?post wall involvement, NSST.
[2017-10-06 16:20] VITALS: BP 142/68
[2017-10-06 22:19] VITALS: BP 148/88
--- NOTE | 2017-10-07 08:29 | PN- Housestaff ---
Mathieu Wolfe 10/07/17 0829: Subjective Follow-up For: Hypovolemic shock due to GI blood loss, resolved Acute GI blood loss status post four blood transfusions, s/p endoscopy, stable; had guaic positive stool this AM although likely residual Transaminitis - stable New-onset Juan burnett was on Eliquis, off anticoagulation at this time, started ASA yesterday but held 2/2 heme+ stool Leukocytosis, possible reactionary DOTTIE, possible prerenal, improving Sepsis from urological origin status post stent placement, on Ampicillin, consider switching to PO History of diabetes History of bladder cancer status post immunotherapy. History of sleep apnea. Subjective: Afebrile overnight. Patient is seen and examined this morning comfortably in bed. Patient states his last bowel movement was yesterday that was moslty dark, told it was likely digested blood. Patient otherwise denies any bright red blood in any recent bowel movements. Patient also denies any chest pain and shortness of breath. Patient is currently waiting on placement. Patient otherwise has no new complaints today. Review of Systems Constitutional: Reports: see HPI. Objective Last 24 Hrs of Vital Signs/I&O Vital Signs Date Time Temp Pulse Resp B/P B/P Pulse O2 O2 Flow FiO2 Mean Ox Delivery Rate 10/07 0004 68 98 10/07 0000 CPAP 10/06 2219 97.9 72 18 148/88 96 CPAP 10/06 2100 80 99 10/06 1620 96.9 87 142/68 10/06 1524 Room Air Room Air 10/06 0943 116 120/70 Intake & Output 10/07 1600 10/07 0800 10/07 0000 Intake Total 100 200 Output Total 550 1050 Balance -450 -850 Intake, Oral 100 200 Output, Urine 550 1050 Patient 274 lb Weight Weight Bed scale Measurement Method Physical Exam General Appearance: Alert, Oriented X3, Cooperative Skin: No Rashes, No Breakdown HEENT: Atraumatic Neck: Supple, No JVD Cardiovascular: Regular Rate, Normal S1, Normal S2 Lungs: Clear to Auscultation Neurological: Normal Speech Extremities: No Edema Assessment/Plan Assessment: 77 YO M with PMH significant for HTN, HLD, morbid obesity, VERONA not on CPAP, DM, psoriasis, nephrolithiasis with h/o lithotripsies, BPH, h/o UTI, and bladder cancer s/p TURBT and receiving intravesicular immunotherapy BCG? managed by Dr. Del Rio in [place], completed one cycle in April with a reportedly benign repeat cystoscopy but pending another round of therapy presented with eight weeks of back pain, immobility, and worsening urinary urgency, frequency, and incontinence. In ED patient was found to be in atrial fibrillation and leukocytosis with lactic acidosis, elevated creatinine and his urinalysis was suggestive of infection. Later on patient's urine culture came back positive with gram-negative rods and blood culture came back positive with gram-negative rods. In ED his blood pressure was 80/50 due to septic shock. Peripheral central catheter was placed in right groin and he was started on phenylephrine. Patient was stabilized in ICU, status post stent placement for hydroureteronephrosis and was started on IV antibiotics to control his sepsis. His heart was controlled with metoprolol. After stabilization he was downgraded to telemetry floor on oral anticoagulation for stroke prophylaxis in the setting of A. fib. Patient was again transferred back to ICU after he had melena and was found in hypovolemic shock, responded to IV crystalloids and 4U pRBC blood transfusions. #Hypovolemic shock due to GI blood loss: resolved -His aspirin and Eliquis are discontinued. He was started on enteric coated aspirin but had heme postive stools yesterday, however per GI it is old blood and okay to continue aspirin. CBC stable, hemodynamically stable. -S/p endoscopy with no evidence of active bleed; multiple ulcers in esophagus, Hiatal hernia sac, duodenum. GI consult appreciated -Per family and patients primary, patient had been self medicating with Aleeve at home for the back pain, likely cause of multiple ulcerations -On PO Omeprazole 40mg BID -His H&H is stable at 10.8/32.1 -On CC3 diet, tolerating well #Elevated INR: stable -Patient was given 1 dose of tranexamic acid two nights ago. Patient didn't receive any FFP. -Pt has been on eliquis, will not trend INR further due to NOAC usage. #Transaminitis: improving -Likely 2/2 hypotension -LFTs trending downwards. -Continue holding rosuvastatin and Tylenol. -Will continue to trend #New-onset A. fib, was on Eliquis: -Holding his Eliquis considering acute GI blood loss. -Can restart metoprolol as patient has been maintaining his pressures. On Lopressor 50 mg BID. -Appreciate cardiology recommendations. #Leukocytosis: improving -Trending downwards; likely 2/2 melena/reactive -Patient is afebrile and was on 7 days of ceftriaxone for his sepsis due to urological origin. Was on Ampicillin, 2g q8 IV, day 5 however now switched to Amoxicillin 500mg TID; recieved total of 11 days antibiotics so far. Total antibiotic treatment should be 14 days. -Patient received one dose of vancomycin by mouth and his stool toxins are negative for shiga and C. diff. Culture is negative for enteric pathogens. #DOTTIE: resolved -Likely prerenal in the setting of GI bleed. -Avoid nephrotoxic medications -Monitor input and output #Sepsis from urological origin status post stent placement: -Switched from ampicillin 2g IV q8 to amoxicillin 500mg TID, Day 12 of total abx of 14 -Patient will follow urology as outpatient for ESWL for his kidney stone. -Urology states that ESWL and stent replacement/removal will occur simultaneously; is currently scheduled for end of October however patient can call his outpatient urologist DR DEL RIO to do procedure as well if they are comfortable with it. #History of back pain: -CT scan didn't show any infectious process. -Possible follow-up with MRI to rule out any infection of the spine. -Per family and patients primary, patient had been self medicating with Aleeve at home for the back pain -PT Eval appreciated. Dispo likely to STR pending insurance auth #History of diabetes: -Accu-Cheks -Continue insulin NovoLog according to sliding scale. #History of bladder cancer status post immunotherapy: -Patient was supposed to get an MRI of bladder as outpatient. -Spoke with DR WEST regarding abarca catheter. Abarca was to measure I/O as well as ensure drainage of bladder; can be discontinued upon transfer to floors. #History of sleep apnea. -CPAP utilized at night -Patient no longer somnolent. DVT prophylaxis: Mechanical only. CODE STATUS: Full code DISPO: To STR, pending insurance authorization and case management Problem List: 1. UTI (urinary tract infection) 2. Acute GI bleeding 3. New onset atrial fibrillation Pain Ratin Pain Location: na Pain Goal: Remain pain free Pain Plan: na Tomorrow's Labs & Rationales: routine Michele Arrington MD 10/07/17 1426: Attending MD Review Statement Attending Statement Attending MD Statement: examined this patient, discuss w/resident/PA/DIRECTOR CAMP, agreed w/resident/PA/DIRECTOR CAMP, reviewed EMR data (avail), reviewed images, amended to note Attending Assessment/Plan: The patient was seen and discussed with house staff. Cardiology follow-up appreciated. Patient is slowly improving. Is deconditioned. Plan is for eventual STR. Agree with plan as outlined in above note. Michele Arrington MD 10/07/17 1426: Attending MD Review Statement Attending Statement Attending MD Statement: examined this patient, discuss w/resident/PA/DIRECTOR CAMP, agreed w/resident/PA/DIRECTOR CAMP, reviewed EMR data (avail), reviewed images, amended to note Attending Assessment/Plan: The patient was seen and discussed with house staff. Cardiology follow-up appreciated. Patient is slowly improving. Is deconditioned. Plan is for eventual STR. Agree with plan as outlined in above note.
[2017-10-07 09:05] LABS: ABSOLUTE BASOPHIL COUNT 0.1 /CUMM (0.0-0.2); ABSOLUTE EOSINOPHIL COUNT 0.1 /CUMM (0.0-0.7); ABSOLUTE GRANULOCYTE CT 8.5 /CUMM (1.4-6.5); ABSOLUTE LYMPH COUNT 1.7 /CUMM (1.2-3.4); ABSOLUTE MONOCYTE COUNT 0.6 /CUMM (0.10-0.60); BASOPHIL % 0.6 % (0.0-2.0); EOSINOPHIL % 0.5 % (0-5); GRANULOCYTE % 78.3 % (42.2-75.2); HEMATOCRIT 30.5 % (42-52); MEAN CORPUSCULAR HGB 31.5 PG (27.0-31.0); MEAN CORPUSCULAR HGB CONC 34.4 G/DL (33.0-37.0); MEAN CORPUSCULAR VOLUME 91.5 FL (80.0-94.0); MEAN PLATELET VOLUME 7.6 FL (7.4-10.4); PLATELET COUNT 287 /CUMM (130-400); RBC DISTRIBUTION WIDTH 15.1 % (11.5-14.5); RED BLOOD CELL CT 3.33 /CUMM (4.70-6.10); WHITE BLOOD CELL COUNT 10.9 /CUMM (4.8-10.8)
--- NOTE | 2017-10-07 13:50 | PN- Cardiology ---
Subjective Subjective: The patient is lying comfortably in bed. No new complaints. 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 Objective Vital Signs and I&Os Vital Signs Date Time Temp Pulse Resp B/P B/P Pulse O2 O2 Flow FiO2 Mean Ox Delivery Rate 10/07 0847 68 148/88 10/07 0004 68 98 10/07 0000 CPAP 10/06 2219 97.9 72 18 148/88 96 CPAP 10/06 2100 80 99 10/06 1620 96.9 87 142/68 10/06 1524 Room Air Room Air Intake & Output 10/07 1600 10/07 0800 10/07 0000 10/06 1600 10/06 0800 10/06 0000 Intake Total 029 397 2994 460 720 Output Total 550 5687 043 2917 550 Balance -450 -850 110 -1340 170 Intake, IV 100 100 Intake, Oral 315 816 5510 360 620 Number 1 0 Bowel Movements Output, Urine 550 2372 261 2459 550 Patient 274 lb Weight Weight Bed scale Measurement Method Current Medications: Current Medications Sig/Royce Start time Last Medication Dose Route Stop Time Status Admin Amoxicillin 500 MG Q8 10/06 1400 AC 10/07 PO 1202 Aspirin Buffered 81 MG DAILY 10/06 0900 AC 10/07 PO 0847 Diclofenac Sodium 1 KAYCEE 4 TIMES/DAY PRN 10/05 0045 AC 10/05 TOP 0159 Insulin Aspart 0 TIDAC 10/03 1200 AC 10/07 SC 1155 Magnesium Chloride 64 MG DAILY 10/07 0942 AC 10/07 PO 1155 Magnesium Oxide 400 MG BID 10/06 09 DC 10/06 PO 10/06 Metoprolol Tartrate 50 MG BID 10/05 2100 AC 10/07 PO 0847 Omeprazole 40 MG BID 10/06 0900 AC 10/07 PO 0847 Potassium Chloride 40 MEQ ONCE ONE 10/07 1300 DC 10/07 PO 10/07 1301 1201 Potassium Chloride 0 .STK-MED ONE 10/07 1201 DC PO Potassium Chloride 40 MEQ ONCE ONE 10/07 0930 CAN PO 10/07 0931 Results Last 48 Hrs of Labs/Mics: Laboratory Tests 10/07/17 0635: Anion Gap 7, Estimated GFR > 60, BUN/Creatinine Ratio 13.8, Magnesium 1.9, CBC w Diff NO MAN DIFF REQ, RBC 3.33 L, MCV 91.5, MCH 31.5 H, MCHC 34.4, RDW 15.1 H , MPV 7.6, Gran % 78.3 H, Lymphocytes % 15.3 L, Monocytes % 5.3, Eosinophils % 0.5, Basophils % 0.6, Absolute Granulocytes 8.5 H, Absolute Lymphocytes 1.7, Absolute Monocytes 0.6, Absolute Eosinophils 0.1, Absolute Basophils 0.1 10/07/17 0400: Sodium Cancelled, Potassium Cancelled, Chloride Cancelled, Carbon Dioxide Cancelled, Anion Gap Cancelled, BUN Cancelled, Creatinine Cancelled, BUN/ Creatinine Ratio Cancelled, CBC w Diff Cancelled, WBC Cancelled, RBC Cancelled, Hgb Cancelled, Hct Cancelled, MCV Cancelled, MCH Cancelled, MCHC Cancelled, RDW Cancelled, Plt Count Cancelled, MPV Cancelled 10/06/17 0458: Anion Gap 2 L, Estimated GFR > 60, Glucose 145 H, Calcium 7.4 L, Phosphorus 2.7, Magnesium 1.7, Total Bilirubin 0.7, AST 72 H, ALT 165 H, Albumin 2.5 L, CBC w Diff NO MAN DIFF REQ, RBC 3.48 L, MCV 92.2, MCH 30.9, MCHC 33.5, RDW 15.0 H, MPV 7.0 L, Gran % 79.7 H, Lymphocytes % 14.4 L, Monocytes % 4.9, Eosinophils % 0.7, Basophils % 0.3, Absolute Granulocytes 9.0 H, Absolute Lymphocytes 1.6, Absolute Monocytes 0.6, Absolute Eosinophils 0.1, Absolute Basophils 0 Assessment/Plan Assessment/Plan Assessment/Plan 1. Persistent atrial fibrillation 2. Acute hypoxic respiratory failure -improved 3. Recent sepsis 4. GI bleeding 5. Low back pain. 6. Severe deconditioning. 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 Yes
[2017-10-07 15:03] VITALS: BP 109/87
--- NOTE | 2017-10-07 19:06 | PN- Pulmonary ---
Subjective HPI/Critical Care Issues: The patient is awake and alert. He reports feeling better overall. He denies any respiratory complaints. He continues to have issues with his sleep. Objective Current Medications: Current Medications Sig/Royce Start time Last Medication Dose Route Stop Time Status Admin Amoxicillin 500 MG Q8 10/06 1400 AC 10/07 PO 1202 Aspirin Buffered 81 MG DAILY 10/06 0900 AC 10/07 PO 0847 Diclofenac Sodium 1 KAYCEE 4 TIMES/DAY PRN 10/05 0045 AC 10/05 TOP 0159 Insulin Aspart 0 TIDAC 10/03 1200 AC 10/07 SC 1717 Magnesium Chloride 64 MG DAILY 10/07 0942 AC 10/07 PO 1155 Magnesium Oxide 400 MG BID 10/06 09 DC 10/06 PO 10/06 Metoprolol Tartrate 50 MG BID 10/05 2100 AC 10/07 PO 0847 Omeprazole 40 MG BID 10/06 0900 AC 10/07 PO 0847 Potassium Chloride 40 MEQ ONCE ONE 10/07 1300 DC 10/07 PO 10/07 1301 1201 Potassium Chloride 0 .STK-MED ONE 10/07 1201 DC PO Potassium Chloride 40 MEQ ONCE ONE 10/07 0930 CAN PO 10/07 0931 Vital Signs & I&O Last 24 Hrs of Vitals and I&O: Vital Signs Date Time Temp Pulse Resp B/P B/P Pulse O2 O2 Flow FiO2 Mean Ox Delivery Rate 10/07 1503 97.8 106 18 109/87 96 Room Air 10/07 0847 68 148/88 10/07 0004 68 98 10/07 0000 CPAP 10/06 2219 97.9 72 18 148/88 96 CPAP 10/06 2100 80 99 Intake & Output 10/07 1600 10/07 0800 10/07 0000 Intake Total 500 100 200 Output Total 681 853 0919 Balance 0 -450 -850 Intake, Oral 500 100 200 Output, Urine 552 384 2714 Patient 274 lb Weight Weight Bed scale Measurement Method Exam General Appearance: no apparent distress, alert, awake, comfortable Head: atraumatic Neck: supple Respiratory: no respiratory distress, lungs clear Cardiovascular: S1 and S2 +, distant Abdomen: normal bowel sounds, soft, non-tender Skin: intact, warm/dry Results Last 24 Hrs of Lab Results: Laboratory Tests 10/07/17 0635: Anion Gap 7, Estimated GFR > 60, BUN/Creatinine Ratio 13.8, Magnesium 1.9, CBC w Diff NO MAN DIFF REQ, RBC 3.33 L, MCV 91.5, MCH 31.5 H, MCHC 34.4, RDW 15.1 H , MPV 7.6, Gran % 78.3 H, Lymphocytes % 15.3 L, Monocytes % 5.3, Eosinophils % 0.5, Basophils % 0.6, Absolute Granulocytes 8.5 H, Absolute Lymphocytes 1.7, Absolute Monocytes 0.6, Absolute Eosinophils 0.1, Absolute Basophils 0.1 10/07/17 0400: Sodium Cancelled, Potassium Cancelled, Chloride Cancelled, Carbon Dioxide Cancelled, Anion Gap Cancelled, BUN Cancelled, Creatinine Cancelled, BUN/ Creatinine Ratio Cancelled, CBC w Diff Cancelled, WBC Cancelled, RBC Cancelled, Hgb Cancelled, Hct Cancelled, MCV Cancelled, MCH Cancelled, MCHC Cancelled, RDW Cancelled, Plt Count Cancelled, MPV Cancelled Impression/Plan Impression/Plan Impression/Plan: 1. GI bleed stabilized - ulcerative esophagitis, hiatal hernia ulcers, duodenal ulcers in setting of Eliquis for a.fib and aspirin. 2. Previously presented with septic shock of urological origin - pansensitive E.Coli - etiology secondary to nephrolithiasis and hydronephrosis - growing E.Coli in blood and GNR in urine. 3. New onset atrial fibrillation with a rapid ventricular response. 4. History of bladder cancer. 5. History of VERONA - declined therapy previously, will re-address on an outpatient basis. 6. Chronic back pain. Recommendations: * Again, patient instructed, counseled and educated on appropriate positive pressure mask use, sleep hygiene and the importance of usage to avoid cardiovascular risk factors * Monitor fevers, wbc count. * Complete antibiotic course. * Monitor hemodynamics. Continue with rate control. * Anti-coagulation held due to GI bleed. * Continue all supportive care.
[2017-10-07 22:41] VITALS: BP 138/90
[2017-10-08 06:05] VITALS: BP 130/80
--- NOTE | 2017-10-08 07:05 | PN- Housestaff ---
RositaChristian 10/08/17 0704: Subjective Follow-up For: Sepsis of urological origin GI Bleed Deconditioning New onset AFIB VERONA Complaints: no complaints Tele-Events Since Last Visit: A flutter and A. fib 80-112 beats per minutes no overnight events Subjective: Review the patient seated on the chair having his breakfast he reports to have slept well after he removed the CPAP mask. Initially could not sleep well due to noise from his CPAP. He denies any palpitation shortness of breath or chest pain. He reports that he is getting stronger every day and is looking forward to go back home. Review of Systems Constitutional: Denies: chills, fever. Cardiovascular: Denies: chest pain, palpitations. Respiratory: Denies: cough, short of breath. Gastrointestinal: Denies: abdominal pain, nausea, vomiting. Genitourinary: Denies: no symptoms. Objective Last 24 Hrs of Vital Signs/I&O Vital Signs Date Time Temp Pulse Resp B/P B/P Pulse O2 O2 Flow FiO2 Mean Ox Delivery Rate 10/08 0605 98.3 114 18 130/80 17 Room Air 10/08 0049 116 97 10/07 2241 98.3 88 18 138/90 97 CPAP 10/07 2026 65 97 10/07 2013 Room Air 10/07 2010 102 132/64 10/07 1503 97.8 106 18 109/87 96 Room Air Intake & Output 10/08 1600 10/08 0800 10/08 0000 Intake Total 360 180 Output Total 1150 950 Balance -790 -770 Intake, Oral 360 180 Output, Urine 1150 950 Physical Exam General Appearance: Alert, Oriented X3, Cooperative, No Acute Distress Skin: No Rashes, No Breakdown Skin Temp/Moisture Exam: Warm/Dry Sepsis Skin Exam (color): Normal for Ethnicity HEENT: Atraumatic, Mucous Membr. moist/pink Neck: Supple, No JVD Cardiovascular: Normal S1, Normal S2, Irregularly irregular heart rate with a systolic murmur Lungs: Clear to Auscultation, Normal Air Movement Abdomen: Normal Bowel Sounds, Soft, No Tenderness, obese Neurological: Normal Speech, Normal Tone Extremities: No Clubbing, No Cyanosis, No Edema Current Medications: Current Medications Sig/Royce Start time Last Medication Dose Route Stop Time Status Admin Amoxicillin 500 MG Q8 10/06 1400 AC 10/08 PO 0645 Aspirin Buffered 81 MG DAILY 10/06 0900 AC 10/07 PO 0847 Diclofenac Sodium 1 KAYCEE 4 TIMES/DAY PRN 10/05 0045 AC 10/05 TOP 0159 Insulin Aspart 0 TIDAC 10/03 1200 AC 10/08 SC 0805 Magnesium Chloride 64 MG DAILY 10/07 0942 AC 10/07 PO 1155 Metoprolol Tartrate 50 MG BID 10/05 2100 AC 10/07 PO 2011 Omeprazole 40 MG BID 10/06 09 AC 10/07 PO 2010 Potassium Chloride 40 MEQ ONCE ONE 10/07 1300 DC 10/07 PO 10/07 1301 1201 Potassium Chloride 0 .STK-MED ONE 10/07 1201 DC PO Potassium Chloride 40 MEQ ONCE ONE 10/07 0930 CAN PO 10/07 0931 Last 24 Hrs of Lab/Mauricio Results Last 24 Hrs of Labs/Mics: Laboratory Tests 10/08/17 0706: Sodium Pending, Potassium Pending, Chloride Pending, Carbon Dioxide Pending, Anion Gap Pending, BUN Pending, Creatinine Pending, BUN/Creatinine Ratio Pending , Magnesium Pending, CBC w Diff Pending, WBC Pending, RBC Pending, Hgb Pending, Hct Pending, MCV Pending, MCH Pending, MCHC Pending, RDW Pending, Plt Count Pending, MPV Pending Microbiology 10/07 1115 STOOL: Stool Culture - CAN Cancelled: MULTIPLE COLONY TYPES PRESENT CONSISTENT WITH Assessment/Plan Assessment: 77 YO M with PMH significant for HTN, HLD, morbid obesity, VERONA not on CPAP, DM, psoriasis, nephrolithiasis with h/o lithotripsies, BPH, h/o UTI, and bladder cancer s/p TURBT and receiving intravesicular immunotherapy BCG? managed by Dr. Del Rio in [place], completed one cycle in April with a reportedly benign repeat cystoscopy but pending another round of therapy presented with eight weeks of back pain, immobility, and worsening urinary urgency, frequency, and incontinence. In ED patient was found to be in atrial fibrillation and leukocytosis with lactic acidosis, elevated creatinine and his urinalysis was suggestive of infection. Later on patient's urine culture came back positive with gram-negative rods and blood culture came back positive with gram-negative rods. In ED his blood pressure was 80/50 due to septic shock. Peripheral central catheter was placed in right groin and he was started on phenylephrine. Patient was stabilized in ICU, status post stent placement for hydroureteronephrosis and was started on IV antibiotics to control his sepsis. His heart was controlled with metoprolol. After stabilization he was downgraded to telemetry floor on oral anticoagulation for stroke prophylaxis in the setting of A. fib. Patient was again transferred back to ICU after he had melena and was found in hypovolemic shock, responded to IV crystalloids and 4U pRBC blood transfusions. Hypovolemic shock due to GI blood loss: resolved His aspirin and Eliquis are discontinued. He was started on enteric coated aspirin but had heme postive stools yesterday, however per GI it is old blood and okay to continue aspirin. CBC stable, hemodynamically stable. S/p endoscopy with no evidence of active bleed; multiple ulcers in esophagus, Hiatal hernia sac, duodenum. GI consult appreciated -Per family and patients primary, patient had been self medicating with Aleeve at home for the back pain, likely cause of multiple ulcerations. On PO Omeprazole 40mg BID His H&H is stable at 10.5/35 yesterday On CC3 diet, tolerating well New-onset A. fib, not on Eliquis: Holding his Eliquis considering acute GI blood loss. Initially heart rate was uncontrolled and because of that metoprolol dose was increased to 50 mg twice daily. Currently the patient is asymptomatic and heart rate has been well controlled. DOTTIE: resolved Likely prerenal in the setting of GI bleed. Patient creatinine is 0.7 has complete resolution of the DOTTIE continue to avoid nephrotoxic medications Sepsis from urological origin status post stent placement: Urology states that ESWL and stent replacement/removal will occur simultaneously ; is currently scheduled for end of October however patient can call his outpatient urologist DR DEL RIO to do procedure as well if they are comfortable with it. Patient urine grew pansensitive E. coli he was initially started on ceftriaxone which was narrowed to IV ampicillin and then transitioned to oral amoxicillin. He will complete 14 days of antibiotic tomorrow and will stop. History of back pain: CT scan didn't show any infectious process. Per family and patients primary, patient had been self medicating with Aleeve at home for the back pain. PT Eval appreciated. Dispo likely to STR pending bed search. Patient prefers to go to [facility] because of its central location, I spoke to case management rn about the importance of getting SNF for the patient. History of diabetes: Accu-Cheks. Continue insulin NovoLog according to sliding scale. Blood sugar in the past 24 hours have been 202, 281, 265, 221, 221, 204, 212, 212 History of bladder cancer status post immunotherapy: Patient was supposed to get an MRI of bladder as outpatient. While on the floor the patient was seen by urologist Dr. Nur History of sleep apnea. Patient is being followed by site leader Dr. Marie he is complaining about using CPAP overnight that he cannot sleep well. I reemphasized to him the importance of using CPAP given pulmonary and cardiovascular diseases that can develop with not using CPAP for somebody with obstructive sleep apnea. Problem List: 1. Anemia 2. Duodenal ulcer 3. Hypovolemic shock 4. Acute kidney failure 5. UTI (urinary tract infection) Pain Ratin Pain Location: none Pain Goal: Remain pain free Pain Plan: PRN Pain meds Tomorrow's Labs & Rationales: CBC and BEP DVT/Prophylaxis: Michele Grossman MD 10/08/17 1312: Attending MD Review Statement Attending Statement Attending MD Statement: examined this patient, discuss w/resident/PA/SENIOR COLDFUSION DEVELOPER, agreed w/resident/PA/SENIOR COLDFUSION DEVELOPER, discussed with family, reviewed EMR data (avail), discussed with case mgmt, amended to note Attending Assessment/Plan: The patient was seen and discussed with house staff. Cardiology input appreciated. Will continue to hold anticoagulation. Awaiting STR.
[2017-10-08 08:24] LABS: ABSOLUTE BASOPHIL COUNT 0.1 /CUMM (0.0-0.2); ABSOLUTE EOSINOPHIL COUNT 0.1 /CUMM (0.0-0.7); ABSOLUTE GRANULOCYTE CT 7.5 /CUMM (1.4-6.5); ABSOLUTE LYMPH COUNT 1.7 /CUMM (1.2-3.4); ABSOLUTE MONOCYTE COUNT 0.9 /CUMM (0.10-0.60); BASOPHIL % 0.5 % (0.0-2.0); EOSINOPHIL % 0.7 % (0-5); GRANULOCYTE % 73.2 % (42.2-75.2); HEMATOCRIT 31.2 % (42-52); MEAN CORPUSCULAR HGB 30.8 PG (27.0-31.0); MEAN CORPUSCULAR HGB CONC 33.5 G/DL (33.0-37.0); MEAN PLATELET VOLUME 7.5 FL (7.4-10.4); PLATELET COUNT 290 /CUMM (130-400); RBC DISTRIBUTION WIDTH 15.2 % (11.5-14.5); WHITE BLOOD CELL COUNT 10.3 /CUMM (4.8-10.8)
--- NOTE | 2017-10-08 10:09 | Discharge Summary ---
Visit Information Visit Dates Admission Date: 09/25/17 Discharge Date: 10/10/17 Hospital Course Course Attending Physician: Dr Mahan Primary Care Physician: Johnna Bunch MD Consulting Request: 1 Consulting Specialty: Cardiology Consulting Physician: Dr. Laura Reason for Consult: New AFIB Consulting Request: 2 Consulting Specialty: Infectious Disease Consulting Physician: Jayro Birch MD Reason for Consult: Septic shock with positive blood and urine cultures Consulting Request: 3 Consulting Specialty: Gastroenterology Consulting Physician: Dr Mccarthy Reason for Consult: GI Bleed Consulting Request: 4 Consulting Specialty: Urology Consulting Physician: Dr Nur Reason for Consult: Sepsis of urological origin, renal stones Hospital Course: This is a 77 years old male with PMH significant for HTN, HLD, morbid obesity, VERONA not on CPAP, DM, psoriasis, nephrolithiasis with h/o lithotripsies, BPH, h/o UTI, and bladder cancer s/p TURBT and receiving intravesicular immunotherapy BCG ? managed by Dr. Contreras in [place], completed one cycle in April with a reportedly benign repeat cystoscopy but pending another round of therapy presented with eight weeks of back pain, immobility, and worsening urinary urgency, frequency, and incontinence. In ED patient was found to be in atrial fibrillation and leukocytosis with lactic acidosis, elevated creatinine and his urinalysis was suggestive of infection. Later on patient's urine culture came back positive with gram-negative rods and blood culture came back positive with gram-negative rods. In ED his blood pressure was 80/50 due to septic shock. Peripheral central catheter was placed in right groin and he was started on phenylephrine. Patient was stabilized in ICU, status post stent placement for hydroureteronephrosis and was started on IV antibiotics to control his sepsis. His heart was controlled with metoprolol. After stabilization he was downgraded to telemetry floor on oral anticoagulation for stroke prophylaxis in the setting of A. fib. Patient was again transferred back to ICU after he had melena and was found in hypovolemic shock, responded to IV crystalloids and 4U pRBC blood transfusions. While in [facility] the patient stayed in ICU for a total of 12 days. When the episode of GI bleed this patient anticoagulation has been put on hold although he has significant risk for stroke from the atrial fibrillation. He was initially started on ceftriaxone which was changed to IV ampicillin after being found to have pansensitive E. coli both in urine and blood he completed a total of 14 days of antibiotic through oral amoxicillin. Hypovolemic shock due to GI blood loss: resolved His aspirin and Eliquis are discontinued. He was started on enteric coated aspirin but had heme postive stools yesterday, however per GI it is old blood and okay to continue aspirin. CBC stable, hemodynamically stable. S/p endoscopy with no evidence of active bleed; multiple ulcers in esophagus, Hiatal hernia sac, duodenum. GI consult appreciated. Per family and patients primary, patient had been self medicating with Aleeve at home for the back pain, likely cause of multiple ulcerations. On PO Omeprazole 40mg BID His H&H is stable at 10.5/35 yesterday On CC3 diet, tolerating well Septic shock with urinary tract infection and bacteremia Patient on presentation was found to have urine suggestive of urinary tract infection and his cultures grew staph aureus both in urine and blood which was pansensitive. The patient was in septic shock requiring central line and pressors. He improved while on treatment and was taken off pressors given antibiotics to complete a total 14 days. New-onset A. fib, not on Eliquis: Patient did not had previous diagnosis of atrial fibrillation however was found to be in A. fib upon presentation in the ER. He was started on Eliquis for anticoagulation however during the hospital stay had an episode of upper GI bleeding and because of that anticoagulation was put on hold. He has continued to have positive guaiac stools and will need further assessment if can be restarted back on anticoagulation given the risk-benefit factor for stroke prevention versus GI bleeding. Patient was started on metoprolol for heart rate control, he was seen by research agricultural engineer and metoprolol was titrated up to 50 mg twice a day for more effective heart rate control. Will need to continue to follow with research agricultural engineer post discharge. DOTTIE: resolved On presentation the patient had elevated creatinine of 1.3 in the picture that his creatinine has always been at normal levels. He received aggressive hydration and blood pressure support. We stipulated that the DOTTIE was likely prerenal in the setting of septic shock. He improved to normal renal function. However 7 days later after the patient had been transferred to the floor had GI bleeding with shock and developed DOTTIE again which resolved after volume repletion. Patient continued to have normal renal function and was educated to avoid nephrotoxic medication given history of excessive use of Aleve at home for back pain. History of back pain: CT scan didn't show any infectious process. Per family and patients primary, patient had been self medicating with Aleeve at home for the back pain. PT Carmencita appreciated. Patient has been recommended to go to short-term rehab due to deconditioning requiring assist of 1-2. History of diabetes: Patient metformin was put on hold during the course of the hospital stay and was maintained on insulin and Accu-Cheks. During the course of the stay the patient was reeducated on the importance of good diabetes control he will be discharged home to continue with sliding scale insulin only because apparently the patient sugar has been well maintained without taking the long-acting which per family the patient was not taking. She needs to follow with choke setter to have a review of insulin dose, given referral. History of bladder cancer status post immunotherapy: Patient was supposed to get an MRI of bladder as outpatient. While on the floor the patient was seen by urologist Dr. Nur and had a cystoscopy with stent placement after being identified to have an 8 mm ureteric stone. Patient follows with urologist Dr. Contreras he was advised to continue to follow with his outpatient urologist. History of sleep apnea. Patient is being followed by lining sewer Dr. Marie. He reports to find using CPAP at night very inconvenient. Multiple incidences he was reeducated on the importance of using CPAP consistently. Patient advised to follow-up with his lining sewer after discharge and to strongly consider using CPAP consistently. Complications: Septic shock requiring pressors GI bleeding Ureteric stone with urological sepsis Allergies: Coded Allergies: No Known Allergies (09/25/17) Significant Procedures: Central line placement Upper endoscopy Cystoscopy with stenting Pertinent Lab Results: Abdominal pelvic CAT scan: 1. Mild hydronephrosis of right kidney with mild right hydroureter but no stone in the ureter or the bladder. There is a nonobstructive 8 mm stone in the right kidney. 2. Diverticulosis of the colon. No acute change of the bowel. 3. Multifocal reticular and groundglass opacities in left lower lobe. This could be acute infiltrate or chronic changes of the left lower lobe. Echocardiogram 1. Normal EF of 60%. 2. Mild left ventricular hypertrophy. 3. Moderate left atrial enlargement. 4. Trace tricuspid regurgitation 5. Mild aortic stenosis. Laboratory Tests 10/08 10/07 0706 0635 Chemistry Sodium (137 - 145 mmol/L) 135 L 137 Potassium (3.5 - 5.1 mmol/L) 4.0 3.8 Chloride (98 - 107 mmol/L) 98 102 Carbon Dioxide (22 - 30 mmol/L) 30 28 Anion Gap (5 - 16) 6 7 BUN (9 - 20 mg/dL) 11 11 Creatinine (0.7 - 1.2 mg/dL) 0.8 0.8 Estimated GFR (>60 ml/min) > 60 > 60 BUN/Creatinine Ratio (7 - 25 %) 13.8 13.8 Magnesium (1.6 - 2.3 mg/dL) 1.9 1.9 Hematology CBC w Diff NO MAN DIFF REQ NO MAN DIFF REQ WBC (4.8 - 10.8 /CUMM) 10.3 10.9 H RBC (4.70 - 6.10 /CUMM) 3.40 L 3.33 L Hgb (14.0 - 18.0 G/DL) 10.5 L 10.5 L Hct (42 - 52 %) 31.2 L 30.5 L MCV (80.0 - 94.0 FL) 92.0 91.5 MCH (27.0 - 31.0 PG) 30.8 31.5 H MCHC (33.0 - 37.0 G/DL) 33.5 34.4 RDW (11.5 - 14.5 %) 15.2 H 15.1 H Plt Count (130 - 400 /CUMM) 290 287 MPV (7.4 - 10.4 FL) 7.5 7.6 Gran % (42.2 - 75.2 %) 73.2 78.3 H Lymphocytes % (20.5 - 51.1 %) 16.8 L 15.3 L Monocytes % (1.7 - 9.3 %) 8.8 5.3 Eosinophils % (0 - 5 %) 0.7 0.5 Basophils % (0.0 - 2.0 %) 0.5 0.6 Absolute Granulocytes (1.4 - 6.5 /CUMM) 7.5 H 8.5 H Absolute Lymphocytes (1.2 - 3.4 /CUMM) 1.7 1.7 Absolute Monocytes (0.10 - 0.60 /CUMM) 0.9 H 0.6 Absolute Eosinophils (0.0 - 0.7 /CUMM) 0.1 0.1 Absolute Basophils (0.0 - 0.2 /CUMM) 0.1 0.1 10/07 0400 Chemistry Sodium Cancelled Potassium Cancelled Chloride Cancelled Carbon Dioxide Cancelled Anion Gap Cancelled BUN Cancelled Creatinine Cancelled BUN/Creatinine Ratio Cancelled Hematology CBC w Diff Cancelled WBC Cancelled RBC Cancelled Hgb Cancelled Hct Cancelled MCV Cancelled MCH Cancelled MCHC Cancelled RDW Cancelled Plt Count Cancelled MPV Cancelled Disposition Summary Disposition Principal Diagnosis: E. coli bacteremia Urinary tract infection Septic shock Atrial fibrillation Upper GI bleed Additional Diagnosis: Obstructive sleep apnea Diabetes mellitus Hyperlipidemia Bladder cancer Back pain Discharge Disposition: SNF Discharge Instructions General Discharge Information Code Status: Full Code Patient's Diet: Consistent carbohydrate diet Patient's Activity: As tolerated Follow-Up Instructions/Appts: Please call and make a follow-up with her primary care physician within 1 week after discharge Please call and make a follow-up with your urologist Your anticoagulation is on hold due to GI bleeding you have risk of stroke because of atrial fibrillation however also have risk of bleeding if kept on anticoagulation follow-up with your research agricultural engineer to reassess when appropriate to start anticoagulation. Medications at Discharge Discharge Medications: Stop taking the following medications: Irbesartan (Irbesartan) 300 MG TABLET ORAL DAILY Qty = 30 Bisoprolol Fumarate/Hctz (Bisoprolol-Hctz 10-6.25 MG Tab) 10 MG-6.25 MG TABLET ORAL DAILY Qty = 30 Amlodipine Besylate (Norvasc) 5 MG TABLET ORAL DAILY Qty = 30 Insulin Degludec (Tresiba Flextouch U-100) 100 UNIT/ML (3 ML) INSULN.PEN SC DAILY Qty = 1 Continue taking these medications: Tamsulosin HCl (Flomax) 0.4 MG CAP.ER.24H 1 Capsule ORAL DAILY Qty = 30 Comments: NOT GIVEN IN HOSPITAL Aspirin (Aspirin*) 81 MG TAB.CHEW 1 Tablet ORAL DAILY Qty = 30 Comments: Last Taken: 10/10/17 Time: 0900AM Metformin HCl (Glucophage) 1,000 MG TABLET 1 Tablet ORAL TWICE DAILY Qty = 60 Comments: NOT GIVEN IN HOSPITAL Duloxetine HCl (Cymbalta) 60 MG CAPSULE.DR 1 Capsule ORAL DAILY Qty = 30 Comments: NOT GIVEN IN HOSPITAL Rosuvastatin Calcium (Crestor) 40 MG TABLET 1 Tablet ORAL DAILY Qty = 30 Comments: NOT GIVEN IN HOSPITAL Triamcinolone Acetonide (Triamcinolone Acetonide) 0.025 % CREAM..G. 1 Application On the skin TWICE DAILY as needed for PSORIASIS Qty = 1 Instructions: apply to affected area(s) Comments: NOT GIVEN IN HOSPITAL Clobetasol Propionate (Clobetasol Propionate) 0.05 % OINT...G. 1 Application On the skin TWICE DAILY as needed for PSORIASIS Qty = 1 Instructions: apply to affected area(s) Comments: NOT GIVEN IN HOSPITAL Calcipotriene (Calcipotriene) 0.005 % SOLUTION 1 Application On the skin DAILY as needed for PSORIASIS Qty = 1 Comments: NOT GIVEN IN HOSPITAL Start taking the following new medications: Omeprazole (Omeprazole) 40 MG CAPSULE.DR 1 Capsule ORAL TWICE DAILY Qty = 60 No Refills Insulin Aspart (Novolog) 100 UNIT/ML VIAL 0 Units SC 3 TIMES DAILY BEFORE MEALS Qty = 4 No Refills Instructions: BloodSugar Meal. <80 0 81-150 0 151-200 1 201-250 2 251-300 3 301-350 4 351-400 6 More than 400 8 units Call your doctor Metoprolol Tartrate (Metoprolol Tartrate) 50 MG TABLET 50 Milligram ORAL TWICE DAILY Qty = 60 No Refills Comments: Last Taken: 10/10/17 Time: 0900AM Copies To: Alivia DIXON,Johnna; Cynthia DIXON,Sammi Harding; Queta DIXON,Jayro Cosme; Fabio DIXON, Marcelino Barillas; Fabio DIXON,Clem Chow Attending MD Review Statement Documenting Attending: Shreyas Mahan MD Other Findings: Medically stable for discharge today. Instructions: apply to affected area(s) Clobetasol Propionate (Clobetasol Propionate) 0.05 % OINT...G. 1 Application On the skin TWICE DAILY as needed for PSORIASIS Qty = 1 Instructions: apply to affected area(s) Calcipotriene (Calcipotriene) 0.005 % SOLUTION 1 Application On the skin DAILY as needed for PSORIASIS Qty = 1 Start taking the following new medications: Metoprolol Tartrate (Metoprolol Tartrate) 50 MG TABLET 50 Milligram ORAL TWICE DAILY Qty = 60 No Refills Omeprazole (Omeprazole) 20 MG CAPSULE. 40 Milligram ORAL DAILY Qty = 30 No Refills Copies To: Alivia DIXON,Johnna; Cynthia DIXON,Sammi Harding; Queta DIXON,Jayro Cosme; Fabio DIXON, Marcelino Barillas; Fabio DIXON,Clem Chow
[2017-10-08] MEDS ORDERED: OMEPRAZOLE20 M2 PO (10:31)
[2017-10-08] MEDS ORDERED: METOPROLOL TART50 M1 PO (10:31)
--- NOTE | 2017-10-08 10:35 | Patient Discharge Instructions ---
Discharge Instructions General Discharge Information You were seen/treated for: Septic shock E. coli bacteremia Renal stones Upper GI bleed New onset A. fib Special Instructions: Please call and make a follow-up with grape picker Dr. Castillo 1 week after discharge Please call and make a follow-up with her urologist Dr. Contreras 1 week after discharge Please call and make a follow-up with night clerk auditor within 1 week after discharge (Required rescoping in 2 month to business line controller starting anticoagulation) Acute Coronary Syndrome Inclusion Criteria At DC or during hospital stay patient has or had the following: ACS DIAGNOSIS No Discharge Core Measures Meds if any: Prescribed or Continued at Discharge Meds if any: NOT Prescribed or Continued at Discharge Congestive Heart Failure Inclusion Criteria At DC or during hospital stay patient has or had the following: CHF DIAGNOSIS No Discharge Core Measures Meds if any: Prescribed or Continued at Discharge Meds if any: NOT Prescribed or Continued at Discharge Cerebrovascular accident Inclusion Criteria At DC or during hospital stay patient has or had the following: CVA/TIA Diagnosis No Discharge Core Measures Meds if any: Prescribed or Continued at Discharge Meds if any: NOT Prescribed or Continued at Discharge Venous thromboembolism Inclusion Criteria VTE Diagnosis No VTE Type NONE VTE Confirmed by (Test) NONE Discharge Core Measures - Per Current guidelines, there needs to be overlap - treatment for the first 5 days of Warfarin therapy. - If discharged on Warfarin prior to 5 days of - overlap therapy, the patient will need to be - assessed for post discharge needs including - *Post discharge parental anticoagulation - *Warfarin and/or parental anticoagulation education - *Follow up date to check INR post discharge At least 5 days overlap therapy as Inpatient No Meds if any: Prescribed or Continued at Discharge Note: Overlap Therapy is Warfarin and Anticoagulant Meds if any: NOT Prescribed or Continued at Discharge
--- NOTE | 2017-10-08 12:43 | PN- Cardiology ---
Subjective Subjective: The patient is lying comfortably in bed. Remains in atrial fibrillation with controlled rate. No new cardiac issues noted. Objective Vital Signs and I&Os Vital Signs Date Time Temp Pulse Resp B/P B/P Pulse O2 O2 Flow FiO2 Mean Ox Delivery Rate 10/08 0858 83 140/80 10/08 0800 97 10/08 0605 98.3 114 18 130/80 17 Room Air 10/08 0049 116 97 10/07 2241 98.3 88 18 138/90 97 CPAP 10/07 202 65 97 10/07 2013 Room Air 10/07 2010 102 132/64 10/07 1503 97.8 106 18 109/87 96 Room Air Intake & Output 10/08 1600 10/08 0810/08 0000 10/07 1600 10/07 0810/07 0000 Intake Total 360 180 500 100 200 Output Total 1150 950 583 544 1632 Balance -790 -770 0 -450 -850 Intake, Oral 360 180 500 100 200 Output, Urine 1150 950 693 164 0524 Patient 274 lb Weight Weight Bed scale Measurement Method Physical Exam: General Appearance: alert awake, mild distress Neck: normal inspection, supple, trachea midline, no JVD Respiratory: normal breath sounds, chest non-tender Cardiovascular: irregularly irregular, no audible murmur Gastrointestinal: normal bowel sounds, soft Extremities: mild lower extremity edema, good capillary refill Current Medications: Current Medications Sig/Royce Start time Last Medication Dose Route Stop Time Status Admin Amoxicillin 500 MG Q8 10/06 1400 AC 10/08 PO 10/09 0900 0645 Aspirin Buffered 81 MG DAILY 10/06 899 AC 10/08 PO 0858 Diclofenac Sodium 1 KAYCEE 4 TIMES/DAY PRN 10/05 0045 AC 10/05 TOP 0159 Insulin Aspart 0 TIDAC 10/03 1200 AC 10/08 SC 1232 Magnesium Chloride 64 MG DAILY 10/07 0942 AC 10/08 PO 0858 Metoprolol Tartrate 50 MG BID 10/05 2100 AC 10/08 PO 0858 Omeprazole 40 MG BID 10/06 899 AC 10/08 PO 0856 Potassium Chloride 40 MEQ ONCE ONE 10/07 1300 DC 10/07 PO 10/07 1301 1201 Results Last 48 Hrs of Labs/Mics: Laboratory Tests 10/08/17 0706: Anion Gap 6, Estimated GFR > 60, BUN/Creatinine Ratio 13.8, Magnesium 1.9, CBC w Diff NO MAN DIFF REQ, RBC 3.40 L, MCV 92.0, MCH 30.8, MCHC 33.5, RDW 15.2 H, MPV 7.5, Gran % 73.2, Lymphocytes % 16.8 L, Monocytes % 8.8, Eosinophils % 0.7, Basophils % 0.5, Absolute Granulocytes 7.5 H, Absolute Lymphocytes 1.7, Absolute Monocytes 0.9 H, Absolute Eosinophils 0.1, Absolute Basophils 0.1 10/07/17 0635: Anion Gap 7, Estimated GFR > 60, BUN/Creatinine Ratio 13.8, Magnesium 1.9, CBC w Diff NO MAN DIFF REQ, RBC 3.33 L, MCV 91.5, MCH 31.5 H, MCHC 34.4, RDW 15.1 H , MPV 7.6, Gran % 78.3 H, Lymphocytes % 15.3 L, Monocytes % 5.3, Eosinophils % 0.5, Basophils % 0.6, Absolute Granulocytes 8.5 H, Absolute Lymphocytes 1.7, Absolute Monocytes 0.6, Absolute Eosinophils 0.1, Absolute Basophils 0.1 10/07/17 0400: Sodium Cancelled, Potassium Cancelled, Chloride Cancelled, Carbon Dioxide Cancelled, Anion Gap Cancelled, BUN Cancelled, Creatinine Cancelled, BUN/ Creatinine Ratio Cancelled, CBC w Diff Cancelled, WBC Cancelled, RBC Cancelled, Hgb Cancelled, Hct Cancelled, MCV Cancelled, MCH Cancelled, MCHC Cancelled, RDW Cancelled, Plt Count Cancelled, MPV Cancelled Assessment/Plan Assessment/Plan 1. Persistent atrial fibrillation 2. Acute hypoxic respiratory failure -improved 3. Recent sepsis 4. GI bleeding 5. Low back pain. 6. Severe deconditioning. Recommendations: -Continue on personnel monitor -Continue metoprolol 50 mg twice daily -Anticoagulation on hold -Continue as per the medical team Continue telemetry? Yes
[2017-10-08 14:34] VITALS: BP 136/90
[2017-10-08 20:52] VITALS: BP 118/80
[2017-10-09 06:23] VITALS: BP 130/86
--- NOTE | 2017-10-09 07:42 | PN- Housestaff ---
[facility]: Subjective Follow-up For: New onset A. fib GI bleeding after anticoagulation. Resolved Sepsis due to urological origin. Resolved Deconditioning Tele-Events Since Last Visit: No overnight events. Patient remained in A. fib with heart rate between 80s and 90s. Subjective: No overnight events. Patient remained afebrile. Seen and examined this morning. He denied chest pain, short of breath, palpitation, nausea, vomiting, chill, fever, blood in stool, blood in vomitus, abdominal pain and dysuria. Patient is eating and drinking orally. Patient is waiting for bed placement and STR. Review of Systems Constitutional: Denies: chills, fever. EENTM: Reports: no symptoms. Cardiovascular: Denies: chest pain, palpitations. Respiratory: Denies: cough, short of breath, sputum production. Gastrointestinal: Denies: abdominal pain, constipation, diarrhea, nausea, vomiting. Genitourinary: Reports: no symptoms. Musculoskeletal: Reports: see HPI. Neurological/Psychological: Reports: no symptoms. Objective Last 24 Hrs of Vital Signs/I&O Vital Signs Date Time Temp Pulse Resp B/P B/P Pulse O2 O2 Flow FiO2 Mean Ox Delivery Rate 10/09 0623 97.6 96 18 130/86 97 Room Air 10/09 0050 95 98 10/09 0000 CPAP 10/09 2051 97.7 95 18 118/80 100 / 2028 87 / 1558 Room Air Room Air 10/08 1434 98.1 67 18 136/90 97 Room Air 10/08 0858 83 140/80 Intake & Output 10/09 1600 10/09 0800 10/09 0000 Intake Total 150 150 Output Total 200 Balance -50 150 Intake, Oral 150 150 Output, Urine 200 Patient 273 lb Weight Physical Exam General Appearance: Alert, Oriented X3, Cooperative Skin Temp/Moisture Exam: Warm/Dry Sepsis Skin Exam (color): Normal for Ethnicity HEENT: Atraumatic, PERRLA, EOMI Neck: Supple Cardiovascular: Normal S1, Normal S2 Lungs: Clear to Auscultation Abdomen: Soft, No Tenderness Neurological: Normal Speech, Strength at 5/5 X4 Ext, Normal Tone Extremities: No Edema Assessment/Plan Assessment: 77 YO M with PMH significant for HTN, HLD, morbid obesity, VERONA not on CPAP, DM, psoriasis, nephrolithiasis with h/o lithotripsies, BPH, h/o UTI, and bladder cancer s/p TURBT and receiving intravesicular immunotherapy BCG? managed by Dr. Contreras in [place], completed one cycle in April with a reportedly benign repeat cystoscopy but pending another round of therapy presented with eight weeks of back pain, immobility, and worsening urinary urgency, frequency, and incontinence. In ED patient was found to be in atrial fibrillation and leukocytosis with lactic acidosis, elevated creatinine and his urinalysis was suggestive of infection. Later on patient's urine culture came back positive with gram-negative rods and blood culture came back positive with gram-negative rods. In ED his blood pressure was 80/50 due to septic shock. Peripheral central catheter was placed in right groin and he was started on phenylephrine. Patient was stabilized in ICU, status post stent placement for hydroureteronephrosis and was started on IV antibiotics to control his sepsis. His heart was controlled with metoprolol. After stabilization he was downgraded to telemetry floor on oral anticoagulation for stroke prophylaxis in the setting of A. fib. Patient was again transferred back to ICU after he had melena and was found in hypovolemic shock, responded to IV crystalloids and 4U pRBC blood transfusions. Patient remained hemodynamically stable and his heart rate remained under control with metoprolol. Patient did not have any bloody bowel movement. Later on he was downgraded to telemetry floor. Seeing the patient on telemetry floor for following problems. Hypovolemic shock due to GI bleeding: resolved -Patient had hypovolemic shock due to GI bleeding after starting him on Eliquis and aspirin. -Is anticoagulation is on hold. -Patient received 4 units of blood in ICU and status post endoscopy that showed multiple ulcers in the esophagus and hiatal hernia but there was no active bleeding. -Patient is hemodynamically stable now. Today his blood pressure is 130/86. -Continue omeprazole. New onset A. fib: -Holding his anticoagulation due to recent GI bleeding. -Continue metoprolol 50 mg twice daily. -Follow-up cardiac recommendations. Sepsis due to urological origin status post stent placement: Resolved -Patient's urine culture was positive with E. coli and he was in septic shock initially. Patient received right-sided stent placement. Initially patient was on phenylephrine that was discontinued. Later on patient remained hemodynamically stable. -Initially he was on ceftriaxone later on that was changed to ampicillin 500 mg every 8 hourly. -Completed antibiotic course. -Getting physiotherapy and will be discharged to STR. Acute kidney injury: Resolved -Patient had acute kidney injury that has been resolved. -Today his creatinine is 0.8 and BUN is 13 History of back pain: -His CT scan lower back remained negative for any infectious process. -Patient was getting Aleve, [id number] for his pain in the past. -PT evaluation and possible discharge to STR. History of diabetes: -Continue Accu-Cheks, his blood sugar is 184 this morning -Continue diabetic diet -Continue insulin NovoLog according to sliding scale. History of obstructive sleep apnea: -Patient is noncompliant to CPAP History of bladder cancer status post immunotherapy: -Patient was supposed to get an MRI of bladder as outpatient. While on the floor the patient was seen by urologist Dr. Nur. DVT prophylaxis: Mechanical only due to recent bleeding. CODE STATUS: Full code Problem List: 1. New onset atrial fibrillation Pain Ratin Pain Location: none Pain Goal: Remain pain free Pain Plan: pain pathway Tomorrow's Labs & Rationales: none Consulting Request: Consulting Specialty: Urology Consulting Physician: Dr Nur Reason for Consult: Sepsis of urological origin, renal stones Michele Arrington MD 10/09/17 1258: Attending MD Review Statement Attending Statement Attending MD Statement: examined this patient, discuss w/resident/PA/TIRE SORTER, agreed w/resident/PA/TIRE SORTER, reviewed EMR data (avail), discussed with nursing, amended to note Attending Assessment/Plan: The patient was seen and discussed with house staff. OOB with PT today. Feeling better. Await STR. Continue to hold anticoagulation. Cardiology follow-up appreciated.
[2017-10-09 07:43] LABS: ABSOLUTE BASOPHIL COUNT 0 /CUMM (0.0-0.2); ABSOLUTE EOSINOPHIL COUNT 0.1 /CUMM (0.0-0.7); ABSOLUTE LYMPH COUNT 1.7 /CUMM (1.2-3.4); ABSOLUTE MONOCYTE COUNT 0.9 /CUMM (0.10-0.60); BASOPHIL % 0.5 % (0.0-2.0); EOSINOPHIL % 0.7 % (0-5); GRANULOCYTE % 71.5 % (42.2-75.2); HEMATOCRIT 32.3 % (42-52); MEAN CORPUSCULAR HGB CONC 33.7 G/DL (33.0-37.0); MEAN CORPUSCULAR VOLUME 92.2 FL (80.0-94.0); MEAN PLATELET VOLUME 7.4 FL (7.4-10.4); PLATELET COUNT 317 /CUMM (130-400); RBC DISTRIBUTION WIDTH 15.1 % (11.5-14.5); RED BLOOD CELL CT 3.51 /CUMM (4.70-6.10); WHITE BLOOD CELL COUNT 9.8 /CUMM (4.8-10.8)
--- NOTE | 2017-10-09 11:46 | PN- Cardiology ---
Subjective Subjective: No new changes or issues. Rate remained stable on laboratory monitor Objective Vital Signs and I&Os Vital Signs Date Time Temp Pulse Resp B/P B/P Pulse O2 O2 Flow FiO2 Mean Ox Delivery Rate 10/09 928 96 130/86 10/09 0623 97.6 96 18 130/86 97 Room Air 10/09 0050 95 98 10/09 0000 CPAP 10/09 2051 97.7 95 18 118/80 100 10/088 87 10/08 1558 Room Air Room Air 10/08 1434 98.1 67 18 136/90 97 Room Air Intake & Output 10/09 1600 10/09 0800 10/09 0000 10/08 1600 10/08 0800 10/08 0000 Intake Total 150 150 600 360 180 Output Total 200 1050 1150 950 Balance -50 150 -450 -790 -770 Intake, Oral 150 150 600 360 180 Number 2 Bowel Movements Output, Urine 200 1050 1150 950 Patient 273 lb Weight Physical Exam: General Appearance: alert awake, mild distress Neck: normal inspection, supple, trachea midline, no JVD Respiratory: normal breath sounds, chest non-tender Cardiovascular: irregularly irregular, no audible murmur Gastrointestinal: normal bowel sounds, soft Extremities: mild lower extremity edema, good capillary refill Current Medications: Current Medications Sig/Royce Start time Last Medication Dose Route Stop Time Status Admin Amoxicillin 500 MG Q8 10/06 1400 DC 10/09 PO 10/09 0900 0520 Aspirin Buffered 81 MG DAILY 10/06 09 AC 10/09 PO 928 Diclofenac Sodium 1 KAYCEE 4 TIMES/DAY PRN 10/05 0045 AC 10/05 TOP 0159 Insulin Aspart 0 TIDAC 10/03 1200 AC 10/09 OK 0928 Magnesium Chloride 64 MG DAILY 10/07 0942 AC 10/09 PO 0929 Metoprolol Tartrate 50 MG BID 10/05 2100 AC 10/09 PO 0929 Omeprazole 40 MG BID 10/06 09 AC 10/09 PO 09 Results Last 48 Hrs of Labs/Mics: Laboratory Tests 10/09/17 0656: Anion Gap 10, Estimated GFR > 60, BUN/Creatinine Ratio 16.3, CBC w Diff NO MAN DIFF REQ, RBC 3.51 L, MCV 92.2, MCH 31.0, MCHC 33.7, RDW 15.1 H, MPV 7.4, Gran % 71.5, Lymphocytes % 17.7 L, Monocytes % 9.6 H, Eosinophils % 0.7, Basophils % 0.5, Absolute Granulocytes 7.0 H, Absolute Lymphocytes 1.7, Absolute Monocytes 0.9 H, Absolute Eosinophils 0.1, Absolute Basophils 0 10/08/17 0706: Anion Gap 6, Estimated GFR > 60, BUN/Creatinine Ratio 13.8, Magnesium 1.9, CBC w Diff NO MAN DIFF REQ, RBC 3.40 L, MCV 92.0, MCH 30.8, MCHC 33.5, RDW 15.2 H, MPV 7.5, Gran % 73.2, Lymphocytes % 16.8 L, Monocytes % 8.8, Eosinophils % 0.7, Basophils % 0.5, Absolute Granulocytes 7.5 H, Absolute Lymphocytes 1.7, Absolute Monocytes 0.9 H, Absolute Eosinophils 0.1, Absolute Basophils 0.1 Assessment/Plan Assessment/Plan Assessment: 1. Persistent atrial fibrillation 2. Acute hypoxic respiratory failure -improved 3. Recent sepsis 4. GI bleeding 5. Low back pain. 6. Severe deconditioning. Recommendations: -Continue on laboratory monitor -Continue metoprolol 50 mg twice daily -Anticoagulation on hold -Continue as per the medical team Continue telemetry? Yes
--- NOTE | 2017-10-09 12:00 | PN- Pulmonary ---
Subjective HPI/Critical Care Issues: The patient is awake and alert. He reports feeling improved overall. He slept with his mask on overnight however the patient feels that he is having difficulty adjusting to the mask and has some reservations about it. He denies any shortness of breath, chest congestion, sputum production, fever or chills. There were no overnight events reported. Objective Current Medications: Current Medications Sig/Royce Start time Last Medication Dose Route Stop Time Status Admin Amoxicillin 500 MG Q8 10/06 1400 DC 10/09 PO 10/09 0900 0520 Aspirin Buffered 81 MG DAILY 10/06 09 AC 10/09 PO 09 Diclofenac Sodium 1 KAYCEE 4 TIMES/DAY PRN 10/05 0045 AC 10/05 TOP 0159 Insulin Aspart 0 TIDAC 10/03 1200 AC 10/09 SC 0928 Magnesium Chloride 64 MG DAILY 10/07 0942 AC 10/09 PO 09 Metoprolol Tartrate 50 MG BID 10/05 2100 AC 10/09 PO 09 Omeprazole 40 MG BID 10/06 899 AC 10/09 PO 0929 Vital Signs & I&O Last 24 Hrs of Vitals and I&O: Vital Signs Date Time Temp Pulse Resp B/P B/P Pulse O2 O2 Flow FiO2 Mean Ox Delivery Rate 10/09 928 96 130/86 10/09 0623 97.6 96 18 130/86 97 Room Air 10/09 0050 95 98 10/09 0000 CPAP 10/09 2051 97.7 95 18 118/80 100 10/08 2028 87 / 1558 Room Air Room Air 10/08 1434 98.1 67 18 136/90 97 Room Air Intake & Output 10/09 1600 10/09 0800 10/09 0000 Intake Total 150 150 Output Total 200 Balance -50 150 Intake, Oral 150 150 Output, Urine 200 Patient 273 lb Weight Exam General Appearance: no apparent distress, alert, awake, comfortable Head: atraumatic Neck: supple Respiratory: no respiratory distress, lungs clear Cardiovascular: S1 and S2 +, distant Abdomen: normal bowel sounds, soft, non-tender Skin: intact, warm/dry Impression/Plan Impression/Plan Impression/Plan: 1. GI bleed stabilized - ulcerative esophagitis, hiatal hernia ulcers, duodenal ulcers in setting of Eliquis for a.fib and aspirin. 2. Sepsis of urological origin - improved. 3. New onset atrial fibrillation with a rapid ventricular response. 4. History of bladder cancer. 5. History of VERONA - declined therapy previously, will re-address on an outpatient basis. 6. Chronic back pain. Recommendations: * Again, patient instructed, counseled and educated on appropriate positive pressure mask use, sleep hygiene and the importance of usage to avoid cardiovascular risk factors. * He will benefit from an outpatient sleep evaluation and testing after discharge. * Monitor fevers, wbc count. * Antibiotic course completed. * Monitor hemodynamics. Continue with rate control. * Anti-coagulation held due to GI bleed. * Continue all supportive care.
[2017-10-09 14:18] VITALS: BP 118/80
[2017-10-09 22:04] VITALS: BP 138/64
[2017-10-10 06:46] VITALS: BP 116/70
--- NOTE | 2017-10-10 07:30 | PN- Housestaff ---
[facility] Subjective Follow-up For: New onset A. fib GI bleeding after anticoagulation. Resolved Sepsis due to urological origin. Resolved Deconditioning Tele-Events Since Last Visit: Remained in A. fib/atrial flutter with heart rate between 7284 Subjective: No overnight events. Patient remained afebrile. Seen and examined this morning. Patient denied chest pain, palpitation, nausea, vomiting, chill, fever , abdominal pain dysuria. He used CPAP last night for couple of hours. Patient reported that CPAP mask was bothering him and then he discontinued CPAP. Pulmonology recommended outpatient sleep evaluation. Patient is waiting for bed placement in [facility] [place]. Review of Systems Constitutional: Denies: chills, fever. EENTM: Reports: no symptoms. Cardiovascular: Denies: chest pain, palpitations. Respiratory: Denies: cough, short of breath, sputum production. Gastrointestinal: Denies: abdominal pain, diarrhea, nausea, vomiting. Genitourinary: Reports: no symptoms. Musculoskeletal: Reports: see HPI. Neurological/Psychological: Reports: no symptoms. Objective Last 24 Hrs of Vital Signs/I&O Vital Signs Date Time Temp Pulse Resp B/P B/P Pulse O2 O2 Flow FiO2 Mean Ox Delivery Rate 10/10 0646 98.2 88 18 116/70 95 Room Air 10/09 2204 98.7 82 18 138/64 97 Room Air 10/09 2200 Room Air 10/09 2140 91 97 10/09 2038 78 138/64 10/09 1418 98.1 86 18 118/80 96 Room Air 10/09 0929 96 130/86 10/09 0800 Room Air Intake & Output 10/10 0800 10/10 0000 10/09 1600 Intake Total 120 240 700 Output Total 1650 500 950 Balance -1530 -260 -250 Intake, Oral 120 240 700 Number 0 Bowel Movements Output, Urine 1650 500 950 Patient 272 lb Weight Physical Exam General Appearance: Alert, Oriented X3, Cooperative Skin Temp/Moisture Exam: Warm/Dry Sepsis Skin Exam (color): Normal for Ethnicity HEENT: Atraumatic, PERRLA, EOMI Neck: Supple Cardiovascular: Normal S1, Normal S2 Lungs: Clear to Auscultation Abdomen: Soft, No Tenderness Neurological: Normal Speech, Strength at 5/5 X4 Ext, Normal Tone Extremities: No Edema Assessment/Plan Assessment: 77 YO M with PMH significant for HTN, HLD, morbid obesity, VERONA not on CPAP, DM, psoriasis, nephrolithiasis with h/o lithotripsies, BPH, h/o UTI, and bladder cancer s/p TURBT and receiving intravesicular immunotherapy BCG? managed by Dr. Contreras in [place], completed one cycle in April with a reportedly benign repeat cystoscopy but pending another round of therapy presented with eight weeks of back pain, immobility, and worsening urinary urgency, frequency, and incontinence. In ED patient was found to be in atrial fibrillation and leukocytosis with lactic acidosis, elevated creatinine and his urinalysis was suggestive of infection. Later on patient's urine culture came back positive with gram-negative rods and blood culture came back positive with gram-negative rods. In ED his blood pressure was 80/50 due to septic shock. Peripheral central catheter was placed in right groin and he was started on phenylephrine. Patient was stabilized in ICU, status post stent placement for hydroureteronephrosis and was started on IV antibiotics to control his sepsis. His heart was controlled with metoprolol. After stabilization he was downgraded to telemetry floor on oral anticoagulation for stroke prophylaxis in the setting of A. fib. Patient was again transferred back to ICU after he had melena and was found in hypovolemic shock, responded to IV crystalloids and 4U pRBC blood transfusions. Patient remained hemodynamically stable and his heart rate remained under control with metoprolol. Patient did not have any bloody bowel movement. Later on he was downgraded to telemetry floor. Seeing the patient on telemetry floor for following problems. Hypovolemic shock due to GI bleeding: resolved -Patient had hypovolemic shock due to GI bleeding after starting him on Eliquis and aspirin. -Is anticoagulation is on hold. -Patient received 4 units of blood in ICU and status post endoscopy that showed multiple ulcers in the esophagus and hiatal hernia but there was no active bleeding. -Patient is hemodynamically stable now. Today his blood pressure is 116/70. -Continue omeprazole. New onset A. fib: -Holding his anticoagulation due to recent GI bleeding. -Continue metoprolol 50 mg twice daily. -Follow-up cardiac recommendations. Sepsis due to urological origin status post stent placement: Resolved -Patient's urine culture was positive with E. coli and he was in septic shock initially. Patient received right-sided stent placement. Initially patient was on phenylephrine that was discontinued. Later on patient remained hemodynamically stable. -Initially he was on ceftriaxone later on that was changed to ampicillin 500 mg every 8 hourly. -Completed antibiotic course. -Getting physiotherapy and will be discharged to [facility] [place]. Acute kidney injury: Resolved -Patient had acute kidney injury that has been resolved. -Today his creatinine is 0.8 and BUN is 13 History of back pain: -His CT scan lower back remained negative for any infectious process. -Patient was getting Aleve, [id number] for his pain in the past. -PT evaluation and possible discharge to [facility] [place]. History of hypertension: -Holding his home meds including bisoprolol/HCTZ, irbesartan and amlodipine. We will keep holding his home meds as his blood pressure is within normal limits. -Continue metoprolol History of diabetes: -Continue Accu-Cheks, his blood sugar is 184 this morning -Continue diabetic diet -Continue insulin NovoLog according to sliding scale. History of obstructive sleep apnea: -Patient is noncompliant to CPAP -Pulmonology recommended outpatient sleep evaluation. History of bladder cancer status post immunotherapy: -Patient was supposed to get an MRI of bladder as outpatient. While on the floor the patient was seen by urologist Dr. Nur. DVT prophylaxis: Mechanical only due to recent bleeding. CODE STATUS: Full code Problem List: 1. New onset atrial fibrillation Pain Ratin Pain Location: NONE Pain Goal: Remain pain free Pain Plan: PAIN PATHWAY Tomorrow's Labs & Rationales: NONE Consulting Request: Consulting Specialty: Urology Consulting Physician: Dr Nur Reason for Consult: Sepsis of urological origin, renal stones Kalli DIXON,[facility] 10/10/17 1133: Attending MD Review Statement Attending Statement Attending MD Statement: examined this patient, discuss w/resident/PA/ROLLER SHOP UTILITY WORKER, agreed w/resident/PA/ROLLER SHOP UTILITY WORKER, discussed with family, reviewed EMR data (avail), discussed with nursing, discussed with case mgmt, amended to note Attending Assessment/Plan: Patient seen and examined. And comfortably in bed and not in any acute distress. Alert and oriented 3. Conversant appropriately. Denies pain. Denies difficulty breathing. Family present at the bedside. Medical record was reviewed and case discussed with mortgage loan computation clerk Dr. Lee was following him in the ICU. Recommendations: -Patient is to follow-up with his urologist as an outpatient. He states that he would like to switch his care to Dr. Boom has been advised to follow first with his own urologist regarding immunotherapy for his bladder cancer. -Patient is to follow-up with the gastroenterology service as an outpatient. He will be discharged on PPI therapy twice daily. In 2 months he is to have repeat endoscopy and decision about restarting anticoagulation therapy will be made at that time. -He is to continue CPAP therapy at nighttime as recommended by his sheather. -According to family he is noncompliant with insulin therapy at home. The report that his insulin pens have much in position in several months. Glucose levels have been acceptably here simply with diet control and sliding scale coverage. We will discharge him to continue his oral hypoglycemic regimen and low-dose sliding scale coverage. We will not be resuming his long-acting insulin as he has not required this here in the hospital. He will be provided referral to endocrinology service upon discharge. -His blood pressure has been well controlled with metoprolol only here. At home he was on full blood pressure medications. I have explained to the family that his blood pressure will need to be monitored closely in the future to determine if there is a need to restart his other medications. For now he will continue on metoprolol alone. -He is medically stable to be discharged today.
[2017-10-10 08:02] LABS: ABSOLUTE BASOPHIL COUNT 0.1 /CUMM (0.0-0.2); ABSOLUTE EOSINOPHIL COUNT 0.1 /CUMM (0.0-0.7); ABSOLUTE GRANULOCYTE CT 6.9 /CUMM (1.4-6.5); ABSOLUTE LYMPH COUNT 1.6 /CUMM (1.2-3.4); ABSOLUTE MONOCYTE COUNT 0.8 /CUMM (0.10-0.60); BASOPHIL % 0.8 % (0.0-2.0); EOSINOPHIL % 1.2 % (0-5); GRANULOCYTE % 72.5 % (42.2-75.2); MEAN CORPUSCULAR HGB 30.7 PG (27.0-31.0); MEAN CORPUSCULAR HGB CONC 33.3 G/DL (33.0-37.0); MEAN CORPUSCULAR VOLUME 92.2 FL (80.0-94.0); MEAN PLATELET VOLUME 7.8 FL (7.4-10.4); PLATELET COUNT 302 /CUMM (130-400); RBC DISTRIBUTION WIDTH 15.1 % (11.5-14.5); RED BLOOD CELL CT 3.47 /CUMM (4.70-6.10); WHITE BLOOD CELL COUNT 9.4 /CUMM (4.8-10.8)
[2017-10-10 09:17] VITALS: BP 118/78
--- NOTE | 2017-10-10 09:28 | PN- Cardiology ---
Subjective Subjective: Patient is feeling well. He remains in atrial fibrillation with a controlled rate. He is waiting for a short-term rehab bed, possibly today. He is back on 81 mg coated aspirin and tolerating well. Objective Vital Signs and I&Os Vital Signs Date Time Temp Pulse Resp B/P B/P Pulse O2 O2 Flow FiO2 Mean Ox Delivery Rate 10/10 916 98.2 86 18 118/78 10/10 0843 86 118/78 10/10 0836 95 Room Air 10/10 0646 98.2 88 18 116/70 95 Room Air 10/09 2204 98.7 82 18 138/64 97 Room Air 10/09 2200 Room Air 10/09 2140 91 97 10/09 2038 78 138/64 10/09 1418 98.1 86 18 118/80 96 Room Air 10/09 0929 96 130/86 Intake & Output 10/10 1600 10/10 0800 10/10 0000 10/09 1600 10/09 0800 10/09 0000 Intake Total 120 240 700 150 150 Output Total 1650 500 950 200 Balance -1530 -260 -250 -50 150 Intake, Oral 120 240 700 150 150 Number 0 Bowel Movements Output, Urine 1650 500 950 200 Patient 272 lb 273 lb Weight Physical Exam: No distress Heart irregular, normal rate Assessment/Plan Assessment/Plan The patient is stable from cardiac standpoint. His rate is well controlled. He is on only aspirin for now. We will have to reassess him for full anticoagulation when his GI issues are resolved. Hopefully that will be very soon. I will see him in the office in 1 or 2 weeks. Telemetry can be discontinued at this time if he is not discharged. Continue telemetry? No
--- NOTE | 2017-10-10 10:24 | PN- Pulmonary ---
Subjective HPI/Critical Care Issues: pt seen and examined awaiting rehab/STR doing well used CPAP sporadically, felt claustrophobic no n/v/d/c no cp no cage Objective Current Medications: Current Medications Sig/Royce Start time Last Medication Dose Route Stop Time Status Admin Aspirin Buffered 81 MG DAILY 10/06 899 AC 10/10 PO 0843 Diclofenac Sodium 1 KAYCEE 4 TIMES/DAY PRN 10/05 0045 AC 10/05 TOP 0159 Insulin Aspart 0 TIDAC 10/03 1200 AC 10/10 SC 0844 Magnesium Chloride 64 MG DAILY 10/07 0942 AC 10/10 PO 0843 Metoprolol Tartrate 50 MG BID 10/05 2100 AC 10/10 PO 0843 Omeprazole 40 MG BID 10/06 09 AC 10/10 PO 0843 Vital Signs & I&O Last 24 Hrs of Vitals and I&O: Vital Signs Date Time Temp Pulse Resp B/P B/P Pulse O2 O2 Flow FiO2 Mean Ox Delivery Rate 10/10 916 98.2 86 18 118/78 10/10 0843 86 118/78 10/10 0836 95 Room Air 10/10 0646 98.2 88 18 116/70 95 Room Air 10/09 2204 98.7 82 18 138/64 97 Room Air 10/09 2200 Room Air 10/09 2140 91 97 10/09 2038 78 138/64 10/09 1418 98.1 86 18 118/80 96 Room Air Intake & Output 10/10 1600 04 0800 10/10 0000 Intake Total 120 240 Output Total 1650 500 Balance -1530 -260 Intake, Oral 120 240 Number 0 Bowel Movements Output, Urine 1650 500 Patient 272 lb Weight Exam Other Physical Findings: gen-aaox3 heent-room air cvs-s1,s2 lungs-ctab abd-soft,bs+ ext-without edema Results Last 24 Hrs of Lab Results: Laboratory Tests 10/10/17 0617: Anion Gap 7, Estimated GFR > 60, BUN/Creatinine Ratio 16.3, CBC w Diff NO MAN DIFF REQ, RBC 3.47 L, MCV 92.2, MCH 30.7, MCHC 33.3, RDW 15.1 H, MPV 7.8, Gran % 72.5, Lymphocytes % 17.1 L, Monocytes % 8.4, Eosinophils % 1.2, Basophils % 0.8, Absolute Granulocytes 6.9 H, Absolute Lymphocytes 1.6, Absolute Monocytes 0.8 H, Absolute Eosinophils 0.1, Absolute Basophils 0.1 Impression/Plan Impression/Plan Impression/Plan: Impression 77 year old man * GI bleed stabilized - ulcerative esophagitis, hiatal hernia ulcers, duodenal ulcers in setting of Eliquis for a.fib and aspirin * previously presented with septic shock of urological origin - pansensitive E.Coli - etiology secondary to nephrolithiasis and hydronephrosis - growing E.Coli in blood and GNR in urine * new onset atrial fibrillation with a rapid ventricular response * history of bladder cancer * history of VERONA - declined therapy previously, will re-address on an outpatient basis * back pain Plan -f/u with myself for ongoing VERONA management -ensure that patient is sent to rehab with orders of CPAP as ordered at the hospital -f/u urology - seens Dr. Sammi Contreras of [facility] - ensure discharge summaries are sent -will need ureteral stent revision and lithotripsy and f/u imaging for bladder ca as outpatient -patient instructed, counseled and educated on appropriate positive pressure mask use, sleep hygiene and the importance of usage to avoid cardiovascular risk factors -E.coi was pansensitive - s/p amoxicillin -f/u cardiology/GI -a/c held given GI bleed DVT prophylaxis at all times
[2017-10-10] MEDS ORDERED: NOVOLOG100 UNIT/2 SC ×3 (10:43→11:51)
[2017-10-10] MEDS ORDERED: OMEPRAZOLE20 M2 PO (10:57)
[2017-10-10] MEDS ORDERED: OMEPRAZOLE40 M1 PO ×2 (10:59→11:00)
== END 2017-10-10 13:35 | DRG 871 ==
LOC: ERH 21:23 → ERHI 23:16 → CRI 23:16 → EDBEDREQ 09-26 09:49 → ERHI 09-26 09:57 → ENRESERV 09-26 10:20 → ENTRNSPT 09-26 10:34 → EDTRNSPTSTS 09-26 10:36 → EDTRNSPT 09-26 10:36 → ERHI 09-26 12:22 → CMPTRNSPT 09-26 12:30 → CRI 09-26 12:34 → ENTRNSPT 09-29 14:36 → EDTRNSPTSTS 09-29 14:46 → EDTRNSPT 09-29 14:46 → CMPTRNSPT 09-29 14:54 → 1NO 09-29 15:06 → CRI 10-02 05:14 → DELTRNSPT 10-06 15:57 → ENTRNSPT 10-06 15:59 → EDTRNSPTSTS 10-06 16:12 → EDTRNSPT 10-06 16:12 → 1NO 10-06 16:26 → CMPTRNSPT 10-06 16:30 → 1NO 10-07 12:53 → ENPENDDIS 10-10 11:36 → 1NO 10-10 13:35
PROVIDERS: Internal Medicine; Internal Medicine Adolescent Medicine; Internal Medicine Critical Care Medicine; Internal Medicine Interventional Cardiology; Internal Medicine Pulmonary Disease; Physical Medicine & Rehabilitation; Preventive Medicine Public Health & General Preventive Medicine; Student in an Organized Health Care Education/Training Program
PROC: 0T768DZ Dilation of Right Ureter with Intraluminal Device, Via Natural or Artificial Opening Endoscopic (ICD-10-PCS; principal; 2017-09-26)
PROC: 05HY33Z Insertion of Infusion Device into Upper Vein, Percutaneous Approach (ICD-10-PCS; 2017-09-26)
PROC: 5A09557 Assistance with Respiratory Ventilation, Greater than 96 Consecutive Hours, Continuous Positive Airway Pressure (ICD-10-PCS; 2017-09-30)
PROC: 0DJ08ZZ Inspection of Upper Intestinal Tract, Via Natural or Artificial Opening Endoscopic (ICD-10-PCS; 2017-10-02)
PROC: 30233N1 Transfusion of Nonautologous Red Blood Cells into Peripheral Vein, Percutaneous Approach (ICD-10-PCS; 2017-10-02)
DX: A41.51 Sepsis due to Escherichia coli [E. coli] (principal); R65.21 Severe sepsis with septic shock; J81.0 Acute pulmonary edema; J96.01 Acute respiratory failure with hypoxia; N39.0 Urinary tract infection, site not specified; N17.9 Acute kidney failure, unspecified; N13.6 Pyonephrosis; E87.2 Acidosis; I48.1 Persistent atrial fibrillation; D62 Acute posthemorrhagic anemia; I48.92 Unspecified atrial flutter; I10 Essential (primary) hypertension; E78.5 Hyperlipidemia, unspecified; Z68.36 Body mass index [BMI] 36.0-36.9, adult; C67.9 Malignant neoplasm of bladder, unspecified; I95.9 Hypotension, unspecified; N40.0 Benign prostatic hyperplasia without lower urinary tract symptoms; G47.33 Obstructive sleep apnea (adult) (pediatric); W19.XXXD Unspecified fall, subsequent encounter; L40.9 Psoriasis, unspecified; E11.9 Type 2 diabetes mellitus without complications; Z79.84 Long term (current) use of oral hypoglycemic drugs; E87.6 Hypokalemia; E66.01 Morbid (severe) obesity due to excess calories; Z92.21 Personal history of antineoplastic chemotherapy; Z87.891 Personal history of nicotine dependence; K26.9 Duodenal ulcer, unspecified as acute or chronic, without hemorrhage or perforation
CPT/HCPCS: 1NSP; CCU; ERO; 36415; 36592; 71045; 74018; 74176; 76000; 81001; 82436; 86920; 87015; 87040; 87045; 87070; 87086; 87899; 87899-59; 93005; 93010; 93306; 93970; 96361; 96374; 96375; 97110-GO; 97116-GO; 97161-GP; 97164-GP; 97530-GO; 99291; C2617; J0131; J0290; J0696; J1160; J1200; J1644; J1815; J1940; J3490; J7042; J7060; P9016

== ENCOUNTER 2017-10-18 19:16 | Observation (INO) | payer OTHER, MEDICARE ==
[~2017-10-18] VITALS: Ht 180.3 cm; Wt 114.0 kg
[~2017-10-18 19:16] MED LIST: ASPIRIN81 M4 PO; BISOPROLOL-HCT1 EAC2 PO; CALCIPOTRIENE60 ML TOP; CLOBETASOL PROP15 G1 TOP; CRESTOR40 M2 PO; CYMBALTA60 M1 PO; FLOMAX0.4 M1 PO; GLUCOPHAGE1000 M1 PO; IRBESARTAN300 M1 PO; METOPROLOL TART50 M1 PO; NORVASC5 M1 PO; NOVOLOG100 UNIT/2 SC; OMEPRAZOLE20 M2 PO; OMEPRAZOLE40 M1 PO; TRESIBA FL100 UNIT/1 SC; TRIAMCINOLONE A15 GM TOP
--- NOTE | 2017-10-18 19:40 | ED GI/GU/ABDOMINAL COMPLAINT ---
History of Present Illness General Chief Complaint: Male Genitourinary Problems Stated Complaint: BIBA URINARY SYMPTOMS/BLOOD IN URINE Source: patient, family, old records Exam Limitations: no limitations Vital Signs & Intake/Output Vital Signs & Intake/Output Vital Signs Date Time Temp Pulse Resp B/P B/P Pulse O2 O2 Flow FiO2 Mean Ox Delivery Rate 10/19 0218 99.1 110 20 116/88 95 Room Air 10/19 0046 98.9 100 20 128/87 94 Room Air 10/18 2217 99.2 102 20 118/55 94 Room Air 10/18 1927 98.2 106 20 117/78 95 Room Air ED Intake and Output 10/19 0000 10/18 1200 Intake Total Output Total Balance Patient 275 lb Weight Weight Estimated Measurement Method Allergies Coded Allergies: No Known Allergies (09/25/17) Reconcile Medications Aspirin (Aspirin*) 81 MG TAB.CHEW 1 TAB PO DAILY HEART (Reported) Calcipotriene 0.005 % SOLUTION 1 KAYCEE TOP DAILY PRN PSORIASIS (Reported) Ciprofloxacin HCl (Cipro) 500 MG TABLET 1 TAB PO BID ABX (Reported) Clobetasol Propionate 0.05 % OINT...G. 1 KAYCEE TOP BID PRN PSORIASIS (Reported) apply to affected area(s) Duloxetine HCl (Cymbalta) 60 MG CAPSULE. 1 CAP PO DAILY NEUROPATHY ( Reported) Insulin Aspart (Novolog) 100 UNIT/ML VIAL 0 UNITS SC TIDAC DIABETES MELLITUS BloodSugar Meal. <80 0 81-150 0 151-200 1 201-250 2 251-300 3 301-350 4 351-400 6 More than 400 8 units Call your doctor Metformin HCl (Glucophage) 1,000 MG TABLET 1 TAB PO BID DM (Reported) Metoprolol Tartrate 50 MG TABLET 50 MG PO BID AFIB Omeprazole 40 MG CAPSULE. 1 CAP PO BID GERD Rosuvastatin Calcium (Crestor) 40 MG TABLET 1 TAB PO QHS CAD (Reported) Tamsulosin HCl (Flomax) 0.4 MG CAP.ER.24H 1 CAP PO DAILY BPH (Reported) Triamcinolone Acetonide 0.025 % CREAM..G. 1 KAYCEE TOP BID PRN PSORIASIS ( Reported) apply to affected area(s) Triage Note: BIBA FROM [facility], PATIENT ARRIVES WITH RECENT DISCHARGE FROM ICU. PATIENT HAS URINARY SYMPTOMS, HEMATURIA AND INCREASE IN URINATION, BEING SEEN BY DR. NUR WITH RECENT STENT PLACEMENT FOR KIDNEY STONE. PATIENT HAS HAD AN INCREASE IN TEMPERATURE ON/OFF PER FACILITY. PATIENT SENT TO R/O UROSEPSIS. PATIENT REPORTS ABDOMINAL PAIN, LOW BACK PAIN AND INTERMITTENT CHEST PAIN. SKIN PALE AND WARM. Triage Nurses Notes Reviewed? yes Onset: Gradual Duration: hour(s): Timing: single episode today Quality/Severity: moderate HPI: 77yo male with hx of afib, nephrolithiasis, urosepsis, HTN, DM, bladder CA BIBA from rehab for urinary frequency and odor. Patient also reports right flank pain and suprapubic abdominal pain. Patient is in rehabilitation following recent urosepsis and following right uretostent placement by Dr. Nur. Patient is scheduled to have lithrotripsy performed later this month. Today patient had fever of 100.4, medicated with Tylenol and fever was reduced. Given his urinary symptoms a UA was obtained at rehabilitation which was positive for UTI and patient was brought here to the hospital. Patient's son and daughter are present to believe the patient is acting slightly confused and his speech is slightly slurred. Patient and family both report that he is more fatigued today. In route to hospital patient reports substernal chest pain which he states was related to the "bumpy ride". (Jo BENEDICT,Radha Mansfield) Past History Travel History Traveled to [place] past 21 day No Medical History Any Pertinent Medical History? see below for history Neurological: NONE EENT: NONE Cardiovascular: hypertension, hyperlipidemia Respiratory: obstructive sleep apnea Gastrointestinal: NONE Hepatic: NONE Renal: benign prost hyperplasia, nephrolithiasis Musculoskeletal: degen joint disease, PSORIASIS Psychiatric: NONE Endocrine: diabetes Blood Disorders: NONE Cancer(s): bladder cancer History of MRSA: No History of VRE: No History of CDIFF: No Surgical History Surgical History: N Psychosocial History Who do you live with Patient/Self Services at Home None What is your primary language [place] Tobacco Use: Quit >30 days ago ETOH Use: denies use Illicit Drug Use: denies illicit drug use Family History Family History, If Any: Relation not specified for: *No pertinent family history Hx Contributory? No (Radha Suh) Review of Systems Review of Systems Constitutional: Reports: see HPI. EENTM: Reports: no symptoms. Respiratory: Reports: no symptoms. Cardiovascular: Reports: see HPI. GI: Reports: see HPI. Genitourinary: Reports: see HPI. Musculoskeletal: Reports: no symptoms. Skin: Reports: no symptoms. Neurological/Psychological: Reports: see HPI. Hematologic/Endocrine: Reports: no symptoms. Immunologic/Allergic: Reports: no symptoms. All Other Systems: Reviewed and Negative (Jo BENEDICT,Radha Mansfield) Physical Exam Physical Exam General Appearance: well developed/nourished, no apparent distress, alert, awake Head: atraumatic, normal appearance Eyes: Bilateral: normal appearance, PERRL, EOMI. Ears, Nose, Throat, Mouth: hearing grossly normal, moist mucous membrane Neck: normal inspection, supple, full range of motion Respiratory: normal breath sounds, no respiratory distress, lungs clear Cardiovascular: normal peripheral pulses, irregularly irregular Peripheral Pulses: 2+ radial (R), 2+ radial (L) Gastrointestinal: normal bowel sounds, soft, no organomegaly, suprapubic, RUQ, RLQ tenderness Back: normal inspection, normal range of motion, right sided flank pain without CVA tenderness Extremities: normal range of motion Neurologic/Psych: no motor/sensory deficits, awake, alert, oriented x 3, 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 Yes Sepsis Present: No Sepsis Focused Exam Completed? No (Jo BENEDICT,Radha Mansfield) Progress Differential Diagnosis: AMI, appendicitis, bowel obstruction, colon cancer, diverticulitis, gastritis, hernia, pyelonephritis, SBO, ureterolithiasis, urinary retention, urethritis, UTI/pyelo Plan of Care: Orders Procedure Date/time Status Consistent Carbohydrate 3 10/19 B Active CBC WITHOUT DIFFERENTIAL 10/19 06 Active BASIC ELECTROLYTES PLUS BUN&CR 10/19 06 Active Vital Signs 10/19 030 Active Teach/Educate 10/19 030 Active Pain Treatment and Response 10/19 030 Active Nutritional Intake, Monitor 10/19 030 Active Isolation 10/19 030 Active Intake & Output 10/19 030 Active Patient Care Conference 10/19 030 Active Activity/Ambulation 10/19 030 Active CONTIN. POSITIVE AIRWAY PRESS 10/19 0159 Active PT Evaluate & Treat 10/19 148 Active Saline Lock 10/19 148 Active Pathway - chart 10/19 148 Active House Staff 10/19 148 Active Code Status 09/13 0149 Active Patient Data 10/19 0035 Active OXYGEN SETUP (GEN) 10/20 7 Active Saline Lock 10/[address] in observation 10/20 7 Active Vital Signs 10/20 7 Active Activity/Ambulation 10/20 7 Active Code Status 10/19 000 Complete VTE Mechanical Prophylaxis 10/19 UNK Active Vital Signs 10/19 UNK Complete Heat/Cold Therapy 10/19 UNK Active FingerStick- Glucose 10/19 UNK Active Activity/Ambulation 10/19 UNK Complete Add-on Test (ER Only) 10/19 2107 Active Intake & Output 10/18 2053 Active TROPONIN LEVEL 10/18 2049 Complete CULTURE,URINE 10/18 2024 Active BLOOD CULTURE 10/19 2023 Active LACTIC ACID 10/19 2023 Complete COMPREHENSIVE METABOLIC PANEL 10/19 2023 Complete CBC WITHOUT DIFFERENTIAL 10/19 2023 Complete URINALYSIS 10/18 193 Complete EKG 10/18 191 Active Current Medications Sig/Royce Start time Last Medication Dose Stop Time Status Admin Atorvastatin Calcium 80 MG 1700 10/19 1700 AC (Lipitor) Aspirin 81 MG DAILY 10/19 0900 AC (Aspirin) Ceftriaxone Sodium 1,000 MG DAILY 10/19 0900 AC (Rocephin) Duloxetine HCl 60 MG DAILY 10/19 09 AC (Cymbalta) Tamsulosin HCl 0.4 MG DAILY 10/19 09 AC (Flomax) Insulin Aspart 0 TIDAC 10/19 0800 AC (NovoLOG) Omeprazole 40 MG DAILY AC 10/19 0700 AC (Prilosec) Metoprolol Tartrate 50 MG BID 10/19 0301 AC (Lopressor) Acetaminophen 650 MG Q6P PRN 10/19 0200 AC (Tylenol) Acetaminophen 1,000 MG Q6P PRN 10/19 0200 AC (Ofirmev) Lidocaine 1 PAT Q24H PRN 10/19 0200 AC (Lidoderm) Polyethylene Glycol 17 GM AT BEDTIME PRN 10/19 0200 AC (Miralax) Senna/Docusate Sodium 2 TAB AT BEDTIME PRN 10/19 0200 AC (Senokot S) Sodium Chloride 1,000 ML .Q8H 10/19 0145 AC 10/19 (Normal Saline 0.9%) 0241 Laboratory Tests 10/18/17 2324: Lactic Acid Cancelled 10/18/172049: Anion Gap 10, Estimated GFR > 60, BUN/Creatinine Ratio 15.0, Glucose 122 H, Lactic Acid 1.6, Calcium 9.0, Total Bilirubin 0.7, AST 23, ALT 32, Alkaline Phosphatase 135 H, Troponin I < 0.01, Total Protein 7.1, Albumin 3.4 L, Globulin 3.7, Albumin/Globulin Ratio 0.9 L, CBC w Diff NO MAN DIFF REQ, RBC 3.65 L, MCV 89.5, MCH 29.3, MCHC 32.8 L, RDW 14.9 H, MPV 7.3 L, Gran % 66.1, Lymphocytes % 24.3, Monocytes % 8.2, Eosinophils % 0.9, Basophils % 0.5, Absolute Granulocytes 5.9, Absolute Lymphocytes 2.2, Absolute Monocytes 0.7 H, Absolute Eosinophils 0.1, Absolute Basophils 0 10/18/172038: Urine Color YEL, Urine Clarity HAZY H, Urine pH 6.5, Ur Specific Elmer 1.015, Urine Protein 30 H, Urine Ketones NEG, Urine Nitrite POS H, Urine Bilirubin NEG, Urine Urobilinogen 0.2, Ur Leukocyte Esterase LARGE H, Ur Microscopic SEDIMENT EXAMINED, Urine RBC 5-10 H, Urine WBC > 75 H, Urine Bacteria FEW H, Urine Hemoglobin MOD H, Urine Glucose NEG Microbiology 10/19 2103 BLOOD: Blood Culture - RECD 10/18 2049 BLOOD: Blood Culture - RECD 10/18 2038 URINE ROUT: Urine Culture - RECD Patient CT scan is stable compared to previous study. Head CT is negative for acute abnormality. Patient's urinalysis is significant for UTI. This patient was recently in the ICU for urosepsis. He has had a fever today and presents with right flank pain and abdominal pain. Possible pyelonephritis. Patient also is confused per the family is likely related to his current UTI. Given his significant past medical history hospital admission is more appropriate than outpatient care. Per med rec it appears patient was taking PO cipro. IV antibiotics are warranted. Patient will also require urology consult. Discussed findings with Dr. Hennessy who agrees with this plan. Patient signed out to Dr. Hennessy pending hospital admission. Diagnostic Imaging: Viewed by Me: CT Scan. Discussed w/RAD: CT Scan. Radiology Impression: PATIENT: CAR MOTA PRESENT AGE: 77 PATIENT ACCOUNT NO: [id number] : 38 LOCATION: ER ORDERING PHYSICIAN: Radha BENEDICT SERVICE DATE: 10/18/17 EXAM TYPE: CAT - CT HEAD WO IV CONTRAST EXAMINATION: CT HEAD WITHOUT CONTRAST CLINICAL INFORMATION: Slurred speech. COMPARISON: None. TECHNIQUE: Contiguous axial images of the brain were obtained without IV contrast. DLP: 621 mGy-cm. FINDINGS : There are no pathologic extra-axial fluid collections. The lateral, third, fourth ventricles are nondilated and concordant with the appearance of the sulci. There is no evidence for acute intraparenchymal hemorrhage or infarct. There is neither mass nor mass effect. There is periventricular low-attenuation indicative of small vessel disease. 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 There is no shift of midline structures. The paranasal sinuses and mastoid air cells are clear. There are no osseous lesions. IMPRESSION: No evidence for acute intracranial injury. DICTATED BY: Michele Damian MD DATE/TIME DICTATED:10/18/172207 BIOPHARMACEUTICAL REP:BRIDGETT DATE/TIME TRANSCRIBED:2207 CONFIDENTIAL, DO NOT COPY WITHOUT APPROPRIATE AUTHORIZATION. < Electronically signed in Other Vendor System> SIGNED BY: Michele Damian MD 10/18/172214, PATIENT: CAR MOTA PRESENT AGE: 77 PATIENT ACCOUNT NO: [id number] : 38 LOCATION: [facility] ORDERING PHYSICIAN: Radha BENEDCIT SERVICE DATE: 10/18/17 EXAM TYPE: CAT - CT ABD & PELVIS W/O IV CONTRAS EXAMINATION: CT ABDOMEN AND PELVIS WITHOUT CONTRAST CLINICAL INFORMATION: Right flank pain, fever and UTI. COMPARISON: CT abdomen and pelvis 09/25/2017. TECHNIQUE: Multidetector volumetric imaging was performed from the superior aspect of the liver through the pubic symphysis. Sagittal and coronal reformatted images were obtained on the technologist's workstation. DLP: 1212.23 mGy-cm FINDINGS: LUNG BASES: The visualized lung bases are unremarkable. Atelectasis is present at the left base. LIVER, GALLBLADDER, AND BILIARY TREE: The liver is normal in size, shape, and attenuation. No focal hepatic lesion or biliary ductal dilatation is present. The gallbladder is unremarkable with no evidence of radiopaque gallstones, gallbladder wall thickening, or obvious pericholecystic inflammatory changes. PANCREAS: Unremarkable. SPLEEN: Unremarkable. ADRENAL GLANDS: Unremarkable. KIDNEYS AND URETERS: Th right kidney has an internally dwelling double-J right ureteral stent with proximal pigtail in the renal pelvis and the distal pigtail in the bladder. This has been placed since 09/25/2017. There is a lower pole 7.5 mm calculus present which was present previously. There is a small 3 mm calculus present near the upper pole which could be vascular or renal. On the left, no definite renal calculi are seen but vascular calcifications are present. No left-sided hydronephrosis is present. There is a large lower pole renal cyst measuring greater than 15 cm in greatest length. A smaller upper pole 4 cm cyst is noted. Neither ureter is dilated. BLADDER: Unremarkable aside from the presence of a stent and a small amount of air. GASTROINTESTINAL TRACT: Mild diverticular changes are present in the colon without evidence of diverticulitis. The small and large bowel are otherwise unremarkable. The appendix is unremarkable. ABDOMINAL WALL: No significant hernia is appreciated. LYMPH NODES: Normal. VASCULAR: Atherosclerotic changes are present in the aorta and iliac vessels. PELVIC VISCERA: Prostate contains calcifications. The seminal vesicles appear normal. OSSEOUS STRUCTURES: Degenerative changes are present in the spine without bony destructive lesions. IMPRESSION: No hydronephrosis is present. A right-sided double-J internally dwelling ureteral stent is present. There is a lower pole nonobstructing right renal calculus. Left-sided renal cysts. DICTATED BY: Marlon Olmstead MD DATE/TIME DICTATED:10/18/172225 BIOPHARMACEUTICAL REP:BRIDGETT DATE/TIME TRANSCRIBED:10/18/172225 CONFIDENTIAL, DO NOT COPY WITHOUT APPROPRIATE AUTHORIZATION. <Electronically signed in Other Vendor System> SIGNED BY: Marlon Olmstead MD 10/18/17 8290 Initial ED EKG: atrial fibrillation rate 101, nonspecific ST changes Prior EKG: unchanged (10/02/17) Hand-Off Endorsed To: Jadiel Hennessy MD Endorsed Time: 2888 Pending: other (Jo BENEDICT,Radha Mansfield) Departure Departure Disposition: STILL A PATIENT Condition: Stable Clinical Impression Primary Impression: UTI (urinary tract infection) Secondary Impressions: Flank pain Referrals: Asgari MD,Bardia (PCP/Family) Departure Forms: Customer Survey General Discharge Information (Jo BENEDICT,Radha Mansfield) Admission Note Spoke With: Shreyas Mahan MD Documentation of Exam: Documentation of any treatments & extenuating circumstances including Concerns Regarding Discharge (functional status, medication knowledge or non-compliance, living conditions, etc.) that warrant an admission rather than observation: IV antibiotics follow cultures antipyretics medication adjustment serial lab exam physical therapy urology evaluation continuing care discharge planning. PA/TELESCOPE MAINTENANCE Co-Sign Statement Statement: ED Attending supervision documentation- x I saw and evaluated the patient. I have also reviewed all the pertinent lab results and diagnostic results. I agree with the findings and the plan of care as documented in the PA's/TELESCOPE MAINTENANCE's documentation. Recurrent fever chills dysuria with continued UTI recent hospitalization for urosepsis GI bleed new-onset A. fib. [] I have reviewed the ED Record and agree with the PA's/TELESCOPE MAINTENANCE's documentation. [] Additions or exceptions (if any) to the PAs/TELESCOPE MAINTENANCE's note and plan are summarized below: [] (Minoo DIXON,Jadiel)
[2017-10-18 21:04] LABS: ABSOLUTE BASOPHIL COUNT 0 /CUMM (0.0-0.2); ABSOLUTE EOSINOPHIL COUNT 0.1 /CUMM (0.0-0.7); ABSOLUTE GRANULOCYTE CT 5.9 /CUMM (1.4-6.5); ABSOLUTE LYMPH COUNT 2.2 /CUMM (1.2-3.4); ABSOLUTE MONOCYTE COUNT 0.7 /CUMM (0.10-0.60); BASOPHIL % 0.5 % (0.0-2.0); EOSINOPHIL % 0.9 % (0-5); GRANULOCYTE % 66.1 % (42.2-75.2); HEMATOCRIT 32.7 % (42-52); MEAN CORPUSCULAR HGB 29.3 PG (27.0-31.0); MEAN CORPUSCULAR HGB CONC 32.8 G/DL (33.0-37.0); MEAN CORPUSCULAR VOLUME 89.5 FL (80.0-94.0); MEAN PLATELET VOLUME 7.3 FL (7.4-10.4); PLATELET COUNT 228 /CUMM (130-400); RBC DISTRIBUTION WIDTH 14.9 % (11.5-14.5); RED BLOOD CELL CT 3.65 /CUMM (4.70-6.10)
[2017-10-18 21:08] LABS: WHITE BLOOD CELL COUNT 8.9 /CUMM (4.8-10.8)
[2017-10-18] MEDS ORDERED: CIPRO500 M1 PO (21:48)
--- NOTE | 2017-10-18 22:15 | CT SCAN REPORT ---
EXAMINATION: CT HEAD WITHOUT CONTRAST CLINICAL INFORMATION: Slurred speech. COMPARISON: None. TECHNIQUE: Contiguous axial images of the brain were obtained without IV contrast. DLP: 621 mGy-cm. FINDINGS: There are no pathologic extra-axial fluid collections. The lateral, third, fourth ventricles are nondilated and concordant with the appearance of the sulci. There is no evidence for acute intraparenchymal hemorrhage or infarct. There is neither mass nor mass effect. There is periventricular low-attenuation indicative of small vessel disease. 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 There is no shift of midline structures. The paranasal sinuses and mastoid air cells are clear. There are no osseous lesions. IMPRESSION: No evidence for acute intracranial injury.
--- NOTE | 2017-10-18 22:52 | CT SCAN REPORT ---
EXAMINATION: CT ABDOMEN AND PELVIS WITHOUT CONTRAST CLINICAL INFORMATION: Right flank pain, fever and UTI. COMPARISON: CT abdomen and pelvis 09/25/2017. TECHNIQUE: Multidetector volumetric imaging was performed from the superior aspect of the liver through the pubic symphysis. Sagittal and coronal reformatted images were obtained on the technologist's workstation. DLP: 1212.23 mGy-cm FINDINGS: LUNG BASES: The visualized lung bases are unremarkable. Atelectasis is present at the left base. LIVER, GALLBLADDER, AND BILIARY TREE: The liver is normal in size, shape, and attenuation. No focal hepatic lesion or biliary ductal dilatation is present. The gallbladder is unremarkable with no evidence of radiopaque gallstones, gallbladder wall thickening, or obvious pericholecystic inflammatory changes. PANCREAS: Unremarkable. SPLEEN: Unremarkable. ADRENAL GLANDS: Unremarkable. KIDNEYS AND URETERS: Th right kidney has an internally dwelling double-J right ureteral stent with proximal pigtail in the renal pelvis and the distal pigtail in the bladder. This has been placed since 09/25/2017. There is a lower pole 7.5 mm calculus present which was present previously. There is a small 3 mm calculus present near the upper pole which could be vascular or renal. On the left, no definite renal calculi are seen but vascular calcifications are present. No left-sided hydronephrosis is present. There is a large lower pole renal cyst measuring greater than 15 cm in greatest length. A smaller upper pole 4 cm cyst is noted. Neither ureter is dilated. BLADDER: Unremarkable aside from the presence of a stent and a small amount of air. GASTROINTESTINAL TRACT: Mild diverticular changes are present in the colon without evidence of diverticulitis. The small and large bowel are otherwise unremarkable. The appendix is unremarkable. ABDOMINAL WALL: No significant hernia is appreciated. LYMPH NODES: Normal. VASCULAR: Atherosclerotic changes are present in the aorta and iliac vessels. PELVIC VISCERA: Prostate contains calcifications. The seminal vesicles appear normal. OSSEOUS STRUCTURES: Degenerative changes are present in the spine without bony destructive lesions. IMPRESSION: No hydronephrosis is present. A right-sided double-J internally dwelling ureteral stent is present. There is a lower pole nonobstructing right renal calculus. Left-sided renal cysts.
--- NOTE | 2017-10-19 00:52 | History & Physical ---
Merritt Agrawal 10/19/17 0052: General Information and HPI MD Statement: I have seen and personally examined CAR MOTA and documented this H&P. The patient is a 77 year old M who presented with a patient stated chief complaint of [incontinence & low back pain with urination]. Source of Information: patient Exam Limitations: no limitations History of Present Illness: 77 year old male with history of of bladder ca s/p immunotherapy, paroxysmal a- fib not on anticoagulation, HTN, DM, recently discharged s/p R ureteral stenting for hydronephrosis and nephrolithiasis with UTI. Starting last night the patient became incontinent of urine, and experienced right-lower back pain with urination--the pain was reported as dull and constant, and he reported small amounts of blood in his urine. The patient was discharged from [facility] approximately 1 week ago and has been at [facility] since, where today they found a UA to be positive and sent him to the ER. The patient also reported he was febrile with chills and endorsed recently feeling weak prior to the onset of incontinence. He denied dysuria, confusion, abdominal pain, nausea/vomiting/ diarrhea. Allergies/Medications Allergies: Coded Allergies: No Known Allergies (09/25/17) Home Med list Aspirin (Aspirin*) 81 MG TAB.CHEW 1 TAB PO DAILY HEART (Reported) Calcipotriene 0.005 % SOLUTION 1 KAYCEE TOP DAILY PRN PSORIASIS (Reported) Ciprofloxacin HCl (Cipro) 500 MG TABLET 1 TAB PO BID ABX (Reported) Clobetasol Propionate 0.05 % OINT...G. 1 KAYCEE TOP BID PRN PSORIASIS (Reported) apply to affected area(s) Duloxetine HCl (Cymbalta) 60 MG CAPSULE. 1 CAP PO DAILY NEUROPATHY ( Reported) Insulin Aspart (Novolog) 100 UNIT/ML VIAL 0 UNITS SC TIDAC DIABETES MELLITUS BloodSugar Meal. <80 0 81-150 0 151-200 1 201-250 2 251-300 3 301-350 4 351-400 6 More than 400 8 units Call your doctor Metformin HCl (Glucophage) 1,000 MG TABLET 1 TAB PO BID DM (Reported) Metoprolol Tartrate 50 MG TABLET 50 MG PO BID AFIB Omeprazole 40 MG CAPSULE. 1 CAP PO BID GERD Rosuvastatin Calcium (Crestor) 40 MG TABLET 1 TAB PO QHS CAD (Reported) Tamsulosin HCl (Flomax) 0.4 MG CAP.ER.24H 1 CAP PO DAILY BPH (Reported) Triamcinolone Acetonide 0.025 % CREAM..G. 1 KAYCEE TOP BID PRN PSORIASIS ( Reported) apply to affected area(s) Compliance With Home Meds: GOOD Past History Travel History Traveled to [place] past 21 day No Medical History Neurological: NONE EENT: NONE Cardiovascular: hypertension, hyperlipidemia Respiratory: obstructive sleep apnea Gastrointestinal: NONE Hepatic: NONE Renal: benign prost hyperplasia, nephrolithiasis Musculoskeletal: degen joint disease, PSORIASIS Psychiatric: NONE Endocrine: diabetes Blood Disorders: NONE Cancer(s): bladder cancer History of MRSA: No History of VRE: No History of CDIFF: No Surgical History Surgical History: cystoscopy (w/ ureteral stent placement) Past Family/Social History Family History Relations & Conditions if any Relation not specified for: *No pertinent family history Psychosocial History Who Do You Live With? child Services at Home: None Primary Language: Egyptian ETOH Use: denies use Illicit Drug Use: denies illicit drug use Functional Ability ADLs Independent: dressing, eating, toileting, bathing. Ambulation: independent Review of Systems Review of Systems Constitutional: Reports: chills, fever, weakness. Denies: diaphoresis. Cardiovascular: Denies: chest pain, peripheral edema. Respiratory: Denies: cough, short of breath. GI: Denies: diarrhea, nausea, bloody stool, vomiting. Genitourinary: Reports: hematuria, urgency. Denies: dysuria. Musculoskeletal: Reports: back pain (lower back pain w/ urination). Exam & Diagnostic Data Last 24 Hrs of Vital Signs/I&O Vital Signs Date Time Temp Pulse Resp B/P B/P Pulse O2 O2 Flow FiO2 Mean Ox Delivery Rate 10/19 0046 98.9 100 20 128/87 94 Room Air 10/18 2217 99.2 102 20 118/55 94 Room Air 10/18 1927 98.2 106 20 117/78 95 Room Air Intake & Output 10/19 0800 10/19 0000 10/18 1600 Intake Total Output Total Balance Patient 124.738 kg Weight Weight Estimated Measurement Method Physical Exam General Appearance Alert, Oriented X3, Cooperative, No Acute Distress HEENT Atraumatic, PERRLA, EOMI Cardiovascular Normal S1, Normal S2, Irregular rhythm Lungs Clear to Auscultation Abdomen Normal Bowel Sounds, Soft Extremities No Clubbing, No Cyanosis, No Edema Last 24 Hrs of Labs/Mauricio: Laboratory Tests 10/18/172049: Anion Gap 10, Estimated GFR > 60, BUN/Creatinine Ratio 15.0, Glucose 122 H, Lactic Acid 1.6, Calcium 9.0, Total Bilirubin 0.7, AST 23, ALT 32, Alkaline Phosphatase 135 H, Troponin I < 0.01, Total Protein 7.1, Albumin 3.4 L, Globulin 3.7, Albumin/Globulin Ratio 0.9 L, CBC w Diff NO MAN DIFF REQ, RBC 3.65 L, MCV 89.5, MCH 29.3, MCHC 32.8 L, RDW 14.9 H, MPV 7.3 L, Gran % 66.1, Lymphocytes % 24.3, Monocytes % 8.2, Eosinophils % 0.9, Basophils % 0.5, Absolute Granulocytes 5.9, Absolute Lymphocytes 2.2, Absolute Monocytes 0.7 H, Absolute Eosinophils 0.1, Absolute Basophils 0 10/18/172038: Urine Color YEL, Urine Clarity HAZY H, Urine pH 6.5, Ur Specific [place] 1.015, Urine Protein 30 H, Urine Ketones NEG, Urine Nitrite POS H, Urine Bilirubin NEG, Urine Urobilinogen 0.2, Ur Leukocyte Esterase LARGE H, Ur Microscopic SEDIMENT EXAMINED, Urine RBC 5-10 H, Urine WBC > 75 H, Urine Bacteria FEW H, Urine Hemoglobin MOD H, Urine Glucose NEG Microbiology 10/19 2103 BLOOD: Blood Culture - RECD 10/18 2049 BLOOD: Blood Culture - RECD 10/18 2038 URINE ROUT: Urine Culture - RECD Assessment/Plan Assessment: 77 year old male with UTI in the setting of recent ureteral stent placement and nephrolithiasis. Patient was found to have positive UA at [facility], and again in the ED. He was afebrile, but received Tylenol and a dose of Ciprofloxacin prior to coming to the ED. His lower back pain is concerning for complicated UTI and he should continue receiving antibiotics in the hospital. CT Abdomen showed no hydronephrosis and a lower pole nonobstructing right renal calculus. Problems: 1. UTI 2. Paroxysmal A-fib 3. Recent history of GI bleed 4. Diabetes mellitus 5. Nephrolithiasis Plan: -Ceftriaxone 1g IV daily -F/u urine culture & blood cultures -Hold anticoagulation in setting of recent GI bleed -Normal Saline 125mL/hr Full code ALPS DVT prophylaxis Diabetic diet As Ranked By This Provider Problem List: 1. UTI (urinary tract infection) 2. Paroxysmal A-fib 3. History of GI bleed 4. Bladder cancer Core Measures/Misc (10/23) Acute Coronary Syndrome ACS Diagnosis: No Congestive Heart Failure Congestive Heart Failure Diagnosis No Cerebrovascular Accident CVA/TIA Diagnosis: No VTE (View Protocol) VTE Risk Factors Cancer/chemo/othr therapy No Mechanical VTE Prophylaxis d/t N/A MechProphylax Ordered No VTE Pharm Prophylaxis d/t Medical Contraindication Sepsis (View protocol) Sepsis Present: Yes If YES complete Sepsis Event Note If YES complete Sepsis Event Note Shreyas Mahan MD 10/19/17 0105: Core Measures/Misc (10/23) Sepsis (View protocol) If YES complete Sepsis Event Note If YES complete Sepsis Event Note Attending MD Review Statement Attending Statement Attending MD Statement: examined this patient, discuss w/resident/PA/CLEANING SUPERVISOR, agreed w/resident/PA/CLEANING SUPERVISOR, discussed with family, reviewed EMR data (avail), discussed with nursing, amended to note Attending Assessment/Plan: Patient is a 77-year-old male with history of obstructive sleep apnea, hypertension, nephrolithiasis status post lithotripsy is in the past, prostate cancer status post TURP and scheduled to receive intravesicular chemotherapy by urologist Dr. Contreras in [facility]. Recently discharged from [facility] after he had presented with urinary complaints. He was found to be in new onset atrial fibrillation. Hospital stay was complicated by septic shock secondary to Escherichia coli urosepsis and bacteremia. He also had a gastrointestinal bleed after being started on anticoagulation therapy. He was discharged to a residential facility and returns today with c/o worsening lethargy over the past few days. Urinalysis was obtained at the intermediate today and found to be abnormal. He was started on ciprofloxacin and sent out to the emergency room for evaluation. He arrives here afebrile although he was reported to have a fever 100.4 at the intermediate. Hemodynamically stable with no leukocytosis on labs. Family thought his speech was slurred so the ER obtained a head CT which was negative for any acute pathology. Likely his speech was due to his lethargy. The emergency room physician decided it prudent for the patient to be hospitalized rather than return back to his [facility] so he was referred to the inpatient medical service for treatment. He was given a dose of ceftaz in the emergency room. On examination although mildly lethargic he is oriented 3. Conversation is appropriate. Speech is intact. No focal neurologic deficits on examination. Denies chest pain. Denies abdominal pain. Denied dysuria. Admits of back pain which is chronic for him. Denies LOC or bloody stools. Problems: 1. Urinary tract infection.; Status post recent therapy for urosepsis. -Recommend antibiotic therapy with IV Rocephin. -Follow-up culture results and adjust antibiotic therapy accordingly. 2. Atrial fibrillation; -Not on anticoagulation due to recent GI bleeding. -Continue metoprolol for rate control. 3. Bladder cancer being followed up by his urology service -Patient to follow-up with urologist Dr. Contreras as an outpatient. 4. Anemia following recent gastrointestinal bleeding. -Hemoglobin level currently stable. -Anticoagulation therapy on hold. Continue aspirin. 5. Diabetes mellitus; -according to the patient is to be on insulin therapy however family reports that he is noncompliant with insulin therapy. family stated that he has never used his insulin regimen in a while. During the last hospitalization glucose levels were controlled on sliding scale coverage. Recommendations are to continue patient on only his oral hypoglycemic medications and low dose coverage. 6. Hypertension. -Prior to hospitalization last time patient was on 4 antihypertensive medications at home. Blood pressure however was controlled in the hospital with metoprolol only which was used for rate control. Continue metoprolol and monitor blood pressure closely. Karsten DIXON,Marta 10/19/17 0205: Core Measures/Misc (10/23) Sepsis (View protocol) If YES complete Sepsis Event Note If YES complete Sepsis Event Note Resident Review Statement Resident Statement: examined this patient, discussed with international banker, agreed with international banker, reviewed EMR data (avail), amended to note Other Findings: Patient is a 77-year-old male with past medical history of recently diagnosed atrial fibrillation not on anticoagulation due to recent GI bleed, nephrolithiasis status post multiple lithotripsies, bladder cancer status post immunotherapy with BCG and status post TURBT, hypertension, diabetes, hyperlipidemia, obstructive sleep apnea not on CPAP, degenerative joint disease, psoriasis, recent admission to the ICU from 09/27 10/10 for sepsis of urological origin status post right urethral stent placement on 09/[address] Nur presenting to [facility] ED after being brought in by ambulance from [facility] with chief complaint of urinary frequency and hematuria. Patient reports that he has had increased urinary symptoms which started 1 day prior to admission. Reports urinary frequency, urgency, hematuria and a distinct urinary odor (reports that his urine "smells like ammonia"). Patient also endorses right sided back pain which he describes as a dull constant ache which has now lessened and rates a 1/10 in severity. Has not taken any analgesics for the pain. Patient reports a temp of 100.4 in the rehab facility. Patient states that he started having theses symptoms one day prior. Reports that the facility at that time had run tests which were all negative. States today his daughter spoke to Dr. Nur's office who asked for a repeat U/A which was indictive of UTI and patient was started on ciprofloxacin 500mg BID. Reports taking one dose. Per notes patient's family reported that patient was off and noted some slurred speech. This was not apparent at time of interview. Patient is due to have his ureteral stent removed and lithotripsy with Dr. Nur on 10/31. PMH: as above PSH: as above, bilateral cataract surgery SH: denies alcohol, tobacco or other illicit drug use, currently ambulating with a walker, came from short term rehab facility Allergies: No known allergies Medications: aspirin 81mg daily, duloxetine 60mg daily, Novolog, Metformin, Metoprolol 50mg BID, Crestor 40mg daily, Omeprazole 40mg, Tamsulosin 0.4mg daily Vitals: Tmax: 99.2, HR: 100-106, RR: 20, BP: 128/87, Saturating between 94-95% on RA Gen: resting comfortably in bed in NAD HEENT: MMM, EOMI, PERRLA CVS: Irregularly irregular rhythm, S1 and S2 heart sounds, no murmurs appreciated Lungs: CTAB Abd: soft, nt, nd, +bs Musc: mild lower back pain on palpation Ext: no edema, clubbing or cyanosis, pulses symmetric and 2+ Patient is a 77 y/o morbidly obese male with significant urological history recently discharged from ICU with right ureteral stent placement and a 2 week course of antibiotics for pansensitive e.coli presenting this admission with UTI. Problems: 1. UTI in setting of recent admission for sepsis of urological origin s/p R ureteral stent placement 2. Nonobstructive right renal calculi 3. Generalized weakness 4. Chronic conditions: recently diagnosed atrial fibrillation not on anticoagulation due to recent GI bleed, nephrolithiasis status post multiple lithotripsies, bladder cancer status post immunotherapy with BCG and status post TURBT, hypertension, diabetes, hyperlipidemia, obstructive sleep apnea not on CPAP Plan: Admit to gen med Continue IV antibiotics - patient received IV Ceftaz in the ED. Will continue IV Ceftriaxone 1gm daily Continue IV fluid hydration Follow up urine and blood cultures Continue home medications Follow up with urology Novolog SS with accuchecks TIDAC/qHS Place on nocturnal CPAP Code: Full code DVT PPx: ALPs only in setting of reported hematuria
[2017-10-19 02:18] VITALS: BP 116/88
[2017-10-19 06:59] VITALS: BP 114/75
[2017-10-19 08:37] LABS: ABSOLUTE BASOPHIL COUNT 0 /CUMM (0.0-0.2); ABSOLUTE EOSINOPHIL COUNT 0.1 /CUMM (0.0-0.7); ABSOLUTE GRANULOCYTE CT 5.5 /CUMM (1.4-6.5); ABSOLUTE LYMPH COUNT 1.6 /CUMM (1.2-3.4); ABSOLUTE MONOCYTE COUNT 0.7 /CUMM (0.10-0.60); BASOPHIL % 0.4 % (0.0-2.0); EOSINOPHIL % 1.4 % (0-5); GRANULOCYTE % 68.8 % (42.2-75.2); HEMATOCRIT 32.1 % (42-52); MEAN CORPUSCULAR HGB 29.9 PG (27.0-31.0); MEAN CORPUSCULAR HGB CONC 33.6 G/DL (33.0-37.0); MEAN CORPUSCULAR VOLUME 89.2 FL (80.0-94.0); MEAN PLATELET VOLUME 7.9 FL (7.4-10.4); PLATELET COUNT 191 /CUMM (130-400); RBC DISTRIBUTION WIDTH 14.7 % (11.5-14.5); WHITE BLOOD CELL COUNT 7.9 /CUMM (4.8-10.8)
--- NOTE | 2017-10-19 13:51 | Cons- Infect Disease ---
General Information and HPI Consulting Request Date of Consult: 10/19/17 Requested By: Michele Arrington MD Reason for Consult: Positive urine culture Source of Information: patient, family, old records History of Present Illness: This is a 77-year-old man with a history of hypertension, diabetes, obstructive sleep apnea, bladder cancer, treated with 12 out of a planned 15 or 18 chemotherapy sessions by his urologist, Dr. Contreras, BPH, nephrolithiasis, with a history of recurrent urinary tract infections, hospitalized 3 weeks prior to admission with sepsis of urologic origin secondary to E. coli, with a CT of the abdomen and pelvis revealing a mild right hydronephrosis and hydroureter and a nonobstructive 8 mm stone in the right kidney, status post cystoscopy and placement of a right ureteral stent, with his hospital course complicated by an upper GI bleed secondary to ulcerative esophagitis and numerous duodenal ulcers, discharged to a rehab facility after completing a 2 week course of antibiotics, admitted on October 18 after he was sent to the emergency room with a one to two day history of urgency, frequency, foul-smelling urine, fatigue, mid back pain and a fever to 100.4 after receiving 1 dose of Ciprofloxacin at the senior care. On admission he was afebrile. Laboratory data revealed a white blood cell count of 9000, BUN/creatinine 12 and 0.8, alkaline phosphatase 135. Urinalysis 3-5 RBC/greater than [address] of the head was negative for any acute process. CT of the abdomen and pelvis revealed a right-sided double-J ureteral stent in place with a lower pole nonobstructing right renal calculus, with no evidence of hydronephrosis. He was given 1 dose of Ceftazidime and then placed on Ceftriaxone. He has remained afebrile since admission and feels improved today with no further urinary complaints. Allergies/Medications Allergies: Coded Allergies: No Known Allergies (09/25/17) Home Med List: Aspirin (Aspirin*) 81 MG TAB.CHEW 1 TAB PO DAILY HEART (Reported) Calcipotriene 0.005 % SOLUTION 1 KAYCEE TOP DAILY PRN PSORIASIS (Reported) Ciprofloxacin HCl (Cipro) 500 MG TABLET 1 TAB PO BID ABX (Reported) Clobetasol Propionate 0.05 % OINT...G. 1 KAYCEE TOP BID PRN PSORIASIS (Reported) apply to affected area(s) Duloxetine HCl (Cymbalta) 60 MG CAPSULE. 1 CAP PO DAILY NEUROPATHY ( Reported) Insulin Aspart (Novolog) 100 UNIT/ML VIAL 0 UNITS SC TIDAC DIABETES MELLITUS BloodSugar Meal. <80 0 81-150 0 151-200 1 201-250 2 251-300 3 301-350 4 351-400 6 More than 400 8 units Call your doctor Metformin HCl (Glucophage) 1,000 MG TABLET 1 TAB PO BID DM (Reported) Metoprolol Tartrate 50 MG TABLET 50 MG PO BID AFIB Omeprazole 40 MG CAPSULE.DR 1 CAP PO BID GERD Rosuvastatin Calcium (Crestor) 40 MG TABLET 1 TAB PO QHS CAD (Reported) Tamsulosin HCl (Flomax) 0.4 MG CAP.ER.24H 1 CAP PO DAILY BPH (Reported) Triamcinolone Acetonide 0.025 % CREAM..G. 1 KAYCEE TOP BID PRN PSORIASIS ( Reported) apply to affected area(s) Past History Travel History Traveled to [place] past 21 day No Medical History Blood Transfusion Hx: Yes Neurological: NONE EENT: NONE Cardiovascular: hypertension, hyperlipidemia Respiratory: obstructive sleep apnea Gastrointestinal: NONE Hepatic: NONE Renal: benign prost hyperplasia, nephrolithiasis Musculoskeletal: degen joint disease Psychiatric: NONE Endocrine: diabetes Blood Disorders: NONE Cancer(s): bladder cancer Other Medical Hx: Psoriasis History of MRSA: No History of VRE: No History of CDIFF: No Isolation History: Standard Surgical History Surgical History: cystoscopy (w/ ureteral stent placement) Family History Relations & Conditions If Any: Relation not specified for: *No pertinent family history Psychosocial History Who Do You Live With? child Services at Home: None Primary Language: Wolof Smoking Status: Never Smoked ETOH Use: denies use Illicit Drug Use: denies illicit drug use Functional Ability ADLs Independent: dressing, eating, toileting, bathing. Ambulation: independent Review of Systems Review of Systems All Other Systems: Reviewed and Negative Exam & Diagnostic Data Last 24 Hrs of Vital Signs/I&O Vital Signs Date Time Temp Pulse Resp B/P B/P Pulse O2 O2 Flow FiO2 Mean Ox Delivery Rate 10/19 828 104 110/62 10/19 0829 104 110/62 10/19 0659 99.3 118 20 114/75 96 Room Air 10/19 0529 110 116/88 10/19 0218 99.1 110 20 116/88 95 Room Air 10/19 0046 98.9 100 20 128/87 94 Room Air 10/18 2217 99.2 102 20 118/55 94 Room Air 10/18 1927 98.2 106 20 117/78 95 Room Air Intake & Output 10/19 1600 10/19 0800 10/19 0000 Intake Total 740 Output Total 400 Balance 340 Intake, IV 500 Intake, Oral 240 Number 1 Bowel Movements Output, Urine 400 Patient 251 lb 275 lb Weight Weight Estimated Measurement Method Physical Exam Other Physical Findings: He is awake and alert in no acute distress. He is afebrile. Skin reveals no rash. HEENT exam is negative. Neck is supple with no adenopathy. Lungs crackles at the left base. Heart regular rhythm with no murmur. Abdomen is soft, mildly tender on palpation on the right abdomen, with no guarding or rebound, with positive bowel sounds. Back no CVA tenderness. Extremities coolness of both lower extremities, with no cyanosis, clubbing or edema. Neuro is without focality. Last 24 Hours of Lab Results: Laboratory Tests 10/19 10/18 0710 2324 Chemistry Sodium (137 - 145 mmol/L) 135 L Potassium (3.5 - 5.1 mmol/L) 3.7 Chloride (98 - 107 mmol/L) 99 Carbon Dioxide (22 - 30 mmol/L) 25 Anion Gap (5 - 16) 10 BUN (9 - 20 mg/dL) 11 Creatinine (0.7 - 1.2 mg/dL) 0.8 Estimated GFR (>60 ml/min) > 60 BUN/Creatinine Ratio (7 - 25 %) 13.8 Lactic Acid Cancelled Hematology CBC w Diff NO MAN DIFF REQ WBC (4.8 - 10.8 /CUMM) 7.9 RBC (4.70 - 6.10 /CUMM) 3.60 L Hgb (14.0 - 18.0 G/DL) 10.8 L Hct (42 - 52 %) 32.1 L MCV (80.0 - 94.0 FL) 89.2 MCH (27.0 - 31.0 PG) 29.9 MCHC (33.0 - 37.0 G/DL) 33.6 RDW (11.5 - 14.5 %) 14.7 H Plt Count (130 - 400 /CUMM) 191 MPV (7.4 - 10.4 FL) 7.9 Gran % (42.2 - 75.2 %) 68.8 Lymphocytes % (20.5 - 51.1 %) 20.6 Monocytes % (1.7 - 9.3 %) 8.8 Eosinophils % (0 - 5 %) 1.4 Basophils % (0.0 - 2.0 %) 0.4 Absolute Granulocytes (1.4 - 6.5 /CUMM) 5.5 Absolute Lymphocytes (1.2 - 3.4 /CUMM) 1.6 Absolute Monocytes (0.10 - 0.60 /CUMM) 0.7 H Absolute Eosinophils (0.0 - 0.7 /CUMM) 0.1 Absolute Basophils (0.0 - 0.2 /CUMM) 0 10/18 Chemistry Sodium (137 - 145 mmol/L) 134 L Potassium (3.5 - 5.1 mmol/L) 3.7 Chloride (98 - 107 mmol/L) 99 Carbon Dioxide (22 - 30 mmol/L) 25 Anion Gap (5 - 16) 10 BUN (9 - 20 mg/dL) 12 Creatinine (0.7 - 1.2 mg/dL) 0.8 Estimated GFR (>60 ml/min) > 60 BUN/Creatinine Ratio (7 - 25 %) 15.0 Glucose (65 - 99 mg/dL) 122 H Lactic Acid (0.7 - 2.1 mmol/L) 1.6 Calcium (8.4 - 10.2 mg/dL) 9.0 Total Bilirubin (0.2 - 1.3 mg/dL) 0.7 AST (17 - 59 U/L) 23 ALT (21 - 72 U/L) 32 Alkaline Phosphatase (< 127 U/L) 135 H Troponin I (<0.11 ng/ml) < 0.01 Total Protein (6.3 - 8.2 g/dL) 7.1 Albumin (3.5 - 5.0 g/dL) 3.4 L Globulin (1.9 - 4.2 gm/dL) 3.7 Albumin/Globulin Ratio (1.1 - 2.2 %) 0.9 L Hematology CBC w Diff NO MAN DIFF REQ WBC (4.8 - 10.8 /CUMM) 8.9 RBC (4.70 - 6.10 /CUMM) 3.65 L Hgb (14.0 - 18.0 G/DL) 10.7 L Hct (42 - 52 %) 32.7 L MCV (80.0 - 94.0 FL) 89.5 MCH (27.0 - 31.0 PG) 29.3 MCHC (33.0 - 37.0 G/DL) 32.8 L RDW (11.5 - 14.5 %) 14.9 H Plt Count (130 - 400 /CUMM) 228 MPV (7.4 - 10.4 FL) 7.3 L Gran % (42.2 - 75.2 %) 66.1 Lymphocytes % (20.5 - 51.1 %) 24.3 Monocytes % (1.7 - 9.3 %) 8.2 Eosinophils % (0 - 5 %) 0.9 Basophils % (0.0 - 2.0 %) 0.5 Absolute Granulocytes (1.4 - 6.5 /CUMM) 5.9 Absolute Lymphocytes (1.2 - 3.4 /CUMM) 2.2 Absolute Monocytes (0.10 - 0.60 /CUMM) 0.7 H Absolute Eosinophils (0.0 - 0.7 /CUMM) 0.1 Absolute Basophils (0.0 - 0.2 /CUMM) 0 Urines Urine Color (YEL,AMB,STR) YEL Urine Clarity (CLEAR) HAZY H Urine pH (5.0 - 8.0) 6.5 Ur Specific [place] (1.001 - 1.035) 1.015 Urine Protein (NEG,<30 MG/DL) 30 H Urine Ketones (NEG) NEG Urine Nitrite (NEG) POS H Urine Bilirubin (NEG) NEG Urine Urobilinogen (0.1 - 1.0 EU/dl) 0.2 Ur Leukocyte Esterase (NEG) LARGE H Ur Microscopic SEDIMENT EXAMINED Urine RBC (0 - 5 /HPF) 5-10 H Urine WBC (0 - 2 /HPF) > 75 H Urine Bacteria (NEG/NONE) FEW H Urine Hemoglobin (NEG) MOD H Urine Glucose (N MG/DL) NEG Last 24 Hours of Mauricio Results: Blood cultures October 18 negative Urine culture October 18 (from the senior care) greater than 100,000 colonies of gram-negative rods Urine culture October 18 (sent from the ER) negative Diagnostic Data Recent Imaging Findings: CT of the head was negative for any acute process. CT of the abdomen and pelvis revealed a right-sided double-J ureteral stent in place with a lower pole nonobstructing right renal calculus, with no evidence of hydronephrosis. Assessment/Plan Assessment/Plan Impression: With a consistent this is a 77-year-old man with a history of bladder cancer, treated with 12 chemotherapy sessions until recently, BPH, nephrolithiasis, hospitalized 3 weeks prior to admission with sepsis of urologic origin secondary to E. coli, status post cystoscopy and placement of a right ureteral stent for a mild right hydronephrosis and hydroureter, with CT scan revealing a nonobstructive 8 mm stone in the right kidney, admitted on October 18 with a one to two day history of urgency, frequency, foul-smelling urine, fatigue, mid back pain and a fever to 100.4, found to be afebrile with a normal white blood cell count, pyuria and with a CT of the abdomen and pelvis revealing a right ureteral stent in place with a nonobstructive right kidney stone and no hydronephrosis and with a urine culture positive for gram-negative rods. His clinical picture is consistent with a urinary tract infection. The report of a fever prior to admission suggests an upper tract process, though he has had no fever since admission, his white blood cell count has remained normal and he has no right flank pain or tenderness. The CT scan does not reveal any obstruction but the persistent stone may represent a nidus of infection and urologic intervention, which was planned in the next 2 weeks, may need to be expedited. Suggestion: 1. Urology evaluation 2. Follow-up final urine culture 3. Continue Ceftriaxone pending above Consult Acknowledgment - Thank you for your consult request.
[2017-10-19 14:15] VITALS: BP 108/68
--- NOTE | 2017-10-19 16:53 | Cons- Urology ---
General Information and HPI Consulting Request Date of Consult: 10/19/17 Requested By: Michele Arrington MD Reason for Consult: UTI Source of Information: patient, family, old records Exam Limitations: no limitations History of Present Illness: This patient was admitted to [place] in 09/[address] of his abd and pelvis showed mild R hydro-ureteronephrosis with no ureteral stone seen. There was an 8 mm stone in the R kidney which was not obstructing. At that time he had a R ureteral stent placed by Dr Nur. He is scheduled for R renal ESWL to treat the stone on 10/31/[address] Covington. However he was readmitted with R back pain, low grade fever, increased urinary frequency and urgency and foul-smelling urine. U/A is c/w UTI. He also has a hx of bladder ca treated by Dr Ross by TURBT and intravesical chemotherapy. He has multiple comorbidities Allergies/Medications Allergies: Coded Allergies: No Known Allergies (09/25/17) Home Med List: Aspirin (Aspirin*) 81 MG TAB.CHEW 1 TAB PO DAILY HEART (Reported) Calcipotriene 0.005 % SOLUTION 1 KAYCEE TOP DAILY PRN PSORIASIS (Reported) Ciprofloxacin HCl (Cipro) 500 MG TABLET 1 TAB PO BID ABX (Reported) Clobetasol Propionate 0.05 % OINT...G. 1 KAYCEE TOP BID PRN PSORIASIS (Reported) apply to affected area(s) Duloxetine HCl (Cymbalta) 60 MG CAPSULE. 1 CAP PO DAILY NEUROPATHY ( Reported) Insulin Aspart (Novolog) 100 UNIT/ML VIAL 0 UNITS SC TIDAC DIABETES MELLITUS BloodSugar Meal. <80 0 81-150 0 151-200 1 201-250 2 251-300 3 301-350 4 351-400 6 More than 400 8 units Call your doctor Metformin HCl (Glucophage) 1,000 MG TABLET 1 TAB PO BID DM (Reported) Metoprolol Tartrate 50 MG TABLET 50 MG PO BID AFIB Omeprazole 40 MG CAPSULE.DR 1 CAP PO BID GERD Rosuvastatin Calcium (Crestor) 40 MG TABLET 1 TAB PO QHS CAD (Reported) Tamsulosin HCl (Flomax) 0.4 MG CAP.ER.24H 1 CAP PO DAILY BPH (Reported) Triamcinolone Acetonide 0.025 % CREAM..G. 1 KAYCEE TOP BID PRN PSORIASIS ( Reported) apply to affected area(s) Current Medications: Current Medications Sig/Royce Start time Last Medication Dose Route Stop Time Status Admin Acetaminophen 650 MG Q6P PRN 10/19 0200 AC PO Acetaminophen 1,000 MG Q6P PRN 10/19 0200 AC IV Aspirin 81 MG DAILY 10/19 0900 DC 10/19 PO 0829 Atorvastatin Calcium 80 MG 1700 10/19 1700 AC 10/19 PO 1644 Ceftazidime 0 .STK-MED ONE 10/19 0008 DC .ROUTE Ceftazidime 1,000 MG ONCE ONE 10/18 2345 DC 10/19 IV 10/18 2346 0009 Ceftriaxone Sodium 1,000 MG DAILY 10/19 0900 AC 10/19 IV 0829 Duloxetine HCl 60 MG DAILY 10/19 09 AC 10/19 PO 0829 Insulin Aspart 0 TIDAC 10/19 1200 AC 10/19 SC 1255 Insulin Aspart 0 TIDAC 10/19 0800 DC SC Lidocaine 1 PAT Q24H PRN 10/19 0200 AC EXT Metoprolol Tartrate 50 MG BID 10/19 0301 AC 10/19 PO 0829 Nystatin 1 KAYCEE BID 10/19 0900 AC 10/19 TOP 1116 Omeprazole 40 MG DAILY AC 10/19 0700 AC 10/19 PO 0528 Polyethylene Glycol 17 GM AT BEDTIME PRN 10/19 0200 AC PO Senna/Docusate Sodium 2 TAB AT BEDTIME PRN 10/19 0200 AC PO Sodium Chloride 1,000 ML .Q8H 10/19 0145 AC 10/19 IV 1117 Sodium Chloride 1,000 ML BOLUS ONE 10/18 2215 DC 10/18 IV 10/19 0014 2254 Tamsulosin HCl 0.4 MG DAILY 10/19 0900 AC 10/19 PO 0829 Past History Medical History Blood Transfusion Hx: Yes Neurological: NONE EENT: NONE Cardiovascular: hypertension, hyperlipidemia Respiratory: obstructive sleep apnea Gastrointestinal: NONE Hepatic: NONE Renal: benign prost hyperplasia, nephrolithiasis Musculoskeletal: degen joint disease Psychiatric: NONE Endocrine: diabetes Blood Disorders: NONE Cancer(s): bladder cancer Other Medical Hx: Psoriasis Surgical History Pertinent Surgical History: cystoscopy (w/ ureteral stent placement) Family History Relations & Conditions If Any: Relation not specified for: *No pertinent family history Psychosocial History Who Do You Live With? child Services at Home: None Primary Language: Bermudian Smoking Status: Never Smoked ETOH Use: denies use Illicit Drug Use: denies illicit drug use Functional Ability ADLs Independent: dressing, eating, toileting, bathing. Ambulation: independent Employment History Retired? unknown Exam & Diagnostic Data Vital Signs and I&O Vital Signs Date Time Temp Pulse Resp B/P B/P Pulse O2 O2 Flow FiO2 Mean Ox Delivery Rate 10/19 1543 Room Air 10/19 1415 97.7 94 18 108/68 98 Room Air 10/19 0829 104 110/62 10/19 0829 104 110/62 10/19 0659 99.3 118 20 114/75 96 Room Air 10/19 0529 110 116/88 10/19 0218 99.1 110 20 116/88 95 Room Air 10/19 0046 98.9 100 20 128/87 94 Room Air 10/18 2217 99.2 102 20 118/55 94 Room Air 10/18 1927 98.2 106 20 117/78 95 Room Air Intake & Output 10/19 1600 10/20 0700 10/19 0000 10/18 1600 10/19 0700 10/18 0000 Intake Total 1480 740 Output Total 700 400 Balance 780 340 Intake, IV 1000 500 Intake, Oral 480 240 Number 2 Bowel Movements Output, Urine 700 400 Patient 251 lb 275 lb Weight Weight Estimated Measurement Method No acute distress Back: mild R CVA tenderness Abd: soft and non tender Genitalia: normal male Laboratory Tests 10/19 10/18 0710 2324 Chemistry Sodium (137 - 145 mmol/L) 135 L Potassium (3.5 - 5.1 mmol/L) 3.7 Chloride (98 - 107 mmol/L) 99 Carbon Dioxide (22 - 30 mmol/L) 25 Anion Gap (5 - 16) 10 BUN (9 - 20 mg/dL) 11 Creatinine (0.7 - 1.2 mg/dL) 0.8 Estimated GFR (>60 ml/min) > 60 BUN/Creatinine Ratio (7 - 25 %) 13.8 Lactic Acid Cancelled Hematology CBC w Diff NO MAN DIFF REQ WBC (4.8 - 10.8 /CUMM) 7.9 RBC (4.70 - 6.10 /CUMM) 3.60 L Hgb (14.0 - 18.0 G/DL) 10.8 L Hct (42 - 52 %) 32.1 L MCV (80.0 - 94.0 FL) 89.2 MCH (27.0 - 31.0 PG) 29.9 MCHC (33.0 - 37.0 G/DL) 33.6 RDW (11.5 - 14.5 %) 14.7 H Plt Count (130 - 400 /CUMM) 191 MPV (7.4 - 10.4 FL) 7.9 Gran % (42.2 - 75.2 %) 68.8 Lymphocytes % (20.5 - 51.1 %) 20.6 Monocytes % (1.7 - 9.3 %) 8.8 Eosinophils % (0 - 5 %) 1.4 Basophils % (0.0 - 2.0 %) 0.4 Absolute Granulocytes (1.4 - 6.5 /CUMM) 5.5 Absolute Lymphocytes (1.2 - 3.4 /CUMM) 1.6 Absolute Monocytes (0.10 - 0.60 /CUMM) 0.7 H Absolute Eosinophils (0.0 - 0.7 /CUMM) 0.1 Absolute Basophils (0.0 - 0.2 /CUMM) 0 10/18 Chemistry Sodium (137 - 145 mmol/L) 134 L Potassium (3.5 - 5.1 mmol/L) 3.7 Chloride (98 - 107 mmol/L) 99 Carbon Dioxide (22 - 30 mmol/L) 25 Anion Gap (5 - 16) 10 BUN (9 - 20 mg/dL) 12 Creatinine (0.7 - 1.2 mg/dL) 0.8 Estimated GFR (>60 ml/min) > 60 BUN/Creatinine Ratio (7 - 25 %) 15.0 Glucose (65 - 99 mg/dL) 122 H Lactic Acid (0.7 - 2.1 mmol/L) 1.6 Calcium (8.4 - 10.2 mg/dL) 9.0 Total Bilirubin (0.2 - 1.3 mg/dL) 0.7 AST (17 - 59 U/L) 23 ALT (21 - 72 U/L) 32 Alkaline Phosphatase (< 127 U/L) 135 H Troponin I (<0.11 ng/ml) < 0.01 Total Protein (6.3 - 8.2 g/dL) 7.1 Albumin (3.5 - 5.0 g/dL) 3.4 L Globulin (1.9 - 4.2 gm/dL) 3.7 Albumin/Globulin Ratio (1.1 - 2.2 %) 0.9 L Hematology CBC w Diff NO MAN DIFF REQ WBC (4.8 - 10.8 /CUMM) 8.9 RBC (4.70 - 6.10 /CUMM) 3.65 L Hgb (14.0 - 18.0 G/DL) 10.7 L Hct (42 - 52 %) 32.7 L MCV (80.0 - 94.0 FL) 89.5 MCH (27.0 - 31.0 PG) 29.3 MCHC (33.0 - 37.0 G/DL) 32.8 L RDW (11.5 - 14.5 %) 14.9 H Plt Count (130 - 400 /CUMM) 228 MPV (7.4 - 10.4 FL) 7.3 L Gran % (42.2 - 75.2 %) 66.1 Lymphocytes % (20.5 - 51.1 %) 24.3 Monocytes % (1.7 - 9.3 %) 8.2 Eosinophils % (0 - 5 %) 0.9 Basophils % (0.0 - 2.0 %) 0.5 Absolute Granulocytes (1.4 - 6.5 /CUMM) 5.9 Absolute Lymphocytes (1.2 - 3.4 /CUMM) 2.2 Absolute Monocytes (0.10 - 0.60 /CUMM) 0.7 H Absolute Eosinophils (0.0 - 0.7 /CUMM) 0.1 Absolute Basophils (0.0 - 0.2 /CUMM) 0 Urines Urine Color (YEL,AMB,STR) YEL Urine Clarity (CLEAR) HAZY H Urine pH (5.0 - 8.0) 6.5 Ur Specific [place] (1.001 - 1.035) 1.015 Urine Protein (NEG,<30 MG/DL) 30 H Urine Ketones (NEG) NEG Urine Nitrite (NEG) POS H Urine Bilirubin (NEG) NEG Urine Urobilinogen (0.1 - 1.0 EU/dl) 0.2 Ur Leukocyte Esterase (NEG) LARGE H Ur Microscopic SEDIMENT EXAMINED Urine RBC (0 - 5 /HPF) 5-10 H Urine WBC (0 - 2 /HPF) > 75 H Urine Bacteria (NEG/NONE) FEW H Urine Hemoglobin (NEG) MOD H Urine Glucose (N MG/DL) NEG Images and report of CT of abd and pelvis reviewed. R ureteral stent is in good position. No hydronephrosis. 8mm peripheral R renal calculus Assessment/Plan Assessment/Plan Imp: 1. UTI, ? R pyelonephritis 2. Indwelling R ureteral stent 3. Non obstructing R renal stone 4. Hx of bladder ca 5. Multiple comorbidities Plan: 1. Abx per ID 2. Would keep on culture directed abx up until, and a couple of days after his scheduled R renal ESWL with Dr Nur. Consult Acknowledgment - Thank you for your consult request.
[2017-10-19 21:07] VITALS: BP 118/88
--- NOTE | 2017-10-19 22:07 | PN- Att Addend ---
Attending Addendum Attending Brief Note S: The patient is more near to baseline mental status per daughter and resident. Still c/o back pain and fatigue. The patient requested possible earlier intervention with kidney stone and possibly going home rather than back to [facility]. His daughter states he would have to do stairs to go home. No fever or chills. He was seen on rounds in morning at 9:30 am. O: VS: Vital Signs Date Time Temp Pulse Resp B/P B/P Pulse O2 O2 Flow FiO2 Mean Ox Delivery Rate 10/19 2106 98.9 98 20 118/88 100 Room Air 10/19 2047 98 118/88 10/19 1600 Room Air 10/19 1543 Room Air 10/19 1415 97.7 94 18 108/68 98 Room Air Intake & Output 10/19 1600 Intake Total 1480 Output Total 700 Balance 780 Intake, IV 1000 Intake, Oral 480 Number 2 Bowel Movements Output, Urine 700 Current Medications Sig/Royce Start time Last Medication Dose Route Stop Time Status Admin Acetaminophen 650 MG Q6P PRN 10/19 0200 AC PO Acetaminophen 1,000 MG Q6P PRN 10/19 0200 AC IV Aspirin 81 MG DAILY 10/19 09 DC 10/19 PO 0829 Atorvastatin Calcium 80 MG 1700 10/19 1700 AC 10/19 PO 1644 Ceftazidime 0 .STK-MED ONE 10/19 0008 DC .ROUTE Ceftazidime 1,000 MG ONCE ONE 10/18 2345 DC 10/19 IV 10/18 2346 0009 Ceftriaxone Sodium 1,000 MG DAILY 10/19 0900 AC 10/19 IV 0829 Duloxetine HCl 60 MG DAILY 10/19 09 AC 10/19 PO 0829 Insulin Aspart 0 TIDAC 10/19 1200 AC 10/19 SC 1255 Insulin Aspart 0 TIDAC 10/19 0800 DC SC Lidocaine 1 PAT Q24H PRN 10/19 0200 AC EXT Metoprolol Tartrate 50 MG BID 10/19 0301 AC 10/19 PO 204 Nystatin 1 KAYCEE BID 10/19 09 AC 10/19 TOP 2046 Omeprazole 40 MG DAILY AC 10/19 0700 AC 10/19 PO 0528 Polyethylene Glycol 17 GM AT BEDTIME PRN 10/19 0200 AC PO Senna/Docusate Sodium 2 TAB AT BEDTIME PRN 10/19 0200 AC PO Sodium Chloride 1,000 ML .Q8H 10/19 0145 AC 10/19 IV 1903 Sodium Chloride 1,000 ML BOLUS ONE 10/18 2215 DC 10/18 IV 10/19 0014 2254 Tamsulosin HCl 0.4 MG DAILY 10/19 0900 AC 10/19 PO 0829 HEENT: rusty- moist mucosa Chest: clear Cor: RRR nl S1, S2 w/o murm Abd: BS+, non-tender Ext: no edema Labs/Tests: Laboratory Tests 10/19/17 0710: Anion Gap 10, Estimated GFR > 60, BUN/Creatinine Ratio 13.8, CBC w Diff NO MAN DIFF REQ, RBC 3.60 L, MCV 89.2, MCH 29.9, MCHC 33.6, RDW 14.7 H, MPV 7.9, Gran % 68.8, Lymphocytes % 20.6, Monocytes % 8.8, Eosinophils % 1.4, Basophils % 0.4, Absolute Granulocytes 5.5, Absolute Lymphocytes 1.6, Absolute Monocytes 0.7 H, Absolute Eosinophils 0.1, Absolute Basophils 0 10/18/174: Lactic Acid Cancelled 10/18/172049: Anion Gap 10, Estimated GFR > 60, BUN/Creatinine Ratio 15.0, Glucose 122 H, Lactic Acid 1.6, Calcium 9.0, Total Bilirubin 0.7, AST 23, ALT 32, Alkaline Phosphatase 135 H, Troponin I < 0.01, Total Protein 7.1, Albumin 3.4 L, Globulin 3.7, Albumin/Globulin Ratio 0.9 L, CBC w Diff NO MAN DIFF REQ, RBC 3.65 L, MCV 89.5, MCH 29.3, MCHC 32.8 L, RDW 14.9 H, MPV 7.3 L, Gran % 66.1, Lymphocytes % 24.3, Monocytes % 8.2, Eosinophils % 0.9, Basophils % 0.5, Absolute Granulocytes 5.9, Absolute Lymphocytes 2.2, Absolute Monocytes 0.7 H, Absolute Eosinophils 0.1, Absolute Basophils 0 10/18/172038: Urine Color YEL, Urine Clarity HAZY H, Urine pH 6.5, Ur Specific [place] 1.015, Urine Protein 30 H, Urine Ketones NEG, Urine Nitrite POS H, Urine Bilirubin NEG, Urine Urobilinogen 0.2, Ur Leukocyte Esterase LARGE H, Ur Microscopic SEDIMENT EXAMINED, Urine RBC 5-10 H, Urine WBC > 75 H, Urine Bacteria FEW H, Urine Hemoglobin MOD H, Urine Glucose NEG Impression/Plan: #UTI- patient with low grade fever, etc. with pyuria. ID and Urology consults appreciated. Would treat this as upper tract infection as per ID as may be stone as nidus of bacteria. Previous culture grew reyes sensitive E coli. The patient did receive 1 dose of Cipro in STR, 1 dose of Ceftaz in ED and is now on Ceftriaxone. Did have 1 week of Ceftriaxone with last admission for sepsis or urologic origin. Concern regarding resistance? Plan: Will maintain in hospital under observation status. Should have urine culture results tomorrow- pending this will need 2 week course of Abx. Hopefully will be po Abx, however if EBSL may require IV therapy. #Deconditioning- patient still very deconditioned and weak. He wishes to potentially go home, however may be not possible. Plan: Await complete PT evaluation. #Nephrolithiasis- as above, may be nidus of infection. OR was planned for 10/31. Urology input appreciated. Plan: As per Urology, wish to defer procedure until 10/31 as planned with ongoing Antibiotic treatment (pending culture results). #Chronic Pain - on Cymbalta. Plan: Continue Cymbalta. #DM2- on Metformin as OP. Plan: Follow sugars with sliding scale insulin. #GERD- on Omeprazole. Plan: Continue Omeprazole. #Hyperlipidemia- on Atorvastatin. Plan: Continue Atorvastatin. #HTN- stable on Metoprolol. Plan: Continue Metoprolol.
[2017-10-20 06:21] VITALS: BP 120/86
--- NOTE | 2017-10-20 07:16 | PN- Housestaff ---
Fior Moore 10/20/17 0715: Subjective Follow-up For: Upper urinary tract infection Subjective: Pt seen and examined at bedside. Discontinued IV fluids. Patiet Review of Systems Constitutional: Denies: see HPI. Objective Last 24 Hrs of Vital Signs/I&O . Physical Exam General Appearance: Alert, Oriented X3, Cooperative, No Acute Distress Skin: No Rashes Skin Temp/Moisture Exam: Warm/Dry HEENT: Mucous Membr. moist/pink Neck: Supple Cardiovascular: Normal S1, Normal S2 Lungs: obstructed, decreased breath sounds Abdomen: Soft, No Tenderness, distended Extremities: Trace pedal edema Vascular: Normal Pulses Current Medications: Current Medications Sig/Royce Start time Last Medication Dose Route Stop Time Status Admin Acetaminophen 650 MG Q6P PRN 10/19 0200 AC PO Acetaminophen 1,000 MG Q6P PRN 10/19 0200 AC IV Atorvastatin Calcium 80 MG 1700 10/19 1700 AC 10/19 PO 1644 Ceftriaxone Sodium 1,000 MG DAILY 10/19 0900 AC 10/20 IV 0917 Duloxetine HCl 60 MG DAILY 10/19 09 AC 10/20 PO 0917 Insulin Aspart 0 TIDAC 10/19 1200 AC 10/20 SC 0917 Lidocaine 1 PAT Q24H PRN 10/19 0200 AC EXT Metoprolol Tartrate 50 MG BID 10/19 0301 AC 10/20 PO 0917 Nystatin 1 KAYCEE BID 10/19 09 AC 10/20 TOP 0918 Omeprazole 40 MG DAILY AC 10/19 0700 AC 10/20 PO 0626 Polyethylene Glycol 17 GM AT BEDTIME PRN 10/19 0200 AC PO Senna/Docusate Sodium 2 TAB AT BEDTIME PRN 10/19 0200 AC PO Sodium Chloride 1,000 ML .Q8H 10/19 0145 AC 10/20 IV 0918 Tamsulosin HCl 0.4 MG DAILY 10/19 09 AC 10/20 PO 0917 Last 24 Hrs of Lab/Mauricio Results Last 24 Hrs of Labs/Mics: Laboratory Tests 10/20/17 0612: Anion Gap 8, Estimated GFR > 60, BUN/Creatinine Ratio 12.5, CBC w Diff NO MAN DIFF REQ, RBC 3.55 L, MCV 89.3, MCH 30.1, MCHC 33.7, RDW 15.5 H, MPV 7.9, Gran % 61.7, Lymphocytes % 25.7, Monocytes % 8.8, Eosinophils % 3.2, Basophils % 0.6, Absolute Granulocytes 4.2, Absolute Lymphocytes 1.8, Absolute Monocytes 0.6, Absolute Eosinophils 0.2, Absolute Basophils 0 Assessment/Plan Assessment: Patient is a 77-year-old male with history of obstructive sleep apnea, hypertension, nephrolithiasis status post lithotripsy is in the past, prostate cancer status post TURP and scheduled to receive intravesicular chemotherapy by urologist Dr. Contreras in [facility]. Recently discharged from [facility] after he had presented with urinary complaints. He was found to be in new onset atrial fibrillation. Hospital stay was complicated by septic shock secondary to Escherichia coli urosepsis and bacteremia. He also had a gastrointestinal bleed after being started on anticoagulation therapy. Discharged to a senior care facility and returned with complaint of worsening lethargy over the past few days. Urinalysis was obtained at the senior care today and found to be abnormal. He was started on ciprofloxacin at home and sent out to the emergency room for evaluation given 1 X ceftaz. Started on ceftriaxone. Urology and infectious disease consulted. PROBLEM LIST: 1. Upper Urinary Tract Infection 2. Nephrolithiasis 3. Chronic Medical Conditions (Chronic Pain, HTN, HLD, DM) Upper Urinary Tract Infection Patient with reported fever at rehab of 100.4 and low grades during observation with pyuria. ID and Urology consulted. Treating patient as upper tract infection as per ID as may be stone as nidus of bacteria. Previous culture grew reyes sensitive E coli including most recent from rehab home. The patient did receive 1 dose of Cipro in STR, 1 dose of Ceftaz in ED and is now on Ceftriaxone. Did have 1 week of Ceftriaxone with last admission for sepsis or urologic origin. Infectious disease recommends Bactrim DS PO q12 hours for 12 more days. * Stable to discharge after observation in hospital back to [facility] * Discharge on Bactrim PO q 12 hours for 12 more days as per Infectious Disease * Pending stent removal on 10/31 by urology team * Afebrile with no leukocytosis or gross hematuria prior to discharge Deconditioning Patient still very deconditioned and weak. He wishes to potentially go home, however may be not possible considering he has significant stairs at home as per daughter. * Completed PT Evaluation who recommends Short Term Rehab - patient will return to [facility] today from observation Nephrolithiasis May be nidus of infection. OR was planned for 10/31. Urology/ID consulted. * Cultures from rehab positive for E. Coli that is reyes sensitive; Infectious disease on board will continue patient on Bactrim DS PO every 12 hours for 12 more days - appreciate Dr. Birch recommendations * As per Urology, defer procedure until 10/31 as planned with ongoing Antibiotic treatment Chronic Pain * Continue Cymbalta. DM2 * ISS + accu-checks GERD * Continue Omeprazole. Hyperlipidemia * Continue Atorvastatin. Hypertension * Continue Metoprolol Code Status: Full Code DVT PPx: ALPS Diet: CC3 Problem List: 1. UTI (urinary tract infection) 2. Back pain Pain Ratin Pain Location: back Pain Goal: Pain 4 or less Pain Plan: as per pain pathway Tomorrow's Labs & Rationales: DISCHARGE Michele Arrington MD 10/20/17 4755: Attending MD Review Statement Attending Statement Attending MD Statement: examined this patient, discuss w/resident/PA/RN STAFFING, agreed w/resident/PA/RN STAFFING, reviewed EMR data (avail), discussed with nursing, discussed with case mgmt, amended to note Attending Assessment/Plan: The patient was seen and discussed with house staff. ID, Urology, and Psych input appreciated. OK to discharge today on po Bactrim x total 14 day course and plan to do urologic procedure on 11/01 as scheduled. Will return to [facility] for rehab.
[2017-10-20 07:50] LABS: ABSOLUTE BASOPHIL COUNT 0 /CUMM (0.0-0.2); ABSOLUTE EOSINOPHIL COUNT 0.2 /CUMM (0.0-0.7); ABSOLUTE GRANULOCYTE CT 4.2 /CUMM (1.4-6.5); ABSOLUTE LYMPH COUNT 1.8 /CUMM (1.2-3.4); ABSOLUTE MONOCYTE COUNT 0.6 /CUMM (0.10-0.60); BASOPHIL % 0.6 % (0.0-2.0); EOSINOPHIL % 3.2 % (0-5); GRANULOCYTE % 61.7 % (42.2-75.2); HEMATOCRIT 31.7 % (42-52); MEAN CORPUSCULAR HGB 30.1 PG (27.0-31.0); MEAN CORPUSCULAR HGB CONC 33.7 G/DL (33.0-37.0); MEAN CORPUSCULAR VOLUME 89.3 FL (80.0-94.0); MEAN PLATELET VOLUME 7.9 FL (7.4-10.4); PLATELET COUNT 203 /CUMM (130-400); RBC DISTRIBUTION WIDTH 15.5 % (11.5-14.5); RED BLOOD CELL CT 3.55 /CUMM (4.70-6.10); WHITE BLOOD CELL COUNT 6.9 /CUMM (4.8-10.8)
--- NOTE | 2017-10-20 10:45 | Discharge Summary ---
Visit Information Visit Dates Admission Date: 10/19/17 Discharge Date: 10/20/17 Hospital Course Course Attending Physician: Michele Arrington MD Primary Care Physician: Alivia DIXON,Mary A. Alley Hospital Course: The patient is 77-year-old gentleman with past medical history of hypertension, diabetes, obstructive sleep apnea, bladder cancer, treated with 12 out of a planned 15 or 18 chemotherapy sessions by his urologist, Dr. Contreras, BPH, nephrolithiasis. He has history of recurrent urinary tract infections, 3 weeks prior to the current admission patient was treated in [facility] for sepsis of urological origin secondary to E. coli. During last admission he underwent placement of a right ureteral stent secondary to mild right hydronephrosis and hydroureter with nonobstructive 8 mm stone in the right kidney. His hospital course at that time was complicated by an upper GI bleed secondary to ulcerative esophagitis and numerous duodenal ulcers (NSAID abuse). He was discharged to a rehab facility to complete 2 week course of antibiotics. The patient was admitted to [facility] on October 18 with complain of fatigue urinary urgency frequency and foul-smelling urine ongoing for 2 days. Patient spiked a low grade fever of 100.4 and received 1 dose of ciprofloxacin at the facility and urine culture was sent. Patient was afebrile on presentation, without a white count however his urine was positive for leukoesterase and nitrate with greater than 75 WBCs. Blood cultures were drawn and urine culture were sent again. Patient received 1 dose of ceftriaxone in ED. The patient was placed on observation in general medicine floor for evaluation and treatment of urinary tract infection. Ceftriaxone was continued. And ID services were consulted. Patient's urine culture from the facility grew pansensitive E. coli. However the culture done in the hospital remains negative secondary to antibiotic use. After discussion with ID we are going to discharge patient on Bactrim to complete a total of 14 day course. Patient has been evaluated by physical therapy and has been deemed deconditioned and weak. Even the patient wants to be discharged home he is will be discharged to [facility]. Patient is scheduled to get stent removal on 10/[address] Nur. His diabetes was managed by insulin sliding scale. Rest of his home medications were continued. We are going to continue holding his anticoagulation despite history of atrial fibrillation in setting of recent GI bleed. Patient was full code during his stay. Allergies: Coded Allergies: No Known Allergies (09/25/17) Disposition Summary Disposition Principal Diagnosis: Urinary tract infection Additional Diagnosis: Deconditioning/weakness Discharge Disposition: SNF Discharge Instructions General Discharge Information Code Status: Full Code Patient's Diet: Diabetic Patient's Activity: As tolerated Follow-Up Instructions/Appts: Follow-up with PCP within 1 week of discharge Follow-up with Dr. Nur for stent removal. Continue antibiotic course for 12 more days to finish a 14-day course Medications at Discharge Discharge Medications: Stop taking the following medications: Ciprofloxacin HCl (Cipro) 500 MG TABLET ORAL TWICE DAILY Continue taking these medications: Tamsulosin HCl (Flomax) 0.4 MG CAP.ER.24H 1 Capsule ORAL DAILY Qty = 30 Comments: Last Taken: 10/20/17 Time: 09 Aspirin (Aspirin*) 81 MG TAB.CHEW 1 Tablet ORAL DAILY Qty = 30 Comments: Last Taken: 10/10/17 Time: 0900AM Metformin HCl (Glucophage) 1,000 MG TABLET 1 Tablet ORAL TWICE DAILY Qty = 60 Comments: NOT GIVEN IN HOSPITAL Duloxetine HCl (Cymbalta) 60 MG CAPSULE.DR 1 Capsule ORAL DAILY Qty = 30 Comments: Last Taken: 10/20/17 Time: 0917 Rosuvastatin Calcium (Crestor) 40 MG TABLET 1 Tablet ORAL TAKE AT BEDTIME Qty = 30 Comments: NOT GIVEN IN HOSPITAL Triamcinolone Acetonide (Triamcinolone Acetonide) 0.025 % CREAM..G. 1 Application On the skin TWICE DAILY as needed for PSORIASIS Qty = 1 Instructions: apply to affected area(s) Comments: NOT GIVEN IN HOSPITAL Clobetasol Propionate (Clobetasol Propionate) 0.05 % OINT...G. 1 Application On the skin TWICE DAILY as needed for PSORIASIS Qty = 1 Instructions: apply to affected area(s) Comments: NOT GIVEN IN HOSPITAL Calcipotriene (Calcipotriene) 0.005 % SOLUTION 1 Application On the skin DAILY as needed for PSORIASIS Qty = 1 Comments: NOT GIVEN IN HOSPITAL Metoprolol Tartrate (Metoprolol Tartrate) 50 MG TABLET 50 Milligram ORAL TWICE DAILY Qty = 60 Comments: Last Taken: 10/20/17 Time: 0917AM Omeprazole (Omeprazole) 40 MG CAPSULE.DR 1 Capsule ORAL TWICE DAILY Qty = 60 Comments: Last Taken: 10/20/17 Time: 0626AM Insulin Aspart (Novolog) 100 UNIT/ML VIAL 0 Units SC 3 TIMES DAILY BEFORE MEALS Qty = 4 Instructions: BloodSugar Meal. <80 0 81-150 0 151-200 1 201-250 2 251-300 3 301-350 4 351-400 6 More than 400 8 units Call your doctor Comments: Last Taken: 10/20/17 Time: 1200 PM Start taking the following new medications: Sulfamethoxazole/Trimethoprim (Bactrim Ds Tablet) 800 MG-160 MG TABLET 1 Tablet ORAL TWICE DAILY Qty = 24 No Refills Comments: NOT GIVEN IN HOSPITAL Copies To: Alivia DIXON,Johnna; Boom DIXON,Malachi Attending MD Review Statement Documenting Attending: Michele Arrington MD Other Findings: Agree with the above summary of care. The patient will return to [facility] [place] for further rehab on Bactrim DS for total of 14 days. Will undergo urologic procedure as scheduled with Dr. Nur on 11/01.
--- NOTE | 2017-10-20 11:03 | Patient Discharge Instructions ---
Discharge Instructions General Discharge Information You were seen/treated for: Upper Urinary Tract Infection Special Instructions: Please follow up with PCP within 1-2 weeks of discharge. Please follow up with your urologist upon discharge. Continue antibiotic Bactrim for 12 more days. Return if worsening back pain, fevers, chills, hematuria, dysuria, urgency or frequency. Acute Coronary Syndrome Inclusion Criteria At DC or during hospital stay patient has or had the following: ACS DIAGNOSIS No Discharge Core Measures Meds if any: Prescribed or Continued at Discharge Meds if any: NOT Prescribed or Continued at Discharge Congestive Heart Failure Inclusion Criteria At DC or during hospital stay patient has or had the following: CHF DIAGNOSIS No Discharge Core Measures Meds if any: Prescribed or Continued at Discharge Meds if any: NOT Prescribed or Continued at Discharge Cerebrovascular accident Inclusion Criteria At DC or during hospital stay patient has or had the following: CVA/TIA Diagnosis No Discharge Core Measures Meds if any: Prescribed or Continued at Discharge Meds if any: NOT Prescribed or Continued at Discharge Venous thromboembolism Inclusion Criteria VTE Diagnosis No VTE Type NONE VTE Confirmed by (Test) NONE Discharge Core Measures - Per Current guidelines, there needs to be overlap - treatment for the first 5 days of Warfarin therapy. - If discharged on Warfarin prior to 5 days of - overlap therapy, the patient will need to be - assessed for post discharge needs including - *Post discharge parental anticoagulation - *Warfarin and/or parental anticoagulation education - *Follow up date to check INR post discharge At least 5 days overlap therapy as Inpatient No Meds if any: Prescribed or Continued at Discharge Note: Overlap Therapy is Warfarin and Anticoagulant Meds if any: NOT Prescribed or Continued at Discharge
--- NOTE | 2017-10-20 11:11 | PN- Infect Dx ---
Subjective Subjective: Afebrile. He feels well with improvement in his urinary symptoms. He also notes decreased back pain. Objective Last 24 Hrs of Vital Signs/I&O Vital Signs Date Time Temp Pulse Resp B/P B/P Pulse O2 O2 Flow FiO2 Mean Ox Delivery Rate 10/20 0817 74 120/86 10/20 0917 74 120/86 10/20 0800 100 Room Air 10/20 0621 98.6 74 20 120/86 95 Room Air 10/19 2107 98.9 98 20 118/88 100 Room Air 10/19 2047 98 118/88 10/19 1600 Room Air 10/19 1543 Room Air 10/19 1415 97.7 94 18 108/68 98 Room Air Intake & Output 10/20 1600 10/20 0800 10/20 0000 Intake Total 1000 1000 Output Total 850 100 Balance 150 900 Intake, IV 1000 1000 Output, Urine 850 100 Physical Exam Other Physical Findings: He appears comfortable in no acute distress Lungs bibasilar crackles Heart irregular rhythm with no murmur Abdomen is soft, nontender with positive bowel sounds Back right CVA tenderness Extremities no cyanosis, clubbing or edema Results Last 24 Hours of Lab Results: Laboratory Tests 10/21 611 Chemistry Sodium (137 - 145 mmol/L) 137 Potassium (3.5 - 5.1 mmol/L) 3.7 Chloride (98 - 107 mmol/L) 102 Carbon Dioxide (22 - 30 mmol/L) 27 Anion Gap (5 - 16) 8 BUN (9 - 20 mg/dL) 10 Creatinine (0.7 - 1.2 mg/dL) 0.8 Estimated GFR (>60 ml/min) > 60 BUN/Creatinine Ratio (7 - 25 %) 12.5 Hematology CBC w Diff NO MAN DIFF REQ WBC (4.8 - 10.8 /CUMM) 6.9 RBC (4.70 - 6.10 /CUMM) 3.55 L Hgb (14.0 - 18.0 G/DL) 10.7 L Hct (42 - 52 %) 31.7 L MCV (80.0 - 94.0 FL) 89.3 MCH (27.0 - 31.0 PG) 30.1 MCHC (33.0 - 37.0 G/DL) 33.7 RDW (11.5 - 14.5 %) 15.5 H Plt Count (130 - 400 /CUMM) 203 MPV (7.4 - 10.4 FL) 7.9 Gran % (42.2 - 75.2 %) 61.7 Lymphocytes % (20.5 - 51.1 %) 25.7 Monocytes % (1.7 - 9.3 %) 8.8 Eosinophils % (0 - 5 %) 3.2 Basophils % (0.0 - 2.0 %) 0.6 Absolute Granulocytes (1.4 - 6.5 /CUMM) 4.2 Absolute Lymphocytes (1.2 - 3.4 /CUMM) 1.8 Absolute Monocytes (0.10 - 0.60 /CUMM) 0.6 Absolute Eosinophils (0.0 - 0.7 /CUMM) 0.2 Absolute Basophils (0.0 - 0.2 /CUMM) 0 Last 24 Hours of Mauricio Results: Urine culture October 18 greater than 100,000 colonies of E. coli sensitive to all antibiotics tested Blood cultures x 2 October 18 negative Assessment/Plan ID Impression: Stable, with his temperatures and white blood cell count remaining normal, on Ceftriaxone, Day 2 of treatment for a recurrent urinary tract infection secondary to a very sensitive E. coli. His recurrent infection may be related to the persistent stone in the right kidney, though it is not causing obstructing or, perhaps, to his stent, which could be infected. Urology input appreciated, with no plans for intervention at this time, but he is scheduled for an ESWL on October 31. Though his temperatures and white blood cell count are normal he reportedly had a low-grade fever prior to admission and he does appear to have right flank tenderness; therefore he can be treated with a two week course of antibiotics for a presumed upper tract infection and will, therefore, still be on antibiotics at the time of his ESWL. Suggestion: 1. Await ESWL, scheduled for October 31 2. Discontinue Ceftriaxone 3. Begin Bactrim DS 1 p.o. every 12 hours for 12 more days
[2017-10-20] MEDS ORDERED: BACTRIM DS TAB1 EACH PO ×2 (11:14→11:15)
[2017-10-20 12:47] VITALS: BP 120/86
== END 2017-10-20 13:45 ==
LOC: ERH 19:16 → ERHI 10-19 00:08 → 2NB 10-19 00:08 → ENRESERV 10-19 01:47 → 2NB 10-19 01:56
PROVIDERS: Physical Medicine & Rehabilitation Pain Medicine; Physician Assistant; Student in an Organized Health Care Education/Training Program
DX: N39.0 Urinary tract infection, site not specified (principal); Z85.51 Personal history of malignant neoplasm of bladder; I48.0 Paroxysmal atrial fibrillation; Z79.01 Long term (current) use of anticoagulants; I10 Essential (primary) hypertension; E78.5 Hyperlipidemia, unspecified; E11.9 Type 2 diabetes mellitus without complications; Z79.4 Long term (current) use of insulin; Z79.84 Long term (current) use of oral hypoglycemic drugs; Z79.82 Long term (current) use of aspirin; M19.90 Unspecified osteoarthritis, unspecified site; G47.33 Obstructive sleep apnea (adult) (pediatric); N40.0 Benign prostatic hyperplasia without lower urinary tract symptoms; N20.0 Calculus of kidney
CPT/HCPCS: 36592; 74176; 81001; 82436; 87040; 87086; 93005; 93010; 96374; 96375; 96376; 97110-GP; 97116-GP; 97161-GP; 97530-GP; G0378; G8978-GP; G8979-GP; J0696; J0713; J3490

== ENCOUNTER → 2017-10-31 | Day surgery (SDC) | payer OTHER, MEDICARE ==
[~2017-10-31] VITALS: Ht 182.9 cm; Wt 113.4 kg
[~2017-10-31] MED LIST changes: +BACTRIM DS TAB1 EACH PO; +CIPRO500 M1 PO
--- NOTE | 2017-10-31 13:40 | Operative Report ---
Operative/Inv Procedure Report Surgery Date: 10/31/17 Name of Procedure: right renal eswl, fluroscopy: cysto. right stent removal. Pre-Operative Diagnosis: right stone and stent Post-Operative Diagnosis: same Estimated Blood Loss: scant Surgeon/Dining Service Supervisor: Malachi Nur MD Anesthesia: moderate sedation Specimens: right stent Complications: none Operative/Procedure Note Note: The patient was taken to the operating room placed on the OR table in supine position. Timeout was performed, with the patient awake, in order to confirm correct procedure, laterality, anesthesia, and other pertinent perioperative information. After adequate anesthesia and antibiotics, the patient was then positioned over the ESWL table cutout overlying the treatment dome. Fluoroscopy, using AP and oblique views, as well as renal ultrasound, or performed in order to locate the stone. The position of the RIGHT renal stone was optimized, and positioned in the middle of the ESWL crosshairs. The stone was measured to be approximately 10 mm in size. ESWL was initiated at low power, and after 200 shockwaves delivered, noting the patient's tolerance to the shockwaves, the power was increased to maximum. At the end of 2500 shockwaves, fluoroscopy confirms the change in consistency of the stone, indicating shattering of the stone. The patient was then frog legged, draped and prepped in the usual surgical fashion. 22 Lao cystoscope sheath with a 30 angle lens was inserted into the bladder without difficulty. The left stent was visualized, and grasped with alligator forceps. The cystoscope along with entire stent was removed without difficulty with fluoroscopic visualization. All sponge needle and instrument count were correct at the end of the case. The patient tolerated the procedures well, and was taken to the recovery room in satisfactory condition. The patient is discharged home with pain medication, and follow-up instructions with in 2-3 weeks' time. Discharge Disposition: Same Day Admissions CC: Malachi Nur MD
== END ==
LOC: STS 03:16
DX: N20.0 Calculus of kidney (principal); Z85.51 Personal history of malignant neoplasm of bladder; I48.91 Unspecified atrial fibrillation; E11.8 Type 2 diabetes mellitus with unspecified complications; Z79.4 Long term (current) use of insulin; I10 Essential (primary) hypertension
CPT/HCPCS: J2250